=== PATIENT | male | born 1990 | race Caucasian/White ===

== ENCOUNTER → 2016-12-19 | Outpatient (CLI) | payer OTHER ==
[2016-12-19 10:58] LABS: ABSOLUTE LYMPHOCYTES (AUTO) 1.3 10^3/uL (0.5-4.7); ABSOLUTE MONOCYTES (AUTO) 0.4 10^3/uL (0.1-1.4); ABSOLUTE NEUT (AUTO) 3.4 10^3/uL (1.7-8.2); BASOPHILS % (AUTO) 0.5 % (0-2); EOSINOPHILS % (AUTO) 0.9 % (0-6); HEMOGLOBIN 14.6 g/dL (13.5-17.0); HGB HCT DIFFERENCE 0.8; LYMPHOCYTES % (AUTO) 25.5 % (13-45); MEAN CORPUSCULAR HEMOGLOBIN 28.8 pg (27.0-33.4); MEAN CORPUSCULAR HGB CONC 33.9 g/dL (32.0-36.0); MEAN CORPUSCULAR VOLUME 85 fl (80-97); MONOCYTES % (AUTO) 8.3 % (3-13); RED BLOOD COUNT 5.07 10^6/uL (4.35-5.55); RED CELL DISTRIBUTION WIDTH 13.9 % (11.5-14.0); SEGMENTED NEUTROPHILS % (AUTO) 64.8 % (42-78); WHITE BLOOD COUNT 5.3 10^3/uL (4.0-10.5)
[2016-12-19 11:20] LABS: ALANINE AMINOTRANSFERASE 24 U/L (21-72); ALBUMIN 4.4 g/dL (3.5-5.0); ALKALINE PHOSPHATASE 66 U/L (38-126); ANION GAP 10 (5-19); ASPARTATE AMINO TRANSFERASE 21 U/L (17-59); BILIRUBIN,TOTAL 0.7 mg/dL (0.2-1.3); BLOOD UREA NITROGEN 6 mg/dL (7-20); CALCIUM 10.8 mg/dL (8.4-10.2); CARBON DIOXIDE 29 mmol/L (22-30); CHLORIDE 97 mmol/L (98-107); CHOLESTEROL 142.59 mg/dL (0-200); Direct HDL 40 mg/dL (>40); GLUCOSE 88 mg/dL (75-110); POTASSIUM 4.6 mmol/L (3.6-5.0); SODIUM 135.5 mmol/L (137-145); TOTAL PROTEIN 7.4 g/dL (6.3-8.2); TRIGLYCERIDES 100 mg/dL (<150)
[2016-12-19 11:31] LABS: DIRECT LDL 69 mg/dL (<100); VALPROIC ACID 86.7 ug/mL (50.0-120.0)
== END ==
LOC: OD 09:31
PROVIDERS: ATTEND Nurse Practitioner Psychiatric/Mental Health
DX: F63.81 Intermittent explosive disorder (principal)
CPT/HCPCS: 36415; 80053; 80061; 80164; 83036; 84443; 85025

== ENCOUNTER 2017-01-09 11:08 | Emergency (ER) | payer OTHER, MEDICAID ==
--- NOTE | 2017-01-09 11:28 | ER Document Report ---
ED Medical Screen (RME) - General Stated Complaint: PSYCH EVAL Mode of Arrival: Ambulatory Notes: Patient presents to the emergency department with his crisis workers for aggressive behavior kicking punching. Patient has history of schizophrenia MR, Autism. Seen by his primary care provider and sent over here. I have greeted and performed a rapid initial assessment of this patient. A comprehensive ED assessment and evaluation of the patient, analysis of test results and completion of the medical decision making process will be conducted by additional ED providers. TRAVEL OUTSIDE OF THE [place] IN LAST 30 DAYS: No - Related Data Allergies/Adverse Reactions: No Known Allergies Allergy (Verified 01/09/17 11:25) Past Medical History - Past Medical History Cardiac Medical History: Reports: Hx Atrial Fibrillation, Hx Heart Attack - valve condition Psychiatric Medical History: Reports: Hx Attention Deficit Hyperactivity Disorder - autism Past Surgical History: Reports: Hx Cardiac Catheterization, Hx Cardiac Surgery - Aortic Valve Replacement. VSD repair, Hx Orthopedic Surgery - Hardware of spine for scoliosis - Immunizations Hx Diphtheria, Pertussis, Tetanus Vaccination: Yes Physical Exam - Vital signs Vitals: Temp Pulse Resp BP Pulse Ox 97.3 F 83 16 147/74 H 99 01/09/17 11:18 01/09/17 11:18 01/09/17 11:18 01/09/17 11:18 01/09/17 11:18 Course - Vital Signs Vital signs: Temp Pulse Resp BP Pulse Ox 97.3 F 83 16 147/74 H 99 01/09/17 11:18 01/09/17 11:18 01/09/17 11:18 01/09/17 11:18 01/09/17 11:18
[2017-01-09 12:10] LABS: ABSOLUTE MONOCYTES (AUTO) 0.4 10^3/uL (0.1-1.4); ABSOLUTE NEUT (AUTO) 5.1 10^3/uL (1.7-8.2); BASOPHILS % (AUTO) 0.5 % (0-2); EOSINOPHILS % (AUTO) 0.4 % (0-6); HEMATOCRIT 40.8 % (37.9-51.0); HEMOGLOBIN 14.1 g/dL (13.5-17.0); HGB HCT DIFFERENCE 1.5; LYMPHOCYTES % (AUTO) 15.4 % (13-45); MEAN CORPUSCULAR HEMOGLOBIN 29.5 pg (27.0-33.4); MEAN CORPUSCULAR HGB CONC 34.6 g/dL (32.0-36.0); MEAN CORPUSCULAR VOLUME 85 fl (80-97); MONOCYTES % (AUTO) 6.8 % (3-13); RED BLOOD COUNT 4.79 10^6/uL (4.35-5.55); RED CELL DISTRIBUTION WIDTH 14.3 % (11.5-14.0); SEGMENTED NEUTROPHILS % (AUTO) 76.9 % (42-78); WHITE BLOOD COUNT 6.6 10^3/uL (4.0-10.5)
[2017-01-09 12:11] LABS: APPEARANCE,URINE CLEAR; BILIRUBIN,URINE NEGATIVE (NEGATIVE); GLUCOSE, URINE NEGATIVE (NEGATIVE); KETONES,URINE NEGATIVE (NEGATIVE); LEUKOCYTE ESTERASE,URINE NEGATIVE (NEGATIVE); NITRITE,URINE NEGATIVE (NEGATIVE); PROTEIN,URINE NEGATIVE (NEGATIVE); URINE SPECIFIC GRAVITY 1.005; UROBILINOGEN,URINE NEGATIVE mg/dL (<2.0)
[2017-01-09 12:30] LABS: URINE BARBITURATES SCREEN NEGATIVE; URINE METHADONE SCREEN NEGATIVE; URINE OPIATES LOW NEGATIVE; URINE PHENCYCLIDINE SCREEN NEGATIVE
[2017-01-09 12:32] LABS: ALANINE AMINOTRANSFERASE 24 U/L (21-72); ALBUMIN 4.5 g/dL (3.5-5.0); ALCOHOL < 10 mg/dL (NONE DETECTED); ALKALINE PHOSPHATASE 61 U/L (38-126); ANION GAP 11 (5-19); ASPARTATE AMINO TRANSFERASE 20 U/L (17-59); BILIRUBIN,DIRECT 0.2 mg/dL (0.0-0.4); BILIRUBIN,TOTAL 0.5 mg/dL (0.2-1.3); BLOOD UREA NITROGEN 7 mg/dL (7-20); CALCIUM 10.7 mg/dL (8.4-10.2); CARBON DIOXIDE 27 mmol/L (22-30); CHLORIDE 97 mmol/L (98-107); CREATININE RESULT 0.47 mg/dL (0.52-1.25); GLUCOSE 97 mg/dL (75-110); POTASSIUM 4.4 mmol/L (3.6-5.0); TOTAL PROTEIN 7.4 g/dL (6.3-8.2)
[2017-01-09] MEDS ORDERED: HALOPERIDOL LACTATE INJ 5 MG/1 ML VIAL IM ONE (13:59)
[2017-01-09] MEDS ORDERED: LORAZEPAM INJ 2 MG/1 ML VIAL IM ONE (13:59)
[2017-01-09] MEDS ORDERED: DIPHENHYDRAMINE HCL 50 MG/ML VIAL IM ONE (13:59)
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
[2017-01-09 14:32] LABS: PROTHROMBIN TIME 24.1 SEC (11.4-15.4)
--- NOTE | 2017-01-09 15:58 | EKG REPORT ---
SEVERITY:- ABNORMAL ECG - SINUS RHYTHM RIGHT BUNDLE BRANCH BLOCK PROBABLE LEFT VENTRICULAR HYPERTROPHY : Confirmed by: Nat Osborn 09-Jan-2017 15:57:08
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
[2017-01-09] MEDS ORDERED: WARFARIN SODIUM 5 MG TABLET PO SCH (22:00)
[2017-01-09] MEDS: HYDROXYZINE PAMOATE 50 MG CAPSULE PO SCH (22:00)
[2017-01-09] MEDS: METOPROLOL TARTRATE 25 MG TABLET PO SCH (22:00)
[2017-01-10] MEDS ORDERED: LORAZEPAM 1 MG TABLET PO PRN (09:16)
--- NOTE | 2017-01-10 09:16 | ER Document Report ---
Doctor's Note Notes: 01/10/17 09:16 Provider note: This is a 26-year-old man with a history of AVR (Coumadin), and autism who was referred to the ER for an exacerbation of aggressive behavior. The patient did require sedation with Ativan, Haldol and Benadryl on arrival for aggressive behavior. The patient's labs are stable. His vital signs remarkable for mild elevation in his blood pressure. CT of the head was without acute disease process. On physical exam, the patient is alert and oriented 3 and a sitting in the chair moving back and forth. He denies any problems at this time. He appears emotionally labile, although he is controlling himself at this time. He is about to get morning medicines. His physical exam is unremarkable. We are awaiting psychiatric evaluation. 01/10/17 11:35 Note: I spoke with Nelly jones from the family medicine clinic (phone number [phone]) who arranges adjustments for the Coumadin with the pharmacy. The goal of the INR is between 2 and 2.5. They have recommended that the patient receive 10 mg of Coumadin Monday, Monday and Monday. There have recommended that the patient received 7.5 mg of Coumadin or other days. 01/10/17 11:37
[2017-01-10] MEDS: LANSOPRAZOLE 15 MG TAB.RAP.DR PO SCH (09:29)
[2017-01-10] MEDS: DIVALPROEX SODIUM 500 MG TAB.SR.24H PO SCH ×2 (09:29→18:31)
[2017-01-10] MEDS: BENZTROPINE MESYLATE 1 MG TABLET PO SCH ×2 (09:30→18:31)
[2017-01-10] MEDS: METOPROLOL TARTRATE 25 MG TABLET PO SCH ×2 (09:30→21:42)
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
[2017-01-10] MEDS ORDERED: WARFARIN SODIUM 7.5 MG TABLET PO SCH ×2 (11:45→22:00)
[2017-01-10] MEDS ORDERED: ZIPRASIDONE MESYLATE INJ/PF 20 MG SDV IM SCH (13:00)
[2017-01-10] MEDS ORDERED: OLANZAPINE INJ/PF 10 MG SDV IM SCH (13:00)
[2017-01-10] MEDS ORDERED: OLANZAPINE INJ/PF 10 MG SDV IM PRN (13:02)
[2017-01-10] MEDS ORDERED: ZIPRASIDONE MESYLATE INJ/PF 20 MG SDV IM ONE (14:30)
[2017-01-10] MEDS ORDERED: WARFARIN SODIUM 2.5 MG TABLET ONE (21:40)
[2017-01-10] MEDS: OXCARBAZEPINE 150 MG TABLET PO SCH (21:42)
[2017-01-10] MEDS: HYDROXYZINE PAMOATE 50 MG CAPSULE PO SCH (21:44)
[2017-01-10] MEDS: ZIPRASIDONE MESYLATE INJ/PF 20 MG SDV IM SCH (21:44)
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
[2017-01-11] MEDS: METOPROLOL TARTRATE 25 MG TABLET PO SCH (10:19)
[2017-01-11] MEDS: ZIPRASIDONE MESYLATE INJ/PF 20 MG SDV IM SCH (10:19)
[2017-01-11] MEDS: BENZTROPINE MESYLATE 1 MG TABLET PO SCH (10:19)
[2017-01-11] MEDS: OXCARBAZEPINE 150 MG TABLET PO SCH (10:20)
[2017-01-11] MEDS: DIVALPROEX SODIUM 500 MG TAB.SR.24H PO SCH (10:20)
[2017-01-11] MEDS: LANSOPRAZOLE 15 MG TAB.RAP.DR PO SCH (10:20)
[2017-01-11] MEDS ORDERED: WARFARIN SODIUM 5 MG TABLET PO SCH ×2 (11:30→22:00)
[2017-01-11 15:51] VITALS: BP 135/76
== END 2017-01-11 15:51 ==
LOC: ER 11:08
DX: F91.1 Conduct disorder, childhood-onset type (principal); F23 Brief psychotic disorder; F79 Unspecified intellectual disabilities; F84.0 Autistic disorder; F25.0 Schizoaffective disorder, bipolar type; I48.91 Unspecified atrial fibrillation; F90.9 Attention-deficit hyperactivity disorder, unspecified type; Z95.2 Presence of prosthetic heart valve; Z79.02 Long term (current) use of antithrombotics/antiplatelets; I25.2 Old myocardial infarction
CPT/HCPCS: 93005; 99285; 96372; 36415; 80307 ×4; 82140; 80156; 85025; 85610; 80053; 81001; 80164; 70450; 93010; J1200; J1630; J2060; J3486

== ENCOUNTER 2017-01-13 15:02 | Emergency (ER) | payer OTHER, MEDICAID ==
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
[2017-01-13 16:10] LABS: ABSOLUTE EOSINOPHILS # (AUTO) 0.2 10^3/uL (0.0-0.6); ABSOLUTE LYMPHOCYTES (AUTO) 1.1 10^3/uL (0.5-4.7); ABSOLUTE MONOCYTES (AUTO) 0.8 10^3/uL (0.1-1.4); ABSOLUTE NEUT (AUTO) 4.4 10^3/uL (1.7-8.2); BASOPHILS % (AUTO) 0.4 % (0-2); EOSINOPHILS % (AUTO) 3.1 % (0-6); HEMATOCRIT 37.9 % (37.9-51.0); HEMOGLOBIN 13.2 g/dL (13.5-17.0); HGB HCT DIFFERENCE 1.7; LYMPHOCYTES % (AUTO) 17.5 % (13-45); MEAN CORPUSCULAR HEMOGLOBIN 29.2 pg (27.0-33.4); MEAN CORPUSCULAR HGB CONC 34.8 g/dL (32.0-36.0); MEAN CORPUSCULAR VOLUME 84 fl (80-97); MONOCYTES % (AUTO) 12.1 % (3-13); RED BLOOD COUNT 4.51 10^6/uL (4.35-5.55); RED CELL DISTRIBUTION WIDTH 13.5 % (11.5-14.0); SEGMENTED NEUTROPHILS % (AUTO) 66.9 % (42-78); WHITE BLOOD COUNT 6.6 10^3/uL (4.0-10.5)
[2017-01-13 16:26] LABS: ALANINE AMINOTRANSFERASE 30 U/L (21-72); ALBUMIN 3.9 g/dL (3.5-5.0); ALKALINE PHOSPHATASE 58 U/L (38-126); ANION GAP 11 (5-19); ASPARTATE AMINO TRANSFERASE 31 U/L (17-59); BILIRUBIN,DIRECT 0.1 mg/dL (0.0-0.4); BILIRUBIN,TOTAL 0.5 mg/dL (0.2-1.3); BLOOD UREA NITROGEN 10 mg/dL (7-20); CALCIUM 9.8 mg/dL (8.4-10.2); CARBON DIOXIDE 28 mmol/L (22-30); CHLORIDE 92 mmol/L (98-107); CREATININE RESULT 0.57 mg/dL (0.52-1.25); GLUCOSE 95 mg/dL (75-110); POTASSIUM 3.6 mmol/L (3.6-5.0); SODIUM 130.7 mmol/L (137-145); TOTAL PROTEIN 6.3 g/dL (6.3-8.2)
[2017-01-13 16:30] LABS: APPEARANCE,URINE CLEAR; BILIRUBIN,URINE NEGATIVE (NEGATIVE); GLUCOSE, URINE NEGATIVE (NEGATIVE); KETONES,URINE NEGATIVE (NEGATIVE); LEUKOCYTE ESTERASE,URINE NEGATIVE (NEGATIVE); NITRITE,URINE NEGATIVE (NEGATIVE); PROTEIN,URINE 30 mg/dL (NEGATIVE); URINE SPECIFIC GRAVITY 1.026
[2017-01-13 16:31] LABS: ALCOHOL < 10 mg/dL (NONE DETECTED); VALPROIC ACID 87.1 ug/mL (50.0-120.0)
[2017-01-13 16:39] LABS: URINE BARBITURATES SCREEN NEGATIVE; URINE METHADONE SCREEN NEGATIVE; URINE OPIATES LOW NEGATIVE; URINE PHENCYCLIDINE SCREEN NEGATIVE
[2017-01-13] MEDS ORDERED: DIPHENHYDRAMINE HCL 50 MG/ML VIAL IM ONE (16:43)
[2017-01-13] MEDS ORDERED: HALOPERIDOL LACTATE INJ 5 MG/1 ML VIAL IM ONE (16:43)
[2017-01-13] MEDS ORDERED: LORAZEPAM INJ 2 MG/1 ML VIAL IM ONE (16:43)
[2017-01-13 17:30] LABS: PROTHROMBIN TIME 43.6 SEC (11.4-15.4)
--- NOTE | 2017-01-13 21:58 | EKG REPORT ---
SEVERITY:- ABNORMAL ECG - SINUS RHYTHM RIGHT BUNDLE BRANCH BLOCK BORDERLINE ST DEPRESSION, LATERAL LEADS : Confirmed by: Nat Osborn 13-Jan-2017 21:58:15
[2017-01-13] MEDS ORDERED: METOPROLOL TARTRATE 25 MG TABLET PO SCH (22:00)
[2017-01-14] MEDS ORDERED: HALOPERIDOL LACTATE INJ 5 MG/1 ML VIAL IM ONE (07:04)
[2017-01-14] MEDS ORDERED: DIPHENHYDRAMINE HCL 50 MG/ML VIAL IM ONE (07:05)
[2017-01-14] MEDS ORDERED: LORAZEPAM INJ 2 MG/1 ML VIAL IM ONE (07:05)
[2017-01-14] MEDS ORDERED: HALOPERIDOL LACTATE INJ 5 MG/1 ML VIAL ONE (07:06)
[2017-01-14] MEDS ORDERED: DIPHENHYDRAMINE HCL 50 MG/ML VIAL ONE (07:06)
[2017-01-14] MEDS ORDERED: LORAZEPAM INJ 2 MG/1 ML VIAL ONE (07:07)
[2017-01-14 08:29] LABS: PROTHROMBIN TIME 39.2 SEC (11.4-15.4)
--- NOTE | 2017-01-14 09:13 | ER Document Report ---
Doctor's Note Notes: 01/14/17 09:12 As the rounding physician for our psychiatric patients, I have reviewed the chart, vitals, lab work. Patient has been examined and noted to be restrained due ot aggressive behavior. I am awaiting mental health in put. 01/14/17 09:39
[2017-01-14] MEDS ORDERED: HALOPERIDOL DECANOATE INJ 100 MG/1 ML VIAL IM PRN (11:52)
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
[2017-01-14] MEDS: DIVALPROEX SODIUM 500 MG TAB.SR.24H PO SCH (17:54)
[2017-01-14] MEDS: BENZTROPINE MESYLATE 1 MG TABLET PO SCH (17:54)
[2017-01-14] MEDS: OXCARBAZEPINE 150 MG TABLET PO SCH (21:50)
[2017-01-14] MEDS: FAMOTIDINE 20 MG TABLET PO SCH (21:50)
[2017-01-14] MEDS: HALOPERIDOL 5 MG TABLET PO SCH (21:50)
[2017-01-14] MEDS ORDERED: WARFARIN SODIUM 7.5 MG TABLET PO SCH (22:00)
[2017-01-14] MEDS ORDERED: HYDROXYZINE PAMOATE 50 MG CAPSULE PO SCH (22:00)
[2017-01-15 07:21] LABS: PROTHROMBIN TIME 19.9 SEC (11.4-15.4)
--- NOTE | 2017-01-15 09:19 | ER Document Report ---
Doctor's Note Notes: 01/15/17 09:19 Lab work vital signs have been reviewed. At this time patient is currently stable with no overnight events requiring no intervention at this time. Patient stable for transfer or other disposition INR at this time subtherapeutic will adjust Coumadin for tonight.
[2017-01-15] MEDS: OXCARBAZEPINE 150 MG TABLET PO SCH (09:40)
[2017-01-15] MEDS: FAMOTIDINE 20 MG TABLET PO SCH (09:41)
[2017-01-15] MEDS: DIVALPROEX SODIUM 500 MG TAB.SR.24H PO SCH ×2 (09:42→17:45)
[2017-01-15] MEDS: BENZTROPINE MESYLATE 1 MG TABLET PO SCH ×2 (09:42→17:45)
[2017-01-15] MEDS: HALOPERIDOL 5 MG TABLET PO SCH (09:43)
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
--- NOTE | 2017-01-15 12:08 | ER Document Report ---
ED Psych Disorder / Suicide - General Information source: Patient, [facility] Records, Outside Facility Records Cannot obtain history due to: Mentally challenged TRAVEL OUTSIDE OF THE [place] IN LAST 30 DAYS: No - HPI Patient complains to provider of: Aggression - TRIMMER MACHINE Onset: Just prior to arrival Onset was: Sudden Situational problems related to: Other - possible medication probs; stress from residential setting Normal mood: Yes - at the time of reevaluation this morning Associated symptoms: Normal affect, Normal mood, Agitated - TRIMMER MACHINE, Anxious - TRIMMER MACHINE, Combative - TRIMMER MACHINE, Irritable - TRIMMER MACHINE Similar symptoms previously: Yes - multiple prior episodes Recently seen / treated by doctor: Yes - [facility]; d/c from ED last week <TRACI PERES - Last Filed: 01/15/17 12:00> <MAXWELL HDEZ - Last Filed: 01/15/17 13:14> - General Chief Complaint: Psych Problem Stated Complaint: PSYCH EVALUATION - Related Data Allergies/Adverse Reactions: No Known Allergies Allergy (Verified 01/09/17 11:25) Past Medical History - Social History Smoking Status: Unknown if Ever Smoked Family History: Reviewed & Not Pertinent - Past Medical History Cardiac Medical History: Reports: Hx Atrial Fibrillation, Hx Heart Attack - valve condition Renal/ Medical History: Denies: Hx Peritoneal Dialysis Psychiatric Medical History: Reports: Hx Attention Deficit Hyperactivity Disorder - autism Past Surgical History: Reports: Hx Cardiac Catheterization, Hx Cardiac Surgery - Aortic Valve Replacement. VSD repair, Hx Orthopedic Surgery - Hardware of spine for scoliosis - Immunizations Hx Diphtheria, Pertussis, Tetanus Vaccination: Yes <TRACI PERES - Last Filed: 01/15/17 12:00> Course - Laboratory Result Diagrams: 01/13/17 15:58 01/13/17 15:58 <TRACI PERES - Last Filed: 01/15/17 12:00> - Laboratory Result Diagrams: 01/13/17 15:58 01/13/17 15:58 <MAXWELL HDEZ - Last Filed: 01/15/17 13:14> - Re-evaluation Re-evalutation: 01/15/17 13:11 Patient has been evaluated by psychiatric team no longer makes IVC criteria. Patient's follow-up with his psychiatric providers outpatient. (MAXWELL HDEZ) - Vital Signs Vital signs: Temp Pulse Resp BP Pulse Ox 98.0 F 68 16 128/73 H 100 01/15/17 05:20 01/15/17 05:20 01/15/17 05:20 01/15/17 05:20 01/15/17 05:20 - Laboratory Laboratory results interpreted by me: 01/13/17 01/13/17 01/13/17 15:58 15:58 15:58 Hgb 13.2 L Plt Count 141 L PT APTT Sodium 130.7 L Chloride 92 L Ammonia Urine Protein 30 H Urine Urobilinogen 2.0 H Salicylates < 1.0 L Acetaminophen < 10 L 01/13/17 01/13/17 01/14/17 17:00 17:00 08:06 Hgb Plt Count PT 43.6 H D 39.2 H APTT 63.0 H Sodium Chloride Ammonia < 8.7 L Urine Protein Urine Urobilinogen Salicylates Acetaminophen 01/15/17 07:02 Hgb Plt Count PT 19.9 H APTT Sodium Chloride Ammonia Urine Protein Urine Urobilinogen Salicylates Acetaminophen Discharge <TRACI PERES - Last Filed: 01/15/17 12:00> <MAXWELL HDEZ - Last Filed: 01/15/17 13:14> - Discharge Clinical Impression: Aggressive behavior, Supratherapeutic INR, Threatening to others Condition: Fair Disposition: HOME, SELF-CARE Instructions: Schizophrenia ([facility]), Bipolar Disorder ([facility]) Additional Instructions: Please follow up with your psychiatric provider within 5-7 days. Please return to the ED if any of your symptoms worsen or you experience thoughts of suicide. Please continue Coumadin Prescriptions: Benztropine Mesylate [Cogentin 1 mg Tablet] 1 tab PO BID 7 Days Divalproex Sodium [Depakote] 1,000 mg PO Q12 7 Days Haloperidol [Haldol 5 mg Tablet] 5 mg PO Q12 7 Days Hydroxyzine Pamoate [Vistaril 50 mg Capsule] 50 mg PO DAILY 7 Days Oxcarbazepine [Trileptal 150 Mg Tablet] 600 mg PO BID 7 Days Forms: Return to Work
[2017-01-15 18:04] VITALS: BP 130/72
[2017-01-15] MEDS ORDERED: WARFARIN SODIUM 5 MG TABLET PO ONE (22:00)
== END 2017-01-15 18:11 | disposition home or self-care (01) ==
LOC: ER 15:02
DX: R45.6 Violent behavior (principal); F84.0 Autistic disorder; F79 Unspecified intellectual disabilities; F41.9 Anxiety disorder, unspecified; Z78.1 Physical restraint status; I25.2 Old myocardial infarction; Z95.2 Presence of prosthetic heart valve; Z79.01 Long term (current) use of anticoagulants
CPT/HCPCS: 93005; 96372; 99285; 36415; 80307 ×4; 82140; 85025; 85610; 85730; 80053; 81001; 80164; 93010; J1200 ×2; J1630 ×2; J3490; J2060 ×2

== ENCOUNTER 2017-01-15 20:09 | Emergency (ER) | payer OTHER, MEDICAID ==
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
[2017-01-16] MEDS ORDERED: ACETAMINOPHEN 325 MG TABLET PO PRN (15:15)
[2017-01-16] MEDS ORDERED: CHLORPROMAZINE HCL 50 MG TABLET PO PRN (15:15)
[2017-01-16] MEDS ORDERED: MAGNESIUM HYDROXIDE SUSP 30 ML UDCUP PO PRN (15:15)
[2017-01-16] MEDS ORDERED: WARFARIN SODIUM 5 MG TABLET PO ONE (16:00)
[2017-01-16 17:08] LABS: HEMATOCRIT 39.9 % (37.9-51.0); HEMOGLOBIN 13.7 g/dL (13.5-17.0); HGB HCT DIFFERENCE 1.2; MEAN CORPUSCULAR HEMOGLOBIN 29.6 pg (27.0-33.4); MEAN CORPUSCULAR HGB CONC 34.2 g/dL (32.0-36.0); MEAN CORPUSCULAR VOLUME 86 fl (80-97); RED BLOOD COUNT 4.62 10^6/uL (4.35-5.55); RED CELL DISTRIBUTION WIDTH 13.9 % (11.5-14.0); WHITE BLOOD COUNT 6.5 10^3/uL (4.0-10.5)
[2017-01-16 17:15] LABS: APPEARANCE,URINE CLEAR; BILIRUBIN,URINE NEGATIVE (NEGATIVE); GLUCOSE, URINE NEGATIVE (NEGATIVE); KETONES,URINE TRACE mg/dL (NEGATIVE); LEUKOCYTE ESTERASE,URINE NEGATIVE (NEGATIVE); NITRITE,URINE NEGATIVE (NEGATIVE); PROTEIN,URINE NEGATIVE (NEGATIVE); UROBILINOGEN,URINE NEGATIVE mg/dL (<2.0)
[2017-01-16 17:17] LABS: PROTHROMBIN TIME 16.8 SEC (11.4-15.4)
[2017-01-16] MEDS ORDERED: ZIPRASIDONE HCL 20 MG CAPSULE PO SCH (18:00)
[2017-01-16] MEDS ORDERED: HYDROXYZINE PAMOATE 50 MG CAPSULE PO SCH (18:00)
[2017-01-16] MEDS ORDERED: BENZTROPINE MESYLATE 1 MG TABLET PO SCH (18:00)
[2017-01-16] MEDS ORDERED: OLANZAPINE 10 MG PO SCH (18:00)
[2017-01-16] MEDS ORDERED: (PENDING PHARMACY ID) (Oxcarbazepine [Trileptal] 600 MG) PO SCH (18:00)
[2017-01-16 19:07] VITALS: BP 133/69
[2017-01-16] MEDS ORDERED: (PENDING PHARMACY ID) (Warfarin Sodium 10 MG) PO SCH (22:00)
[2017-01-16] MEDS ORDERED: METOPROLOL TARTRATE 25 MG TABLET PO SCH (22:00)
[2017-01-16] MEDS ORDERED: (PENDING PHARMACY ID) (Zolpidem Tartrate [Ambien] 10 MG) PO SCH (22:00)
[2017-01-16] MEDS ORDERED: DOCUSATE SODIUM 100 MG CAPSULE PO SCH (22:00)
[2017-01-16] MEDS ORDERED: OLANZAPINE 5 MG TABLET PO SCH (22:00)
[2017-01-16] MEDS ORDERED: ZOLPIDEM TARTRATE 5 MG TABLET PO SCH (22:00)
[2017-01-16] MEDS ORDERED: DIVALPROEX SODIUM 500 MG TAB.SR.24H PO SCH (22:00)
[2017-01-16] MEDS ORDERED: WARFARIN SODIUM 5 MG TABLET PO SCH (22:00)
[2017-01-17] MEDS ORDERED: LANSOPRAZOLE 30 MG TAB.RAP.DR PO SCH (06:00)
[2017-01-17] MEDS ORDERED: MAGNESIUM OXIDE 400 MG TABLET PO SCH (10:00)
== END 2017-01-16 19:15 | disposition home or self-care (01) ==
LOC: ER 20:09
DX: F91.1 Conduct disorder, childhood-onset type (principal)
CPT/HCPCS: 36415; 81001; 85027; 85610; 99284

== ENCOUNTER 2018-01-28 14:46 | Emergency (ER) | payer MEDICAID, OTHER ==
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
--- NOTE | 2018-01-28 15:35 | RADIOLOGY REPORT (SQ) ---
EXAM DESCRIPTION: CT HEAD WITHOUT COMPLETED DATE/TIME: 01/28/2018 3:27 pm REASON FOR STUDY: ams COMPARISON: 2017 TECHNIQUE: Axial images acquired through the brain without intravenous contrast. Images reviewed wi th bone, brain and subdural windows. Additional sagittal and coronal reconstructions were generated. Images stored on PACS. All CT scanners at this facility use dose modulation, iterative reconstruction, and/or weight based d osing when appropriate to reduce radiation dose to as low as reasonably achievable (ALARA). [facility]: Dose Right [facility]: CareDose [facility]: Dose Right [facility]: Teradose 4D [facility]: Smart [employer] RADIATION DOSE: CT Rad equipment meets quality standard of care and radiation dose reduction techniq ues were employed. CTDIvol: 53.2 mGy. DLP: 1177 mGy-cm. mGy. LIMITATIONS: None. FINDINGS: VENTRICLES: Normal size and contour. CEREBRUM: No masses. No hemorrhage. No midline shift. No evidence for acute infarction. Normal gra y/white matter differentiation. No areas of low density in the white matter. CEREBELLUM: No masses. No hemorrhage. No alteration of density. No evidence for acute infarction. EXTRAAXIAL SPACES: No fluid collections. No masses. ORBITS AND GLOBE: No intra- or extraconal masses. Normal contour of globe without masses. CALVARIUM: No fracture. PARANASAL SINUSES: No fluid or mucosal thickening. SOFT TISSUES: No mass or hematoma. OTHER: No other significant finding. IMPRESSION: NORMAL BRAIN CT WITHOUT CONTRAST. EVIDENCE OF ACUTE STROKE: NO. COMMENT: Quality ID # [id number]: Final reports with documentation of one or more dose reduction techniques (e.g., Automated exposure control, adjustment of the mA and/or kV according to patient size, use of iterative reconstruction technique) TECHNICAL DOCUMENTATION: JOB ID: [id number] [employer]- All Rights Reserved Reading location - IP/workstation name: [email or web address]
--- NOTE | 2018-01-28 15:44 | RADIOLOGY REPORT (SQ) ---
EXAM DESCRIPTION: HAND RIGHT 3 VIEWS COMPLETED DATE/TIME: 01/28/2018 3:35 pm REASON FOR STUDY: injury COMPARISON: None. EXAM PARAMETERS: NUMBER OF VIEWS: Three views. TECHNIQUE: AP, lateral and oblique radiographic images acquired of the right hand. LIMITATIONS: None. FINDINGS: MINERALIZATION: Normal. BONES: No acute fracture or dislocation. No worrisome bone lesions. JOINTS: No effusions. SOFT TISSUES: No soft tissue swelling. No foreign body. OTHER: No other significant finding. IMPRESSION: NEGATIVE STUDY OF THE RIGHT HAND. NO RADIOGRAPHIC EVIDENCE OF ACUTE INJURY. TECHNICAL DOCUMENTATION: JOB ID: [id number] [employer]- All Rights Reserved Reading location - IP/workstation name: [email or web address]
[2018-01-28 16:16] LABS: INTERNATIONAL RATION (INR) 4.05; PROTHROMBIN TIME 41.2 SEC (11.4-15.4)
[2018-01-28 16:17] LABS: PARTIAL THROMBOPLASTIN TIME 59.1 SEC (23.5-35.8)
[2018-01-28 16:21] LABS: ABSOLUTE EOSINOPHILS # (AUTO) 0.1 10^3/uL (0.0-0.6); ABSOLUTE LYMPHOCYTES (AUTO) 1.4 10^3/uL (0.5-4.7); ABSOLUTE MONOCYTES (AUTO) 0.6 10^3/uL (0.1-1.4); ABSOLUTE NEUT (AUTO) 4.4 10^3/uL (1.7-8.2); BASOPHILS % (AUTO) 0.5 % (0-2); EOSINOPHILS % (AUTO) 1.7 % (0-6); HEMATOCRIT 42.1 % (37.9-51.0); HEMOGLOBIN 14.3 g/dL (13.5-17.0); MEAN CORPUSCULAR HEMOGLOBIN 29.9 pg (27.0-33.4); MEAN CORPUSCULAR HGB CONC 34.1 g/dL (32.0-36.0); MEAN CORPUSCULAR VOLUME 88 fl (80-97); MONOCYTES % (AUTO) 8.6 % (3-13); PLATELET COUNT 146 10^3/uL (150-450); RED CELL DISTRIBUTION WIDTH 13.3 % (11.5-14.0); SEGMENTED NEUTROPHILS % (AUTO) 67.2 % (42-78); TOTAL CELLS COUNTED % (AUTO) 100 %; WHITE BLOOD COUNT 6.6 10^3/uL (4.0-10.5)
[2018-01-28 16:26] LABS: ALANINE AMINOTRANSFERASE 22 U/L (21-72); ALBUMIN 4.3 g/dL (3.5-5.0); ALKALINE PHOSPHATASE 61 U/L (38-126); ANION GAP 8 (5-19); ASPARTATE AMINO TRANSFERASE 24 U/L (17-59); BILIRUBIN,DIRECT 0.1 mg/dL (0.0-0.4); BILIRUBIN,TOTAL 0.3 mg/dL (0.2-1.3); BLOOD UREA NITROGEN 5 mg/dL (7-20); CALCIUM 10.8 mg/dL (8.4-10.2); CARBON DIOXIDE 33 mmol/L (22-30); CHLORIDE 100 mmol/L (98-107); GLUCOSE 87 mg/dL (75-110); POTASSIUM 4.2 mmol/L (3.6-5.0); SODIUM 140.9 mmol/L (137-145); TOTAL PROTEIN 6.7 g/dL (6.3-8.2)
[2018-01-28 16:32] LABS: ACETAMINOPHEN < 10 ug/mL (10-30); ALCOHOL < 10 mg/dL (NONE DETECTED); SALICYLATE < 1.0 mg/dL (2.0-20.0)
[2018-01-28 18:20] LABS: AMORPHOUS SEDIMENT,URINE TRACE /HPF; APPEARANCE,URINE CLOUDY; BILIRUBIN,URINE NEGATIVE (NEGATIVE); COLOR,URINE YELLOW; GLUCOSE, URINE NEGATIVE (NEGATIVE); KETONES,URINE NEGATIVE (NEGATIVE); LEUKOCYTE ESTERASE,URINE NEGATIVE (NEGATIVE); NITRITE,URINE NEGATIVE (NEGATIVE); PROTEIN,URINE 100 mg/dL (NEGATIVE); URINE SPECIFIC GRAVITY 1.012; UROBILINOGEN,URINE NEGATIVE mg/dL (<2.0)
[2018-01-28 18:30] LABS: URINE AMPHETAMINES SCREEN NEGATIVE; URINE BARBITURATES SCREEN NEGATIVE; URINE BENZODIAZEPINES SCREEN NEGATIVE; URINE COCAINE SCREEN NEGATIVE; URINE MARIJUANA (THC) SCREEN NEGATIVE; URINE METHADONE SCREEN NEGATIVE; URINE PHENCYCLIDINE SCREEN NEGATIVE
--- NOTE | 2018-01-28 19:58 | EKG REPORT ---
SEVERITY:- ABNORMAL ECG - SINUS RHYTHM LEFT ATRIAL ABNORMALITY RIGHT BUNDLE BRANCH BLOCK LEFT VENTRICULAR HYPERTROPHY : Confirmed by: Erasmo Maya MD 28-Jan-2018 19:58:21
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
[2018-01-29 08:55] LABS: APPEARANCE,URINE SLIGHTLY-CLOUDY; BILIRUBIN,URINE NEGATIVE (NEGATIVE); COLOR,URINE YELLOW; GLUCOSE, URINE NEGATIVE (NEGATIVE); KETONES,URINE TRACE mg/dL (NEGATIVE); LEUKOCYTE ESTERASE,URINE NEGATIVE (NEGATIVE); NITRITE,URINE NEGATIVE (NEGATIVE); PROTEIN,URINE 30 mg/dL (NEGATIVE); URINE SPECIFIC GRAVITY 1.019
--- NOTE | 2018-01-29 09:39 | ER Document Report ---
Doctor's Note Notes: 01/29/18 09:3 Pt seen and examined. He has no complaints this time and is very cooperative. His INR yesterday was 4.0 and he says he takes Coumadin for a valve replacement. Will recheck his INR today. Patient's IVC will be rescinded as he does not meet any legal criteria for IVC at this time. 01/29/18 10:14 Pt's repeat INR is 2.95. Instructed patient to continue his Coumadin. Patient will be discharged to the custody of his father, who is his legal guardian. [facility] contacted.
[2018-01-29 09:50] LABS: INTERNATIONAL RATION (INR) 2.95; PARTIAL THROMBOPLASTIN TIME 62.3 SEC (23.5-35.8); PROTHROMBIN TIME 32.1 SEC (11.4-15.4)
[2018-01-29 10:01] LABS: URINE AMPHETAMINES SCREEN NEGATIVE; URINE BARBITURATES SCREEN NEGATIVE; URINE BENZODIAZEPINES SCREEN NEGATIVE; URINE COCAINE SCREEN NEGATIVE; URINE MARIJUANA (THC) SCREEN NEGATIVE; URINE METHADONE SCREEN NEGATIVE; URINE PHENCYCLIDINE SCREEN NEGATIVE
[2018-01-29] MEDS ORDERED: OLANZAPINE INJ/PF 10 MG SDV IM ONE (12:43)
[2018-01-29] MEDS ORDERED: BENZTROPINE MESYLATE INJ 2 MG/2 ML AMPULE IM ONE (12:43)
[2018-01-29] MEDS ORDERED: HYDROXYZINE PAMOATE 50 MG CAPSULE PO ONE (12:44)
[2018-01-29] MEDS ORDERED: CHLORPROMAZINE HCL 50 MG TABLET PO ONE (12:44)
[2018-01-29] MEDS ORDERED: CHLORPROMAZINE HCL INJ 25 MG/1 ML AMPULE IM ONE (16:14)
[2018-01-29] MEDS ORDERED: WARFARIN SODIUM 5 MG TABLET PO SCH (22:00)
[2018-01-29] MEDS ORDERED: (PENDING PHARMACY ID) (Warfarin Sodium 10 MG) PO SCH (22:00)
[2018-01-29] MEDS ORDERED: WARFARIN SODIUM 2.5 MG TABLET PO SCH (22:00)
[2018-01-29] MEDS ORDERED: WARFARIN SODIUM 2.5 MG TABLET ONE (23:33)
[2018-01-29] MEDS ORDERED: CYPROHEPTADINE HCL 4 MG TABLET ONE (23:34)
[2018-01-29] MEDS: CYPROHEPTADINE HCL 4 MG TABLET PO SCH (23:47)
[2018-01-30] MEDS ORDERED: LANSOPRAZOLE 30 MG TAB.RAP.DR PO SCH (06:00)
[2018-01-30] MEDS ORDERED: CYPROHEPTADINE HCL 4 MG TABLET ONE (06:45)
[2018-01-30] MEDS: CYPROHEPTADINE HCL 4 MG TABLET PO SCH (07:10)
[2018-01-30] MEDS ORDERED: ARIPIPRAZOLE 5 MG TABLET PO SCH (08:00)
[2018-01-30] MEDS ORDERED: OXCARBAZEPINE 150 MG TABLET PO SCH ×3 (08:00→16:00)
[2018-01-30] MEDS ORDERED: METOPROLOL SUCCINATE 25 MG TAB.SR.24H PO SCH (08:00)
[2018-01-30] MEDS ORDERED: (PENDING PHARMACY ID) (Oxcarbazepine [Trileptal] 600 MG) PO SCH (08:00)
[2018-01-30] MEDS ORDERED: MIRTAZAPINE 15 MG TABLET PO SCH (08:00)
[2018-01-30] MEDS ORDERED: (PENDING PHARMACY ID) (Divalproex Sodium [Depakote] 1,000 MG) PO SCH (08:00)
[2018-01-30] MEDS ORDERED: BENZTROPINE MESYLATE 1 MG TABLET PO SCH (08:00)
[2018-01-30] MEDS ORDERED: (PENDING PHARMACY ID) (Benztropine Mesylate [Benztropine Mesylate 2 Mg Tablet] 2 MG) PO SCH (08:00)
[2018-01-30] MEDS ORDERED: DOCUSATE SODIUM 100 MG CAPSULE PO SCH (10:00)
[2018-01-30] MEDS ORDERED: DIVALPROEX SODIUM 250 MG TABLET.DR PO SCH ×2 (10:00→20:00)
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
[2018-01-30 11:37] VITALS: BP 114/65
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
[2018-01-30] MEDS ORDERED: (PENDING PHARMACY ID) (Oxcarbazepine [Trileptal] 300 MG) PO SCH (16:00)
== END 2018-01-30 15:55 | disposition home or self-care (01) ==
LOC: ER 14:46
DX: F91.1 Conduct disorder, childhood-onset type (principal); F88 Other disorders of psychological development; F84.0 Autistic disorder; I48.91 Unspecified atrial fibrillation; I25.2 Old myocardial infarction; Z79.02 Long term (current) use of antithrombotics/antiplatelets
CPT/HCPCS: 93005; 99285; 96372; 36415; 80307 ×4; 85025; 85610; 85730; 80053; 81001; 80164; 73130; 70450; 93010; J3490 ×10

== ENCOUNTER 2018-01-31 10:13 | Emergency (ER) | payer MEDICAID ==
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
[2018-01-31 12:54] VITALS: BP 121/69
== END 2018-01-31 12:30 | disposition home or self-care (01) ==
LOC: ER 10:13
DX: S61.412A Laceration without foreign body of left hand, initial encounter (principal); S61.411A Laceration without foreign body of right hand, initial encounter; S51.812A Laceration without foreign body of left forearm, initial encounter; X58.XXXA Exposure to other specified factors, initial encounter; F84.0 Autistic disorder; F79 Unspecified intellectual disabilities; Z95.2 Presence of prosthetic heart valve
CPT/HCPCS: 99285

== ENCOUNTER 2018-03-25 19:53 | Emergency (ER) | payer MEDICAID, OTHER ==
[2018-03-25 20:23] LABS: INTERNATIONAL RATION (INR) 2.47; PROTHROMBIN TIME 27.9 SEC (11.4-15.4)
[2018-03-25 20:24] LABS: PARTIAL THROMBOPLASTIN TIME 45.7 SEC (23.5-35.8)
--- NOTE | 2018-03-25 20:27 | ER Document Report ---
ED GI Bleed / Rectal Pain - General Chief Complaint: Rectal Bleeding Stated Complaint: POSSIBLE RECTAL BLEEDING Time Seen by Provider: 03/25/18 20:06 Mode of Arrival: Medic Information source: Outside Facility Records Notes: 27-year-old male with a history of autism presents emergency department for a GI bleed. Patient's care provider is at bedside. States that the patient had some blood in his stool today. They state that the patient has been acting like his normal self. He has not had any nausea, vomiting, diarrhea, constipation, abdominal pain. No history of previous GI bleeds. Patient is on Coumadin. It is not documented in their charts why the patient is on Coumadin. TRAVEL OUTSIDE OF THE [place] IN LAST 30 DAYS: No - HPI Patient complains to provider of: Bright red bld from rect. Onset: Just prior to arrival Timing/Duration: Sudden Quality of pain: No pain Severity of symptoms: None Pain Level: Denies Last bowel movement: Prior to arriva Rectal bleeding: Blood streaks on stool Rectal foreign body: No Use of: Warfarin Associated symptoms: None Exacerbated by: Denies Relieved by: Denies Similar symptoms previously: No Recently seen / treated by doctor: No - Related Data Allergies/Adverse Reactions: No Known Allergies Allergy (Verified 01/28/18 14:48) Past Medical History - Social History Smoking Status: Never Smoker Family History: Reviewed & Not Pertinent Patient has suicidal ideation: No Patient has homicidal ideation: No - Past Medical History Cardiac Medical History: Reports: Hx Atrial Fibrillation, Hx Heart Attack - valve condition Renal/ Medical History: Denies: Hx Peritoneal Dialysis Psychiatric Medical History: Reports: Hx Attention Deficit Hyperactivity Disorder - autism Past Surgical History: Reports: Hx Cardiac Catheterization, Hx Cardiac Surgery - Aortic Valve Replacement. VSD repair, Hx Orthopedic Surgery - Hardware of spine for scoliosis - Immunizations Hx Diphtheria, Pertussis, Tetanus Vaccination: Yes Review of Systems - Review of Systems Constitutional: No symptoms reported EENT: No symptoms reported Cardiovascular: No symptoms reported Respiratory: No symptoms reported Gastrointestinal: Rectal bleeding Genitourinary: No symptoms reported Musculoskeletal: No symptoms reported Skin: No symptoms reported Hematologic/Lymphatic: No symptoms reported Neurological/Psychological: No symptoms reported -: Yes All other systems reviewed and negative Physical Exam - Vital signs Vitals: BP Pulse Ox 140/78 H 100 03/25/18 20:04 03/25/18 20:04 - Notes Notes: PHYSICAL EXAMINATION: GENERAL: Well-appearing, well-nourished and in no acute distress. HEAD: Atraumatic, normocephalic. EYES: Pupils equal round and reactive to light, extraocular movements intact, sclera anicteric, conjunctiva are normal. ENT: Nares patent, oropharynx clear without exudates. Moist mucous membranes. NECK: Normal range of motion, supple without lymphadenopathy LUNGS: Breath sounds clear to auscultation bilaterally and equal. No wheezes rales or rhonchi. HEART: Regular rate and rhythm without murmurs ABDOMEN: Soft, nontender, nondistended abdomen. No guarding, no rebound. No masses appreciated. No anal fissure or hemorrhoid. No bright red stool noted on rectal exam. Musculoskeletal: Normal range of motion, no pitting or edema. No cyanosis. NEUROLOGICAL: Cranial nerves grossly intact. Normal speech, normal gait. Normal sensory, motor exams PSYCH: Normal mood, normal affect. SKIN: Warm, Dry, normal turgor, no rashes or lesions noted. Course - Re-evaluation Re-evalutation: 03/25/18 22:15 Patient's hemoglobin is stable despite heme-occult positive stool. INR is WNL. I will discharge patient home to follow up with his primary care physician this week for repeat H/H. I will also have the patient follow up with GI. revival clerk is agreeable with the plan of care. 03/25/18 22:32 - Vital Signs Vital signs: Temp Pulse Resp BP Pulse Ox 16 140/78 H 100 03/25/18 20:05 03/25/18 20:04 03/25/18 20:05 - Laboratory Result Diagrams: 03/25/18 20:05 03/25/18 20:05 Laboratory results interpreted by me: 03/25/18 03/25/18 03/25/18 20:05 20:05 20:05 Plt Count 94 L PT 27.9 H APTT 45.7 H Sodium 136.0 L Discharge - Discharge Clinical Impression: Lower GI bleed Condition: Stable Disposition: HOME, SELF-CARE Instructions: Rectal Bleeding, Unclear Cause ([facility]) Additional Instructions: Follow up with your primary care physician and Gastroenterology this week. Take medication as directed. Return for worsening symptoms. Referrals: TEOFILO NASH MD [ACTIVE STAFF] - Follow up as needed
[2018-03-25 20:35] LABS: ABSOLUTE EOSINOPHILS # (AUTO) 0.2 10^3/uL (0.0-0.6); ABSOLUTE LYMPHOCYTES (AUTO) 1.7 10^3/uL (0.5-4.7); ABSOLUTE MONOCYTES (AUTO) 0.3 10^3/uL (0.1-1.4); ABSOLUTE NEUT (AUTO) 2.1 10^3/uL (1.7-8.2); BASOPHILS % (AUTO) 0.5 % (0-2); EOSINOPHILS % (AUTO) 3.6 % (0-6); HEMATOCRIT 38.5 % (37.9-51.0); HEMOGLOBIN 13.5 g/dL (13.5-17.0); LYMPHOCYTES % (AUTO) 39.9 % (13-45); MEAN CORPUSCULAR HEMOGLOBIN 29.7 pg (27.0-33.4); MEAN CORPUSCULAR HGB CONC 35.2 g/dL (32.0-36.0); MEAN CORPUSCULAR VOLUME 85 fl (80-97); RED BLOOD COUNT 4.56 10^6/uL (4.35-5.55); RED CELL DISTRIBUTION WIDTH 13.4 % (11.5-14.0); TOTAL CELLS COUNTED % (AUTO) 100 %; WHITE BLOOD COUNT 4.3 10^3/uL (4.0-10.5)
[2018-03-25 20:48] LABS: ALANINE AMINOTRANSFERASE 22 U/L (21-72); ALKALINE PHOSPHATASE 50 U/L (38-126); ANION GAP 9 (5-19); ASPARTATE AMINO TRANSFERASE 20 U/L (17-59); BILIRUBIN,DIRECT 0.3 mg/dL (0.0-0.4); BILIRUBIN,TOTAL 0.4 mg/dL (0.2-1.3); BLOOD UREA NITROGEN 10 mg/dL (7-20); CARBON DIOXIDE 29 mmol/L (22-30); CHLORIDE 98 mmol/L (98-107); GLUCOSE 90 mg/dL (75-110); POTASSIUM 4.1 mmol/L (3.6-5.0); TOTAL PROTEIN 6.6 g/dL (6.3-8.2)
[2018-03-25 20:56] LABS: PLATELET COUNT 94 10^3/uL (150-450)
[2018-03-25 23:13] VITALS: BP 131/72
== END 2018-03-25 23:13 | disposition home or self-care (01) ==
LOC: ER 19:53
DX: K92.2 Gastrointestinal hemorrhage, unspecified (principal); R19.5 Other fecal abnormalities; F84.0 Autistic disorder; I25.2 Old myocardial infarction; Z95.2 Presence of prosthetic heart valve; Z79.01 Long term (current) use of anticoagulants
CPT/HCPCS: 36415; 80053; 82272; 85025; 85610; 85730; 99285

== ENCOUNTER 2018-11-20 19:55 | Emergency (ER) | payer MEDICAID ==
--- NOTE | 2018-11-20 20:36 | RADIOLOGY REPORT (SQ) ---
EXAM DESCRIPTION: XR HAND 3 OR MORE VIEWS COMPLETED DATE/TME: 11/20/2018 00:00 CLINICAL HISTORY: 28 years, Male, injured L finger/ hand Swelling+ Autistic COMPARISON: Prior left hand 08/22/2015 NUMBER OF VIEWS: 3 TECHNIQUE: 3 view left hand LIMITATIONS: None. FINDINGS: Diffuse soft tissue swelling. Comminuted, minimally displaced fracture deformities of the bases of the proximal phalanx of the third and fourth digits. No dislocation. IMPRESSION: Fracture deformities of the third and fourth digits as above copyright 2010 [employer]- All Rights Reserved
[2018-11-20 20:42] VITALS: BP 176/89
[2018-11-20] MEDS ORDERED: IBUPROFEN 600 MG TABLET PO ONE (21:14)
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
== END 2018-11-20 21:40 | disposition home or self-care (01) ==
LOC: ER 19:55
DX: S62.613A Displaced fracture of proximal phalanx of left middle finger, initial encounter for closed fracture (principal); S62.615A Displaced fracture of proximal phalanx of left ring finger, initial encounter for closed fracture; W22.01XA Walked into wall, initial encounter; Y92.009 Unspecified place in unspecified non-institutional (private) residence as the place of occurrence of the external cause; Z95.2 Presence of prosthetic heart valve
CPT/HCPCS: 99283; 73130; J3490

== ENCOUNTER 2019-02-18 08:56 | Emergency (ER) | payer MEDICAID ==
[2019-02-18 09:02] VITALS: BP 153/91
[2019-02-18] MEDS ORDERED: LIDOCAINE 1% INJ-PF (10 MG/ML) 30 ML SDV INJ ONE (09:24)
--- NOTE | 2019-02-18 09:34 | ER Document Report ---
HPI - HPI Time Seen by Provider: 02/18/19 09:23 Pain Level: 1 Notes: Patient is a 28-year-old special-needs male who presents the emergency department with caregiver for right hand pain and laceration dorsally on the lateral side prior to arrival. Patient states that he became upset and punched the ceiling fan glass globe and broke it. Caregiver states that they did put a wound dressing on it and has controlled it well. Last tetanus was 1 year ago. He is otherwise able to move his fingers without difficulties. Denies drug allergies. No other concerns or complaints. Denies any headache, fever, URI, sore throat, chest pain, palpitations, syncope, cough, shortness of breath, wheeze, dyspnea, abdominal pain, nausea/vomiting/diarrhea, urinary retention, dysuria, hematuria, loss of control of bowel or bladder, numbness/tingling, muscle paralysis/weakness, or rash. - ROS Systems Reviewed and Negative: Yes All other systems reviewed and negative Past Medical History - Social History Smoking Status: Never Smoker Family History: Reviewed & Not Pertinent - Past Medical History Cardiac Medical History: Reports: Hx Atrial Fibrillation, Hx Heart Attack - valve condition Renal/ Medical History: Denies: Hx Peritoneal Dialysis Psychiatric Medical History: Reports: Hx Attention Deficit Hyperactivity Disorder - autism Past Surgical History: Reports: Hx Cardiac Catheterization, Hx Cardiac Surgery - Aortic Valve Replacement. VSD repair, Hx Orthopedic Surgery - Hardware of spine for scoliosis - Immunizations Hx Diphtheria, Pertussis, Tetanus Vaccination: Yes Vertical Provider Document - CONSTITUTIONAL Agree With Documented VS: Yes Notes: PHYSICAL EXAMINATION: GENERAL: Well-appearing, well-nourished and in no acute distress. LUNGS: Breath sounds clear to auscultation bilaterally and equal. No wheezes rales or rhonchi. HEART: Regular rate and rhythm without murmurs, rubs, gallops. Musculoskeletal: Right hand: FROM to passive/active. Strength 5+/5. N/V intact distal. Extremities: No cyanosis, clubbing, or edema b/l. Peripheral pulses 2+. Capillary refill less than 3 seconds. NEUROLOGICAL: Cranial nerves grossly intact. Normal speech, normal gait. Normal sensory, motor exams PSYCH: Normal mood, normal affect. SKIN: Rt dorsal lateral hand: + flap laceration, superficial, no evidence of foreign body. Lac irregular and 2cm in length x1cm. - INFECTION CONTROL TRAVEL OUTSIDE OF THE [place] IN LAST 30 DAYS: No Course - Re-evaluation Re-evalutation: 02/18/[address] Garcia who agrees with plan. Patient is an afebrile, well-hydrated, 28-year-old male who presents emergency department with a superficial irregular flap laceration. Vitals are acceptable without significant tachycardia, tachypnea, or hypoxia. PE is otherwise unremarkable for any neurovascular compromise, obvious tendon/leg rupture, obvious fracture/dislocation, obvious foreign body, septic joint. X-ray was unremarkable for any acute pathology. Wound was thoroughly irrigated and cleansed. The flap was removed successfully without any complications. Wound dressing was placed and wound instructions reviewed. Tetanus is reported to be up-to-date. No further labs or imaging warranted. I will send him home with a prescription for Augmentin. Recheck with your PCM in 2 to 3 days. Return to the ED with any other worsening/concerning symptoms. Caregiver in agreement. - Vital Signs Vital signs: Temp Pulse Resp BP Pulse Ox 98.2 F 79 16 153/91 H 100 02/18/19 09:01 02/18/19 09:01 02/18/19 09:01 02/18/19 09:01 02/18/19 09:01 Procedures - Laceration/Wound Repair Right Hand Wound length (cm): 2 Wound's Depth, Shape: Flap Laceration pre-procedure: Sterile PPE donned, Sterile drapes applied, Other - Chlorhexidine/saline Anesthetic type: 1% Lidocaine Volume Anesthetic (mLs): 3 Wound explored: Clean, No foreign body removed Irrigated w/ Saline (mLs): 200 Wound Debrided: Minimal - flap removed with scissors, attached by only 3mm initially Post-procedure wound care: Sterile dressing applied Post-procedure NV exam normal: Yes Complications: No Discharge - Discharge Clinical Impression: Flap laceration of skin Condition: Stable Disposition: HOME, SELF-CARE Additional Instructions: Keep the skin clean Wound dressing changes 1-2 times per day Wash with soap and water Tylenol/ibuprofen if needed Triple antibiotic ointment daily Take medication as directed Monitor for any worsening symptoms Recheck with your PCM in 2-3 days Return to the ED with any worsening symptoms and/or development of fever, headache, chest pain, palpitations, syncope, shortness of breath, trouble breathing, abdominal pain, n/v/d, abscess, purulent discharge, red streaks, worsening swelling, or other worsening symptoms that are concerning to you. Prescriptions: Amox Tr/Potassium Clavulanate [Augmentin 875-125 Tablet] 1 tab PO BID #10 tablet Forms: Elevated Blood Pressure Referrals: [facility] [Provider Group] - Follow up as needed
--- NOTE | 2019-02-18 10:37 | RADIOLOGY REPORT (SQ) ---
EXAM DESCRIPTION: HAND RIGHT 3 VIEWS COMPLETED DATE/TIME: 02/18/2019 10:15 am REASON FOR STUDY: laceration COMPARISON: None. EXAM PARAMETERS: NUMBER OF VIEWS: Three views. TECHNIQUE: AP, lateral and oblique radiographic images acquired of the right hand. LIMITATIONS: None. FINDINGS: MINERALIZATION: Normal. BONES: No acute fracture or dislocation. No worrisome bone lesions. JOINTS: No effusions. SOFT TISSUES: External bandage dressing and soft tissue swelling dorsal aspect of the hand. OTHER: No other external bandage dressing. Significant finding. IMPRESSION: 1. Soft tissue swelling dorsal aspect of the hand. External bandage dressing limits ev aluation somewhat. 2. No acute osseous findings. TECHNICAL DOCUMENTATION: JOB ID: [id number] [employer]- All Rights Reserved Reading location - IP/workstation name: [email or web address]
== END 2019-02-18 11:24 | disposition home or self-care (01) ==
LOC: ER 08:56
DX: S61.411A Laceration without foreign body of right hand, initial encounter (principal); W25.XXXA Contact with sharp glass, initial encounter; Y92.199 Unspecified place in other specified residential institution as the place of occurrence of the external cause; Z95.2 Presence of prosthetic heart valve
CPT/HCPCS: 99283

== ENCOUNTER 2019-02-19 16:05 | Emergency (ER) | payer MEDICAID ==
--- NOTE | 2019-02-19 17:06 | ER Document Report ---
ED Medical Screen (RME) - General Chief Complaint: Chest Pain Stated Complaint: HAND LACERATION Time Seen by Provider: 02/19/19 17:00 Mode of Arrival: Ambulatory Notes: Patient presents to the emergency department for complaints of laceration to the right hand and chest pain. Patient was evaluated here yesterday for the the laceration after he punched a globe on ceiling fan but they were unable to suture his hand due to patient moving his hand. Patient is autistic. Patient also has a pacemaker and complained of chest pain today became diaphoretic and clammy and pale. Right hand is wrapped in David wrap but family reports it is been bleeding. He is moving his fingers good cap refill. Patient is very anxious I have greeted and performed a rapid initial assessment of this patient. A comprehensive ED assessment and evaluation of the patient, analysis of test results and completion of the medical decision making process will be conducted by additional ED providers. Dictation of this chart was performed using voice recognition software; therefore, there may be some unintended grammatical errors. TRAVEL OUTSIDE OF THE [place] IN LAST 30 DAYS: No - Related Data Allergies/Adverse Reactions: No Known Allergies Allergy (Verified 02/19/19 16:53) Past Medical History - Past Medical History Cardiac Medical History: Reports: Hx Atrial Fibrillation, Hx Heart Attack - valve condition Renal/ Medical History: Denies: Hx Peritoneal Dialysis Psychiatric Medical History: Reports: Hx Attention Deficit Hyperactivity Disorder - autism Past Surgical History: Reports: Hx Cardiac Catheterization, Hx Cardiac Surgery - Aortic Valve Replacement. VSD repair, Hx Orthopedic Surgery - Hardware of spine for scoliosis - Immunizations Hx Diphtheria, Pertussis, Tetanus Vaccination: Yes Physical Exam - Vital signs Vitals: Temp Pulse Resp BP Pulse Ox 98.8 F 103 H 16 145/80 H 96 02/19/19 16:30 02/19/19 16:30 02/19/19 16:30 02/19/19 16:30 02/19/19 16:30 Course - Vital Signs Vital signs: Temp Pulse Resp BP Pulse Ox 98.8 F 103 H 16 145/80 H 96 02/19/19 16:30 02/19/19 16:30 02/19/19 16:30 02/19/19 16:30 02/19/19 16:30
--- NOTE | 2019-02-19 17:42 | EKG REPORT ---
SEVERITY:- ABNORMAL ECG - SINUS RHYTHM PROBABLE LEFT ATRIAL ABNORMALITY RIGHT BUNDLE BRANCH BLOCK LEFT VENTRICULAR HYPERTROPHY : Confirmed by: Alla Damon MD 19-Feb-2019 17:41:40
[2019-02-19 17:55] LABS: ABSOLUTE EOSINOPHILS # (AUTO) 0.1 10^3/uL (0.0-0.6); ABSOLUTE LYMPHOCYTES (AUTO) 1.5 10^3/uL (0.5-4.7); ABSOLUTE MONOCYTES (AUTO) 0.7 10^3/uL (0.1-1.4); ABSOLUTE NEUT (AUTO) 5.7 10^3/uL (1.7-8.2); BASOPHILS % (AUTO) 0.4 % (0-2); EOSINOPHILS % (AUTO) 1.6 % (0-6); HEMATOCRIT 38.5 % (37.9-51.0); HEMOGLOBIN 13.3 g/dL (13.5-17.0); LYMPHOCYTES % (AUTO) 18.8 % (13-45); MEAN CORPUSCULAR HEMOGLOBIN 29.4 pg (27.0-33.4); MEAN CORPUSCULAR HGB CONC 34.6 g/dL (32.0-36.0); MEAN CORPUSCULAR VOLUME 85 fl (80-97); PLATELET COUNT 151 10^3/uL (150-450); RED BLOOD COUNT 4.52 10^6/uL (4.35-5.55); RED CELL DISTRIBUTION WIDTH 13.8 % (11.5-14.0); SEGMENTED NEUTROPHILS % (AUTO) 70.2 % (42-78); TOTAL CELLS COUNTED % (AUTO) 100 %; WHITE BLOOD COUNT 8.2 10^3/uL (4.0-10.5)
--- NOTE | 2019-02-19 18:05 | ER Document Report ---
ED General - General Chief Complaint: Chest Pain Stated Complaint: HAND LACERATION Time Seen by Provider: 02/19/19 17:00 Primary Care Provider: ALONZO RAJAN MD [Primary Care Provider] - Follow up as needed Mode of Arrival: Ambulatory Information source: Patient Notes: 28-year-old male presents to ED for complaint of bleeding to his right hand from the laceration yesterday. He states he is also having chest pain. He was evaluated yesterday for the laceration when he punched the globe of a ceiling fan but they were not able to suture it as patient is not able to stand states still. His hemoglobin is at 13.3 it is not significantly low. We are still waiting on the chemistries cardiac enzymes and chest x-ray. Will reevaluate when these have all returned. I have removed the dressings from the hand applied quick clot Telfa Kerlix and David wrap. I will reevaluate this in about 2030 minutes. I have discussed treatment plan with patient's caregiver. TRAVEL OUTSIDE OF THE [place] IN LAST 30 DAYS: No - HPI Onset: Yesterday Onset/Duration: Persistent Quality of pain: Sharp Severity: Severe Pain Level: 5 Associated symptoms: Other - Caregiver states that he was diaphoretic and clammy pale when he was having the chest pain. He does have a artificial valve and a pacemaker. Exacerbated by: Denies Relieved by: Denies Similar symptoms previously: Yes Recently seen / treated by doctor: Yes - Related Data Allergies/Adverse Reactions: No Known Allergies Allergy (Verified 02/19/19 16:53) Past Medical History - General Information source: Patient - Social History Smoking Status: Never Smoker Chew tobacco use (# tins/day): No Frequency of alcohol use: None Drug Abuse: None Lives with: Other - shelter Family History: Reviewed & Not Pertinent Patient has suicidal ideation: No Patient has homicidal ideation: No - Past Medical History Cardiac Medical History: Reports: Hx Atrial Fibrillation, Hx Heart Attack - valve condition Pulmonary Medical History: Reports: None EENT Medical History: Reports: None Neurological Medical History: Reports: None Endocrine Medical History: Reports: None Renal/ Medical History: Reports: None Malignancy Medical History: Reports None GI Medical History: Reports: None Musculoskeletal Medical History: Reports None Skin Medical History: Reports None Psychiatric Medical History: Reports: Hx Attention Deficit Hyperactivity Disorder - autism Traumatic Medical History: Reports: None Infectious Medical History: Reports: None Past Surgical History: Reports: Hx Cardiac Catheterization, Hx Cardiac Surgery - Aortic Valve Replacement. VSD repair, Hx Orthopedic Surgery - Hardware of spine for scoliosis - Immunizations Hx Diphtheria, Pertussis, Tetanus Vaccination: Yes Review of Systems - Review of Systems Constitutional: No symptoms reported EENT: No symptoms reported Cardiovascular: Chest pain, Palpitations Respiratory: No symptoms reported Gastrointestinal: No symptoms reported Genitourinary: No symptoms reported Male Genitourinary: No symptoms reported Musculoskeletal: No symptoms reported Skin: Other - Open bleeding wound to right hand Hematologic/Lymphatic: No symptoms reported Neurological/Psychological: No symptoms reported -: Yes All other systems reviewed and negative Physical Exam - Vital signs Vitals: Temp Pulse Resp BP Pulse Ox 98.8 F 103 H 16 145/80 H 96 02/19/19 16:30 02/19/19 16:30 02/19/19 16:30 02/19/19 16:30 02/19/19 16:30 Interpretation: Normal - General General appearance: Appears well, Alert - HEENT Head: Normocephalic, Atraumatic Eyes: Normal Pupils: PERRL - Respiratory Respiratory status: No respiratory distress Chest status: Tender Breath sounds: Normal Chest palpation: Normal - Cardiovascular Rhythm: Regular Heart sounds: Normal auscultation Murmur: No - Abdominal Inspection: Normal Distension: No distension Bowel sounds: Normal Tenderness: Nontender Organomegaly: No organomegaly - Back Back: Normal, Nontender - Extremities General upper extremity: Normal inspection, Nontender, Normal color, Normal ROM, Normal temperature General lower extremity: Normal inspection, Nontender, Normal color, Normal ROM, Normal temperature, Normal weight bearing. No: Dea's sign - Neurological Neuro grossly intact: Yes Cognition: Normal Orientation: AAOx4 Yen Coma Scale Eye Opening: Spontaneous Yen Coma Scale Verbal: Oriented Yen Coma Scale Motor: Obeys Commands Oneill Coma Scale Total: 15 Speech: Normal Motor strength normal: LUE, RUE, LLE, RLE Sensory: Normal - Psychological Associated symptoms: Normal affect, Normal mood - Skin Skin Temperature: Warm Skin Moisture: Dry Skin Color: Normal Location of irregularity: Extremities - Right hand open bleeding wound quick clot applied after cleaning the wound well then dressed with Telfa Kerlix and David wrap Irregularity with: Tenderness Course - Vital Signs Vital signs: Temp Pulse Resp BP Pulse Ox 98.8 F 80 18 117/62 99 02/19/19 16:30 02/19/19 19:30 02/19/19 19:30 02/19/19 19:30 02/19/19 19:30 - Laboratory Result Diagrams: 02/19/19 17:41 02/19/19 17:41 Laboratory results interpreted by me: 02/19/19 02/19/19 02/19/19 17:41 17:41 17:41 Hgb 13.3 L PT 48.6 H APTT 59.0 H Sodium 133.1 L Chloride 94 L BUN 5 L Creatinine 0.33 L ALT 20 L Discharge - Discharge Clinical Impression: Flap laceration of skin Chest pain Qualifiers: Chest pain type: unspecified Qualified Code(s): R07.9 - Chest pain, unspecified Condition: Stable Disposition: HOME, SELF-CARE Additional Instructions: CHEST PAIN OF UNCLEAR CAUSE: The exact cause of your chest pain isn't clear. Fortunately, there is no evidence of a dangerous medical condition. Further testing may be required to find the source of the pain. Most often, we find that this pain is coming from the chest wall -- the muscles or rib joints in the chest. But chest pain can come from the lung and lung lining, the esophagus, the heart valves or heart lining, and even the stomach or gallbladder. Rest. Eat lightly until the pain is gone. We may prescribe medicine for pain and inflammation. You should call the physician immediately if the pain radiates to the shoulder, jaw or arms; if you start to run a fever or develop a cough; or if you develop shortness of breath, or other new or alarming symptoms. NORMAL EXAM AND WORKUP: At this time, your examination and workup show no significant abnormality except for the wound to your right hand. No significant abnormal physical findings were noted. All laboratory, EKG, and imaging (x-ray, CT scans, ultrasound) studies that were ordered show no significant abnormality. Although your examination and all studies that were ordered showed no significant abnormal finding, there are no examinations and no studies that are 100% accurate. There is always the possibility that some abnormality could exist and not be detected with physical examination or within the limits and capabilities of laboratory and other studies. You should return or follow up as you were instructed on your visit today for further evaluation if your symptoms do not resolve. CHEST WALL PAIN: Your chest pain may be coming from the chest wall. This is often caused by straining the muscles or joints in the chest during physical activity, direct trauma, coughing, or vigorous vomiting. Persons with arthritis are especially prone to this type of pain, due to inflammation of the cartilage joints near the breast bone. Occasionally, no cause can be found. Rest from strenuous physical activity. This kind of chest pain is usually made worse by movement of the chest. Depending on the symptoms, we may prescribe medicine for pain, muscle relaxation, and antiinflammatory effects. If the pain is new, and seems to be due to muscle strain, cold packs can help. Otherwise, apply gentle warmth to the painful area for 15 minutes every hour or two. You should call contact the doctor immediately if things change. Further evaluation is needed if you develop a fever or cough, if the nature of the pain changes, or if you become short of breath. NON-SUTURED LACERATION: Your laceration did not require suturing. Some lacerations cannot be sutured because of increased infection risk, while others simply don't need stitches because they are shallow or very short. Your injury should be protected while it heals. Usually complete healing takes 10 to 14 days. Keep the dressing clean and dry, and change it every day. If you notice increasing pain, redness, swelling, drainage, or tender lumps in the armpit or groin above the injury, infection may be present. You should call the doctor at once. Not disturbed the dressing for at least 24 hours after that please gently clean the area apply Telfa Kerlix and David wrap. Please follow-up with the primary doctor to have your Coumadin adjusted tomorrow as scheduled. I have given you a copy of your PT/INR CBC and chemistry to follow-up with the primary doctor as well as a copy of your chest x-ray. FOLLOW-UP CARE: If you have been referred to a physician for follow-up care, call the [facility] s[facility] office for an appointment as you were instructed or within the next two days. If you experience worsening or a significant change in your symptoms, notify the physician immediately or return to the Emergency Department at any time for re-evaluation. Referrals: ALONZO RAJAN MD [Primary Care Provider] - Follow up as needed
[2019-02-19 18:09] LABS: INTERNATIONAL RATION (INR) 4.99; PROTHROMBIN TIME 48.6 SEC (11.4-15.4)
[2019-02-19 18:20] LABS: ALANINE AMINOTRANSFERASE 20 U/L (21-72); ALBUMIN 3.8 g/dL (3.5-5.0); ALKALINE PHOSPHATASE 62 U/L (38-126); ANION GAP 11 (5-19); ASPARTATE AMINO TRANSFERASE 23 U/L (17-59); BILIRUBIN,DIRECT 0.3 mg/dL (0.0-0.4); BILIRUBIN,TOTAL 0.5 mg/dL (0.2-1.3); BLOOD UREA NITROGEN 5 mg/dL (7-20); CALCIUM 9.5 mg/dL (8.4-10.2); CARBON DIOXIDE 28 mmol/L (22-30); CHLORIDE 94 mmol/L (98-107); CREATINE KINASE 74 U/L (55-170); GLUCOSE 94 mg/dL (75-110); SODIUM 133.1 mmol/L (137-145); TOTAL PROTEIN 6.4 g/dL (6.3-8.2)
--- NOTE | 2019-02-19 18:22 | RADIOLOGY REPORT (SQ) ---
EXAM DESCRIPTION: CHEST SINGLE VIEW COMPLETED DATE/TIME: 02/19/2019 6:13 pm REASON FOR STUDY: chest pain COMPARISON: None. EXAM PARAMETERS: NUMBER OF VIEWS: One view. TECHNIQUE: Single frontal radiographic view of the chest acquired. RADIATION DOSE: NA LIMITATIONS: None. FINDINGS: LUNGS AND PLEURA: No opacities, masses or pneumothorax. No pleural effusion. MEDIASTINUM AND HILAR STRUCTURES: No masses. Contour normal. HEART AND VASCULAR STRUCTURES: Heart normal in size. Normal vasculature. BONES: No acute findings. HARDWARE: Sternotomy wires. Heart valve. Rods in the spine. OTHER: No other significant finding. IMPRESSION: NO ACUTE RADIOGRAPHIC FINDING IN THE CHEST. TECHNICAL DOCUMENTATION: JOB ID: [id number] [email or web address]- All Rights Reserved Reading location - IP/workstation name: [email or web address]
[2019-02-19 19:35] VITALS: BP 117/62
== END 2019-02-19 19:35 | disposition home or self-care (01) ==
LOC: ER 16:05
DX: R07.9 Chest pain, unspecified (principal); S61.411A Laceration without foreign body of right hand, initial encounter; W25.XXXA Contact with sharp glass, initial encounter; I48.91 Unspecified atrial fibrillation; I25.2 Old myocardial infarction; Z95.4 Presence of other heart-valve replacement
CPT/HCPCS: 36415; 71045; 80053; 82550; 84484; 85025; 85610; 85730; 93005; 93010; 99284

== ENCOUNTER 2019-09-11 13:06 | Inpatient (IN) | payer MEDICAID ==
--- NOTE | 2019-09-11 13:15 | ER Document Report ---
ED Medical Screen (RME) - General Chief Complaint: Foreign Body Stated Complaint: FOREIGN BODY IN FOOT Time Seen by Provider: 09/11/19 13:09 Primary Care Provider: ALONZO RAJAN MD [Primary Care Provider] - Follow up as needed Mode of Arrival: Wheelchair Information source: Outside Facility Records Cannot obtain history due to: Other Notes: 29-year-old male presented to ED for possible foreign body in his left foot. He is in a [facility] for developmental delay. Staff from the [facility] he is a resident at states that he had swelling and redness to the foot ankle yesterday and then today it is traveled up his leg. She states that it is much more swollen today. She states a staff member at the fpc found the piece of glass yesterday and took it out of his foot. Patient is alert and acting his normal self at this time according to the staff. His redness and swelling to the left foot ankle and leg. I have greeted and performed a rapid initial assessment of this patient. A comprehensive ED assessment and evaluation of the patient, analysis of test results and completion of medical decision making process will be conducted by an additional ED providers. TRAVEL OUTSIDE OF THE [place] IN LAST 30 DAYS: No - Related Data Allergies/Adverse Reactions: No Known Allergies Allergy (Verified 09/11/19 13:13) Past Medical History - General Information source: Outside Facility Records Cannot obtain history due to: Dementia - jail - Social History Cigarette use (# per day): Yes Frequency of alcohol use: None Drug Abuse: None Lives with: Other - jail Family history: Reviewed & Not Pertinent - Past Medical History Cardiac Medical History: Reports: Hx Atrial Fibrillation, Hx Heart Attack - valve condition Pulmonary Medical History: Reports: None EENT Medical History: Reports: None Neurological Medical History: Reports: None Endocrine Medical History: Reports: None Renal/ Medical History: Reports: None Malignancy Medical History: Reports None GI Medical History: Reports: None Musculoskeltal Medical History: Reports Hx Musculoskeletal Deformity Skin Medical History: Reports Hx Cellulitis Psychiatric Medical History: Reports: Hx Attention Deficit Hyperactivity Disorder - autism Traumatic Medical History: Reports: None Infectious Medical History: Reports: None Past Surgical History: Reports: Hx Cardiac Catheterization, Hx Cardiac Surgery - Aortic Valve Replacement. VSD repair, Hx Orthopedic Surgery - Hardware of spine for scoliosis - Immunizations Hx Diphtheria, Pertussis, Tetanus Vaccination: Yes Doctor's Discharge - Discharge Referrals: ALONZO RAJAN MD [Primary Care Provider] - Follow up as needed
--- NOTE | 2019-09-11 13:56 | RADIOLOGY REPORT (SQ) ---
EXAM DESCRIPTION: FOOT LEFT COMPLETE COMPLETED DATE/TIME: 09/11/2019 1:42 pm REASON FOR STUDY: red swelling pain left foot ankle leg COMPARISON: None. NUMBER OF VIEWS: Three views. TECHNIQUE: AP, lateral and oblique radiographic images acquired of the left foot. LIMITATIONS: None. FINDINGS: MINERALIZATION: Normal. BONES: There is a subacute extra-articular fracture at the base of the 5th metacarpal associated with soft tissue swelling and callus formation. JOINTS: The tarsometatarsal alignment is preserved. SOFT TISSUES: Soft tissue swelling adjacent to the fracture. OTHER: No other finding. IMPRESSION: Subacute Guidry fracture with evidence of healing. TECHNICAL DOCUMENTATION: JOB ID: [id number] [employer]- All Rights Reserved Reading location - IP/workstation name: [email or web address]
[2019-09-11 14:14] LABS: ABSOLUTE LYMPHOCYTES (AUTO) 0.9 10^3/uL (0.5-4.7); ABSOLUTE NEUT (AUTO) 13.1 10^3/uL (1.7-8.2); BASOPHILS % (AUTO) 0.1 % (0-2); HEMOGLOBIN 15.6 g/dL (13.5-17.0); MEAN CORPUSCULAR HEMOGLOBIN 28.3 pg (27.0-33.4); MEAN CORPUSCULAR VOLUME 83 fl (80-97); MONOCYTES % (AUTO) 6.7 % (3-13); RED BLOOD COUNT 5.53 10^6/uL (4.35-5.55); RED CELL DISTRIBUTION WIDTH 13.8 % (11.5-14.0); SEGMENTED NEUTROPHILS % (AUTO) 87.2 % (42-78); TOTAL CELLS COUNTED % (AUTO) 100 %; WHITE BLOOD COUNT 15.1 10^3/uL (4.0-10.5)
[2019-09-11 14:19] LABS: PLATELET COUNT 96 10^3/uL (150-450)
[2019-09-11 14:33] LABS: ALBUMIN 4.3 g/dL (3.5-5.0); ALKALINE PHOSPHATASE 51 U/L (38-126); ANION GAP 11 (5-19); ASPARTATE AMINO TRANSFERASE 52 U/L (17-59); BILIRUBIN,DIRECT 0.2 mg/dL (0.0-0.4); BILIRUBIN,TOTAL 0.8 mg/dL (0.2-1.3); BLOOD UREA NITROGEN 17 mg/dL (7-20); CALCIUM 9.6 mg/dL (8.4-10.2); CARBON DIOXIDE 31 mmol/L (22-30); CHLORIDE 93 mmol/L (98-107); GLUCOSE 93 mg/dL (75-110); POTASSIUM 3.6 mmol/L (3.6-5.0); TOTAL PROTEIN 7.5 g/dL (6.3-8.2)
[2019-09-11] MEDS ORDERED: NORMAL SALINE 1000 ML 1,000 ML IV ONE ×2 (15:30→18:49)
[2019-09-11] MEDS ORDERED: NORMAL SALINE 1000 ML 1,000 ML IV PRN (15:30)
[2019-09-11] MEDS ORDERED: VANCOMYCIN HCL INJ 1000 MG VIAL IV ONE (15:32)
[2019-09-11] MEDS ORDERED: KETOROLAC TROMETHAMINE INJ/PF 30 MG/1 ML SDV IV ONE (15:33)
[2019-09-11] MEDS ORDERED: HALOPERIDOL LACTATE INJ 5 MG/1 ML VIAL IV ONE (15:36)
[2019-09-11] MEDS ORDERED: HALOPERIDOL LACTATE INJ 5 MG/1 ML VIAL IM ONE (15:39)
--- NOTE | 2019-09-11 15:39 | ER Document Report ---
ED General - General Chief Complaint: Foot Injury Stated Complaint: FOREIGN BODY IN FOOT Time Seen by Provider: 09/11/19 13:09 Primary Care Provider: ALONZO RAJAN MD [ACTIVE STAFF] - Follow up as needed Mode of Arrival: Wheelchair TRAVEL OUTSIDE OF THE [place] IN LAST 30 DAYS: No - HPI Notes: This is a 29-year-old male with a history of severe autism, lives in a senior living, who presents emergency department for evaluation of pain and swelling in his left leg. It was noted that the patient had a fever and some diarrhea over the last several days by the employees at his senior living. They suspected it was a viral illness leading to the symptoms. On a body check, they noticed some redness in his left foot. Upon inspection, they did note a piece of glass lodged in his left heel. Since then, the patient has had worsened fevers, with a T-max of about 103 at home. He is not eating or drinking. Decreased urination. He has had increased redness and swelling that is gone up the leg, so they present to the emergency department here for further evaluation. - Related Data Allergies/Adverse Reactions: No Known Allergies Allergy (Verified 09/11/19 13:13) Past Medical History - General Information source: Outside Facility Records - Social History Smoking Status: Never Smoker Cigarette use (# per day): Yes Frequency of alcohol use: None Drug Abuse: None Lives with: Other - retirement Family History: Reviewed & Not Pertinent Patient has suicidal ideation: No Patient has homicidal ideation: No - Past Medical History Cardiac Medical History: Reports: Hx Atrial Fibrillation, Other - History of VSD and aortic valve issue, status post replacement Pulmonary Medical History: Reports: None EENT Medical History: Reports: None Neurological Medical History: Reports: None Endocrine Medical History: Reports: None Renal/ Medical History: Reports: None. Denies: Hx Peritoneal Dialysis Malignancy Medical History: Reports None GI Medical History: Reports: None Musculoskeletal Medical History: Reports Hx Musculoskeletal Deformity Skin Medical History: Reports Hx Cellulitis Psychiatric Medical History: Reports: Hx Attention Deficit Hyperactivity Disorder - autism Traumatic Medical History: Reports: None Infectious Medical History: Reports: None Past Surgical History: Reports: Hx Cardiac Catheterization, Hx Cardiac Surgery - Aortic Valve Replacement. VSD repair, Hx Orthopedic Surgery - Hardware of spine for scoliosis - Immunizations Hx Diphtheria, Pertussis, Tetanus Vaccination: Yes Review of Systems - Review of Systems Constitutional: See HPI EENT: No symptoms reported Cardiovascular: No symptoms reported Respiratory: No symptoms reported Gastrointestinal: See HPI Genitourinary: No symptoms reported Musculoskeletal: See HPI Skin: See HPI Neurological/Psychological: See HPI Physical Exam - Vital signs Vitals: Temp Pulse Resp BP Pulse Ox 98.0 F 120 H 18 148/76 H 100 09/11/19 13:13 09/11/19 13:13 09/11/19 13:13 09/11/19 13:13 09/11/19 13:13 - Notes Notes: This is a 29-year-old male who appears his stated age, lying in the bed. He is being attended to by 3 employees of the senior living in the room. He is intermittently aggressive but is redirectable. Head is normocephalic and atraumatic, pupils are equal round, reactive to light. Oral mucosa is moist. Heart is tachycardic with audible mechanical click of aortic valve replacement. Lungs are clear to station bilaterally. Abdomen soft, nontender, normoactive bowel sounds. Examination of the left lower extremity yields a significant amount of edema to the entire foot, ankle, and up to the mid calf. He has blood-filled bullae noted to the lateral aspect of the foot. The swelling of his hallux has caused splitting of the skin at the base of the distal phalanx, no active bleeding or obvious foreign body. The site of the former foreign body is identified in the heel, no palpable foreign body at that spot. He has extensive purpura noted throughout the swelling. Dorsalis pedis and posterior tibial pulses are 2+, sensation appears to be intact, capillary refill is brisk. Course - Re-evaluation Re-evalutation: 09/11/19 15:37 Patient presents emergency department for evaluation. He had a T-max at home of 103, was 100.3 here. He is tachycardic. His respirations are high. He has a 15,000 white count. He does meet sepsis criteria. He was given IV fluids, lac garza and INR were ordered, as they have not been previously. I did order 1500 mg of IV vancomycin. X-ray was reviewed, and no clear foreign body was identified, but it was communicated to the patient as well as his caretakers that I am unclear as to whether or not the glass could show up on the x-ray at this time. Given his comorbidities, living in a senior living, and other delays, I am concerned that this patient will have a complicated course, thus plan to admit the patient to the hospital. IV will need to be established. He is already due for his oral Haldol. Decision was made to give the patient IM Haldol, as well as Ativan, as I am notified by senior living employees that this is worked in the past. 09/11/19 17:22 Patient remained agitated, was given further IM Ativan. Patient is septic. His lactic acid is elevated. He is given 30 cc/kg of IV fluids, based on ideal body weight given his elevated BMI. Patient has a 15,000 white count, elevated lactate, and is tachycardic. He meets sepsis criteria. His INR is also found to be markedly elevated at 7.5. Vancomycin is chosen not only for his broad spectrum of activity against staph and strep, but also because that should not further increase his INR. I am not inclined to treat this INR based on the fact that he is not bleeding, he is vitally stable, and he is anticoagulated secondary to a mechanical valve. I spoke with MITUL Cooley, he will admit the patient for further care. Supervising physician is Dr. Brenner. 09/11/19 17:23 - Vital Signs Vital signs: Temp Pulse Resp BP Pulse Ox 100.3 F 118 H 22 H 126/72 H 99 09/11/19 14:56 09/11/19 14:56 09/11/19 14:56 09/11/19 14:56 09/11/19 14:56 - Laboratory Result Diagrams: 09/11/19 13:27 09/11/19 13:27 Laboratory results interpreted by me: 09/11/19 09/11/19 09/11/19 13:27 13:27 16:35 WBC 15.1 H Plt Count 96 L Lymph % (Auto) 6.0 L Absolute Neuts (auto) 13.1 H Seg Neutrophils % 87.2 H PT INR Sodium 135.1 L Chloride 93 L Carbon Dioxide 31 H Lactic Acid (Sepsis) 2.3 H 09/11/19 16:35 WBC Plt Count Lymph % (Auto) Absolute Neuts (auto) Seg Neutrophils % PT 66.6 H* INR 7.56 H* Sodium Chloride Carbon Dioxide Lactic Acid (Sepsis) - Diagnostic Test Radiology reviewed: Image reviewed, Reports reviewed Radiology results interpreted by me: 09/11/19 17:24 Foot X-Ray 09/11/19 13:18 IMPRESSION: Subacute Guidry fracture with evidence of healing. Discharge - Discharge Clinical Impression: Severe sepsis, Cellulitis of left lower extremity, Supratherapeutic INR Condition: Stable Disposition: ADMITTED INPATIENT Admitting Provider: Elidia (Hospitalist) - [facility] Admitted: [facility] Referrals: ALONZO RAJAN MD [ACTIVE STAFF] - Follow up as needed
[2019-09-11] MEDS ORDERED: LORAZEPAM INJ 2 MG/1 ML VIAL IM ONE ×2 (15:40→16:45)
[2019-09-11] MEDS ORDERED: OXCARBAZEPINE 150 MG TABLET PO ONE ×2 (16:03→19:45)
[2019-09-11 17:17] LABS: INTERNATIONAL RATION (INR) 7.56; PROTHROMBIN TIME 66.6 SEC (11.4-15.4)
[2019-09-11] MEDS ORDERED: ONDANSETRON 4 MG TAB.RAPDIS PO PRN (17:52)
[2019-09-11] MEDS ORDERED: ONDANSETRON HCL INJ/PF 4 MG/2 ML SDV IV PRN (17:52)
[2019-09-11] MEDS ORDERED: LORAZEPAM INJ 2 MG/1 ML VIAL IV PRN (18:10)
[2019-09-11] MEDS ORDERED: HALOPERIDOL LACTATE INJ 5 MG/1 ML VIAL IV PRN ×2 (18:13→23:30)
--- NOTE | 2019-09-11 18:48 | PDOC H&P ---
History of Present Illness Admission Date/PCP: 09/11/19 18:02 ENRIQUE MILLER DO History of Present Illness: SUELLEN GARCIA is a 29 year old male who had a foreign body removed from his left foot yesterday [facility] where he is a resident. She is severely autistic and did not complain of any pain. The staff members noticed a piece of glass in the bottom of his foot and removed it. Last night his foot was a little red and his lower leg was a little red, it was much worse going up to about mid tibia. She was brought to the emergency room for possible infection of the left lower leg. Cording to staff and review of notes he has known allergies. Have a history of heart valve replacement and is on Coumadin. Is severely autistic and very aggressive and requires scheduled medication for this aggression. Patient has been at this particular [facility] for about a year now. Patient has been heavily sedated by the ER staff due to his aggressive behavior. Patient's initial INR and PT are elevated this lab work is going to be repeated. He also has a mild leukocytosis with white count 15,100 Past Medical History Cardiac Medical History: Reports: Atrial Fibrillation, Myocardial Infarction - valve condition, Other - History of VSD and aortic valve issue, status post replacement Pulmonary Medical History: Reports: None EENT Medical History: Reports: None Neurological Medical History: Reports: None Endocrine Medical History: Reports: None Renal/ Medical History: Reports: None Malignancy Medical History: Reports: None GI Medical History: Reports: None Psychiatric Medical History: Reports: Attention Deficit Hyperactivity Disorder - autism Traumatic Medical History: Reports: None Infectious Medical History: Reports: None Past Surgical History Past Surgical History: Reports: Cardiac Catheterization, Orthopedic Surgery - Hardware of spine for scoliosis Social History Lives with: Other - shelter Smoking Status: Never Smoker - Advance Directive Resuscitation Status: Full Code Family History Family History: Reviewed & Not Pertinent Parental Family History Reviewed: No Children Family History Reviewed: No Sibling(s) Family History Reviewed.: No Medication/Allergy Home Medications: Docusate Sodium [Colace 100 mg Capsule] 100 mg PO BID 01/10/17 Pantoprazole Sodium [Protonix] 40 mg PO QAM 01/10/17 Warfarin Sodium [Coumadin 5 mg Tablet] 10 mg PO QHS 01/10/17 Aripiprazole [Abilify 5 mg Tablet] 10 mg PO QAM 01/29/18 Benztropine Mesylate [Benztropine Mesylate 2 mg Tablet] 2 mg PO Q12@,01/29/18 Cyproheptadine HCl [Periactin 4 Mg Tablet] 4 mg PO Q8 01/29/18 Divalproex Sodium [Depakote] 1,000 mg PO Q12@08,01/29/18 Divalproex Sodium [Depakote] 250 mg PO DAILY@199901/29/18 Metoprolol Succinate [Toprol Xl 25 mg Tab.sr] 25 mg PO QAM 01/29/18 Mirtazapine 7.5 mg PO QAM 01/29/18 Oxcarbazepine [Trileptal 150 Mg Tablet] 150 mg PO BID@1599,199901/29/18 Oxcarbazepine [Trileptal] 300 mg PO BID@1600,199901/29/18 Oxcarbazepine [Trileptal] 600 mg PO QAM 01/29/18 Warfarin Sodium [Coumadin 2.5 mg Tablet] 2.5 mg PO QHS 01/29/18 Ibuprofen [Motrin 600 mg Tablet] 600 mg PO Q8HP PRN #30 tablet 11/20/18 Amox Tr/Potassium Clavulanate [Augmentin 875-125 Tablet] 1 tab PO BID #10 tablet 02/18/19 Allergies/Adverse Reactions: No Known Allergies Allergy (Verified 09/11/19 13:13) Review of Systems Constitutional: ABSENT: chills, fever(s), headache(s), weight gain, weight loss Cardiovascular: ABSENT: chest pain, dyspnea on exertion, edema, orthropnea, p alpitations Respiratory: ABSENT: cough, hemoptysis Musculoskeletal: PRESENT: other - Redness left lower leg up to the greco region Neurological: PRESENT: other - Severe autism Psychiatric: PRESENT: other - Severe anger Physical Exam Vital Signs: Temp Pulse Resp BP Pulse Ox 100.3 F 118 H 22 H 126/72 H 99 09/11/19 14:56 09/11/19 14:56 09/11/19 14:56 09/11/19 14:56 09/11/19 14:56 Intake & Output 09/10/19 09/11/19 09/12/19 06:59 06:59 06:59 Weight 111.13 kg General appearance: PRESENT: no acute distress, other - Sleeping secondary to sedation medication Respiratory exam: PRESENT: other - His lungs were not auscultated due to his ability of waking the patient Cardiovascular exam: PRESENT: other - Patient's heart was not auscultated due to the possibility of waking the patient Extremities exam: PRESENT: other Neurological exam: PRESENT: other - Cystic Psychiatric exam: PRESENT: agitated, other - 3 of aggressive behavior in the ER Results Laboratory Results: 09/11/19 13:27 09/11/19 13:27 09/11/19 09/11/19 13:27 13:27 WBC 15.1 H RBC 5.53 Hgb 15.6 Hct 46.0 MCV 83 MCH 28.3 MCHC 34.0 RDW 13.8 Plt Count 96 L Seg Neutrophils % 87.2 H Sodium 135.1 L Potassium 3.6 Chloride 93 L Carbon Dioxide 31 H Anion Gap 11 BUN 17 Creatinine 0.87 Est GFR ( Amer) > 60 Glucose 93 Calcium 9.6 Total Bilirubin 0.8 AST 52 Alkaline Phosphatase 51 Total Protein 7.5 Albumin 4.3 Impressions: Foot X-Ray 09/11/19 13:18 IMPRESSION: Subacute Guidry fracture with evidence of healing. Assessment and Plan - Diagnosis (1) Autism Is this a current diagnosis for this admission?: Yes (3) On anticoagulant therapy Is this a current diagnosis for this admission?: Yes (4) Cellulitis of left lower extremity Is this a current diagnosis for this admission?: Yes (5) Supratherapeutic INR Is this a current diagnosis for this admission?: Yes - Plan Summary Summary: Will start patient on broad-spectrum antibiotic, Rocephin. Hydrate patient with fluids continuous basis. Sepsis cultures have been taken. She is INR and PT will be repeated. Hold on further anticoagulants. Will give patient scheduled antipsychotic and benzodiazepines as well as as needed as needed. Repeat labs in the a.m. I did talk to someone at the [facility] area code [phone]. Expressed her desire for us to keep the patient properly sedated. - Time Time Spent with patient: 35 or more minutes
[2019-09-11 19:36] LABS: INTERNATIONAL RATION (INR) 8.73; PROTHROMBIN TIME 74.7 SEC (11.4-15.4)
[2019-09-11] MEDS: CEFTRIAXONE 1 GM/D5W RTU 1 GM/50 ML RTUPB IV SCH (23:42)
[2019-09-11] MEDS: HALOPERIDOL 5 MG TABLET PO SCH (23:43)
[2019-09-11] MEDS: FAMOTIDINE 20 MG TABLET PO SCH (23:45)
[2019-09-12] MEDS ORDERED: LORAZEPAM INJ 2 MG/1 ML VIAL IV SCH
[2019-09-12] MEDS: NORMAL SALINE 1000 ML 1,000 ML IV PRN ×2 (01:57→19:00)
[2019-09-12 06:30] LABS: ANION GAP 10 (5-19); BLOOD UREA NITROGEN 19 mg/dL (7-20); CALCIUM 8.5 mg/dL (8.4-10.2); CARBON DIOXIDE 27 mmol/L (22-30); CHLORIDE 99 mmol/L (98-107); GLUCOSE 100 mg/dL (75-110); POTASSIUM 3.6 mmol/L (3.6-5.0)
[2019-09-12 07:05] LABS: ABSOLUTE LYMPHOCYTES (AUTO) 0.8 10^3/uL (0.5-4.7); ABSOLUTE MONOCYTES (AUTO) 0.9 10^3/uL (0.1-1.4); BASOPHILS % (AUTO) 0.2 % (0-2); LYMPHOCYTES % (AUTO) 7.5 % (13-45); MEAN CORPUSCULAR HEMOGLOBIN 28.3 pg (27.0-33.4); MEAN CORPUSCULAR HGB CONC 34.5 g/dL (32.0-36.0); MEAN CORPUSCULAR VOLUME 82 fl (80-97); MONOCYTES % (AUTO) 8.1 % (3-13); RED BLOOD COUNT 4.75 10^6/uL (4.35-5.55); RED CELL DISTRIBUTION WIDTH 13.4 % (11.5-14.0); SEGMENTED NEUTROPHILS % (AUTO) 84.2 % (42-78); TOTAL CELLS COUNTED % (AUTO) 100 %; WHITE BLOOD COUNT 10.6 10^3/uL (4.0-10.5)
[2019-09-12 07:09] LABS: HEMOGLOBIN 13.4 g/dL (13.5-17.0); PLATELET COUNT 59 10^3/uL (150-450)
[2019-09-12 07:52] LABS: PARTIAL THROMBOPLASTIN TIME 117.7 SEC (23.5-35.8)
[2019-09-12 08:21] LABS: INTERNATIONAL RATION (INR) 7.51; PROTHROMBIN TIME 66.2 SEC (11.4-15.4)
[2019-09-12] MEDS: METOPROLOL SUCCINATE 25 MG TAB.SR.24H PO SCH (10:56)
[2019-09-12] MEDS: DOCUSATE SODIUM 100 MG CAPSULE PO SCH (10:56)
[2019-09-12] MEDS: HALOPERIDOL 5 MG TABLET PO SCH ×2 (10:57→23:09)
[2019-09-12] MEDS: FAMOTIDINE 20 MG TABLET PO SCH ×2 (11:03→23:09)
[2019-09-12] MEDS: CEFTRIAXONE 1 GM/D5W RTU 1 GM/50 ML RTUPB IV SCH ×2 (11:07→23:09)
[2019-09-12] MEDS: ACETAMINOPHEN 325 MG TABLET PO PRN (11:34)
--- NOTE | 2019-09-12 11:54 | PDOC PROGRESS REPORT ---
Subjective Progress Note for:: 09/12/19 Reason For Visit: CELLULITIS,OF ATRIAL FIB,HISTORY OF AORTIC VALVE 09/12/2019 Admitted yesterday for new onset cellulitis of left lower extremity Patient has severe autism and lives in a [facility] Physical Exam Vital Signs: Temp Pulse Resp BP Pulse Ox 99.3 F 150 H 17 83/63 L 99 09/12/19 07:14 09/12/19 07:14 09/12/19 07:14 09/12/19 07:14 09/12/19 07:14 Intake & Output 09/11/19 09/12/19 09/13/19 06:59 06:59 06:59 Intake Total 2049 Output Total 0 Balance 2049 Weight 113.2 kg General appearance: PRESENT: no acute distress Respiratory exam: PRESENT: clear to auscultation marsha. ABSENT: rales, rhonchi, wheezes Cardiovascular exam: PRESENT: clicks, other - His maker Neurological exam: PRESENT: alert, awake, other - Patient actually communicates with one the nurses aware of where he is and is asking for [employer] Psychiatric exam: PRESENT: appropriate affect, normal mood, other. ABSENT: homicidal ideation, suicidal ideation Results Laboratory Results: 09/12/19 05:49 09/12/19 05:49 09/11/19 09/11/19 09/12/19 13:27 13:27 05:49 WBC 15.1 H 10.6 H RBC 5.53 4.75 Hgb 15.6 13.4 L D Hct 46.0 39.0 MCV 83 82 MCH 28.3 28.3 MCHC 34.0 34.5 RDW 13.8 13.4 Plt Count 96 L 59 L Seg Neutrophils % 87.2 H 84.2 H Sodium 135.1 L Potassium 3.6 Chloride 93 L Carbon Dioxide 31 H Anion Gap 11 BUN 17 Creatinine 0.87 Est GFR ( Amer) > 60 Glucose 93 Calcium 9.6 Total Bilirubin 0.8 AST 52 Alkaline Phosphatase 51 Total Protein 7.5 Albumin 4.3 09/12/19 05:49 WBC RBC Hgb Hct MCV MCH MCHC RDW Plt Count Seg Neutrophils % Sodium 136.3 L Potassium 3.6 Chloride 99 Carbon Dioxide 27 Anion Gap 10 BUN 19 Creatinine 0.77 Est GFR ( Amer) > 60 Glucose 100 Calcium 8.5 Total Bilirubin AST Alkaline Phosphatase Total Protein Albumin 09/11/19 19:02 Creatine Kinase 978 H Impressions: Foot X-Ray 09/11/19 13:18 IMPRESSION: Subacute Guidry fracture with evidence of healing. Assessment and Plan - Diagnosis (1) Autism Is this a current diagnosis for this admission?: Yes (3) On anticoagulant therapy Is this a current diagnosis for this admission?: Yes (4) Cellulitis of left lower extremity Is this a current diagnosis for this admission?: Yes (5) Supratherapeutic INR Is this a current diagnosis for this admission?: Yes - Plan Summary Summary: Will start patient on broad-spectrum antibiotic, Rocephin. Hydrate patient with fluids continuous basis. Sepsis cultures have been taken. She is INR and PT will be repeated. Hold on further anticoagulants. Will give patient scheduled antipsychotic and benzodiazepines as well as as needed as needed. Repeat labs in the a.m. I did talk to someone at the [facility] area code [phone]. Expressed her desire for us to keep the patient properly sedated. 09/12/2019 Patient's vital signs reveal a low-grade temperature last night of 100.2 however this morning and recently spiked to 102.8 Patient appears tachycardic anywhere from 108-150, with baseline of 110, pressure is averaging around 130/70 White blood cell count on admission was 15,100 today it is 10,600 Coags are still elevated but not rising. His Coumadin is currently held. No vitamin K indicated at this time We will repeat labs in the morning lutein CK and lactic acid Continue Rocephin 1 g IV every 12 hours I have discussed patient's care with his nurse - Time Time Spent with patient: 25-34 minutes
[2019-09-12] MEDS: LORAZEPAM INJ 2 MG/1 ML VIAL IV PRN (13:25)
[2019-09-13] MEDS: ACETAMINOPHEN 325 MG TABLET PO PRN (00:10)
[2019-09-13] MEDS: NORMAL SALINE 1000 ML 1,000 ML IV PRN (01:32)
[2019-09-13 06:43] LABS: ABSOLUTE LYMPHOCYTES (AUTO) 1.2 10^3/uL (0.5-4.7); ABSOLUTE MONOCYTES (AUTO) 1.3 10^3/uL (0.1-1.4); ABSOLUTE NEUT (AUTO) 6.4 10^3/uL (1.7-8.2); BASOPHILS % (AUTO) 0.4 % (0-2); HEMATOCRIT 37.8 % (37.9-51.0); HEMOGLOBIN 13.1 g/dL (13.5-17.0); LYMPHOCYTES % (AUTO) 13.4 % (13-45); MEAN CORPUSCULAR HEMOGLOBIN 28.5 pg (27.0-33.4); MEAN CORPUSCULAR HGB CONC 34.6 g/dL (32.0-36.0); MEAN CORPUSCULAR VOLUME 82 fl (80-97); MONOCYTES % (AUTO) 14.8 % (3-13); RED BLOOD COUNT 4.58 10^6/uL (4.35-5.55); RED CELL DISTRIBUTION WIDTH 13.6 % (11.5-14.0); SEGMENTED NEUTROPHILS % (AUTO) 71.4 % (42-78); TOTAL CELLS COUNTED % (AUTO) 100 %
[2019-09-13 06:47] LABS: PARTIAL THROMBOPLASTIN TIME 63.9 SEC (23.5-35.8)
[2019-09-13 07:02] LABS: INTERNATIONAL RATION (INR) 2.28
[2019-09-13 07:13] LABS: PROTHROMBIN TIME 25.5 SEC (11.4-15.4)
[2019-09-13 08:11] LABS: PLATELET COUNT 47 10^3/uL (150-450)
[2019-09-13] MEDS ORDERED: TRAMADOL HCL 50 MG TABLET PO PRN (09:31)
--- NOTE | 2019-09-13 09:41 | PDOC PROGRESS REPORT ---
Subjective Progress Note for:: 09/13/19 Reason For Visit: CELLULITIS,OF ATRIAL FIB,HISTORY OF AORTIC VALVE 09/13/2019 Cellulitis left lower extremity Physical Exam Vital Signs: Temp Pulse Resp BP Pulse Ox 100.6 F H 102 H 20 122/63 96 09/13/19 03:58 09/13/19 06:57 09/13/19 03:58 09/13/19 03:58 09/13/19 03:58 Intake & Output 09/12/19 09/13/19 09/14/19 06:59 06:59 06:59 Intake Total 2049 2694 Output Total 0 Balance 2049 2694 Weight 113.2 kg 116.9 kg General appearance: PRESENT: no acute distress Respiratory exam: PRESENT: clear to auscultation marsha. ABSENT: rales, rhonchi, wheezes Cardiovascular exam: PRESENT: RRR. ABSENT: diastolic murmur, rubs, systolic murmur Extremities exam: PRESENT: +1 edema - Lower leg only, other - Patient has petechiae left lower leg as well as 1+ pitting edema. Goes up to about the greco region. Looks about the same as it did when he was admitted Neurological exam: PRESENT: altered, other - Due to autism, severe Psychiatric exam: PRESENT: anxious, other - Anxiety and agitation comes and goes Results Laboratory Results: 09/13/19 06:12 09/12/19 05:49 09/13/19 09/13/19 06:12 06:12 WBC 9.0 RBC 4.58 Hgb 13.1 L Hct 37.8 L MCV 82 MCH 28.5 MCHC 34.6 RDW 13.6 Plt Count 47 L Seg Neutrophils % 71.4 Lactic Acid 1.7 09/11/19 09/13/19 19:02 06:12 Creatine Kinase 978 H 4326 H Impressions: Foot X-Ray 09/11/19 13:18 IMPRESSION: Subacute Guidry fracture with evidence of healing. Assessment and Plan - Diagnosis (1) Autism Is this a current diagnosis for this admission?: Yes (3) On anticoagulant therapy Is this a current diagnosis for this admission?: Yes (4) Cellulitis of left lower extremity Is this a current diagnosis for this admission?: Yes (5) Supratherapeutic INR Is this a current diagnosis for this admission?: Yes - Plan Summary Summary: Will start patient on broad-spectrum antibiotic, Rocephin. Hydrate patient with fluids continuous basis. Sepsis cultures have been taken. She is INR and PT will be repeated. Hold on further anticoagulants. Will give patient scheduled antipsychotic and benzodiazepines as well as as needed as needed. Repeat labs in the a.m. I did talk to someone at the [facility] area code [phone]. Expressed her desire for us to keep the patient properly sedated. 09/12/2019 Patient's vital signs reveal a low-grade temperature last night of 100.2 however this morning and recently spiked to 102.8 Patient appears tachycardic anywhere from 108-150, with baseline of 110, pressure is averaging around 130/70 White blood cell count on admission was 15,100 today it is 10,600 Coags are still elevated but not rising. His Coumadin is currently held. No vitamin K indicated at this time We will repeat labs in the morning CK and lactic acid Continue Rocephin 1 g IV every 12 hours I have discussed patient's care with his nurse 09/13/2019 Pressure yesterday gone up to 102 but the highest it went last night was 100.6 that was at 0 400 ALT is in the 90s blood pressure is 120/60 INR is come down to 2.28, I have resumed his Coumadin at 7.5 mg daily a lower dose and he came in White count continues to trend down today it is 9000 Lactic acid levels normal 1.7, K has gone up to 4326 Due to patient's severe autism he cannot keep his left leg elevated. Patient does not appear septic. Blood culture showed no growth in 24 hours Patient appears to be on his right regimen for his antipsychotic medicines, I have resumed his other home meds as well - Time Time Spent with patient: 25-34 minutes
[2019-09-13] MEDS ORDERED: (PENDING PHARMACY ID) (Aripiprazole [Abilify] 20 MG) PO SCH (10:00)
[2019-09-13] MEDS: CEFTRIAXONE 1 GM/D5W RTU 1 GM/50 ML RTUPB IV SCH ×2 (10:14→23:11)
[2019-09-13] MEDS: HALOPERIDOL 5 MG TABLET PO SCH ×2 (10:17→23:10)
[2019-09-13] MEDS: FAMOTIDINE 20 MG TABLET PO SCH ×2 (10:17→23:10)
[2019-09-13] MEDS: METOPROLOL SUCCINATE 25 MG TAB.SR.24H PO SCH (10:18)
[2019-09-13] MEDS: DOCUSATE SODIUM 100 MG CAPSULE PO SCH (10:19)
[2019-09-13] MEDS: ARIPIPRAZOLE 5 MG TABLET PO SCH (10:26)
[2019-09-13 12:40] LABS: HEMATOCRIT 38.4 % (37.9-51.0); HEMOGLOBIN 13.2 g/dL (13.5-17.0); MEAN CORPUSCULAR HEMOGLOBIN 28.4 pg (27.0-33.4); MEAN CORPUSCULAR HGB CONC 34.3 g/dL (32.0-36.0); MEAN CORPUSCULAR VOLUME 83 fl (80-97); RED BLOOD COUNT 4.65 10^6/uL (4.35-5.55); RED CELL DISTRIBUTION WIDTH 13.6 % (11.5-14.0); WHITE BLOOD COUNT 8.6 10^3/uL (4.0-10.5)
[2019-09-13 13:06] LABS: PLATELET COUNT 52 10^3/uL (150-450)
[2019-09-13] MEDS ORDERED: (PENDING PHARMACY ID) (Oxcarbazepine [Oxcarbazepine] 300 MG) PO SCH (15:00)
[2019-09-13] MEDS ORDERED: HALOPERIDOL LACTATE INJ 5 MG/1 ML VIAL ONE (18:06)
[2019-09-13] MEDS: LORAZEPAM INJ 2 MG/1 ML VIAL IV PRN (19:02)
[2019-09-13] MEDS ORDERED: (PENDING PHARMACY ID) (Benztropine Mesylate [Benztropine Mesylate 2 Mg Tablet] 2 MG) PO SCH (20:00)
[2019-09-13] MEDS ORDERED: (PENDING PHARMACY ID) (Divalproex Sodium [Depakote] 1,000 MG) PO SCH (20:00)
[2019-09-13] MEDS ORDERED: WARFARIN SODIUM 7.5 MG TABLET PO SCH (22:00)
[2019-09-13] MEDS: DIVALPROEX SODIUM 250 MG TABLET.DR PO SCH (23:09)
[2019-09-13] MEDS: DIVALPROEX SODIUM 500 MG TAB.SR.24H PO SCH (23:09)
[2019-09-13] MEDS: BENZTROPINE MESYLATE 1 MG TABLET PO SCH (23:10)
[2019-09-13] MEDS: OXCARBAZEPINE 150 MG TABLET PO SCH ×5 (23:12→23:16)
[2019-09-13] MEDS: MIRTAZAPINE 15 MG TABLET PO SCH (23:16)
[2019-09-14 05:00] LABS: APPEARANCE,URINE CLEAR; BILIRUBIN,URINE NEGATIVE (NEGATIVE); COLOR,URINE YELLOW; GLUCOSE, URINE NEGATIVE (NEGATIVE); KETONES,URINE NEGATIVE (NEGATIVE); LEUKOCYTE ESTERASE,URINE NEGATIVE (NEGATIVE); NITRITE,URINE NEGATIVE (NEGATIVE); PROTEIN,URINE NEGATIVE (NEGATIVE); URINE SPECIFIC GRAVITY 1.014
[2019-09-14 06:38] LABS: INTERNATIONAL RATION (INR) 1.78; PROTHROMBIN TIME 20.9 SEC (11.4-15.4)
[2019-09-14] MEDS ORDERED: (PENDING PHARMACY ID) (Oxcarbazepine [Trileptal] 600 MG) PO SCH (08:00)
[2019-09-14] MEDS ORDERED: (PENDING PHARMACY ID) (Warfarin Sodium 7.5 MG) PO SCH (08:00)
[2019-09-14 09:11] LABS: ABSOLUTE EOSINOPHILS # (AUTO) 0.1 10^3/uL (0.0-0.6); ABSOLUTE LYMPHOCYTES (AUTO) 1.4 10^3/uL (0.5-4.7); ABSOLUTE MONOCYTES (AUTO) 0.9 10^3/uL (0.1-1.4); ABSOLUTE NEUT (AUTO) 6.6 10^3/uL (1.7-8.2); BASOPHILS % (AUTO) 0.4 % (0-2); HEMATOCRIT 36.4 % (37.9-51.0); HEMOGLOBIN 12.3 g/dL (13.5-17.0); LYMPHOCYTES % (AUTO) 15.6 % (13-45); MEAN CORPUSCULAR HEMOGLOBIN 27.9 pg (27.0-33.4); MEAN CORPUSCULAR HGB CONC 33.8 g/dL (32.0-36.0); MEAN CORPUSCULAR VOLUME 83 fl (80-97); MONOCYTES % (AUTO) 9.6 % (3-13); RED CELL DISTRIBUTION WIDTH 13.6 % (11.5-14.0); SEGMENTED NEUTROPHILS % (AUTO) 73.4 % (42-78); TOTAL CELLS COUNTED % (AUTO) 100 %; WHITE BLOOD COUNT 8.9 10^3/uL (4.0-10.5)
[2019-09-14 09:19] LABS: ANION GAP 6 (5-19); BLOOD UREA NITROGEN 8 mg/dL (7-20); CALCIUM 9.2 mg/dL (8.4-10.2); CARBON DIOXIDE 30 mmol/L (22-30); CHLORIDE 103 mmol/L (98-107); GLUCOSE 102 mg/dL (75-110)
[2019-09-14] MEDS: METOPROLOL SUCCINATE 25 MG TAB.SR.24H PO SCH (09:28)
[2019-09-14] MEDS: DOCUSATE SODIUM 100 MG CAPSULE PO SCH (09:28)
[2019-09-14] MEDS: OXCARBAZEPINE 150 MG TABLET PO SCH ×5 (09:29→19:30)
[2019-09-14] MEDS: HALOPERIDOL 5 MG TABLET PO SCH ×2 (09:29→21:19)
[2019-09-14] MEDS: FAMOTIDINE 20 MG TABLET PO SCH ×2 (09:29→21:20)
[2019-09-14] MEDS: BENZTROPINE MESYLATE 1 MG TABLET PO SCH ×2 (09:29→19:29)
[2019-09-14] MEDS: DIVALPROEX SODIUM 500 MG TAB.SR.24H PO SCH ×2 (09:29→19:29)
[2019-09-14 09:31] LABS: PLATELET COUNT 70 10^3/uL (150-450)
[2019-09-14] MEDS: CEFTRIAXONE 1 GM/D5W RTU 1 GM/50 ML RTUPB IV SCH ×2 (09:33→21:19)
[2019-09-14] MEDS: ARIPIPRAZOLE 5 MG TABLET PO SCH (09:33)
[2019-09-14] MEDS: NORMAL SALINE 1000 ML 1,000 ML IV PRN (09:44)
[2019-09-14] MEDS: LORAZEPAM INJ 2 MG/1 ML VIAL IV PRN (09:50)
--- NOTE | 2019-09-14 10:22 | PDOC PROGRESS REPORT ---
Subjective Progress Note for:: 09/14/19 Reason For Visit: CELLULITIS,OF ATRIAL FIB,HISTORY OF AORTIC VALVE 09/14/2019 Patient was admitted with mild to moderate cellulitis of the left lower leg. Complicating matters are patient has a aortic valve replaced and severe autism. Physical Exam Vital Signs: Temp Pulse Resp BP Pulse Ox 97.4 F 88 17 127/62 H 95 09/14/19 07:30 09/14/19 07:30 09/14/19 07:30 09/14/19 07:30 09/14/19 07:30 Intake & Output 09/13/19 09/14/19 09/15/19 06:59 06:59 06:59 Intake Total 2695 1220 Balance 2695 1220 Weight 116.9 kg 116 kg General appearance: PRESENT: no acute distress Respiratory exam: PRESENT: clear to auscultation marsha. ABSENT: rales, rhonchi, wheezes Cardiovascular exam: PRESENT: RRR. ABSENT: diastolic murmur, rubs, systolic murmur Extremities exam: PRESENT: +2 edema - Left lower extremity up to about the knee. Petechiae as well Neurological exam: PRESENT: altered, other - Patient will say hello, patient will answer in simple sentences,. Patient's attention span seems to be only seconds. This is however patient's baseline Psychiatric exam: PRESENT: other Results Laboratory Results: 09/14/19 05:26 09/14/19 05:26 09/13/19 09/14/19 09/14/19 11:59 04:25 05:26 WBC 8.6 8.9 RBC 4.65 4.40 Hgb 13.2 L 12.3 L Hct 38.4 36.4 L MCV 83 83 MCH 28.4 27.9 MCHC 34.3 33.8 RDW 13.6 13.6 Plt Count 52 L 70 L Seg Neutrophils % 73.4 Sodium Potassium Chloride Carbon Dioxide Anion Gap BUN Creatinine Est GFR ( Amer) Glucose Calcium Urine Color YELLOW Urine Appearance CLEAR Urine pH 6.0 Ur Specific [place] 1.014 Urine Protein NEGATIVE Urine Glucose (UA) NEGATIVE Urine Ketones NEGATIVE Urine Blood MODERATE H Urine Nitrite NEGATIVE Ur Leukocyte Esterase NEGATIVE Urine WBC (Auto) 3 Urine RBC (Auto) 4 09/14/19 05:26 WBC RBC Hgb Hct MCV MCH MCHC RDW Plt Count Seg Neutrophils % Sodium 139.3 Potassium 3.0 L* Chloride 103 Carbon Dioxide 30 Anion Gap 6 BUN 8 Creatinine 0.55 Est GFR ( Amer) > 60 Glucose 102 Calcium 9.2 Urine Color Urine Appearance Urine pH Ur Specific [place] Urine Protein Urine Glucose (UA) Urine Ketones Urine Blood Urine Nitrite Ur Leukocyte Esterase Urine WBC (Auto) Urine RBC (Auto) 09/11/19 09/13/19 19:02 06:12 Creatine Kinase 978 H 4326 H Impressions: Foot X-Ray 09/11/19 13:18 IMPRESSION: Subacute Guidry fracture with evidence of healing. Assessment and Plan - Diagnosis (1) Autism Is this a current diagnosis for this admission?: Yes (3) On anticoagulant therapy Is this a current diagnosis for this admission?: Yes (4) Cellulitis of left lower extremity Is this a current diagnosis for this admission?: Yes (5) Supratherapeutic INR Is this a current diagnosis for this admission?: Yes - Plan Summary Summary: Will start patient on broad-spectrum antibiotic, Rocephin. Hydrate patient with fluids continuous basis. Sepsis cultures have been taken. She is INR and PT will be repeated. Hold on further anticoagulants. Will give patient scheduled antipsychotic and benzodiazepines as well as as needed as needed. Repeat labs in the a.m. I did talk to someone at the [facility] area code [phone]. Expressed her desire for us to keep the patient properly sedated. 09/12/2019 Patient's vital signs reveal a low-grade temperature last night of 100.2 however this morning and recently spiked to 102.8 Patient appears tachycardic anywhere from 108-150, with baseline of 110, pressure is averaging around 130/70 White blood cell count on admission was 15,100 today it is 10,600 Coags are still elevated but not rising. His Coumadin is currently held. No vitamin K indicated at this time We will repeat labs in the morning CK and lactic acid Continue Rocephin 1 g IV every 12 hours I have discussed patient's care with his nurse 09/13/2019 Pressure yesterday gone up to 102 but the highest it went last night was 100.6 that was at 0 400 ALT is in the 90s blood pressure is 120/60 INR is come down to 2.28, I have resumed his Coumadin at 7.5 mg daily a lower dose and he came in White count continues to trend down today it is 9000 Lactic acid levels normal 1.7, BNP has gone up to 4326 Due to patient's severe autism he cannot keep his left leg elevated. Patient does not appear septic. Blood culture showed no growth in 24 hours Patient appears to be on his right regimen for his antipsychotic medicines, I have resumed his other home meds as well 09/14/2019 Patient had to be put in soft restraints yesterday evening due to striking out at the long term staff members that were in the room as well as agitation towards the nurse. Patient was given IV Haldol and IV Ativan with good results Vital signs this morning are normal and stable White count is still in the normal range 8900 hemoglobin 12.3, lites have actually come up a little bit today to 70,000. INR however is dropped down to 1.78. I have increased his Coumadin up to 10 mg nightly. On admission he was taken 12.5 Patient's potassium is gone from 3.6 on admission down to 3, we will try oral replacements and if that fails go to IV solutions We will DC all IV fluids, try as best as we can to keep his left lower extremity propped up and elevated Continue the IV antibiotics I have discussed all of this with the patient's nurse - Time Time Spent with patient: 35 or more minutes
[2019-09-14] MEDS: POTASSIUM CHLORIDE 20 MEQ PACKET PO SCH ×2 (12:27→21:20)
[2019-09-14] MEDS: DIVALPROEX SODIUM 250 MG TABLET.DR PO SCH (19:29)
[2019-09-14] MEDS: MIRTAZAPINE 15 MG TABLET PO SCH (19:29)
[2019-09-14] MEDS: WARFARIN SODIUM 5 MG TABLET PO SCH (21:19)
[2019-09-15 05:21] LABS: INTERNATIONAL RATION (INR) 1.74; PROTHROMBIN TIME 20.6 SEC (11.4-15.4)
[2019-09-15] MEDS: METOPROLOL SUCCINATE 25 MG TAB.SR.24H PO SCH (09:08)
[2019-09-15] MEDS: DIVALPROEX SODIUM 500 MG TAB.SR.24H PO SCH ×2 (09:08→21:00)
[2019-09-15] MEDS: FAMOTIDINE 20 MG TABLET PO SCH ×2 (09:09→21:00)
[2019-09-15] MEDS: HALOPERIDOL 5 MG TABLET PO SCH ×2 (09:09→21:00)
[2019-09-15] MEDS: DOCUSATE SODIUM 100 MG CAPSULE PO SCH (09:09)
[2019-09-15] MEDS: ARIPIPRAZOLE 5 MG TABLET PO SCH (09:09)
[2019-09-15] MEDS: OXCARBAZEPINE 150 MG TABLET PO SCH ×5 (09:10→21:01)
[2019-09-15] MEDS: POTASSIUM CHLORIDE 20 MEQ PACKET PO SCH ×2 (09:10→21:04)
[2019-09-15] MEDS: CEFTRIAXONE 1 GM/D5W RTU 1 GM/50 ML RTUPB IV SCH ×2 (09:11→21:04)
[2019-09-15] MEDS: BENZTROPINE MESYLATE 1 MG TABLET PO SCH ×2 (09:11→21:00)
--- NOTE | 2019-09-15 11:46 | PDOC PROGRESS REPORT ---
Subjective Progress Note for:: 09/15/19 Reason For Visit: CELLULITIS,OF ATRIAL FIB,HISTORY OF AORTIC VALVE 09/15/2019 Patient was admitted with left leg cellulitis which appears to be improving clinically Physical Exam Vital Signs: Temp Pulse Resp BP Pulse Ox 98.0 F 82 18 137/60 H 97 09/15/19 07:45 09/15/19 07:45 09/15/19 07:45 09/15/19 07:45 09/15/19 07:45 Intake & Output 09/14/19 09/15/19 09/16/19 06:59 06:59 06:59 Intake Total 1220 1974 Balance 1220 1974 Weight 116 kg 120.1 kg General appearance: PRESENT: no acute distress, other - Patient actually interacts with me, recognizes me from the previous day. Respiratory exam: PRESENT: clear to auscultation marsha. ABSENT: rales, rhonchi, wheezes Cardiovascular exam: PRESENT: RRR. ABSENT: diastolic murmur, rubs, systolic murmur Neurological exam: PRESENT: altered, other - To autism Psychiatric exam: PRESENT: unusual affect, other - Secondary to autism Results Laboratory Results: 09/14/19 05:26 09/14/19 05:26 09/11/19 09/13/19 19:02 06:12 Creatine Kinase 978 H 4326 H Impressions: Foot X-Ray 09/11/19 13:18 IMPRESSION: Subacute Guidry fracture with evidence of healing. Assessment and Plan - Diagnosis (1) Autism Is this a current diagnosis for this admission?: Yes (3) On anticoagulant therapy Is this a current diagnosis for this admission?: Yes (4) Cellulitis of left lower extremity Is this a current diagnosis for this admission?: Yes (5) Supratherapeutic INR Is this a current diagnosis for this admission?: Yes - Plan Summary Summary: Will start patient on broad-spectrum antibiotic, Rocephin. Hydrate patient with fluids continuous basis. Sepsis cultures have been taken. She is INR and PT will be repeated. Hold on further anticoagulants. Will give patient scheduled antipsychotic and benzodiazepines as well as as needed as needed. Repeat labs in the a.m. I did talk to someone at the [facility] area code [phone]. Expressed her desire for us to keep the patient properly sedated. 09/12/2019 Patient's vital signs reveal a low-grade temperature last night of 100.2 however this morning and recently spiked to 102.8 Patient appears tachycardic anywhere from 108-150, with baseline of 110, pressure is averaging around 130/70 White blood cell count on admission was 15,100 today it is 10,600 Coags are still elevated but not rising. His Coumadin is currently held. No vitamin K indicated at this time We will repeat labs in the morning CK and lactic acid Continue Rocephin 1 g IV every 12 hours I have discussed patient's care with his nurse 09/13/2019 Pressure yesterday gone up to 102 but the highest it went last night was 100.6 that was at 0 400 ALT is in the 90s blood pressure is 120/60 INR is come down to 2.28, I have resumed his Coumadin at 7.5 mg daily a lower dose and he came in White count continues to trend down today it is 9000 Lactic acid levels normal 1.7, BNP has gone up to 4326 Due to patient's severe autism he cannot keep his left leg elevated. Patient does not appear septic. Blood culture showed no growth in 24 hours Patient appears to be on his right regimen for his antipsychotic medicines, I have resumed his other home meds as well 09/14/2019 Patient had to be put in soft restraints yesterday evening due to striking out at the [facility] staff members that were in the room as well as agitation towards the nurse. Patient was given IV Haldol and IV Ativan with good results Vital signs this morning are normal and stable White count is still in the normal range 8900 hemoglobin 12.3, lites have actually come up a little bit today to 70,000. INR however is dropped down to 1.78. I have increased his Coumadin up to 10 mg nightly. On admission he was taken 12.5 Patient's potassium has gone from 3.6 on admission down to 3, we will try oral replacements and if that fails go to IV solutions We will DC all IV fluids, try as best as we can to keep his left lower extremity propped up and elevated Continue the IV antibiotics I have discussed all of this with the patient's nurse 09/15/2019 Patient appears to be much more well behaved, is hostile less aggressive. Patient's labs reveal blood cultures to be negative x72 hours, lites are at 70,000 INR today is 1.74, she is currently on 10 mg nightly of Coumadin Potassium is slightly low at 3.0 Left lower extremity is less edematous and less red. When I walked in the room patient has his left leg propped up on a pillow White blood cell count is still normal Possibly discharge home tomorrow or Monday, for his left leg cellulitis - Time Time Spent with patient: 25-34 minutes
[2019-09-15] MEDS: LORAZEPAM INJ 2 MG/1 ML VIAL IV PRN (12:48)
[2019-09-15] MEDS: BACITRACIN ZINC OINTMENT 15 GM TP SCH (17:43)
[2019-09-15] MEDS: MIRTAZAPINE 15 MG TABLET PO SCH (21:00)
[2019-09-15] MEDS: DIVALPROEX SODIUM 250 MG TABLET.DR PO SCH (21:00)
[2019-09-15] MEDS: WARFARIN SODIUM 5 MG TABLET PO SCH (21:03)
[2019-09-16 06:40] LABS: PROTHROMBIN TIME 22.1 SEC (11.4-15.4)
[2019-09-16 07:28] LABS: BLOOD UREA NITROGEN 7 mg/dL (7-20); CALCIUM 9.6 mg/dL (8.4-10.2); GLUCOSE 104 mg/dL (75-110); POTASSIUM 4.1 mmol/L (3.6-5.0)
[2019-09-16 07:33] LABS: CARBON DIOXIDE 31 mmol/L (22-30); CHLORIDE 106 mmol/L (98-107)
[2019-09-16 07:37] LABS: ANION GAP 4 (5-19)
[2019-09-16] MEDS: OXCARBAZEPINE 150 MG TABLET PO SCH ×5 (08:06→21:13)
[2019-09-16] MEDS: DIVALPROEX SODIUM 500 MG TAB.SR.24H PO SCH ×2 (08:06→21:14)
[2019-09-16] MEDS: BENZTROPINE MESYLATE 1 MG TABLET PO SCH ×2 (08:06→21:13)
[2019-09-16] MEDS: ARIPIPRAZOLE 5 MG TABLET PO SCH (09:22)
[2019-09-16] MEDS: CEFTRIAXONE 1 GM/D5W RTU 1 GM/50 ML RTUPB IV SCH ×2 (09:22→21:15)
[2019-09-16] MEDS: FAMOTIDINE 20 MG TABLET PO SCH ×2 (09:25→21:14)
[2019-09-16] MEDS: BACITRACIN ZINC OINTMENT 15 GM TP SCH ×2 (09:25→17:07)
[2019-09-16] MEDS: HALOPERIDOL 5 MG TABLET PO SCH ×2 (09:25→21:15)
[2019-09-16] MEDS: METOPROLOL SUCCINATE 25 MG TAB.SR.24H PO SCH (09:25)
[2019-09-16] MEDS: POTASSIUM CHLORIDE 20 MEQ PACKET PO SCH ×2 (09:25→21:15)
[2019-09-16] MEDS: DOCUSATE SODIUM 100 MG CAPSULE PO SCH (09:25)
[2019-09-16 09:31] LABS: ABSOLUTE EOSINOPHILS # (AUTO) 0.2 10^3/uL (0.0-0.6); ABSOLUTE LYMPHOCYTES (AUTO) 1.3 10^3/uL (0.5-4.7); ABSOLUTE MONOCYTES (AUTO) 0.7 10^3/uL (0.1-1.4); ABSOLUTE NEUT (AUTO) 4.7 10^3/uL (1.7-8.2); BASOPHILS % (AUTO) 0.5 % (0-2); EOSINOPHILS % (AUTO) 3.2 % (0-6); LYMPHOCYTES % (AUTO) 18.8 % (13-45); MEAN CORPUSCULAR HEMOGLOBIN 28.3 pg (27.0-33.4); MEAN CORPUSCULAR HGB CONC 34.2 g/dL (32.0-36.0); MEAN CORPUSCULAR VOLUME 83 fl (80-97); MONOCYTES % (AUTO) 9.6 % (3-13); RED BLOOD COUNT 4.22 10^6/uL (4.35-5.55); RED CELL DISTRIBUTION WIDTH 13.6 % (11.5-14.0); SEGMENTED NEUTROPHILS % (AUTO) 67.9 % (42-78); TOTAL CELLS COUNTED % (AUTO) 100 %
--- NOTE | 2019-09-16 09:33 | PDOC PROGRESS REPORT ---
Subjective Progress Note for:: 09/16/19 Reason For Visit: CELLULITIS,OF ATRIAL FIB,HISTORY OF AORTIC VALVE 09/16/2019 Severe autism in a group, left lower extremity cellulitis improving, history of aortic valve replacement on Coumadin Physical Exam Vital Signs: Temp Pulse Resp BP Pulse Ox 97.3 F 83 17 134/64 H 97 09/16/19 07:42 09/16/19 07:42 09/16/19 07:42 09/16/19 07:42 09/16/19 07:42 Intake & Output 09/15/19 09/16/19 09/17/19 06:59 06:59 06:59 Intake Total 1974 2820 Balance 19740 Weight 120.1 kg 119.6 kg General appearance: PRESENT: no acute distress Respiratory exam: PRESENT: clear to auscultation marsha. ABSENT: rales, rhonchi, wheezes Cardiovascular exam: PRESENT: RRR. ABSENT: diastolic murmur, rubs, systolic murmur Extremities exam: PRESENT: +1 edema, other - Significant improvement with less redness, less edema Neurological exam: PRESENT: alert, altered, awake, oriented to person, oriented to place, oriented to time, oriented to situation, CN II-XII grossly intact. ABSENT: motor sensory deficit Psychiatric exam: PRESENT: other - Severe autism Results Laboratory Results: 09/16/19 05:55 09/16/19 09/16/19 05:55 05:55 WBC Cancelled RBC Cancelled Hgb Cancelled Hct Cancelled MCV Cancelled MCH Cancelled MCHC Cancelled RDW Cancelled Plt Count Cancelled Seg Neutrophils % Cancelled Sodium 141.1 Potassium 4.1 Chloride 106 Carbon Dioxide 31 H Anion Gap 4 L BUN 7 Creatinine 0.46 L Est GFR ( Amer) > 60 Glucose 104 Calcium 9.6 09/11/19 09/13/19 19:02 06:12 Creatine Kinase 978 H 4326 H Impressions: Foot X-Ray 09/11/19 13:18 IMPRESSION: Subacute Guidry fracture with evidence of healing. Assessment and Plan - Diagnosis (1) Autism Is this a current diagnosis for this admission?: Yes (3) On anticoagulant therapy Is this a current diagnosis for this admission?: Yes (4) Cellulitis of left lower extremity Is this a current diagnosis for this admission?: Yes (5) Supratherapeutic INR Is this a current diagnosis for this admission?: Yes - Plan Summary Summary: Will start patient on broad-spectrum antibiotic, Rocephin. Hydrate patient with fluids continuous basis. Sepsis cultures have been taken. She is INR and PT will be repeated. Hold on further anticoagulants. Will give patient scheduled antipsychotic and benzodiazepines as well as as needed as needed. Repeat labs in the a.m. I did talk to someone at the [facility] area code [phone]. Expressed her desire for us to keep the patient properly sedated. 09/12/2019 Patient's vital signs reveal a low-grade temperature last night of 100.2 however this morning and recently spiked to 102.8 Patient appears tachycardic anywhere from 108-150, with baseline of 110, pressure is averaging around 130/70 White blood cell count on admission was 15,100 today it is 10,600 Coags are still elevated but not rising. His Coumadin is currently held. No vitamin K indicated at this time We will repeat labs in the morning CK and lactic acid Continue Rocephin 1 g IV every 12 hours I have discussed patient's care with his nurse 09/13/2019 Pressure yesterday gone up to 102 but the highest it went last night was 100.6 that was at 0 400 ALT is in the 90s blood pressure is 120/60 INR is come down to 2.28, I have resumed his Coumadin at 7.5 mg daily a lower do se and he came in White count continues to trend down today it is 9000 Lactic acid levels normal 1.7, BNP has gone up to 4326 Due to patient's severe autism he cannot keep his left leg elevated. Patient does not appear septic. Blood culture showed no growth in 24 hours Patient appears to be on his right regimen for his antipsychotic medicines, I have resumed his other home meds as well 09/14/2019 Patient had to be put in soft restraints yesterday evening due to striking out at the [facility] staff members that were in the room as well as agitation towards the nurse. Patient was given IV Haldol and IV Ativan with good results Vital signs this morning are normal and stable White count is still in the normal range 8900 hemoglobin 12.3, lites have actually come up a little bit today to 70,000. INR however is dropped down to 1.78. I have increased his Coumadin up to 10 mg nightly. On admission he was taken 12.5 Patient's potassium has gone from 3.6 on admission down to 3, we will try oral replacements and if that fails go to IV solutions We will DC all IV fluids, try as best as we can to keep his left lower extremity propped up and elevated Continue the IV antibiotics I have discussed all of this with the patient's nurse 09/15/2019 Patient appears to be much more well behaved, is hostile less aggressive. Patient's labs reveal blood cultures to be negative x72 hours, lites are at 70,000 INR today is 1.74, she is currently on 10 mg nightly of Coumadin Potassium is slightly low at 3.0 Left lower extremity is less edematous and less red. When I walked in the room patient has his left leg propped up on a pillow White blood cell count is still normal Possibly discharge home tomorrow or Monday, for his left leg cellulitis 09/16/2019 Patient is currently afebrile 98.2 he has not had a temperature in 72 hours Pressure is stable oxygen saturation is normal CBC is normal INR is up to 1.9, still on 10 mg of Coumadin nightly. I think this will be the correct dosage to send him home on Patient continues Rocephin 1 g every 12 hours Potassium is back up to 4.1 today Blood cultures negative x96 hours I called , general surgery yesterday about the blisters on his left foot. He stated that all's we needed to do was use bacitracin and Telfa and not to pop the blisters. As they appeared infected nothing else was needed She can probably go home tomorrow or Monday, it is back to the [facility], on something such as Keflex 500 mg 3 times daily. He will need to keep his left lower leg elevated as much as possible. He will need to follow-up with primary care. Obviously his severe autism is going to hamper his feet in recovery. He has a very good support system at the [facility], and they should be able to take him to follow-up doctor appointments - Time Time Spent with patient: 25-34 minutes
[2019-09-16 09:36] LABS: PLATELET COUNT 169 10^3/uL (150-450)
[2019-09-16] MEDS: DIVALPROEX SODIUM 250 MG TABLET.DR PO SCH (21:13)
[2019-09-16] MEDS: MIRTAZAPINE 15 MG TABLET PO SCH (21:14)
[2019-09-16] MEDS: WARFARIN SODIUM 5 MG TABLET PO SCH (21:15)
[2019-09-17 05:37] LABS: INTERNATIONAL RATION (INR) 2.05; PROTHROMBIN TIME 23.4 SEC (11.4-15.4)
[2019-09-17] MEDS: DOCUSATE SODIUM 100 MG CAPSULE PO SCH (09:11)
[2019-09-17] MEDS: HALOPERIDOL 5 MG TABLET PO SCH ×2 (09:14→22:05)
[2019-09-17] MEDS: POTASSIUM CHLORIDE 20 MEQ PACKET PO SCH ×2 (09:14→22:05)
[2019-09-17] MEDS: METOPROLOL SUCCINATE 25 MG TAB.SR.24H PO SCH (09:14)
[2019-09-17] MEDS: FAMOTIDINE 20 MG TABLET PO SCH ×2 (09:14→22:04)
[2019-09-17] MEDS: ARIPIPRAZOLE 5 MG TABLET PO SCH (09:14)
[2019-09-17] MEDS: CEFTRIAXONE 1 GM/D5W RTU 1 GM/50 ML RTUPB IV SCH (09:14)
[2019-09-17] MEDS: DIVALPROEX SODIUM 500 MG TAB.SR.24H PO SCH ×2 (09:14→22:05)
[2019-09-17] MEDS: BENZTROPINE MESYLATE 1 MG TABLET PO SCH ×2 (09:14→22:06)
[2019-09-17] MEDS: OXCARBAZEPINE 150 MG TABLET PO SCH ×5 (09:15→22:09)
[2019-09-17] MEDS: BACITRACIN ZINC OINTMENT 15 GM TP SCH ×2 (09:15→17:17)
[2019-09-17] MEDS: LORAZEPAM INJ 2 MG/1 ML VIAL IV PRN (16:57)
--- NOTE | 2019-09-17 17:05 | PDOC PROGRESS REPORT ---
Subjective Progress Note for:: 09/17/19 Subjective:: No adverse events overnight. No new complaints. Vital signs been stable. No fevers. Eating and drinking without difficulty. Reason For Visit: CELLULITIS,OF ATRIAL FIB,HISTORY OF AORTIC VALVE Physical Exam Vital Signs: Temp Pulse Resp BP Pulse Ox 97.2 F 75 16 133/69 H 99 09/17/19 08:23 09/17/19 14:00 09/17/19 08:23 09/17/19 08:23 09/17/19 08:23 Intake & Output 09/16/19 09/17/19 09/18/19 06:59 06:59 06:59 Intake Total 2870 1860 50 Output Total 0 Balance 2870 1860 50 Weight 119.6 kg 121.1 kg 121.1 kg General appearance: PRESENT: no acute distress, cooperative, disheveled, obese Respiratory exam: PRESENT: clear to auscultation marsha, symmetrical, unlabored. ABSENT: accessory muscle use, chest wall tenderness, crackles, prolonged expiratory phas, rhonchi, tachypnea, wheezes Cardiovascular exam: PRESENT: RRR, +S1, +S2 Pulses: PRESENT: normal carotid pulses Vascular exam: PRESENT: normal capillary refill GI/Abdominal exam: PRESENT: normal bowel sounds, soft. ABSENT: distended, guarding, rebound, tenderness Extremities exam: PRESENT: other - Left foot and leg are rather impressively swollen distal to the knee. ABSENT: clubbing Musculoskeletal exam: PRESENT: normal inspection. ABSENT: deformity Neurological exam: PRESENT: alert, awake, oriented to person, oriented to situation Psychiatric exam: PRESENT: unusual affect Skin exam: PRESENT: dry, erythema, vesicles, other - The erythema seems to have come down some from the lateral his leg that was drawn yesterday, but is still an impressive amount of edema as well as fluid-filled blisters Results Laboratory Results: 09/16/19 08:28 09/16/19 05:55 09/11/19 14:28 Blood Blood Culture - Final NO GROWTH IN 5 DAYS 09/11/19 13:27 Blood Blood Culture - Final NO GROWTH IN 5 DAYS 09/11/19 09/13/19 19:02 06:12 Creatine Kinase 978 H 4326 H Impressions: Foot X-Ray 09/11/19 13:18 IMPRESSION: Subacute Guidry fracture with evidence of healing. Assessment and Plan - Diagnosis (1) Cellulitis of left lower extremity Is this a current diagnosis for this admission?: Yes Plan: He shown some improvement on Rocephin. There was some discussion about sending him home today, but his leg still looks pretty bad. Am going to switch him to A ncef to see how he responds. If he has a good response to that, we can consider sending him on Keflex. Otherwise, I will plan to send him on clindamycin and a probiotic. I have chosen this instead of Bactrim because of the fact that he takes Coumadin. (2) Autism Is this a current diagnosis for this admission?: Yes Plan: We will continue his home medications (3) Supratherapeutic INR Is this a current diagnosis for this admission?: Yes Plan: Now resolved - Plan Summary Summary: Will start patient on broad-spectrum antibiotic, Rocephin. Hydrate patient with fluids continuous basis. Sepsis cultures have been taken. She is INR and PT will be repeated. Hold on further anticoagulants. Will give patient scheduled antipsychotic and benzodiazepines as well as as needed as needed. Repeat labs in the a.m. I did talk to someone at the [facility] area code [phone]. Expressed her desire for us to keep the patient properly sedated. 09/12/2019 Patient's vital signs reveal a low-grade temperature last night of 100.2 however this morning and recently spiked to 102.8 Patient appears tachycardic anywhere from 108-150, with baseline of 110, pressure is averaging around 130/70 White blood cell count on admission was 15,100 today it is 10,600 Coags are still elevated but not rising. His Coumadin is currently held. No vitamin K indicated at this time We will repeat labs in the morning CK and lactic acid Continue Rocephin 1 g IV every 12 hours I have discussed patient's care with his nurse 09/13/2019 Pressure yesterday gone up to 102 but the highest it went last night was 100.6 that was at 0 400 ALT is in the 90s blood pressure is 120/60 INR is come down to 2.28, I have resumed his Coumadin at 7.5 mg daily a lower dose and he came in White count continues to trend down today it is 9000 Lactic acid levels normal 1.7, BNP has gone up to 4326 Due to patient's severe autism he cannot keep his left leg elevated. Patient does not appear septic. Blood culture showed no growth in 24 hours Patient appears to be on his right regimen for his antipsychotic medicines, I have resumed his other home meds as well 09/14/2019 Patient had to be put in soft restraints yesterday evening due to striking out at the [facility] staff members that were in the room as well as agitation towards the nurse. Patient was given IV Haldol and IV Ativan with good results Vital signs this morning are normal and stable White count is still in the normal range 8900 hemoglobin 12.3, lites have actually come up a little bit today to 70,000. INR however is dropped down to 1.78. I have increased his Coumadin up to 10 mg nightly. On admission he was taken 12.5 Patient's potassium has gone from 3.6 on admission down to 3, we will try oral replacements and if that fails go to IV solutions We will DC all IV fluids, try as best as we can to keep his left lower extremity propped up and elevated Continue the IV antibiotics I have discussed all of this with the patient's nurse 09/15/2019 Patient appears to be much more well behaved, is hostile less aggressive. Patient's labs reveal blood cultures to be negative x72 hours, lites are at 70,000 INR today is 1.74, she is currently on 10 mg nightly of Coumadin Potassium is slightly low at 3.0 Left lower extremity is less edematous and less red. When I walked in the room patient has his left leg propped up on a pillow White blood cell count is still normal Possibly discharge home tomorrow or Monday, for his left leg cellulitis 09/16/2019 Patient is currently afebrile 98.2 he has not had a temperature in 72 hours Pressure is stable oxygen saturation is normal CBC is normal INR is up to 1.9, still on 10 mg of Coumadin nightly. I think this will be the correct dosage to send him home on Patient continues Rocephin 1 g every 12 hours Potassium is back up to 4.1 today Blood cultures negative x96 hours I called , general surgery yesterday about the blisters on his left foot. He stated that all's we needed to do was use bacitracin and Telfa and not to pop the blisters. As they appeared infected nothing else was needed She can probably go home tomorrow or Monday, [facility] is back to [facility], on something such as Keflex 500 mg 3 times daily. He will need to keep his left lower leg elevated as much as possible. He will need to follow-up with primary care. Obviously his severe autism is going to hamper his feet in recovery. He has a very good [facility] system at the [facility], and they should be able to take him to follow-up doctor appointments - Time Time Spent with patient: 15-24 minutes
[2019-09-17] MEDS ORDERED: CEFAZOLIN 2 GM/D5W RTU 2 GM/50 ML RTUPB IV SCH (18:00)
[2019-09-17] MEDS: CEFAZOLIN SODIUM 2 GM in DEXTROSE 5%-WATER 100 ML IV SCH ×2 (18:54→23:36)
[2019-09-17] MEDS: WARFARIN SODIUM 5 MG TABLET PO SCH (22:05)
[2019-09-17] MEDS: DIVALPROEX SODIUM 250 MG TABLET.DR PO SCH (22:07)
[2019-09-17] MEDS: MIRTAZAPINE 15 MG TABLET PO SCH (22:10)
[2019-09-18 05:16] LABS: INTERNATIONAL RATION (INR) 1.81; PROTHROMBIN TIME 21.3 SEC (11.4-15.4)
[2019-09-18] MEDS: CEFAZOLIN SODIUM 2 GM in DEXTROSE 5%-WATER 100 ML IV SCH ×2 (05:29→13:35)
[2019-09-18] MEDS: DOCUSATE SODIUM 100 MG CAPSULE PO SCH (09:01)
[2019-09-18] MEDS: HALOPERIDOL 5 MG TABLET PO SCH (09:14)
[2019-09-18] MEDS: BENZTROPINE MESYLATE 1 MG TABLET PO SCH (09:14)
[2019-09-18] MEDS: METOPROLOL SUCCINATE 25 MG TAB.SR.24H PO SCH (09:14)
[2019-09-18] MEDS: FAMOTIDINE 20 MG TABLET PO SCH (09:14)
[2019-09-18] MEDS: POTASSIUM CHLORIDE 20 MEQ PACKET PO SCH (09:14)
[2019-09-18] MEDS: ARIPIPRAZOLE 5 MG TABLET PO SCH (09:14)
[2019-09-18] MEDS: DIVALPROEX SODIUM 500 MG TAB.SR.24H PO SCH (09:14)
[2019-09-18] MEDS: OXCARBAZEPINE 150 MG TABLET PO SCH (09:14)
[2019-09-18] MEDS: BACITRACIN ZINC OINTMENT 15 GM TP SCH (09:15)
[2019-09-18 11:29] VITALS: BP 137/67
--- NOTE | 2019-09-18 17:30 | PDOC DISCHARGE SUMMARY ---
Impression - Admit/DC Date/PCP Admission Date/Primary Care Provider: 09/11/19 18:02 ENRIQUE ANGELA, Discharge Date: 09/18/19 - Discharge Diagnosis (1) Cellulitis of left lower extremity Is this a current diagnosis for this admission?: Yes (2) Autism Is this a current diagnosis for this admission?: Yes (3) Supratherapeutic INR Is this a current diagnosis for this admission?: Yes - Assessment Summary: Will start patient on broad-spectrum antibiotic, Rocephin. Hydrate patient with fluids continuous basis. Sepsis cultures have been taken. She is INR and PT will be repeated. Hold on further anticoagulants. Will give patient scheduled antipsychotic and benzodiazepines as well as as needed as needed. Repeat labs in the a.m. I did talk to someone at the long term area code [phone]. Expressed her desire for us to keep the patient properly sedated. 09/12/2019 Patient's vital signs reveal a low-grade temperature last night of 100.2 however this morning and recently spiked to 102.8 Patient appears tachycardic anywhere from 108-150, with baseline of 110, pressure is averaging around 130/70 White blood cell count on admission was 15,100 today it is 10,600 Coags are still elevated but not rising. His Coumadin is currently held. No vitamin K indicated at this time We will repeat labs in the morning CK and lactic acid Continue Rocephin 1 g IV every 12 hours I have discussed patient's care with his nurse 09/13/2019 Pressure yesterday gone up to 102 but the highest it went last night was 100.6 that was at 0 400 ALT is in the 90s blood pressure is 120/60 INR is come down to 2.28, I have resumed his Coumadin at 7.5 mg daily a lower dose and he came in White count continues to trend down today it is 9000 Lactic acid levels normal 1.7, BNP has gone up to 4326 Due to patient's severe autism he cannot keep his left leg elevated. Patient does not appear septic. Blood culture showed no growth in 24 hours Patient appears to be on his right regimen for his antipsychotic medicines, I have resumed his other home meds as well 09/14/2019 Patient had to be put in soft restraints yesterday evening due to striking out at the long term staff members that were in the room as well as agitation towards the nurse. Patient was given IV Haldol and IV Ativan with good results Vital signs this morning are normal and stable White count is still in the normal range 8900 hemoglobin 12.3, lites have actually come up a little bit today to 70,000. INR however is dropped down to 1.78. I have increased his Coumadin up to 10 mg nightly. On admission he was taken 12.5 Patient's potassium has gone from 3.6 on admission down to 3, we will try oral replacements and if that fails go to IV solutions We will DC all IV fluids, try as best as we can to keep his left lower extremity propped up and elevated Continue the IV antibiotics I have discussed all of this with the patient's nurse 09/15/2019 Patient appears to be much more well behaved, is hostile less aggressive. Patient's labs reveal blood cultures to be negative x72 hours, lites are at 70,000 INR today is 1.74, she is currently on 10 mg nightly of Coumadin Potassium is slightly low at 3.0 Left lower extremity is less edematous and less red. When I walked in the room patient has his left leg propped up on a pillow White blood cell count is still normal Possibly discharge home tomorrow or Monday, for his left leg cellulitis 09/16/2019 Patient is currently afebrile 98.2 he has not had a temperature in 72 hours Pressure is stable oxygen saturation is normal CBC is normal INR is up to 1.9, still on 10 mg of Coumadin nightly. I think this will be the correct dosage to send him home on Patient continues Rocephin 1 g every 12 hours Potassium is back up to 4.1 today Blood cultures negative x96 hours I called , general surgery yesterday about the blisters on his left foot. He stated that all's we needed to do was use bacitracin and Telfa and not to pop the blisters. As they appeared infected nothing else was needed She can probably go home tomorrow or Monday, it is back to the long term, on something such as Keflex 500 mg 3 times daily. He will need to keep his left lower leg elevated as much as possible. He will need to follow-up with primary care. Obviously his severe autism is going to hamper his feet in recovery. He has a very good support system at the long term, and they should be able to take him to follow-up doctor appointments - Additional Information Resuscitation Status: Full Code Discharge Diet: Regular Discharge Activity: Supervised Activity Referrals: ENRIQUE MILLER DO [Primary Care Provider] - 09/27/19 11:30 am (Patient also needs to follow up Monday at PCP for lab draw. ) Prescriptions: Cephalexin [Cephalexin 500 MG Tablet] 1 tab PO QID #40 tablet Warfarin Sodium 7.5 mg PO QHS #30 tablet Home Medications: Aripiprazole [Abilify] 20 mg PO DAILY 09/11/19 Benztropine Mesylate [Benztropine Mesylate 2 mg Tablet] 2 mg PO BID@0800,199909/11/19 Divalproex Sodium 250 mg PO QHS@199909/11/19 Divalproex Sodium [Depakote] 1,000 mg PO BID@0800,199909/11/19 Docusate Sodium [Colace] 200 mg PO BID 09/11/19 Haloperidol [Haldol 5 mg Tablet] 5 mg PO BIDP PRN 09/11/19 Metoprolol Succinate [Toprol Xl 25 mg Tab.sr] 25 mg PO DAILY@0809/11/19 Mirtazapine [Remeron 15 mg Tablet] 15 mg PO QHS@199909/11/19 Oxcarbazepine 300 mg PO BID@1500,199909/11/19 Oxcarbazepine [Trileptal] 150 mg PO BID@1500,199909/11/19 Oxcarbazepine [Trileptal] 600 mg PO QAM@0800 09/11/19 Pantoprazole Sodium 40 mg PO DAILY@0800 09/11/19 Tramadol HCl [Ultram] 50 mg PO Q6HP PRN 09/11/19 Cephalexin [Cephalexin 500 MG Tablet] 1 tab PO QID #40 tablet 09/18/19 Warfarin Sodium 7.5 mg PO QHS #30 tablet 09/18/19 History of Present Illiness History of Present Illness: SUELLEN GARCIA is a 29 year old male who had a foreign body removed from his left foot yesterday long term where he is a resident. She is severely autistic and did not complain of any pain. The staff members noticed a piece of glass in the bottom of his foot and removed it. Last night his foot was a little red and his lower leg was a little red, it was much worse going up to about mid tibia. She was brought to the emergency room for possible infection of the left lower leg. Cording to staff and review of notes he has known allergies. Have a history of heart valve replacement and is on Coumadin. Is severely autistic and very aggressive and requires scheduled medication for this aggression. Patient has been at this particular long term for about a year now. Patient has been heavily sedated by the ER staff due to his aggressive behavior. Patient's initial INR and PT are elevated this lab work is going to be repeated. He also has a mild leukocytosis with white count 15,100 Hospital Course Hospital Course: His INR was substantially elevated and so he was given some vitamin K despite the fact he was not bleeding. His INR is come down we have readjusted his warfarin dose to account for it. This will be followed up at his long term. He was also put on some antibiotics for his left leg cellulitis. He had been on Rocephin and yesterday was switched to Ancef, and subsequently has had a fairly vigorous response. He still has a little bit of erythema and some swelling but it has improved substantially. He was also noted to have a nondisplaced fracture of the fifth metatarsal head of the left foot, but was not complaining of any pain. He will follow-up with his primary care provider in a couple of days to make sure he has continued improvement of the erythema and swelling. He will need to have his INR checked in about a week. His labs and examination were reassuring and he was discharged in good condition. He will finish up a course of Keflex as an outpatient. Physical Exam Vital Signs: Temp Pulse Resp BP Pulse Ox 98.1 F 96 18 137/67 H 100 09/18/19 11:26 09/18/19 11:26 09/18/19 11:26 09/18/19 11:26 09/18/19 11:26 Intake & Output 09/17/19 09/18/19 09/19/19 06:59 06:59 06:59 Intake Total 1860 2392 100 Output Total 0 Balance 1860 2392 100 Weight 121.1 kg 121.6 kg General appearance: PRESENT: no acute distress, cooperative, disheveled, obese Respiratory exam: PRESENT: clear to auscultation marsha, symmetrical, unlabored. ABSENT: accessory muscle use, chest wall tenderness, crackles, prolonged expiratory phas, rhonchi, tachypnea, wheezes Cardiovascular exam: PRESENT: RRR, +S1, +S2 Pulses: PRESENT: normal carotid pulses Vascular exam: PRESENT: normal capillary refill GI/Abdominal exam: PRESENT: normal bowel sounds, soft. ABSENT: distended, guarding, rebound, tenderness Extremities exam: PRESENT: other - Left foot and leg are rather impressively swollen distal to the knee. ABSENT: clubbing Musculoskeletal exam: PRESENT: normal inspection. ABSENT: deformity Neurological exam: PRESENT: alert, awake, oriented to person, oriented to situa tion Psychiatric exam: PRESENT: unusual affect Skin exam: PRESENT: dry, erythema, vesicles, other - The erythema seems to have come down some from the lateral his leg that was drawn yesterday, but is still an impressive amount of edema as well as fluid-filled blisters Results Laboratory Results: WBC 7.0 10^3/uL (4.0-10.5) 09/16/19 08:28 RBC 4.22 10^6/uL (4.35-5.55) L 09/16/19 08:28 Hgb 12.0 g/dL (13.5-17.0) L 09/16/19 08:28 Hct 35.0 % (37.9-51.0) L 09/16/19 08:28 MCV 83 fl (80-97) 09/16/19 08:28 MCH 28.3 pg (27.0-33.4) 09/16/19 08:28 MCHC 34.2 g/dL (32.0-36.0) 09/16/19 08:28 RDW 13.6 % (11.5-14.0) 09/16/19 08:28 Plt Count 169 10^3/uL (150-450) D 09/16/19 08:28 Lymph % (Auto) 18.8 % (13-45) 09/16/19 08:28 Wheeler % (Auto) 9.6 % (3-13) 09/16/19 08:28 Eos % (Auto) 3.2 % (0-6) 09/16/19 08:28 Baso % (Auto) 0.5 % (0-2) 09/16/19 08:28 Absolute Neuts (auto) 4.7 10^3/uL (1.7-8.2) 09/16/19 08:28 Absolute Lymphs (auto) 1.3 10^3/uL (0.5-4.7) 09/16/19 08:28 Absolute Monos (auto) 0.7 10^3/uL (0.1-1.4) 09/16/19 08:28 Absolute Eos (auto) 0.2 10^3/uL (0.0-0.6) 09/16/19 08:28 Absolute Basos (auto) 0.0 10^3/uL (0.0-0.2) 09/16/19 08:28 Seg Neutrophils % 67.9 % (42-78) 09/16/19 08:28 Platelet Estimate Cancelled 09/16/19 05:55 PT 21.3 SEC (11.4-15.4) H 09/18/19 04:20 INR 1.81 09/18/19 04:20 INR (Anticoag Therapy) Cancelled 09/11/19 13:27 APTT 63.9 SEC (23.5-35.8) H 09/13/19 06:12 Sodium 141.1 mmol/L (137-145) 09/16/19 05:55 Potassium 4.1 mmol/L (3.6-5.0) 09/16/19 05:55 Chloride 106 mmol/L (98-107) 09/16/19 05:55 Carbon Dioxide 31 mmol/L (22-30) H 09/16/19 05:55 Anion Gap 4 (5-19) L 09/16/19 05:55 BUN 7 mg/dL (7-20) 09/16/19 05:55 Creatinine 0.46 mg/dL (0.52-1.25) L 09/16/19 05:55 Est GFR ( Amer) > 60 (>60) 09/16/19 05:55 Est GFR (MDRD) Non-Af > 60 (>60) 09/16/19 05:55 Glucose 104 mg/dL (75-110) 09/16/19 05:55 Lactic Acid 1.7 mmol/L (0.7-2.1) 09/13/19 06:12 Lactic Acid (Sepsis) 2.3 mmol/L (0.7-2.1) H 09/11/19 16:35 Calcium 9.6 mg/dL (8.4-10.2) 09/16/19 05:55 Total Bilirubin 0.8 mg/dL (0.2-1.3) 09/11/19 13:27 Direct Bilirubin 0.2 mg/dL (0.0-0.4) 09/11/19 13:27 Neonat Total Bilirubin Not Reportable 09/11/19 13:27 Neonat Direct Bilirubin Not Reportable 09/11/19 13:27 Neonat Indirect Bili Not Reportable 09/11/19 13:27 AST 52 U/L (17-59) 09/11/19 13:27 ALT 26 U/L (<50) 09/11/19 13:27 Alkaline Phosphatase 51 U/L (38-126) 09/11/19 13:27 Creatine Kinase 4326 U/L (55-170) H 09/13/19 06:12 Total Protein 7.5 g/dL (6.3-8.2) 09/11/19 13:27 Albumin 4.3 g/dL (3.5-5.0) 09/11/19 13:27 Urine Color YELLOW 09/14/19 04:25 Urine Appearance CLEAR 09/14/19 04:25 Urine pH 6.0 (5.0-9.0) 09/14/19 04:25 Ur Specific [place] 1.014 09/14/19 04:25 Urine Protein NEGATIVE mg/dL (NEGATIVE) 09/14/19 04:25 Urine Glucose (UA) NEGATIVE mg/dL (NEGATIVE) 09/14/19 04:25 Urine Ketones NEGATIVE mg/dL (NEGATIVE) 09/14/19 04:25 Urine Blood MODERATE (NEGATIVE) H 09/14/19 04:25 Urine Nitrite NEGATIVE (NEGATIVE) 09/14/19 04:25 Urine Bilirubin NEGATIVE (NEGATIVE) 09/14/19 04:25 Urine Urobilinogen 4.0 mg/dL (<2.0) H 09/14/19 04:25 Ur Leukocyte Esterase NEGATIVE (NEGATIVE) 09/14/19 04:25 Urine WBC (Auto) 3 /HPF 09/14/19 04:25 Urine RBC (Auto) 4 /HPF 09/14/19 04:25 Urine Mucus (Auto) OCC /LPF 09/14/19 04:25 Urine Ascorbic Acid NEGATIVE (NEGATIVE) 09/14/19 04:25 Slides for Path Review Cancelled 09/16/19 05:55 Impressions: Foot X-Ray 09/11/19 13:18 IMPRESSION: Subacute Guidry fracture with evidence of healing. Plan Time Spent: Greater than 30 Minutes Stroke Is this a Stroke Patient?: No Acute Heart Failure - Is this a Heart Failure Patient?: No
[2019-09-18] MEDS ORDERED: WARFARIN SODIUM 5 MG TABLET PO SCH (22:00)
[2019-09-18] MEDS ORDERED: WARFARIN SODIUM 7.5 MG TABLET PO SCH (22:00)
== END 2019-09-18 14:33 | disposition home or self-care (01) | DRG 603 ==
LOC: ER 13:06 → EH 18:02 → 3W 21:58 → 3N 09-14 07:30
PROVIDERS: ADMIT Hospitalist; ATTEND Hospitalist
DX: L03.116 Cellulitis of left lower limb (principal); F84.0 Autistic disorder; R79.1 Abnormal coagulation profile; F90.9 Attention-deficit hyperactivity disorder, unspecified type; I48.91 Unspecified atrial fibrillation; Z79.01 Long term (current) use of anticoagulants; M41.9 Scoliosis, unspecified; Z95.2 Presence of prosthetic heart valve; I25.2 Old myocardial infarction; Z79.899 Other long term (current) drug therapy; Z78.1 Physical restraint status; Z98.1 Arthrodesis status
CPT/HCPCS: 36415; 80048; 80053; 81001; 82550; 83605; 85025; 85610; 85730; 87040; 96365; 96375; 99285; J0690; J0696; J1630; J1885; J2060; J3370; J3490; J7030; J7060

== ENCOUNTER 2019-10-06 15:58 | Inpatient (IN) | payer MEDICAID ==
[2019-10-06] MEDS ORDERED: NORMAL SALINE 1000 ML 1,000 ML IV ONE (16:20)
--- NOTE | 2019-10-06 16:22 | ER Document Report ---
ED Medical Screen (RME) - General Chief Complaint: Foot Injury Stated Complaint: FOOT PAIN Time Seen by Provider: 10/06/19 16:07 Primary Care Provider: ENRIQUE MILLER DO [Primary Care Provider] - Follow up as needed Notes: Patient presents with infected left foot. Patient was discharged from the hospital on 09/18/2019 after being treated for foreign body removal and cellulitis. Patient's care provider is with him and states that he can hear louder than normal heart sound. Patient does have mechanical valve. Patient is not currently on any antibiotics at this time. Patient with history of severe autism as well. I have greeted and performed a rapid initial assessment of this patient. A comprehensive ED assessment and evaluation of the patient, analysis of test results and completion of the medical decision making process will be conducted by additional ED providers. TRAVEL OUTSIDE OF THE [place] IN LAST 30 DAYS: No - Related Data Allergies/Adverse Reactions: No Known Allergies Allergy (Verified 09/11/19 13:13) Home Medications: nella can bring med list in, it is in the car. Past Medical History - Social History Chew tobacco use (# tins/day): No Frequency of alcohol use: None Drug Abuse: None Family history: Reviewed & Not Pertinent - Past Medical History Cardiac Medical History: Reports: Hx Atrial Fibrillation, Hx Heart Attack - valve condition Renal/ Medical History: Denies: Hx Peritoneal Dialysis Musculoskeltal Medical History: Reports Hx Musculoskeletal Deformity Skin Medical History: Reports Hx Cellulitis Psychiatric Medical History: Reports: Hx Attention Deficit Hyperactivity Disorder - autism Denies: Hx Depression Past Surgical History: Reports: Hx Cardiac Catheterization, Hx Cardiac Surgery - Aortic Valve Replacement. VSD repair, Hx Orthopedic Surgery - Hardware of spine for scoliosis - Immunizations Hx Diphtheria, Pertussis, Tetanus Vaccination: Yes Physical Exam - Vital signs Vitals: Temp Resp Pulse Ox 97.5 F 20 100 10/06/19 15:58 10/06/19 15:58 10/06/19 15:58 - General General appearance: Alert Notes: Patient with extensive left foot and ankle swelling, erythema extends up to the middle third of the left lower extremity. Patient with a blackened area over the heel and open wounds to the medial, lateral aspects of the foot and dorsal aspect over the distal metatarsal Course - Vital Signs Vital signs: Temp Pulse Resp BP Pulse Ox 97.5 F 124 H 20 115/75 100 10/06/19 16:02 10/06/19 16:02 10/06/19 16:02 10/06/19 16:02 10/06/19 16:02 Doctor's Discharge - Discharge Referrals: ENRIQUE MILLER DO [Primary Care Provider] - Follow up as needed
--- NOTE | 2019-10-06 17:41 | RADIOLOGY REPORT (SQ) ---
EXAM DESCRIPTION: FOOT LEFT COMPLETE COMPLETED DATE/TIME: 10/06/2019 5:18 pm REASON FOR STUDY: foot infection COMPARISON: 09/11/2019 EXAM PARAMETERS: NUMBER OF VIEWS: Three views. TECHNIQUE: AP, lateral and oblique radiographic images acquired of the left foot. LIMITATIONS: None. FINDINGS: MINERALIZATION: Normal. BONES: No acute fracture or dislocation. Healing proximal 5th metatarsal fracture. JOINTS: No effusion. SOFT TISSUES: Moderate soft tissue swelling. No radiopaque foreign body. OTHER: No other significant finding. IMPRESSION: No acute fracture or dislocation. Healing proximal 5th metatarsal fracture. TECHNICAL DOCUMENTATION: JOB ID: [id number] [place]-[id number] 2010 [employer]- All Rights Reserved Reading location - IP/workstation name: [email or web address]
[2019-10-06] MEDS ORDERED: VANCOMYCIN HCL INJ 1000 MG VIAL IV ONE (18:50)
[2019-10-06] MEDS ORDERED: PIPERACILLIN/TAZOBACTAM 3.375 GM VIAL IV ONE (18:50)
[2019-10-06] MEDS ORDERED: MORPHINE SULFATE 10 MG/ML INJ IV ONE (19:15)
[2019-10-06 19:34] LABS: ABSOLUTE LYMPHOCYTES (AUTO) 1.2 10^3/uL (0.5-4.7); ABSOLUTE MONOCYTES (AUTO) 0.4 10^3/uL (0.1-1.4); ABSOLUTE NEUT (AUTO) 10.6 10^3/uL (1.7-8.2); BASOPHILS % (AUTO) 0.4 % (0-2); HEMATOCRIT 39.9 % (37.9-51.0); HEMOGLOBIN 13.4 g/dL (13.5-17.0); LYMPHOCYTES % (AUTO) 10.2 % (13-45); MEAN CORPUSCULAR HEMOGLOBIN 28.5 pg (27.0-33.4); MEAN CORPUSCULAR HGB CONC 33.6 g/dL (32.0-36.0); MEAN CORPUSCULAR VOLUME 85 fl (80-97); MONOCYTES % (AUTO) 3.2 % (3-13); PLATELET COUNT 100 10^3/uL (150-450); RED BLOOD COUNT 4.71 10^6/uL (4.35-5.55); RED CELL DISTRIBUTION WIDTH 15.4 % (11.5-14.0); SEGMENTED NEUTROPHILS % (AUTO) 86.2 % (42-78); TOTAL CELLS COUNTED % (AUTO) 100 %; WHITE BLOOD COUNT 12.3 10^3/uL (4.0-10.5)
[2019-10-06 19:36] LABS: VENOUS BLOOD BASE EXCESS 4.3 mmol/L; VENOUS BLOOD HCO3 30.7 mmol/L (20-32); VENOUS BLOOD PH 7.38 (7.30-7.42)
[2019-10-06 19:39] LABS: INTERNATIONAL RATION (INR) 1.46; PROTHROMBIN TIME 17.9 SEC (11.4-15.4)
[2019-10-06 19:58] LABS: ALBUMIN 4.1 g/dL (3.5-5.0); ALKALINE PHOSPHATASE 41 U/L (38-126); ANION GAP 10 (5-19); ASPARTATE AMINO TRANSFERASE 29 U/L (17-59); BILIRUBIN,DIRECT 0.2 mg/dL (0.0-0.4); BILIRUBIN,TOTAL 0.7 mg/dL (0.2-1.3); BLOOD UREA NITROGEN 20 mg/dL (7-20); CALCIUM 9.9 mg/dL (8.4-10.2); CARBON DIOXIDE 31 mmol/L (22-30); CHLORIDE 93 mmol/L (98-107); GLUCOSE 91 mg/dL (75-110); POTASSIUM 3.5 mmol/L (3.6-5.0); TOTAL PROTEIN 7.5 g/dL (6.3-8.2)
--- NOTE | 2019-10-06 20:00 | ER Document Report ---
ED Extremity Problem, Lower - General Chief Complaint: Foot Injury Stated Complaint: FOOT PAIN Time Seen by Provider: 10/06/19 16:07 Primary Care Provider: ENRIQUE MILLER DO [NO LOCAL MD] - Follow up as needed Notes: 29-year-old male with history of autism presents for left lower leg swelling/pain/redness worse the last week. Patient was recently admitted on 09/11 for cellulitis of the left lower leg and was discharged with Keflex. Patient's medical insurance clerk states he finished all antibiotics and it was looking better . Patient's caretakers say that patient seems not like himself today. Patient's medical insurance clerk states he was not as "excited.". And has had loss of appetite today. States that he noticed the swelling and redness has gotten worse over the last week. TRAVEL OUTSIDE OF THE [place] IN LAST 30 DAYS: No - Related Data Allergies/Adverse Reactions: No Known Allergies Allergy (Verified 09/11/19 13:13) Home Medications: nella can bring med list in, it is in the car. Past Medical History - Social History Smoking Status: Never Smoker Chew tobacco use (# tins/day): No Frequency of alcohol use: None Drug Abuse: None Family History: Reviewed & Not Pertinent Patient has suicidal ideation: No Patient has homicidal ideation: No - Past Medical History Cardiac Medical History: Reports: Hx Atrial Fibrillation, Hx Heart Attack - valve condition Renal/ Medical History: Denies: Hx Peritoneal Dialysis Musculoskeletal Medical History: Reports Hx Musculoskeletal Deformity Skin Medical History: Reports Hx Cellulitis Psychiatric Medical History: Reports: Hx Attention Deficit Hyperactivity Disorder - autism Denies: Hx Depression Past Surgical History: Reports: Hx Cardiac Catheterization, Hx Cardiac Surgery - Aortic Valve Replacement. VSD repair, Hx Orthopedic Surgery - Hardware of spine for scoliosis - Immunizations Hx Diphtheria, Pertussis, Tetanus Vaccination: Yes Review of Systems - Review of Systems -: Yes ROS unobtainable due to patient's medical condition Physical Exam - Vital signs Vitals: Temp Resp Pulse Ox 97.5 F 20 100 10/06/19 15:58 10/06/19 15:58 10/06/19 15:58 - Notes Notes: GENERAL: Well-appearing, well-nourished and in no acute distress. HEAD: Atraumatic, normocephalic. EYES: Extraocular movements intact, sclera anicteric, conjunctiva are normal. NECK: Normal range of motion, supple without lymphadenopathy or JVD. LUNGS: Breath sounds clear to auscultation bilaterally and equal. No wheezes rales or rhonchi. HEART: Tachycardic with audible murmur from mechanical valve. EXTREMITIES: Normal range of motion, no pitting or edema. No clubbing or cyanosis. LLE: Moderate erythema from foot up to upper lower leg, moderate swelling, area is calor NEUROLOGICAL: Cranial nerves II through XII grossly intact. Normal speech, normal gait. PSYCH: Normal mood, normal affect. SKIN: Warm, Dry, normal turgor, no rashes or lesions noted. Course - Re-evaluation Re-evalutation: 10/06/19 Concern for cellulitis in the left lower extremity. Area is erythematous with traveling up to proximal lower leg, not including knee. Area is also hot to touch. Patient was recently admitted at the end of last month for cellulitis to the same lower leg. Patient's white count is mildly elevated. Patient is afebrile. 10/06/19 20:[address] Pollack, hospitalist who accepted pt for admission. - Vital Signs Vital signs: Temp Pulse Resp BP Pulse Ox 97.5 F 124 H 20 115/75 100 10/06/19 16:02 10/06/19 16:02 10/06/19 16:02 10/06/19 16:02 10/06/19 16:02 - Laboratory Result Diagrams: 10/06/19 18:55 10/06/19 18:55 Laboratory results interpreted by me: 10/06/19 10/06/19 10/06/19 18:55 18:55 18:55 WBC 12.3 H Hgb 13.4 L RDW 15.4 H Plt Count 100 L Lymph % (Auto) 10.2 L Absolute Neuts (auto) 10.6 H Seg Neutrophils % 86.2 H PT 17.9 H Sodium 133.6 L Potassium 3.5 L Chloride 93 L Carbon Dioxide 31 H Discharge - Discharge Clinical Impression: Cellulitis of left lower leg Condition: Stable Disposition: ADMITTED INPATIENT Admitting Provider: Ranjeet (Hospitalist) Unit Admitted: Medical Floor Referrals: ENRIQUE MILLER DO [NO LOCAL MD] - Follow up as needed
--- NOTE | 2019-10-06 20:05 | EKG REPORT ---
SEVERITY:- ABNORMAL ECG - SINUS TACHYCARDIA LEFT ATRIAL ABNORMALITY RIGHT BUNDLE BRANCH BLOCK : Confirmed by: Nat Osborn 06-Oct-2019 20:05:00
[2019-10-06] MEDS ORDERED: MAG HYDROX/AL HYDROX/SIMETH SUSP 30 ML UDCUP PO PRN (20:18)
[2019-10-06] MEDS ORDERED: ACETAMINOPHEN 325 MG TABLET PO PRN (20:18)
[2019-10-06] MEDS ORDERED: VANCOMYCIN HCL 0 MG in DEXTROSE 5%-WATER 250 ML IV NR (20:30)
[2019-10-06] MEDS ORDERED: VANCOMYCIN HCL INJ 1000 MG VIAL IV PRN (20:43)
[2019-10-06] MEDS ORDERED: VANCOMYCIN HCL 2,000 MG in DEXTROSE 5%-WATER 500 ML IV ONE (20:45)
[2019-10-06] MEDS: CEFEPIME 1 GM/D5W RTU 1 GM/50 ML RTUPB IV SCH (21:14)
[2019-10-06] MEDS: HEPARIN SOD (PORCINE) 5,000 UNIT/ML 1 ML VIAL SUBCUT SCH (21:18)
[2019-10-06] MEDS: HALOPERIDOL 5 MG TABLET PO SCH (21:18)
[2019-10-06] MEDS: ARIPIPRAZOLE 5 MG TABLET PO SCH (21:21)
[2019-10-06] MEDS: NORMAL SALINE 1000 ML 1,000 ML IV PRN (21:22)
[2019-10-07] MEDS ORDERED: TRAMADOL HCL 50 MG TABLET PO PRN (04:43)
[2019-10-07 04:59] LABS: ABSOLUTE EOSINOPHILS # (AUTO) 0.1 10^3/uL (0.0-0.6); ABSOLUTE LYMPHOCYTES (AUTO) 1.3 10^3/uL (0.5-4.7); ABSOLUTE MONOCYTES (AUTO) 0.6 10^3/uL (0.1-1.4); ABSOLUTE NEUT (AUTO) 8.6 10^3/uL (1.7-8.2); BASOPHILS % (AUTO) 0.3 % (0-2); EOSINOPHILS % (AUTO) 0.5 % (0-6); HEMATOCRIT 36.1 % (37.9-51.0); HEMOGLOBIN 12.4 g/dL (13.5-17.0); LYMPHOCYTES % (AUTO) 12.3 % (13-45); MEAN CORPUSCULAR HEMOGLOBIN 28.8 pg (27.0-33.4); MEAN CORPUSCULAR HGB CONC 34.5 g/dL (32.0-36.0); MEAN CORPUSCULAR VOLUME 84 fl (80-97); MONOCYTES % (AUTO) 5.5 % (3-13); RED BLOOD COUNT 4.32 10^6/uL (4.35-5.55); SEGMENTED NEUTROPHILS % (AUTO) 81.4 % (42-78); TOTAL CELLS COUNTED % (AUTO) 100 %; WHITE BLOOD COUNT 10.6 10^3/uL (4.0-10.5)
--- NOTE | 2019-10-07 04:59 | PDOC H&P ---
History of Present Illness Admission Date/PCP: 10/06/19 20:35 ROBERTO MINA Patient complains of: Left leg pain and swelling History of Present Illness: SUELLEN GARCIA is a 29 year old male with a past medical history of severe autism residing in long-term, paroxysmal atrial fibrillation on Coumadin and recent left leg cellulitis complicated by foreign body of glass discharged September 18, 2019. He was discharged home on Keflex 500 mg 3 times daily, bacitracin and Telfa dressings. He had initially improved but returns with significant worsening over the last 5 days. He is found to have severe swelling, erythema, pain and necrotic tissue to the medial and lateral aspects of the foot. He is started on empiric antibiotics of vancomycin and Zosyn. Evaluation of his prior cultures are negative. Past Medical History Cardiac Medical History: Reports: Atrial Fibrillation, Myocardial Infarction - valve condition Psychiatric Medical History: Reports: Attention Deficit Hyperactivity Disorder - autism Denies: Depression Past Surgical History Past Surgical History: Reports: Cardiac Catheterization, Orthopedic Surgery - Hardware of spine for scoliosis Social History Information Source: Friend - Patient accompanied by [facility], [facility] Records Lives with: Other Smoking Status: Never Smoker Electronic Cigarette use?: No Frequency of Alcohol Use: None Hx Recreational Drug Use: No Drugs: None Hx Prescription Drug Abuse: No - Advance Directive Resuscitation Status: Full Code Family History Family History: Other - Unknown Parental Family History Reviewed: No - Unknown Children Family History Reviewed: No - Unknown Sibling(s) Family History Reviewed.: No - Unknown Medication/Allergy Home Medications: Aripiprazole [Abilify] 20 mg PO QAM 09/11/19 Benztropine Mesylate [Benztropine Mesylate 2 mg Tablet] 2 mg PO BID@0800,199909/11/19 Divalproex Sodium 1,000 mg PO ASDIR PRN 09/11/19 Haloperidol [Haldol 5 mg Tablet] 5 mg PO ASDIR PRN 09/11/19 Metoprolol Succinate [Toprol Xl 25 mg Tab.sr] 25 mg PO DAILY@0800 09/11/19 Mirtazapine [Remeron 15 mg Tablet] 15 mg PO QHS@199909/11/19 Oxcarbazepine 300 mg PO BID@1500,199909/11/19 Oxcarbazepine [Trileptal] 150 mg PO BID@1500,199909/11/19 Oxcarbazepine [Trileptal] 600 mg PO QAM@0800 09/11/19 Pantoprazole Sodium 40 mg PO DAILY@0800 09/11/19 Tramadol HCl [Ultram] 50 mg PO Q6HP PRN 09/11/19 Divalproex Sodium [Depakote] 250 mg PO Q8PM 10/07/19 Docusate Sodium [Colace 100 mg Capsule] 100 mg PO ASDIR PRN 10/07/19 Tramadol HCl [Ultram 50 mg Tablet] 50 mg PO Q6HP PRN 10/07/19 Warfarin Sodium [Coumadin 5 mg Tablet] 10 mg PO QHS 10/07/19 Allergies/Adverse Reactions: No Known Allergies Allergy (Verified 09/11/19 13:13) Review of Systems ROS unobtainable: Due to mental status - Minimally verbal Physical Exam Vital Signs: Temp Pulse Resp BP Pulse Ox 98.1 F 98 18 139/66 H 98 10/06/19 23:33 10/06/19 23:33 10/06/19 23:33 10/06/19 23:33 10/06/19 23:33 Intake & Output 10/05/19 10/06/19 10/07/19 11:59 11:59 11:59 Intake Total 370 Balance 370 Weight 106.8 kg General appearance: PRESENT: cooperative, severe distress, well-nourished Head exam: PRESENT: atraumatic, normocephalic Eye exam: PRESENT: conjunctiva pink, EOMI, PERRLA. ABSENT: scleral icterus Ear exam: PRESENT: normal external ear exam Mouth exam: PRESENT: moist, tongue midline Neck exam: ABSENT: carotid bruit, JVD, lymphadenopathy, thyromegaly Respiratory exam: PRESENT: clear to auscultation marsha. ABSENT: rales, rhonchi, wheezes Cardiovascular exam: PRESENT: RRR. ABSENT: diastolic murmur, rubs, systolic murmur Pulses: PRESENT: normal dorsalis pedis pul Vascular exam: PRESENT: normal capillary refill GI/Abdominal exam: PRESENT: normal bowel sounds, soft. ABSENT: distended, guarding, mass, organolmegaly, rebound, tenderness Rectal exam: PRESENT: deferred Extremities exam: PRESENT: tenderness, +2 edema, other - Severe circumferential edema, erythema from the knee to the toes with necrotic tissues to the lateral and medial aspect of the foot. ABSENT: full ROM Musculoskeletal exam: PRESENT: tenderness - Left leg. ABSENT: ambulatory, dislocation Neurological exam: PRESENT: alert, awake, oriented to person, oriented to place, oriented to time, oriented to situation, CN II-XII grossly intact. ABSENT: motor sensory deficit Psychiatric exam: PRESENT: flat affect, unusual affect Skin exam: PRESENT: erythema, intact, rash, warm, other - Severe circumferential edema, erythema from the knee to the toes with necrotic tissues to the lateral and medial aspect of the foot. ABSENT: normal color, pallor, petechiae, skin tears Results Laboratory Results: 10/06/19 18:55 10/06/19 18:55 10/06/19 10/06/19 10/06/19 18:55 18:55 18:55 WBC 12.3 H RBC 4.71 Hgb 13.4 L Hct 39.9 MCV 85 MCH 28.5 MCHC 33.6 RDW 15.4 H Plt Count 100 L Seg Neutrophils % 86.2 H VBG pH 7.38 VBG pCO2 53.0 VBG HCO3 30.7 VBG Base Excess 4.3 Sodium 133.6 L Potassium 3.5 L Chloride 93 L Carbon Dioxide 31 H Anion Gap 10 BUN 20 Creatinine 0.82 Est GFR ( Amer) > 60 Glucose 91 Calcium 9.9 Total Bilirubin 0.7 AST 29 Alkaline Phosphatase 41 Total Protein 7.5 Albumin 4.1 Impressions: Foot X-Ray 10/06/19 16:20 IMPRESSION: No acute fracture or dislocation. Healing proximal 5th metatarsal fracture. Assessment and Plan - Diagnosis (1) Cellulitis of left lower leg Is this a current diagnosis for this admission?: Yes Plan: Empiric antibiotics vancomycin and cefepime ordered. Elevation as tolerated, follow-up surgical consult, CBC and blood culture (2) Autism Is this a current diagnosis for this admission?: Yes Plan: Resume outpatient medication regiment (3) On anticoagulant therapy Is this a current diagnosis for this admission?: Yes Plan: Resume outpatient Coumadin. Follow-up INR - Time Time Spent with patient: 25-34 minutes - Inpatient Certification Medical Necessity: Need Close Monitoring Due to Risk of Patient Decompensation
[2019-10-07 05:14] LABS: ANION GAP 7 (5-19); BLOOD UREA NITROGEN 13 mg/dL (7-20); CARBON DIOXIDE 27 mmol/L (22-30); CHLORIDE 100 mmol/L (98-107); GLUCOSE 94 mg/dL (75-110); POTASSIUM 3.3 mmol/L (3.6-5.0)
[2019-10-07 05:30] LABS: PLATELET COUNT 81 10^3/uL (150-450)
[2019-10-07] MEDS ORDERED: POTASSIUM CHLORIDE 10 MEQ TABLET.ER PO ONE ×2 (05:53→10:32)
[2019-10-07] MEDS: HEPARIN SOD (PORCINE) 5,000 UNIT/ML 1 ML VIAL SUBCUT SCH (06:04)
[2019-10-07] MEDS: HALOPERIDOL 5 MG TABLET PO SCH ×3 (06:04→21:04)
[2019-10-07] MEDS: NORMAL SALINE 1000 ML 1,000 ML IV PRN ×2 (06:12→12:10)
--- NOTE | 2019-10-07 06:17 | PDOC CONSULTATION ---
Consultation Consult Date: 10/07/19 Provider Consulted: SURGICAL SURGICALIST Consult reason:: cellulitis, left foot History of Present Illness Admission Date/PCP: 10/06/19 20:35 ROBERTO MINA History of Present Illness: SUELLEN GARCIA is a 29 year old male seen in consultation at the request of the hospitalist service. The patient has a history of left foot cellulitis. He presented to the hospital and was given antibiotics. He was discharged home. The patient's caregiver reports that he had a "piece of glass in his foot" that was extracted at that time. He was given Keflex, and his cellulitis appeared to resolve. 8 days later, the cellulitis has recurred. The patient denies any pain in the foot. There is significant swelling and erythema. There are several open wounds to the foot. At this time he denies chest pain, shortness of breath, fevers, chills, nausea, vomiting, melena, hematochezia, orthostasis. Past Medical History Cardiac Medical History: Reports: Atrial Fibrillation, Myocardial Infarction - valve condition Psychiatric Medical History: Reports: Attention Deficit Hyperactivity Disorder - autism Denies: Depression Past Surgical History Past Surgical History: Reports: Cardiac Catheterization, Orthopedic Surgery - Hardware of spine for scoliosis Social History Lives with: Other Smoking Status: Never Smoker Electronic Cigarette use?: No Frequency of Alcohol Use: None Hx Recreational Drug Use: No Drugs: None Hx Prescription Drug Abuse: No - Advance Directive Resuscitation Status: Full Code Family History Family History: Other - Unknown Parental Family History Reviewed: Yes Children Family History Reviewed: Yes Sibling(s) Family History Reviewed.: Yes Medication/Allergy Home Medications: Aripiprazole [Abilify] 20 mg PO QAM 09/11/19 Benztropine Mesylate [Benztropine Mesylate 2 mg Tablet] 2 mg PO BID@0800,199909/11/19 Divalproex Sodium 1,000 mg PO ASDIR PRN 09/11/19 Haloperidol [Haldol 5 mg Tablet] 5 mg PO ASDIR PRN 09/11/19 Metoprolol Succinate [Toprol Xl 25 mg Tab.sr] 25 mg PO DAILY@0800 09/11/19 Mirtazapine [Remeron 15 mg Tablet] 15 mg PO QHS@199909/11/19 Oxcarbazepine 300 mg PO BID@1500,199909/11/19 Oxcarbazepine [Trileptal] 150 mg PO BID@1500,199909/11/19 Oxcarbazepine [Trileptal] 600 mg PO QAM@0800 09/11/19 Pantoprazole Sodium 40 mg PO DAILY@0800 09/11/19 Tramadol HCl [Ultram] 50 mg PO Q6HP PRN 09/11/19 Divalproex Sodium [Depakote] 250 mg PO Q8PM 10/07/19 Docusate Sodium [Colace 100 mg Capsule] 100 mg PO ASDIR PRN 10/07/19 Tramadol HCl [Ultram 50 mg Tablet] 50 mg PO Q6HP PRN 10/07/19 Warfarin Sodium [Coumadin 5 mg Tablet] 10 mg PO QHS 10/07/19 Allergies/Adverse Reactions: No Known Allergies Allergy (Verified 09/11/19 13:13) Review of Systems Constitutional: ABSENT: chills, fatigue, fever(s), night sweats, weakness Eyes: ABSENT: visual disturbances Ears: ABSENT: hearing changes Nose, Mouth, and Throat: ABSENT: sore throat Cardiovascular: ABSENT: chest pain Respiratory: ABSENT: cough Gastrointestinal: ABSENT: abdominal pain, bloating, nausea, vomiting Genitourinary: ABSENT: dysuria Musculoskeletal: ABSENT: back pain Integumentary: PRESENT: erythema, wounds, other - edema. ABSENT: pruritus Neurological: ABSENT: confusion, convulsions, dizziness Psychiatric: ABSENT: anxiety, depression Endocrine: ABSENT: cold intolerance, heat intolerance Hematologic/Lymphatic: ABSENT: easy bleeding, easy bruising Physical Exam Vital Signs: Temp Pulse Resp BP Pulse Ox 98.1 F 98 18 139/66 H 98 10/06/19 23:33 10/06/19 23:33 10/06/19 23:33 10/06/19 23:33 10/06/19 23:33 Intake & Output 10/05/19 10/06/19 10/07/19 06:59 06:59 06:59 Intake Total 370 Balance 370 Weight 106.8 kg General appearance: PRESENT: no acute distress, cooperative Head exam: PRESENT: atraumatic, normocephalic Eye exam: PRESENT: EOMI, PERRLA. ABSENT: scleral icterus Mouth exam: PRESENT: moist, neck supple Neck exam: ABSENT: meningismus, tenderness, thyromegaly, tracheal deviation Respiratory exam: PRESENT: unlabored. ABSENT: tachypnea Cardiovascular exam: PRESENT: RRR Pulses: PRESENT: other - Palpable pedal pulses bilateral lower extremities. GI/Abdominal exam: PRESENT: soft. ABSENT: distended, firm, tenderness Rectal exam: PRESENT: deferred Extremities exam: PRESENT: other - Market edema of the left foot, extending up to the knee. Multiple sores, and areas of broken skin on the left heel, and left calf. No obviously drainable abscess or fluctuance. Neurological exam: PRESENT: alert, awake, oriented to person, oriented to place Psychiatric exam: PRESENT: flat affect. ABSENT: agitated, anxious Focused psych exam: PRESENT: restlessness Skin exam: PRESENT: erythema. ABSENT: jaundice Results Laboratory Results: 10/07/19 04:44 10/07/19 04:44 10/06/19 10/06/19 10/06/19 18:55 18:55 18:55 WBC 12.3 H RBC 4.71 Hgb 13.4 L Hct 39.9 MCV 85 MCH 28.5 MCHC 33.6 RDW 15.4 H Plt Count 100 L Seg Neutrophils % 86.2 H VBG pH 7.38 VBG pCO2 53.0 VBG HCO3 30.7 VBG Base Excess 4.3 Sodium 133.6 L Potassium 3.5 L Chloride 93 L Carbon Dioxide 31 H Anion Gap 10 BUN 20 Creatinine 0.82 Est GFR ( Amer) > 60 Glucose 91 Calcium 9.9 Total Bilirubin 0.7 AST 29 Alkaline Phosphatase 41 Total Protein 7.5 Albumin 4.1 10/07/19 10/07/19 04:44 04:44 WBC 10.6 H RBC 4.32 L Hgb 12.4 L Hct 36.1 L MCV 84 MCH 28.8 MCHC 34.5 RDW 15.0 H Plt Count 81 L Seg Neutrophils % 81.4 H VBG pH VBG pCO2 VBG HCO3 VBG Base Excess Sodium 133.8 L Potassium 3.3 L Chloride 100 Carbon Dioxide 27 Anion Gap 7 BUN 13 Creatinine 0.54 Est GFR ( Amer) > 60 Glucose 94 Calcium 9.0 Total Bilirubin AST Alkaline Phosphatase Total Protein Albumin Impressions: Foot X-Ray 10/06/19 16:20 IMPRESSION: No acute fracture or dislocation. Healing proximal 5th metatarsal fracture. Assessment & Plan - Diagnosis (1) Cellulitis of left lower leg Is this a current diagnosis for this admission?: Yes - Plan Summary Plan Summary: This is a 29-year-old male with a history of cellulitis of the foot. Patient has been started on intravenous antibiotics. On my examination, there is no obviously drainable abscess. His pulses are intact. He has no significant tenderness. Continue with antibiotics. The patient may benefit from an imaging study of the left lower extremity (MRI or CT), if he can tolerate the examination. Elevate extremity, above the level of the heart. We will follow.
[2019-10-07] MEDS ORDERED: DEXTROSE 50%-WATER 25 GM/50 ML DISP.SYRIN IV PRN ×2 (06:18)
[2019-10-07] MEDS ORDERED: GLUCAGON,HUMAN RECOMB 1 MG INJ SUBCUT PRN (06:18)
[2019-10-07] MEDS ORDERED: DEXTROSE 40% GEL 15 GM TUBE PO PRN ×2 (06:18)
[2019-10-07 06:35] LABS: PROTHROMBIN TIME 17.3 SEC (11.4-15.4)
[2019-10-07] MEDS ORDERED: HALOPERIDOL LACTATE INJ 5 MG/1 ML VIAL ONE (07:03)
[2019-10-07] MEDS: DIVALPROEX SODIUM 250 MG TABLET.DR PO SCH ×2 (08:18→21:04)
[2019-10-07] MEDS: METOPROLOL SUCCINATE 25 MG TAB.SR.24H PO SCH (08:18)
[2019-10-07] MEDS: BENZTROPINE MESYLATE 1 MG TABLET PO SCH ×2 (08:18→21:04)
[2019-10-07] MEDS ORDERED: VANCOMYCIN HCL 1,500 MG in DEXTROSE 5%-WATER 250 ML IV SCH (10:30)
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
[2019-10-07] MEDS ORDERED: ZIPRASIDONE MESYLATE INJ/PF 20 MG SDV IM ONE (10:53)
[2019-10-07] MEDS ORDERED: LORAZEPAM INJ 2 MG/1 ML VIAL IV PRN (10:56)
[2019-10-07] MEDS ORDERED: DIAZEPAM 2 MG TABLET PO SCH (11:00)
[2019-10-07] MEDS ORDERED: OLANZAPINE INJ/PF 10 MG SDV IM ONE (11:30)
[2019-10-07] MEDS: ARIPIPRAZOLE 5 MG TABLET PO SCH ×2 (12:06→21:05)
[2019-10-07] MEDS: CEFEPIME 1 GM/D5W RTU 1 GM/50 ML RTUPB IV SCH ×2 (12:06→21:06)
--- NOTE | 2019-10-07 12:15 | PDOC PROGRESS REPORT ---
Subjective Progress Note for:: 10/07/19 Subjective:: Patient alert, awake, but sedated Reason For Visit: CELLULITIS SEVERE AUTISM Physical Exam Vital Signs: Temp Pulse Resp BP Pulse Ox 98.1 F 98 18 139/66 H 98 10/06/19 23:33 10/06/19 23:33 10/06/19 23:33 10/06/19 23:33 10/06/19 23:33 Intake & Output 10/06/19 10/07/19 10/08/19 06:59 06:59 06:59 Intake Total 1370 Balance 1370 Weight 106.8 kg General appearance: PRESENT: no acute distress Extremities exam: PRESENT: +2 edema - Left leg and foot, other - Left leg and foot = diffuse edema, erythema, scaly lesions of the foot dorsally and plantar surface, warm, viable, nonpalpable posterior tibialis and dorsalis pedis due to edema, neurologically intact Results Laboratory Results: 10/07/19 04:44 10/07/19 04:44 10/06/19 10/06/19 10/06/19 18:55 18:55 18:55 WBC 12.3 H RBC 4.71 Hgb 13.4 L Hct 39.9 MCV 85 MCH 28.5 MCHC 33.6 RDW 15.4 H Plt Count 100 L Seg Neutrophils % 86.2 H VBG pH 7.38 VBG pCO2 53.0 VBG HCO3 30.7 VBG Base Excess 4.3 Sodium 133.6 L Potassium 3.5 L Chloride 93 L Carbon Dioxide 31 H Anion Gap 10 BUN 20 Creatinine 0.82 Est GFR ( Amer) > 60 Glucose 91 Calcium 9.9 Total Bilirubin 0.7 AST 29 Alkaline Phosphatase 41 Total Protein 7.5 Albumin 4.1 10/07/19 10/07/19 04:44 04:44 WBC 10.6 H RBC 4.32 L Hgb 12.4 L Hct 36.1 L MCV 84 MCH 28.8 MCHC 34.5 RDW 15.0 H Plt Count 81 L Seg Neutrophils % 81.4 H VBG pH VBG pCO2 VBG HCO3 VBG Base Excess Sodium 133.8 L Potassium 3.3 L Chloride 100 Carbon Dioxide 27 Anion Gap 7 BUN 13 Creatinine 0.54 Est GFR ( Amer) > 60 Glucose 94 Calcium 9.0 Total Bilirubin AST Alkaline Phosphatase Total Protein Albumin Impressions: Foot X-Ray 12/22/19 16:20 IMPRESSION: No acute fracture or dislocation. Healing proximal 5th metatarsal fracture. 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
--- NOTE | 2019-10-07 13:00 | RADIOLOGY REPORT (SQ) ---
EXAM DESCRIPTION: CT LT LOWER EXTREMITY WITHOUT COMPLETED DATE/TIME: 10/07/2019 12:37 pm REASON FOR STUDY: severe left leg cellulitis COMPARISON: None. EXAM PARAMETERS: TECHNIQUE:Axial imaging performed through the left lower leg with reformatted coron al and sagittal imaging windowed for bone and soft tissues. Images saved to PACS. 3D IMAGING: Were 3D images as MIP, SSD, or volume rendering performed at the work station? No All CT scanners at this facility use dose modulation, iterative reconstruction, and/or weight based d osing when appropriate to reduce radiation dose to as low as reasonably achievable (ALARA). [facility]: Dose Right [facility]: SureCare [facility]: Dose Right [facility]: Teradose 4D [facility]: Novomer RADIATION DOSE: CT Rad equipment meets quality standard of care and radiation dose reduction techniqu es were employed. CTDIvol: 4.8 mGy. DLP: 300 mGy-cm. mGy. LIMITATIONS: None. FINDINGS: SOFT TISSUES: Marked cutaneous and subcutaneous edema. No fluid collection. BONES: No acute fracture. No dislocation. MINERALIZATION: Normal. OTHER: No other significant finding. IMPRESSION: Edema consistent with the history of cellulitis. No evidence of abscess. No osseous ab normality. TECHNICAL DOCUMENTATION: JOB ID: [id number] [facility] [id number]: Final reports with documentation of one or more dose reduction techniques (e.g., Automate d exposure control, adjustment of the mA and/or kV according to patient size, use of iterative recons truction technique) 2010 [employer]- All Rights Reserved Reading location - IP/workstation name: [email or web address]
--- NOTE | 2019-10-07 14:31 | Progress Note ---
Provider Note Provider Note: Events noted Assessment: CT scan left lower extremity shows acute edema with inflammatory changes, no acute fractures, foreign bodies, or other concerning findings Plan: I am recommended to continue with administration of IV antibiotics, leg elevation, strict bedrest No procedure planned on this patient I will sign off please call us back with questions.
[2019-10-07] MEDS ORDERED: OXCARBAZEPINE 150 MG TABLET PO SCH (15:00)
[2019-10-07] MEDS ORDERED: (PENDING PHARMACY ID) (Oxcarbazepine [Oxcarbazepine] 300 MG) PO SCH (15:00)
[2019-10-07] MEDS: OXCARBAZEPINE 150 MG TABLET PO SCH ×2 (17:01→21:05)
[2019-10-07] MEDS: DIAZEPAM 2 MG TABLET PO SCH (21:03)
[2019-10-07] MEDS: MIRTAZAPINE 15 MG TABLET PO SCH (21:05)
[2019-10-07] MEDS: WARFARIN SODIUM 5 MG TABLET PO SCH (21:08)
[2019-10-07] MEDS: VANCOMYCIN HCL 1,500 MG in DEXTROSE 5%-WATER 250 ML IV SCH (21:09)
[2019-10-08] MEDS: HALOPERIDOL 5 MG TABLET PO SCH ×3 (05:24→21:35)
[2019-10-08] MEDS: VANCOMYCIN HCL 1,500 MG in DEXTROSE 5%-WATER 250 ML IV SCH ×3 (05:24→21:46)
[2019-10-08] MEDS: NORMAL SALINE 1000 ML 1,000 ML IV PRN (05:59)
[2019-10-08] MEDS: BENZTROPINE MESYLATE 1 MG TABLET PO SCH ×2 (07:58→21:37)
[2019-10-08] MEDS: METOPROLOL SUCCINATE 25 MG TAB.SR.24H PO SCH (07:58)
[2019-10-08] MEDS: DIVALPROEX SODIUM 250 MG TABLET.DR PO SCH ×3 (07:58→21:36)
[2019-10-08] MEDS: ARIPIPRAZOLE 5 MG TABLET PO SCH ×3 (10:16→21:37)
[2019-10-08] MEDS: CEFEPIME 1 GM/D5W RTU 1 GM/50 ML RTUPB IV SCH ×2 (10:16→21:35)
[2019-10-08] MEDS: DIAZEPAM 2 MG TABLET PO SCH ×2 (10:16→21:35)
--- NOTE | 2019-10-08 11:28 | PDOC PROGRESS REPORT ---
Subjective Progress Note for:: 10/08/19 Subjective:: Patient is resting in bed. He was quite calm and restraints and they were taken off. Unfortunately he pulled his IV out and was trying to strike out at staff. This is certainly secondary to the severe autism. He does not fact respond to interaction. He in fact acknowledges that he needs to use his words for communication instead of his hands. He is processing but unfortunately certain things are not easily controlled by the patient. He is also back on his baseline medications which should help. Reason For Visit: CELLULITIS SEVERE AUTISM Physical Exam Vital Signs: Temp Pulse Resp BP Pulse Ox 98.0 F 98 16 156/67 H 90 L 10/08/19 08:00 10/08/19 08:00 10/08/19 08:00 10/08/19 08:00 10/08/19 08:00 Intake & Output 10/07/19 10/08/19 10/09/19 06:59 06:59 06:59 Intake Total 1370 2600 250 Balance 1370 2600 250 Weight 106.8 kg 106.8 kg General appearance: PRESENT: no acute distress, cooperative, well-developed Head exam: PRESENT: atraumatic, normocephalic Ear exam: PRESENT: normal external ear exam. ABSENT: bleeding, drainage Respiratory exam: PRESENT: clear to auscultation marsha, symmetrical, unlabored. ABSENT: rales, rhonchi, tachypnea, wheezes Cardiovascular exam: PRESENT: RRR, +S1, +S2, other - Metallic valve click GI/Abdominal exam: PRESENT: normal bowel sounds, soft. ABSENT: distended, tenderness Rectal exam: PRESENT: deferred Extremities exam: PRESENT: +2 edema - Left leg Neurological exam: PRESENT: alert, awake, oriented to person, oriented to place, oriented to situation, other - Developmental delay due to autism. Patient is able to communicate with reasonable comprehension. Psychiatric exam: ABSENT: agitated - Has been having episodes of agitation but resting comfortably during this encounter., anxious Skin exam: PRESENT: other - Thick cracked calluses on the bottom of the left foot. Results Laboratory Results: 10/07/19 04:44 10/07/19 15:22 10/07/19 15:22 Potassium 3.8 Impressions: Foot X-Ray 10/06/19 16:20 IMPRESSION: No acute fracture or dislocation. Healing proximal 5th metatarsal fracture. Lower Extremity CT 10/07/19 08:21 IMPRESSION: Edema consistent with the history of cellulitis. No evidence of abscess. No osseous abnormality. Assessment and Plan - Diagnosis (1) Cellulitis of left lower leg Is this a current diagnosis for this admission?: Yes Plan: 10/08/2019-left leg is fractionating still operator with swelling. Currently on vancomycin and cefepime. Blood cultures are negative thus far. There was no specific wound drainage for culture. Continue antibiotic therapy at this time. White blood cell count is now normal. Hopefully he will be able to discharge on outpatient oral antibiotic therapy. (2) Autism Is this a current diagnosis for this admission?: Yes Plan: 10/08/2019-this is chronic. He is back on his home medication regimen. His autism does account for some behavioral issues. He did pull out his IV with blood loss on the patient and on the floor therefore restraints were placed back on the patient. (3) History of heart valve replacement Is this a current diagnosis for this admission?: Yes Plan: 10/08/2019-warfarin resumed. INR goal will be for mechanical heart valve rather than atrial fibrillation. (4) Paroxysmal atrial fibrillation Is this a current diagnosis for this admission?: Yes Plan: 10/08/2019-currently in sinus rhythm. Continue current medications. The patient is currently on metoprolol. Continue to monitor. (5) Chronic anticoagulation Is this a current diagnosis for this admission?: Yes Plan: 10/08/2019-warfarin resumed. Patient anticoagulated for mechanical heart valve and paroxysmal atrial fibrillation. INR goal will be 3.0 -3.5 - Time Time Spent with patient: 15-24 minutes Medications reviewed and adjusted accordingly: Yes Anticipated discharge: Other - Back to [facility] Within: within 48 hours
[2019-10-08 13:55] LABS: MEAN CORPUSCULAR HEMOGLOBIN 28.6 pg (27.0-33.4); MEAN CORPUSCULAR HGB CONC 34.4 g/dL (32.0-36.0); MEAN CORPUSCULAR VOLUME 83 fl (80-97); RED CELL DISTRIBUTION WIDTH 14.9 % (11.5-14.0); WHITE BLOOD COUNT 6.3 10^3/uL (4.0-10.5)
[2019-10-08 14:15] LABS: VANCOMYCIN,TROUGH 8.5 ug/mL (5.0-20.0)
[2019-10-08 14:25] LABS: PLATELET COUNT 84 10^3/uL (150-450)
[2019-10-08] MEDS: OXCARBAZEPINE 150 MG TABLET PO SCH ×2 (14:40→21:37)
[2019-10-08] MEDS ORDERED: (PENDING PHARMACY ID) (Divalproex Sodium [Depakote] 1,000 MG) PO SCH (20:00)
[2019-10-08] MEDS: MIRTAZAPINE 15 MG TABLET PO SCH (21:37)
[2019-10-08] MEDS: WARFARIN SODIUM 5 MG TABLET PO SCH (21:37)
[2019-10-09] MEDS: HALOPERIDOL 5 MG TABLET PO SCH ×3 (05:07→22:01)
[2019-10-09] MEDS: VANCOMYCIN HCL 1,500 MG in DEXTROSE 5%-WATER 250 ML IV SCH ×3 (05:07→22:49)
[2019-10-09 05:52] LABS: INTERNATIONAL RATION (INR) 1.42; PROTHROMBIN TIME 17.5 SEC (11.4-15.4)
[2019-10-09] MEDS ORDERED: (PENDING PHARMACY ID) (Aripiprazole [Abilify] 20 MG) PO SCH (08:00)
[2019-10-09] MEDS ORDERED: (PENDING PHARMACY ID) (Oxcarbazepine [Trileptal] 600 MG) PO SCH (08:00)
[2019-10-09] MEDS: DIVALPROEX SODIUM 250 MG TABLET.DR PO SCH ×3 (08:07→22:04)
[2019-10-09] MEDS: BENZTROPINE MESYLATE 1 MG TABLET PO SCH ×2 (08:07→22:02)
[2019-10-09] MEDS: OXCARBAZEPINE 150 MG TABLET PO SCH ×3 (08:09→22:06)
[2019-10-09] MEDS: METOPROLOL SUCCINATE 25 MG TAB.SR.24H PO SCH (08:10)
[2019-10-09] MEDS: ARIPIPRAZOLE 5 MG TABLET PO SCH ×2 (08:12→22:07)
--- NOTE | 2019-10-09 09:11 | PDOC PROGRESS REPORT ---
Subjective Progress Note for:: 10/09/19 Subjective:: 1225-patient is sitting up in bed. He was banging the side rail earlier. He does respond to gentle verbal direction. He did not report any specific issues. We did discuss possible discharge date which may be tomorrow. He does remain in soft wrist restraints with mittens Reason For Visit: CELLULITIS SEVERE AUTISM Physical Exam Vital Signs: Temp Pulse Resp BP Pulse Ox 97.5 F 89 17 138/68 H 95 10/08/19 23:48 10/08/19 23:48 10/08/19 23:48 10/08/19 23:48 10/08/19 23:48 Intake & Output 10/08/19 10/09/19 10/10/19 06:59 06:59 06:59 Intake Total 2600 2600 Balance 2600 2600 Weight 106.8 kg 106.5 kg General appearance: PRESENT: cooperative, mild distress, well-developed Head exam: PRESENT: atraumatic, normocephalic Eye exam: PRESENT: conjunctiva pink. ABSENT: scleral icterus Ear exam: PRESENT: normal external ear exam. ABSENT: bleeding, drainage Respiratory exam: PRESENT: clear to auscultation marsha - Anteriorly, symmetrical, unlabored. ABSENT: rales, rhonchi, tachypnea, wheezes Cardiovascular exam: PRESENT: irregular rhythm, other - Metallic valve click. GI/Abdominal exam: PRESENT: normal bowel sounds, soft. ABSENT: distended, tenderness Rectal exam: PRESENT: deferred Extremities exam: PRESENT: other - Still with left leg swelling Neurological exam: PRESENT: alert, awake, oriented to person, oriented to place, oriented to situation - He knows he is in the hospital receiving medicine Psychiatric exam: PRESENT: agitated - Slightly agitated but this has been a pattern of behavior. He does respond to verbal redirection., flat affect. ABSENT: anxious Skin exam: PRESENT: dry, warm, other - Still with swelling of the left leg. ABSENT: rash Results Laboratory Results: 10/08/19 13:42 10/08/19 13:42 10/08/19 10/08/19 13:42 13:42 WBC 6.3 RBC 4.20 L Hgb 12.0 L Hct 35.0 L MCV 83 MCH 28.6 MCHC 34.4 RDW 14.9 H Plt Count 84 L Creatinine 0.46 L Est GFR ( Amer) > 60 Impressions: Foot X-Ray 10/06/19 16:20 IMPRESSION: No acute fracture or dislocation. Healing proximal 5th metatarsal fracture. Lower Extremity CT 10/07/19 08:21 IMPRESSION: Edema consistent with the history of cellulitis. No evidence of abscess. No osseous abnormality. 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 Currently on vancomycin and cefepime. Blood cultures are negative thus far. There was no specific wound drainage for culture. Continue antibiotic therapy at this time. White blood cell count is now normal. Hopefully he will be able to discharge on outpatient oral antibiotic therapy. 10/09/2019-continue antibiotic therapy. Anticipate discharge tomorrow on oral antibiotics. (2) Autism Is this a current diagnosis for this admission?: Yes Plan: 10/08/2019-this is chronic. He is back on his home medication regimen. His autism does account for some behavioral issues. He did pull out his IV with blood loss on the patient and on the floor therefore restraints were placed back on the patient. 10/09/2019-continue current regimen (3) History of heart valve replacement Is this a current diagnosis for this admission?: Yes Plan: 10/08/2019-warfarin resumed. INR goal will be for mechanical heart valve rather than atrial fibrillation. 10/09/2019-continue current medications. Warfarin has been resumed. (4) Paroxysmal atrial fibrillation Is this a current diagnosis for this admission?: Yes Plan: 10/08/2019-currently in sinus rhythm. Continue current medications. The patient is currently on metoprolol. Continue to monitor. 10/09/2019-irregular beats noted today. Continue metoprolol. (5) Chronic anticoagulation Is this a current diagnosis for this admission?: Yes Plan: 10/08/2019-warfarin resumed. Patient anticoagulated for mechanical heart valve and paroxysmal atrial fibrillation. INR goal will be 3.0 -3.5 10/09/2019-INR is only 1.42. Consider slightly increased dose until INR is therapeutic. Pharmacy is monitoring INR. - Plan Summary Summary: 10/09/2019-anticipate discharge on oral antibiotics tomorrow. - Time Time Spent with patient: 15-24 minutes Medications reviewed and adjusted accordingly: Yes Anticipated discharge: Home Within: within 48 hours
[2019-10-09] MEDS: CEFEPIME 1 GM/D5W RTU 1 GM/50 ML RTUPB IV SCH ×2 (09:30→22:07)
[2019-10-09] MEDS: DIAZEPAM 2 MG TABLET PO SCH ×2 (09:31→22:00)
[2019-10-09 19:01] LABS: APPEARANCE,URINE CLEAR; BILIRUBIN,URINE NEGATIVE (NEGATIVE); COLOR,URINE YELLOW; GLUCOSE, URINE NEGATIVE (NEGATIVE); KETONES,URINE NEGATIVE (NEGATIVE); LEUKOCYTE ESTERASE,URINE NEGATIVE (NEGATIVE); NITRITE,URINE NEGATIVE (NEGATIVE); PROTEIN,URINE NEGATIVE (NEGATIVE); URINE SPECIFIC GRAVITY 1.013; UROBILINOGEN,URINE NEGATIVE mg/dL (<2.0)
[2019-10-09] MEDS: WARFARIN SODIUM 5 MG TABLET PO SCH (22:01)
[2019-10-09] MEDS: MIRTAZAPINE 15 MG TABLET PO SCH (22:49)
[2019-10-10] MEDS: HALOPERIDOL 5 MG TABLET PO SCH ×2 (06:18→14:36)
[2019-10-10] MEDS: VANCOMYCIN HCL 1,500 MG in DEXTROSE 5%-WATER 250 ML IV SCH ×2 (06:18→14:36)
[2019-10-10] MEDS: NORMAL SALINE 1000 ML 1,000 ML IV PRN (06:19)
[2019-10-10 06:42] LABS: INTERNATIONAL RATION (INR) 1.67; PROTHROMBIN TIME 19.9 SEC (11.4-15.4)
[2019-10-10] MEDS: BENZTROPINE MESYLATE 1 MG TABLET PO SCH (09:08)
[2019-10-10] MEDS: DIAZEPAM 2 MG TABLET PO SCH (09:08)
[2019-10-10] MEDS: METOPROLOL SUCCINATE 25 MG TAB.SR.24H PO SCH (09:08)
[2019-10-10] MEDS: OXCARBAZEPINE 150 MG TABLET PO SCH ×2 (09:08→14:36)
[2019-10-10] MEDS: ARIPIPRAZOLE 5 MG TABLET PO SCH (09:09)
[2019-10-10] MEDS: DIVALPROEX SODIUM 250 MG TABLET.DR PO SCH (09:11)
[2019-10-10] MEDS: CEFEPIME 1 GM/D5W RTU 1 GM/50 ML RTUPB IV SCH (09:12)
[2019-10-10 12:50] VITALS: BP 139/68
--- NOTE | 2019-10-10 13:55 | PDOC DISCHARGE SUMMARY ---
Impression - Admit/DC Date/PCP Admission Date/Primary Care Provider: 10/06/19 20:35 ROBERTO MINA Discharge Date: 10/10/19 - Discharge Diagnosis (1) Cellulitis of left lower leg Is this a current diagnosis for this admission?: Yes (2) Autism Is this a current diagnosis for this admission?: Yes (3) History of heart valve replacement Is this a current diagnosis for this admission?: Yes (4) Paroxysmal atrial fibrillation Is this a current diagnosis for this admission?: Yes (5) Chronic anticoagulation Is this a current diagnosis for this admission?: Yes - Assessment Summary: 10/09/2019-anticipate discharge on oral antibiotics tomorrow. - Additional Information Resuscitation Status: Full Code Discharge Diet: Cardiac Discharge Activity: Activity As Tolerated, Other - Elevate left leg when possible Referrals: ENRIQUE MILLER DO [NO LOCAL MD] - 10/23/19 11:00 am Prescriptions: Clindamycin HCl 300 mg PO TID 7 Days #21 capsule Home Medications: Aripiprazole [Abilify] 20 mg PO QAM 09/11/19 Benztropine Mesylate [Benztropine Mesylate 2 mg Tablet] 2 mg PO BID@0800,199909/11/19 Haloperidol [Haldol 5 mg Tablet] 5 mg PO BIDP PRN 09/11/19 Metoprolol Succinate [Toprol Xl 25 mg Tab.sr] 25 mg PO QAM 09/11/19 Mirtazapine [Remeron 15 mg Tablet] 15 mg PO DAILY@199909/11/19 Oxcarbazepine [Trileptal] 450 mg PO BID@1499,199909/11/19 Oxcarbazepine [Trileptal] 600 mg PO QAM 09/11/19 Pantoprazole Sodium 40 mg PO QAM 09/11/19 Divalproex Sodium [Depakote] 1,000 mg PO BID@10/07/19 Divalproex Sodium [Depakote] 250 mg PO DAILY@199910/07/19 Docusate Sodium [Colace 100 mg Capsule] 100 mg PO BID@,10/07/19 Tramadol HCl [Ultram 50 mg Tablet] 50 mg PO Q6HP PRN 10/07/19 Warfarin Sodium [Coumadin 5 mg Tablet] 10 mg PO QHS 10/07/19 Clindamycin HCl 300 mg PO TID 7 Days #21 capsule 10/10/19 History of Present Illiness History of Present Illness: SUELLEN GARCIA is a 29 year old male with a past history of severe autism. He resides in a assisted. He is on Coumadin for paroxysmal atrial fibrillation. He recently developed left leg cellulitis and was found to have a piece of glass in the foot. He was discharged from that hospitalization on September 18. He was given cephalexin with topical bacitracin and Telfa dressings. Home health is following him for wound care as well. Reports that he initially improved but over the last 5 days the infection has worsened significantly. In the emergency department he exhibited severe swelling with erythema and pain. There was necrotic tissue on the plantar aspect of the foot as well. Surgery was consulted, he was started on antibiotic therapy and referred to the hospital service for admission. Hospital Course Hospital Course: From an infection standpoint the patient was on IV antibiotics and the leg was getting better. He will need to continue oral antibiotics as an outpatient. The biggest issue was behavior. Due to his underlying autism the patient exhib ited disruptive behavior at times. Because this included striking out at the staff he did have soft restraints in place for most of the hospitalization. He does orient with direction and we remind him that he has to use his words to communicate and not physical gestures. He was appreciative of the care and I believe that his actions are part of his underlying disease and not intentional. He will discharge on all his previous medications with the addition of antibiotics. Physical Exam Vital Signs: Temp Pulse Resp BP Pulse Ox 97.6 F 73 17 139/68 H 93 10/10/19 12:00 10/10/19 12:00 10/10/19 12:10/10/19 12:00 10/10/19 12:00 Intake & Output 10/09/19 10/10/19 10/11/19 06:59 06:59 06:59 Intake Total 2600 1254 826 Balance 2600 1254 826 Weight 106.5 kg 117.4 kg General appearance: PRESENT: no acute distress, cooperative, well-developed Head exam: PRESENT: atraumatic, normocephalic Respiratory exam: PRESENT: clear to auscultation marsha, symmetrical, unlabored. ABSENT: rales, rhonchi, tachypnea, wheezes Cardiovascular exam: PRESENT: RRR, +S1, +S2, other - Rhythm seemed regular during auscultation GI/Abdominal exam: PRESENT: normal bowel sounds, soft. ABSENT: tenderness Rectal exam: PRESENT: deferred Extremities exam: PRESENT: other - Left leg still with swelling Musculoskeletal exam: PRESENT: ambulatory Neurological exam: PRESENT: alert, awake, oriented to person, oriented to place, oriented to situation Psychiatric exam: PRESENT: flat affect. ABSENT: agitated, anxious Skin exam: PRESENT: erythema - Erythema on left leg is much improved Results Laboratory Results: WBC 6.3 10^3/uL (4.0-10.5) 10/08/19 13:42 RBC 4.20 10^6/uL (4.35-5.55) L 10/08/19 13:42 Hgb 12.0 g/dL (13.5-17.0) L 10/08/19 13:42 Hct 35.0 % (37.9-51.0) L 10/08/19 13:42 MCV 83 fl (80-97) 10/08/19 13:42 MCH 28.6 pg (27.0-33.4) 10/08/19 13:42 MCHC 34.4 g/dL (32.0-36.0) 10/08/19 13:42 RDW 14.9 % (11.5-14.0) H 10/08/19 13:42 Plt Count 84 10^3/uL (150-450) L 10/08/19 13:42 Lymph % (Auto) 12.3 % (13-45) L 10/07/19 04:44 Mcclain % (Auto) 5.5 % (3-13) 10/07/19 04:44 Eos % (Auto) 0.5 % (0-6) 10/07/19 04:44 Baso % (Auto) 0.3 % (0-2) 10/07/19 04:44 Absolute Neuts (auto) 8.6 10^3/uL (1.7-8.2) H 10/07/19 04:44 Absolute Lymphs (auto) 1.3 10^3/uL (0.5-4.7) 10/07/19 04:44 Absolute Monos (auto) 0.6 10^3/uL (0.1-1.4) 10/07/19 04:44 Absolute Eos (auto) 0.1 10^3/uL (0.0-0.6) 10/07/19 04:44 Absolute Basos (auto) 0.0 10^3/uL (0.0-0.2) 10/07/19 04:44 Seg Neutrophils % 81.4 % (42-78) H 10/07/19 04:44 PT 19.9 SEC (11.4-15.4) H 10/10/19 06:09 INR 1.67 10/10/19 06:09 INR (Anticoag Therapy) Cancelled 10/07/19 05:23 VBG pH 7.38 (7.30-7.42) 10/06/19 18:55 VBG pCO2 53.0 mmHg (35-63) 10/06/19 18:55 VBG HCO3 30.7 mmol/L (20-32) 10/06/19 18:55 VBG Base Excess 4.3 mmol/L 10/06/19 18:55 Sodium 133.8 mmol/L (137-145) L 10/07/19 04:44 Potassium 3.8 mmol/L (3.6-5.0) 10/07/19 15:22 Chloride 100 mmol/L (98-107) 10/07/19 04:44 Carbon Dioxide 27 mmol/L (22-30) 10/07/19 04:44 Anion Gap 7 (5-19) 10/07/19 04:44 BUN 13 mg/dL (7-20) 10/07/19 04:44 Creatinine 0.46 mg/dL (0.52-1.25) L 10/08/19 13:42 Est GFR ( Amer) > 60 (>60) 10/08/19 13:42 Est GFR (MDRD) Non-Af > 60 (>60) 10/08/19 13:42 Glucose 94 mg/dL (75-110) 10/07/19 04:44 Lactic Acid (Sepsis) 1.7 mmol/L (0.7-2.1) 10/06/19 23:45 Calcium 9.0 mg/dL (8.4-10.2) 10/07/19 04:44 Total Bilirubin 0.7 mg/dL (0.2-1.3) 10/06/19 18:55 Direct Bilirubin 0.2 mg/dL (0.0-0.4) 10/06/19 18:55 Neonat Total Bilirubin Not Reportable 10/06/19 18:55 Neonat Direct Bilirubin Not Reportable 10/06/19 18:55 Neonat Indirect Bili Not Reportable 10/06/19 18:55 AST 29 U/L (17-59) 10/06/19 18:55 ALT 11 U/L (<50) 10/06/19 18:55 Alkaline Phosphatase 41 U/L (38-126) 10/06/19 18:55 Total Protein 7.5 g/dL (6.3-8.2) 10/06/19 18:55 Albumin 4.1 g/dL (3.5-5.0) 10/06/19 18:55 Urine Color YELLOW 10/09/19 18:00 Urine Appearance CLEAR 10/09/19 18:00 Urine pH 6.0 (5.0-9.0) 10/09/19 18:00 Ur Specific [place] 1.013 10/09/19 18:00 Urine Protein NEGATIVE mg/dL (NEGATIVE) 10/09/19 18:00 Urine Glucose (UA) NEGATIVE mg/dL (NEGATIVE) 10/09/19 18:00 Urine Ketones NEGATIVE mg/dL (NEGATIVE) 10/09/19 18:00 Urine Blood NEGATIVE (NEGATIVE) 10/09/19 18:00 Urine Nitrite NEGATIVE (NEGATIVE) 10/09/19 18:00 Urine Bilirubin NEGATIVE (NEGATIVE) 10/09/19 18:00 Urine Urobilinogen NEGATIVE mg/dL (<2.0) 10/09/19 18:00 Ur Leukocyte Esterase NEGATIVE (NEGATIVE) 10/09/19 18:00 Urine WBC (Auto) 4 /HPF 10/09/19 18:00 Squamous Epi Cells Auto <1 /HPF 10/09/19 18:00 Urine Mucus (Auto) OCC /LPF 10/09/19 18:00 Urine Ascorbic Acid NEGATIVE (NEGATIVE) 10/09/19 18:00 Time Trough Drawn 1342 10/08/19 13:42 Vancomycin Trough 8.5 ug/mL (5.0-20.0) 10/08/19 13:42 Impressions: Foot X-Ray 10/06/19 16:20 IMPRESSION: No acute fracture or dislocation. Healing proximal 5th metatarsal fracture. Lower Extremity CT 10/07/19 08:21 IMPRESSION: Edema consistent with the history of cellulitis. No evidence of abscess. No osseous abnormality. Plan Health Concerns: Recurrent infection in the left leg Plan of Treatment: Because the patient failed outpatient cephalexin therapy I will discharge him on clindamycin so that possible methicillin-resistant staph would be covered as well as several other common skin organisms. He will return to the assisted and resume his previous medication regimen. Goals: Complete resolution of the infection and healing of the left foot Time Spent: Greater than 30 Minutes Stroke Is this a Stroke Patient?: No Acute Heart Failure - Is this a Heart Failure Patient?: No
[2019-10-10 14:49] LABS: VANCOMYCIN,TROUGH 5.3 ug/mL (5.0-20.0)
[2019-10-10] MEDS ORDERED: VANCOMYCIN HCL 1,500 MG in DEXTROSE 5%-WATER 250 ML IV SCH (16:00)
== END 2019-10-10 17:02 | disposition home or self-care (01) | DRG 603 ==
LOC: ER 15:58 → EH 20:35 → 4S 22:15
PROVIDERS: ADMIT Internal Medicine; ATTEND Internal Medicine
DX: L03.116 Cellulitis of left lower limb (principal); F84.0 Autistic disorder; I48.0 Paroxysmal atrial fibrillation; M41.9 Scoliosis, unspecified; F90.9 Attention-deficit hyperactivity disorder, unspecified type; Z95.1 Presence of aortocoronary bypass graft; I25.2 Old myocardial infarction; Z79.899 Other long term (current) drug therapy; Z98.1 Arthrodesis status; Z79.01 Long term (current) use of anticoagulants; Z78.1 Physical restraint status
CPT/HCPCS: 36415; 80048; 80053; 80202; 81001; 82565; 82803; 83605; 84132; 85025; 85027; 85610; 87040; 93005; 93010; 96361; 96374; 96375; 99284; J0692; J2060; J2270; J2543; J3370; J3490; J7030; J7060

== ENCOUNTER 2019-12-11 18:48 | Inpatient (IN) | payer MEDICAID ==
[2019-12-11] MEDS ORDERED: NORMAL SALINE IV ONE (19:24)
[2019-12-11] MEDS ORDERED: AZTREONAM INJ 1 GM VIAL IV ONE (19:24)
[2019-12-11] MEDS ORDERED: VANCOMYCIN HCL INJ 1000 MG VIAL IV ONE (19:24)
--- NOTE | 2019-12-11 19:28 | ER Document Report ---
ED Medical Screen (RME) - General Chief Complaint: Leg Swelling Stated Complaint: LEFT LEG SWELLING, FEVER Time Seen by Provider: 12/11/19 19:22 Primary Care Provider: TAMIR HOFFMAN FNP-C [Primary Care Provider] - Follow up as needed Notes: HPI: 29-year-old autistic male brought for evaluation of fever with increased redness and swelling to the left foot over the last 24 hours. Patient with history of cellulitis and lymphedema in the left leg. Caregivers indicate that patient had fever up to 105 today at home has had increased aggressiveness and altered mentation from baseline. I have greeted and performed a rapid initial assessment of this patient. A comprehensive ED assessment and evaluation of the patient, analysis of test results and completion of the medical decision making process will be conducted by additional ED providers PHYSICAL EXAMINATION: GENERAL: Ill-appearing, well-nourished and in moderate acute distress. HEAD: Atraumatic, normocephalic. EYES: sclera anicteric, conjunctiva are normal. ENT: Moist mucous membranes. NECK: Normal range of motion LUNGS: Normal work of breathing, clear to auscultation HEART: 2+ radial pulses bilaterally, tachycardic ABD: limited by positioning for exam in triage. EXTREMITIES: Significant lymphedema with dark red and purple color change circumferentially extending across the entire left foot to the mid tibial region. NEUROLOGICAL: Does not follow commands, striking out at staff intermittently. PSYCH: Nonsensical speech noted SKIN: Diaphoretic, normal turgor, no rashes or lesions noted. Significantly tachycardic, hypotensive, meets sirs criteria sepsis work-up ordered, discussed with charge nurse regarding management and placement TRAVEL OUTSIDE OF THE [place] IN LAST 30 DAYS: No - Related Data Allergies/Adverse Reactions: No Known Allergies Allergy (Verified 09/11/19 13:13) Past Medical History - Social History Family history: Reviewed & Not Pertinent - Past Medical History Cardiac Medical History: Reports: Hx Atrial Fibrillation, Hx Heart Attack - valv e condition Renal/ Medical History: Denies: Hx Peritoneal Dialysis Musculoskeltal Medical History: Reports Hx Musculoskeletal Deformity Skin Medical History: Reports Hx Cellulitis Psychiatric Medical History: Reports: Hx Attention Deficit Hyperactivity Disorder - autism Denies: Hx Depression Past Surgical History: Reports: Hx Cardiac Catheterization, Hx Cardiac Surgery - Aortic Valve Replacement. VSD repair, Hx Orthopedic Surgery - Hardware of spine for scoliosis - Immunizations Hx Diphtheria, Pertussis, Tetanus Vaccination: Yes Physical Exam - Vital signs Vitals: Temp Pulse Resp BP Pulse Ox 99.3 F 133 H 22 H 99/45 L 96 12/11/19 19:16 12/11/19 19:16 12/11/19 19:16 12/11/19 19:16 12/11/19 19:16 Course - Vital Signs Vital signs: Temp Pulse Resp BP Pulse Ox 99.3 F 133 H 22 H 99/45 L 96 12/11/19 19:16 12/11/19 19:16 12/11/19 19:16 12/11/19 19:16 12/11/19 19:16 Doctor's Discharge - Discharge Referrals: TAMIR HOFFMAN FNP-C [Primary Care Provider] - Follow up as needed
--- NOTE | 2019-12-11 20:23 | RADIOLOGY REPORT (SQ) ---
EXAM DESCRIPTION: XR FOOT 3 OR MORE VIEWS COMPLETED DATE/TME: 12/11/2019 19:25 CLINICAL HISTORY: 29 years, Male, eval for gas. Swelling COMPARISON: None. NUMBER OF VIEWS: 3 TECHNIQUE: LIMITATIONS: None. FINDINGS: No acute displaced fracture. Alignment is anatomic. No prior significant soft tissue swelling. No air/gas within the soft tissues. No plain radiographic evidence of osteomyelitis. Old posttraumatic changes seen IMPRESSION: Swelling of the left foot. No soft tissue gas copyright 2010 [employer]- All Rights Reserved
[2019-12-11 20:58] LABS: HEMOGLOBIN 15.9 g/dL (13.5-17.0); MEAN CORPUSCULAR HEMOGLOBIN 27.9 pg (27.0-33.4); MEAN CORPUSCULAR HGB CONC 33.9 g/dL (32.0-36.0); MEAN CORPUSCULAR VOLUME 82 fl (80-97); PLATELET COUNT 136 10^3/uL (150-450); RED BLOOD COUNT 5.71 10^6/uL (4.35-5.55); RED CELL DISTRIBUTION WIDTH 14.5 % (11.5-14.0); VENOUS BLOOD HCO3 23.4 mmol/L (20-32); VENOUS BLOOD PCO2 46.6 mmHg (35-63); VENOUS BLOOD PH 7.32 (7.30-7.42); WHITE BLOOD COUNT 15.1 10^3/uL (4.0-10.5)
[2019-12-11 21:01] LABS: INTERNATIONAL RATION (INR) 1.16; PROTHROMBIN TIME 14.8 SEC (11.4-15.4)
[2019-12-11 21:13] LABS: ALBUMIN 4.6 g/dL (3.5-5.0); ALKALINE PHOSPHATASE 46 U/L (38-126); ANION GAP 17 (5-19); ASPARTATE AMINO TRANSFERASE 31 U/L (17-59); BILIRUBIN,DIRECT 0.3 mg/dL (0.0-0.4); BILIRUBIN,TOTAL 1.1 mg/dL (0.2-1.3); BLOOD UREA NITROGEN 13 mg/dL (7-20); CALCIUM 10.7 mg/dL (8.4-10.2); CARBON DIOXIDE 21 mmol/L (22-30); CHLORIDE 101 mmol/L (98-107); GLUCOSE 104 mg/dL (75-110); POTASSIUM 3.5 mmol/L (3.6-5.0)
[2019-12-11 21:36] LABS: ABSOLUTE LYMPHOCYTES# (MANUAL) 0.9 10^3/uL (0.5-4.7); ABSOLUTE MONOCYTES # (MANUAL) 0.2 10^3/uL (0.1-1.4); BAND NEUTROPHILS % (MANUAL) 7 % (3-5); BASOPHILS % (MANUAL) 0 % (0-2); EOSINOPHILS % (MANUAL) 0 % (0-6); LYMPHOCYTES % (MANUAL) 5 % (13-45); METAMYELOCYTES % (MANUAL) 1 % (0-1); MONOCYTES % (MANUAL) 1 % (3-13); SEGMENTED NEUTROPHILS % (MAN) 85 % (42-78); TOTAL CELLS COUNTED 100
[2019-12-11 21:37] LABS: ANISOCYTOSIS SLIGHT; OVALOCYTES SLIGHT; POIKILOCYTOSIS SLIGHT
[2019-12-11 21:38] LABS: PLATELET COMMENT ADEQUATE
--- NOTE | 2019-12-11 22:18 | ER Document Report ---
ED General - General Chief Complaint: Fever Stated Complaint: LEFT LEG SWELLING, FEVER Time Seen by Provider: 12/11/19 19:22 Primary Care Provider: TAMIR HOFFMAN FNP-C [NURSE PRACTITIONER] - Follow up as needed TRAVEL OUTSIDE OF THE [place] IN LAST 30 DAYS: No - HPI Notes: 29-year-old male with history of severe autism who resides in a fdc is now seen for evaluation of a severe recurrent cellulitis of left lower extremity. This gentleman is followed by Dr. Alfonso. He has been previously admitted to the hospitalist service here for inpatient treatment with IV antib iotics last year. He is apparently had some low-level persistent infection and is unclear whether he is been receiving any antibiotics recently. Caretakers brought him in today because he is having increased pain and swelling and also was noted to have a low-grade fever. He was seen initially by 1 of the midlevel providers and at that time had a marginally low blood pressure around 90/50. They documented an elevated lactate level of 5.3. He had blood cultures drawn and was started on IV antibiotics. He additionally received 2 L of saline IV. His blood pressure has normalized and he feels better. Ability to obtain history from this patient is very limited due to his autism. He has 2 tech caretakers present who are not very knowledgeable regarding his past medical history. They do tell me that he has a pacemaker and an artificial heart valve. I received an MAR from his fdc. We note that he is on warfarin 11 mg once a day. I do not see any current antibiotics listed. - Related Data Allergies/Adverse Reactions: No Known Allergies Allergy (Verified 09/11/19 13:13) Home Medications: Aripiprazole. Oxcarbazepine. Warfarin. Pantoprazole. Metoprolol. Divalproex. Benztropine. Docusate. Oxcarbazepine 300mg. Oxcarbazepine 150 mg. Divalproex. Mirtazapine. Haloperidol. Tramadol. Warfarin. Acetaminophen. Hydrocortisone Past Medical History - General Information source: Patient, Legal Guardian, [facility] Records Cannot obtain history due to: Mentally challenged - Social History Smoking Status: Never Smoker Frequency of alcohol use: None Drug Abuse: None Family History: Other - Unknown Patient has suicidal ideation: No Patient has homicidal ideation: No - Past Medical History Cardiac Medical History: Reports: Hx Atrial Fibrillation, Hx Heart Attack - valve condition, Other - Mechanical cardiac valve Renal/ Medical History: Denies: Hx Peritoneal Dialysis Musculoskeletal Medical History: Reports Hx Musculoskeletal Deformity Skin Medical History: Reports Hx Cellulitis Psychiatric Medical History: Reports: Hx Attention Deficit Hyperactivity Disorder - autism Denies: Hx Depression Past Surgical History: Reports: Hx Cardiac Catheterization, Hx Cardiac Surgery - Aortic Valve Replacement. VSD repair, Hx Orthopedic Surgery - Hardware of spine for scoliosis - Immunizations Hx Diphtheria, Pertussis, Tetanus Vaccination: Yes Review of Systems - Review of Systems -: Yes ROS unobtainable due to patient's medical condition Physical Exam - Vital signs Vitals: Temp Pulse Resp BP Pulse Ox 99.3 F 133 H 22 H 99/45 L 96 12/11/19 19:16 12/11/19 19:16 12/11/19 19:16 12/11/19 19:16 12/11/19 19:16 - Notes Notes: GENERAL: Well-developed well-nourished appearing mildly uncomfortable. SKIN: Good turgor. HEAD: Normocephalic atraumatic. EYES: PERRLA. EOMI. Conjunctivae and sclerae clear. EARS: CANALS AND TMS CLEAR. NOSE: CLEAR. MOUTH: Moist mucosa. Good dentition. No stridor or edema. No drooling. NECK: Supple. No masses or thyromegaly. No adenopathy. Carotids 2+ without bruits. No JVD. BACK: Symmetrical without tenderness. CHEST: Respirations unlabored. Breath sounds clear and symmetrical. HEART: Regular rhythm. Rutherford prosthetic valve sound noted. No murmur gallop or rub. ABDOMEN: Soft nontender without masses, organomegaly or rebound. Bowel sounds normally active. No bruits. GENITALIA: Deferred. EXTREMITIES: Redness, soft tissue swelling and tenderness noted over the left foot and left calf area which is diffuse. Patient has some cracking of the skin on his feet which appears chronic as well as some chronic fungal changes of the nails present. Cap refill less than 1.5 seconds. Dorsalis pedis and posterior tibial pulses 3+ and symmetrical. NEUROLOGICAL: GCS 14. Patient is oriented to person and place only which is his usual baseline per caretakers. Fluent speech. Cranial nerves II through XII intact. Sensorimotor and cerebellar normal. Normal tone. PSYCHIATRIC: Childlike affect. Course - Re-evaluation Re-evalutation: 12/11/19 22:35 Patient been given IV fluid resuscitation and IV antibiotics by midlevel before I examined him. His condition appears to be stable at this time. His INR subtherapeutic and I am going to give him a dose of IM Lovenox. Patient's lactate is 5.5 and his white count is around 16,000. X-rays of the affected extremity unremarkable. Unable to get an ultrasound to rule out DVT tonight but he is being anticoagulated as I have noted. Findings are discussed with the on-call hospitalist Dr. Mehdi Pollack who will admit. - Vital Signs Vital signs: Temp Pulse Resp BP Pulse Ox 98.6 F 133 H 20 105/54 L 94 12/11/19 20:30 12/11/19 19:16 12/11/19 20:41 12/11/19 20:41 12/11/19 20:41 - Laboratory Result Diagrams: 12/11/19 20:35 12/11/19 20:35 Laboratory results interpreted by me: 12/11/19 12/11/19 12/11/19 20:35 20:35 20:35 WBC 15.1 H RBC 5.71 H RDW 14.5 H Plt Count 136 L Seg Neuts % (Manual) 85 H Band Neutrophils % 7 H Lymphocytes % (Manual) 5 L Monocytes % (Manual) 1 L Abs Neuts (Manual) 14.0 H Potassium 3.5 L Carbon Dioxide 21 L Lactic Acid 5.4 H Calcium 10.7 H Discharge - Discharge Clinical Impression: Cellulitis of left lower extremity Sepsis Qualifiers: Sepsis type: sepsis due to unspecified organism Sepsis acute organ dysfunction status: without acute organ dysfunction Qualified Code(s): A41.9 - Sepsis, unspecified organism Condition: Fair Disposition: ADMITTED INPATIENT Admitting Provider: Ranjeet (Hospitalist) Unit Admitted: Medical Floor Referrals: TAMIR HOFFMAN FNP-C [NURSE PRACTITIONER] - Follow up as needed
[2019-12-11] MEDS ORDERED: ENOXAPARIN SODIUM INJ 120 MG/0.8 ML DISP.SYRIN SUBCUT ONE (22:20)
[2019-12-11] MEDS ORDERED: NORMAL SALINE 1000 ML 1,000 ML IV ONE (22:34)
--- NOTE | 2019-12-11 22:57 | EKG REPORT ---
SEVERITY:- ABNORMAL ECG - SINUS TACHYCARDIA PROBABLE LEFT ATRIAL ABNORMALITY RIGHT BUNDLE BRANCH BLOCK : Confirmed by: Alla Damon MD 11-Dec-2019 22:56:21
[2019-12-11] MEDS ORDERED: IPRATROPIUM/ALBUTEROL 0.5-2.5 MG/3 ML AMPUL NEB PRN (23:12)
[2019-12-11] MEDS ORDERED: NORMAL SALINE 1000 ML 1,000 ML IV SCH (23:15)
[2019-12-11] MEDS ORDERED: VANCOMYCIN HCL 0 MG in DEXTROSE 5%-WATER 250 ML IV NR (23:15)
[2019-12-11] MEDS ORDERED: MIRTAZAPINE 15 MG TABLET PO ONE (23:45)
--- NOTE | 2019-12-11 23:54 | RADIOLOGY REPORT (SQ) ---
XR CHEST 1 VIEW EXAM DATE: 12/11/2019 10:34 PM CUSTOM SEAMSTRESS HISTORY: Sepsis. COMPARISON: 02/19/2019 FINDINGS: There is mild cardiomegaly with prior valve replacement noted. No focal consolidation is identified. No pleural effusions or pneumothorax. Stable fixation hardware overlying the thoracolumbar spine. IMPRESSION: No evidence of acute cardiopulmonary disease.
[2019-12-12 02:00] LABS: INTERNATIONAL RATION (INR) 1.47; PROTHROMBIN TIME 17.9 SEC (11.4-15.4)
[2019-12-12] MEDS ORDERED: VANCOMYCIN HCL 1,000 MG in DEXTROSE 5%-WATER 250 ML IV ONE (02:00)
[2019-12-12] MEDS ORDERED: POTASSI CL 20 MEQ/D5-1/2NS 1L 1,000 ML IV ONE (04:19)
[2019-12-12] MEDS ORDERED: FONDAPARINUX SODIUM INJ 10 MG/0.8 ML DISP.SYRIN SUBCUT SCH (04:30)
--- NOTE | 2019-12-12 04:34 | PDOC H&P ---
History of Present Illness Admission Date/PCP: 12/11/19 22:54 ENRIQUE MILLER DO Patient complains of: Left leg pain and swelling History of Present Illness: SUELLEN GARCIA is a 29 year old male with a past medical history of severe autism residing in a long term, thrombocytopenia, mechanical aortic valve, paroxysmal atrial fibrillation Coumadin on Coumadin 11 units daily. He presents with recurrent cellulitis to his left leg, found to have sepsis with ta chycardia, bandemia and lactic acidosis. He is started on IV vancomycin and referred to the hospitalist for admission. Patient is minimally verbal at baseline but admits to pain in his left leg. Past Medical History Cardiac Medical History: Reports: Atrial Fibrillation, Myocardial Infarction - valve condition, Other - Mechanical cardiac valve Psychiatric Medical History: Reports: Attention Deficit Hyperactivity Disorder - autism Denies: Depression Hematology: Reports: Other - Thrombocytopenia Past Surgical History Past Surgical History: Reports: Cardiac Catheterization, Orthopedic Surgery - Hardware of spine for scoliosis Social History Information Source: [facility] Records Lives with: Other - skilled nursing Smoking Status: Never Smoker Frequency of Alcohol Use: None Hx Recreational Drug Use: No Drugs: None Hx Prescription Drug Abuse: No - Advance Directive Resuscitation Status: Full Code Family History Family History: Other - Unknown Parental Family History Reviewed: No - Unobtainable Children Family History Reviewed: No - Unobtainable Sibling(s) Family History Reviewed.: No - Unobtainable Medication/Allergy Home Medications: Aripiprazole [Abilify] 20 mg PO QAM 09/11/19 Benztropine Mesylate [Benztropine Mesylate 2 mg Tablet] 2 mg PO BID@08,199909/11/19 Haloperidol [Haldol 5 mg Tablet] 5 mg PO BIDP PRN 09/11/19 Metoprolol Succinate [Toprol Xl 25 mg Tab.sr] 25 mg PO QAM 09/11/19 Mirtazapine [Remeron 15 mg Tablet] 15 mg PO DAILY@199909/11/19 Oxcarbazepine [Trileptal] 450 mg PO BID@09/11/19 Oxcarbazepine [Trileptal] 600 mg PO QAM 09/11/19 Pantoprazole Sodium 40 mg PO QAM 09/11/19 Divalproex Sodium [Depakote] 1,000 mg PO BID@10/07/19 Divalproex Sodium [Depakote] 250 mg PO DAILY@199910/07/19 Docusate Sodium [Colace 100 mg Capsule] 100 mg PO BID@,10/07/19 Tramadol HCl [Ultram 50 mg Tablet] 50 mg PO Q6HP PRN 10/07/19 Warfarin Sodium [Coumadin 5 mg Tablet] 10 mg PO QHS 10/07/19 Clindamycin HCl 300 mg PO TID 7 Days #21 capsule 10/10/19 Allergies/Adverse Reactions: No Known Allergies Allergy (Verified 09/11/19 13:13) Review of Systems ROS unobtainable: Due to mental status Physical Exam Vital Signs: Temp Pulse Resp BP Pulse Ox 98.0 F 133 H 30 H 96/48 L 95 12/12/19 02:29 12/11/19 19:16 12/12/19 04:05 12/12/19 04:08 12/12/19 02:00 Intake & Output 12/10/19 12/11/19 12/12/19 11:59 11:59 11:59 Intake Total 3540 Balance 3540 Weight 118.1 kg General appearance: PRESENT: cooperative, mild distress, well-developed, well- nourished Head exam: PRESENT: atraumatic, normocephalic Eye exam: PRESENT: conjunctiva pink, EOMI, PERRLA. ABSENT: scleral icterus Ear exam: PRESENT: normal external ear exam Mouth exam: PRESENT: moist, tongue midline Neck exam: ABSENT: carotid bruit, JVD, lymphadenopathy, thyromegaly Respiratory exam: PRESENT: clear to auscultation marsha. ABSENT: rales, rhonchi, wheezes Cardiovascular exam: PRESENT: +S1, +S2, systolic murmur Pulses: PRESENT: normal dorsalis pedis pul Vascular exam: PRESENT: normal capillary refill GI/Abdominal exam: PRESENT: normal bowel sounds, soft. ABSENT: distended, guarding, mass, organolmegaly, rebound, tenderness Rectal exam: PRESENT: deferred Extremities exam: PRESENT: full ROM, tenderness, +2 edema - Left leg Neurological exam: PRESENT: alert, awake, oriented to person, oriented to place, oriented to time, oriented to situation, CN II-XII grossly intact. ABSENT: motor sensory deficit Psychiatric exam: PRESENT: appropriate affect, unusual affect. ABSENT: homicidal ideation, suicidal ideation Skin exam: PRESENT: dry, intact, warm, other - Left leg with +2 edema, circumferential erythema, no open ulcer but fissures of the heel. ABSENT: cyanosis, rash Results Laboratory Results: 12/11/19 20:35 12/11/19 20:35 12/11/19 12/11/19 12/11/19 20:35 20:35 20:35 WBC 15.1 H RBC 5.71 H Hgb 15.9 Hct 47.0 MCV 82 MCH 27.9 MCHC 33.9 RDW 14.5 H Plt Count 136 L Seg Neutrophils % Not Reportable VBG pH 7.32 VBG pCO2 46.6 VBG HCO3 23.4 VBG Base Excess -3.0 Sodium 139.3 Potassium 3.5 L Chloride 101 Carbon Dioxide 21 L Anion Gap 17 BUN 13 Creatinine 1.18 Est GFR ( Amer) > 60 Glucose 104 Lactic Acid Calcium 10.7 H Total Bilirubin 1.1 AST 31 Alkaline Phosphatase 46 Total Protein 8.0 Albumin 4.6 12/11/19 12/11/19 12/12/19 20:35 22:57 01:34 WBC RBC Hgb Hct MCV MCH MCHC RDW Plt Count Seg Neutrophils % VBG pH VBG pCO2 VBG HCO3 VBG Base Excess Sodium Potassium Chloride Carbon Dioxide Anion Gap BUN Creatinine Est GFR ( Amer) Glucose Lactic Acid 5.4 H 5.9 H 6.2 H Calcium Total Bilirubin AST Alkaline Phosphatase Total Protein Albumin Impressions: Foot X-Ray 12/11/19 19:25 IMPRESSION: Swelling of the left foot. No soft tissue gas copyright 2011 [employer]- All Rights Reserved Chest X-Ray 12/11/19 22:34 IMPRESSION: No evidence of acute cardiopulmonary disease. Assessment and Plan - Diagnosis (1) Cellulitis of left lower extremity Is this a current diagnosis for this admission?: Yes Plan: Empiric vancomycin and Rocephin, follow-up blood culture and CBC (2) Sepsis Qualifiers: Sepsis type: sepsis due to unspecified organism Sepsis acute organ dysfunction status: without acute organ dysfunction Qualified Code(s): A41.9 - Sepsis, unspecified organism Is this a current diagnosis for this admission?: Yes Plan: Secondary to #1, IV fluid challenge, empiric antibiotics, follow-up blood culture and CBC (3) Thrombocytopenia Is this a current diagnosis for this admission?: Yes Plan: Arixtra ordered, avoid heparin, follow-up HIT antibodies (4) History of heart valve replacement Is this a current diagnosis for this admission?: Yes Plan: Arixtra ordered while subtherapeutic, home dose Coumadin, follow-up INR (5) Paroxysmal atrial fibrillation Is this a current diagnosis for this admission?: Yes Plan: Currently in sinus tachycardia, IV fluid challenge, continue full dose anticoagulation. - Time Time Spent with patient: 25-34 minutes - Inpatient Certification Medical Necessity: Need Close Monitoring Due to Risk of Patient Decompensation
[2019-12-12] MEDS ORDERED: FONDAPARINUX SODIUM INJ 10 MG/0.8 ML DISP.SYRIN SUBCUT ONE (05:04)
[2019-12-12] MEDS: CEFTRIAXONE 2 GM/D5W RTU 2 GM/50 ML RTUPB IV SCH (05:44)
[2019-12-12] MEDS ORDERED: HEPARIN SOD (PORCINE) 5,000 UNIT/ML 1 ML VIAL SUBCUT SCH (06:00)
[2019-12-12] MEDS: ACETAMINOPHEN 325 MG TABLET PO PRN ×3 (06:27→23:48)
[2019-12-12 08:23] LABS: HEMATOCRIT 41.3 % (37.9-51.0); HEMOGLOBIN 13.9 g/dL (13.5-17.0); MEAN CORPUSCULAR HEMOGLOBIN 27.2 pg (27.0-33.4); MEAN CORPUSCULAR HGB CONC 33.7 g/dL (32.0-36.0); MEAN CORPUSCULAR VOLUME 81 fl (80-97); PLATELET COUNT 115 10^3/uL (150-450); RED BLOOD COUNT 5.11 10^6/uL (4.35-5.55); RED CELL DISTRIBUTION WIDTH 14.6 % (11.5-14.0); WHITE BLOOD COUNT 18.2 10^3/uL (4.0-10.5)
[2019-12-12 08:52] LABS: ABSOLUTE LYMPHOCYTES# (MANUAL) 1.3 10^3/uL (0.5-4.7); ABSOLUTE MONOCYTES # (MANUAL) 0.9 10^3/uL (0.1-1.4); BAND NEUTROPHILS % (MANUAL) 8 % (3-5); BASOPHILS % (MANUAL) 0 % (0-2); EOSINOPHILS % (MANUAL) 1 % (0-6); LYMPHOCYTES % (MANUAL) 5 % (13-45); MONOCYTES % (MANUAL) 5 % (3-13); SEGMENTED NEUTROPHILS % (MAN) 79 % (42-78); TOTAL CELLS COUNTED 100
[2019-12-12 08:55] LABS: ANISOCYTOSIS SLIGHT; PLATELET COMMENT DECREASED; TOXIC GRANULATION SLIGHT; TOXIC VACUOLATION PRESENT
[2019-12-12] MEDS: TERBINAFINE HCL 250 MG TABLET PO SCH (09:58)
[2019-12-12] MEDS: VANCOMYCIN HCL 1,250 MG in DEXTROSE 5%-WATER 250 ML IV SCH ×2 (09:59→19:25)
[2019-12-12] MEDS ORDERED: HALOPERIDOL 5 MG TABLET PO PRN (11:41)
[2019-12-12] MEDS ORDERED: NORMAL SALINE 1000 ML 1,000 ML IV ONE ×2 (11:44→12:15)
--- NOTE | 2019-12-12 15:21 | RADIOLOGY REPORT (SQ) ---
EXAM DESCRIPTION: CT LT LOWER EXTREMITY WITHOUT COMPLETED DATE/TIME: 12/12/2019 1:52 pm REASON FOR STUDY: edema, erythema COMPARISON: AP, lateral common oblique views of the left foot from 12/11/2019 TECHNIQUE: CT scan of the left lower extremity performed without intravenous or oral contrast. Imag es reviewed with soft tissue and bone windows. Reconstructed coronal and sagittal MPR images reviewe d. All images stored on PACS. All CT scanners at this facility use dose modulation, iterative reconstruction, and/or weight based d osing when appropriate to reduce radiation dose to as low as reasonably achievable (ALARA). [facility]: Dose Right [facility]: CareDose [facility]: Dose Right [facility]: Teradose 4D [facility]: [employer] RADIATION DOSE: CT Rad equipment meets quality standard of care and radiation dose reduction techniq ues were employed. CTDIvol: 4.2 mGy. DLP: 288 mGy-cm. LIMITATIONS: None. FINDINGS: BONES: No fracture, osseous lesion or periosteal reaction. SOFT TISSUES: Diffuse skin thickening and subcutaneous edema that extends from the knee to the foot. The left great saphenous vein is asymmetrically enlarged. There is no discrete fluid collection. JOINTS: No dislocation or periarticular erosion. OTHER: No other finding. IMPRESSION: 1. Diffuse skin thickening and subcutaneous edema that extends from the left knee to the foot. There is no discrete fluid collection or osseous abnormality. 2. Asymmetric enlargement of the left great saphenous vein. Consider correlation with a Doppler sohail ous ultrasound. TECHNICAL DOCUMENTATION: JOB ID: [id number] Quality ID # [id number]: Final reports with documentation of one or more dose reduction techniques (e.g., Au tomated exposure control, adjustment of the mA and/or kV according to patient size, use of iterative reconstruction technique) 2010 [employer]- All Rights Reserved Reading location - IP/workstation name: [email or web address]
[2019-12-12] MEDS: OXCARBAZEPINE 150 MG TABLET PO SCH ×2 (16:43→22:16)
--- NOTE | 2019-12-12 18:28 | PDOC CONSULTATION ---
Consultation Consult Date: 12/12/19 Provider Consulted: JAROD SCRUGGS Consult reason:: Cellulitis left lower leg with a septicemia History of Present Illness Admission Date/PCP: 12/11/19 22:54 ENRIQUE MILLER DO Patient complains of: Left lower leg pains History of Present Illness: SUELLEN GARCIA is a 29 year old male who has severe autism and lives in a shelter has history of thrombocytopenia, mechanical aortic valve replacement on Coumadin, is paroxysmal atrial fibrillation was readmitted for severe cellulitis of the left lower leg. Is noted to have fever, tachycardia, bandemia and lactic acidosis. Patient apparently was in the hospital about a month ago with the same problem but this time according to the nurses is still cellulitis appears to be worst. Past Medical History Cardiac Medical History: Reports: Atrial Fibrillation, Myocardial Infarction - valve condition, Other - Mechanical cardiac valve EENT Medical History: Reports: Other - Thrombocytopenia Psychiatric Medical History: Reports: Attention Deficit Hyperactivity Disorder - autism Denies: Depression Hematology: Reports: Other - Thrombocytopenia Past Surgical History Past Surgical History: Reports: Cardiac Catheterization, Orthopedic Surgery - Hardware of spine for scoliosis Social History Lives with: Other - long-term Smoking Status: Never Smoker Electronic Cigarette use?: No Frequency of Alcohol Use: None Hx Recreational Drug Use: No Drugs: None Hx Prescription Drug Abuse: No - Advance Directive Resuscitation Status: Full Code Family History Family History: Other - Unknown Parental Family History Reviewed: No Children Family History Reviewed: No Sibling(s) Family History Reviewed.: No Medication/Allergy Home Medications: Acetaminophen [Tylenol 325 mg Tablet] 650 mg PO Q6HP PRN 12/12/19 Aripiprazole [Abilify] 20 mg PO QAM 12/12/19 Benztropine Mesylate [Cogentin 1 mg Tablet] 2 mg PO Q12@0800,199912/12/19 Divalproex Sodium [Depakote] 1,000 mg PO Q12@0800,199912/12/19 Divalproex Sodium [Depakote] 250 mg PO DAILY@199912/12/19 Docusate Sodium [Colace 100 mg Capsule] 100 mg PO Q12@0800,199912/12/19 Haloperidol [Haldol 5 mg Tablet] 5 mg PO BIDP PRN 12/12/19 Hydrocortisone [Hydrocortisone 2.5% Cream 28 gm (Clinic Use)] 1 applic TOP TIDP PRN 12/12/19 Metoprolol Succinate [Toprol Xl 25 mg Tab.sr] 25 mg PO QAM 12/12/19 Mirtazapine [Remeron 15 mg Tablet] 15 mg PO DAILY@199912/12/19 Oxcarbazepine [Trileptal] 450 mg PO BID@1500,199912/12/19 Oxcarbazepine [Trileptal] 600 mg PO QAM 12/12/19 Pantoprazole Sodium [Protonix [address] Tablet] 40 mg PO QAM 12/12/19 Tramadol HCl [Ultram 50 mg Tablet] 50 mg PO Q6HP PRN 12/12/19 Warfarin Sodium [Coumadin 1 mg Tablet] 1 mg PO DAILY@199912/12/19 Warfarin Sodium [Coumadin 5 mg Tablet] 10 mg PO DAILY@199912/12/19 Allergies/Adverse Reactions: No Known Allergies Allergy (Verified 09/11/19 13:13) Review of Systems ROS unobtainable: Due to mental status Physical Exam Vital Signs: Temp Pulse Resp BP Pulse Ox 102.5 F H 123 H 23 H 108/51 L 100 12/12/19 17:39 12/12/19 14:00 12/12/19 14:00 12/12/19 14:00 12/12/19 14:00 Intake & Output 12/11/19 12/12/19 12/13/19 06:59 06:59 06:59 Intake Total 3640 1300 Balance 3640 1300 Weight 118.1 kg General appearance: PRESENT: mild distress Mouth exam: PRESENT: moist Neck exam: PRESENT: full ROM Cardiovascular exam: PRESENT: tachycardia Pulses: PRESENT: other - Unable to palpate left ankle pulses because of the se rubia edema and erythema. Foot is warm Vascular exam: PRESENT: normal capillary refill GI/Abdominal exam: PRESENT: soft Rectal exam: PRESENT: deferred Neurological exam: PRESENT: awake, other - Nonverbal Psychiatric exam: PRESENT: flat affect Skin exam: PRESENT: erythema, other - Severe edema of the left lower leg from the knee down to the left foot. There is no evidence of abscess or area that needed to be debrided at this time. Results Laboratory Results: 12/12/19 07:57 12/11/19 20:35 12/11/19 12/11/19 12/11/19 20:35 20:35 20:35 WBC 15.1 H RBC 5.71 H Hgb 15.9 Hct 47.0 MCV 82 MCH 27.9 MCHC 33.9 RDW 14.5 H Plt Count 136 L Seg Neutrophils % Not Reportable VBG pH 7.32 VBG pCO2 46.6 VBG HCO3 23.4 VBG Base Excess -3.0 Sodium 139.3 Potassium 3.5 L Chloride 101 Carbon Dioxide 21 L Anion Gap 17 BUN 13 Creatinine 1.18 Est GFR ( Amer) > 60 Glucose 104 Lactic Acid Calcium 10.7 H Total Bilirubin 1.1 AST 31 Alkaline Phosphatase 46 Total Protein 8.0 Albumin 4.6 12/11/19 12/11/19 12/12/19 20:35 22:57 01:34 WBC RBC Hgb Hct MCV MCH MCHC RDW Plt Count Seg Neutrophils % VBG pH VBG pCO2 VBG HCO3 VBG Base Excess Sodium Potassium Chloride Carbon Dioxide Anion Gap BUN Creatinine Est GFR ( Amer) Glucose Lactic Acid 5.4 H 5.9 H 6.2 H Calcium Total Bilirubin AST Alkaline Phosphatase Total Protein Albumin 12/12/19 12/12/19 07:57 07:57 WBC 18.2 H RBC 5.11 Hgb 13.9 Hct 41.3 MCV 81 MCH 27.2 MCHC 33.7 RDW 14.6 H Plt Count 115 L Seg Neutrophils % Not Reportable VBG pH VBG pCO2 VBG HCO3 VBG Base Excess Sodium Potassium Chloride Carbon Dioxide Anion Gap BUN Creatinine Est GFR ( Amer) Glucose Lactic Acid 2.3 H Calcium Total Bilirubin AST Alkaline Phosphatase Total Protein Albumin 12/11/19 20:35 Blood Blood Culture (PCR) - Final Streptococcus Species Impressions: Foot X-Ray 12/11/19 19:25 IMPRESSION: Swelling of the left foot. No soft tissue gas copyright 2011 [employer]- All Rights Reserved Chest X-Ray 12/11/19 22:34 IMPRESSION: No evidence of acute cardiopulmonary disease. Lower Extremity CT 12/12/19 00:00 IMPRESSION: 1. Diffuse skin thickening and subcutaneous edema that extends from the left knee to the foot. There is no discrete fluid collection or osseous ab normality. 2. Asymmetric enlargement of the left great saphenous vein. Consider correlation with a Doppler venous ultrasound. Assessment & Plan - Diagnosis (1) Cellulitis of left lower extremity Is this a current diagnosis for this admission?: Yes (2) Sepsis Qualifiers: Sepsis type: sepsis due to unspecified organism Sepsis acute organ dysfunction status: without acute organ dysfunction Qualified Code(s): A41.9 - Sepsis, unspecified organism Is this a current diagnosis for this admission?: Yes (3) Thrombocytopenia Is this a current diagnosis for this admission?: Yes (4) Autism Is this a current diagnosis for this admission?: Yes (5) History of heart valve replacement Is this a current diagnosis for this admission?: Yes (6) On anticoagulant therapy Is this a current diagnosis for this admission?: Yes (7) Paroxysmal atrial fibrillation Is this a current diagnosis for this admission?: Yes - Time Time Spent: 30 to 50 Minutes - Inpatient Certification Medical Necessity: Need For IV Fluids, Need for IV Antibiotics, Risk of Complication if Not Cared For in Hospital - Plan Summary Plan Summary: This is a 29-year-old male with severe autism, has thrombocytopenia, aortic valve replacement, paroxysmal A. fib on Coumadin 11 units daily admitted for recurrent severe cellulitis of the left lower leg with sepsis. No evidence of abscess or any area that needed to be debrided at this time. Rec Recommendations: Continue IV antibiotics leg elevation to help edema Ultrasound of lower extremities to rule out DVT of the left leg Arterial Doppler of the left lower leg We will follow the patient with you
--- NOTE | 2019-12-12 18:50 | RADIOLOGY REPORT (SQ) ---
EXAM DESCRIPTION: VENOUS UNILATERAL LOWER COMPLETED DATE/TIME: 12/12/2019 6:24 pm REASON FOR STUDY: LLE edema/pain COMPARISON: None. TECHNIQUE: Dynamic and static downing scale and color images acquired of the left leg venous system. Se lected spectral images acquired with additional compression and augmentation maneuvers. The contralat eral common femoral vein and saphenofemoral junction were also imaged. Images stored on PACS. LIMITATIONS: None. FINDINGS: COMMON FEMORAL: Normal phasicity, compression and augmentation. No visualized echogenic ma terial on downing scale. No defects on color images. FEMORAL: Normal compression and augmentation. No visualized echogenic material on downing scale. No defe cts on color images. POPLITEAL: Normal compression, augmentation. No visualized echogenic material on downing scale. No defec ts on color images. CALF VESSELS: Normal compression, augmentation. No visualized echogenic material on downing scale. No de fects on color images. GSV and SSV: Normal compression, augmentation. No visualized echogenic material on downing scale. No def ects on color images. ANY DEEP VENOUS INSUFFICIENCY: Not evaluated. ANY EVIDENCE OF POPLITEAL CYST: No. OTHER: No other significant finding. CONTRALATERAL COMMON FEMORAL VEIN AND SAPHENOFEMORAL JUNCTION: Normal phasicity, compression and augmentation. No visualized echogenic material on downing scale. No de fects on color images. IMPRESSION: NO EVIDENCE OF DVT OR SVT IN THE LEFT LEG. TECHNICAL DOCUMENTATION: JOB ID: [id number] [employer]- All Rights Reserved Reading location - IP/workstation name: [email or web address]
[2019-12-12] MEDS ORDERED: LORAZEPAM INJ 2 MG/1 ML VIAL IV ONE (19:30)
[2019-12-12] MEDS ORDERED: DIPHENHYDRAMINE HCL 50 MG/ML VIAL IV ONE (19:30)
--- NOTE | 2019-12-12 19:38 | PDOC PROGRESS REPORT ---
Subjective Progress Note for:: 12/12/19 Subjective:: SUELLEN GARCIA is a 29 year old male with a past medical history of severe autism residing in a snf, thrombocytopenia, mechanical aortic valve, paroxysmal atrial fibrillation Coumadin admitted 12/11/2019 with Sepsis secondary to left lower extremity cellulitis. Patient was seen on morning rounds, while still in the emergency department, with his care provider from the snf present. O he was seen again briefly this afternoon while on the third floor with his father present. As compared to this morning, the patient does appear to be clinically improved; no longer shivering, diaphoretic, or anxious appearing. However, he does continue to report intermittent chills concerning for continued febrile illness. ROS is somewhat limited due to the patient's baseline mentality and communication abilities. Discussed with all parties the CT report and recommendations for ultrasound imaging. As the patient is subtherapeutic on his Coumadin, DVT is certainly possible. I have also consulted surgery due to the severity of the patient's cellulitis. All questions and concerns addressed. Nursing called to report that the patient became agitated during his venous Doppler; did hit against the bed rail and at his nurse. However, was quickly calmed and redirected. He did receive as needed medications and was briefly placed in restraints during the procedure, but quickly calmed once Doppler was completed and is now out of restraints and appropriately interacting with staff. Reason For Visit: LEFT LEG CELLULITIS Physical Exam Vital Signs: Temp Pulse Resp BP Pulse Ox 102.5 F H 123 H 23 H 108/51 L 100 12/12/19 17:39 12/12/19 14:00 12/12/19 14:00 12/12/19 14:00 12/12/19 14:00 Intake & Output 12/11/19 12/12/19 12/13/19 06:59 06:59 06:59 Intake Total 3640 1300 Balance 3640 1300 Weight 118.1 kg General appearance: PRESENT: cooperative, mild distress, obese, well-developed, well-nourished Head exam: PRESENT: atraumatic, normocephalic Eye exam: PRESENT: conjunctiva pink, EOMI, PERRLA. ABSENT: scleral icterus Ear exam: PRESENT: normal external ear exam Mouth exam: PRESENT: dry mucosa, tongue midline Teeth exam: PRESENT: poor dentation Respiratory exam: PRESENT: clear to auscultation marsha, symmetrical, tachypnea. ABSENT: rales, rhonchi, wheezes Cardiovascular exam: PRESENT: RRR, +S1, +S2, tachycardia, other - Mechanical heart valve. ABSENT: diastolic murmur, rubs, systolic murmur Vascular exam: PRESENT: normal capillary refill GI/Abdominal exam: PRESENT: normal bowel sounds, soft. ABSENT: distended, guarding, mass, organolmegaly, rebound, tenderness Rectal exam: PRESENT: deferred Extremities exam: PRESENT: full ROM. ABSENT: calf tenderness, clubbing, pedal edema Neurological exam: PRESENT: alert, awake, oriented to person, oriented to place, oriented to situation, CN II-XII grossly intact, other - At baseline mentation. ABSENT: motor sensory deficit Psychiatric exam: PRESENT: appropriate affect, normal mood. ABSENT: homicidal ideation, suicidal ideation Skin exam: PRESENT: dry, erythema, warm, other - Significant RLE erythema and edema beginning just distal to the knee and extending distally. Unable to palp ate pedal pulses due to edema.. ABSENT: cyanosis, rash Results Laboratory Results: 12/12/19 07:57 12/11/19 20:35 12/11/19 12/11/19 12/11/19 20:35 20:35 20:35 WBC 15.1 H RBC 5.71 H Hgb 15.9 Hct 47.0 MCV 82 MCH 27.9 MCHC 33.9 RDW 14.5 H Plt Count 136 L Seg Neutrophils % Not Reportable VBG pH 7.32 VBG pCO2 46.6 VBG HCO3 23.4 VBG Base Excess -3.0 Sodium 139.3 Potassium 3.5 L Chloride 101 Carbon Dioxide 21 L Anion Gap 17 BUN 13 Creatinine 1.18 Est GFR ( Amer) > 60 Glucose 104 Lactic Acid Calcium 10.7 H Total Bilirubin 1.1 AST 31 Alkaline Phosphatase 46 Total Protein 8.0 Albumin 4.6 12/11/19 12/11/19 12/12/19 20:35 22:57 01:34 WBC RBC Hgb Hct MCV MCH MCHC RDW Plt Count Seg Neutrophils % VBG pH VBG pCO2 VBG HCO3 VBG Base Excess Sodium Potassium Chloride Carbon Dioxide Anion Gap BUN Creatinine Est GFR ( Amer) Glucose Lactic Acid 5.4 H 5.9 H 6.2 H Calcium Total Bilirubin AST Alkaline Phosphatase Total Protein Albumin 02/27/20 02/27/20 07:57 07:57 WBC 18.2 H RBC 5.11 Hgb 13.9 Hct 41.3 MCV 81 MCH 27.2 MCHC 33.7 RDW 14.6 H Plt Count 115 L Seg Neutrophils % Not Reportable VBG pH VBG pCO2 VBG HCO3 VBG Base Excess Sodium Potassium Chloride Carbon Dioxide Anion Gap BUN Creatinine Est GFR ( Amer) Glucose Lactic Acid 2.3 H Calcium Total Bilirubin AST Alkaline Phosphatase Total Protein Albumin 12/11/19 20:35 Blood Blood Culture (PCR) - Final Streptococcus Species Impressions: Foot X-Ray 12/11/19 19:25 IMPRESSION: Swelling of the left foot. No soft tissue gas copyright 2010 [employer]- All Rights Reserved Chest X-Ray 12/11/19 22:34 IMPRESSION: No evidence of acute cardiopulmonary disease. Lower Extremity CT 12/12/19 00:00 IMPRESSION: 1. Diffuse skin thickening and subcutaneous edema that extends from the left knee to the foot. There is no discrete fluid collection or osseous abnormality. 2. Asymmetric enlargement of the left great saphenous vein. Consider correlation with a Doppler venous ultrasound. Venous Doppler Study 12/12/19 00:00 IMPRESSION: NO EVIDENCE OF DVT OR SVT IN THE LEFT LEG. Assessment and Plan - Diagnosis (1) Cellulitis of left lower extremity Is this a current diagnosis for this admission?: Yes Plan: Blood cultures (12/11/2019; 2 of 4 bottles) show group C beta strep Repeat blood cultures in the morning pending. CT of the extremity is negative for fluid or abscess collection; does show diffuse skin thickening with subcutaneous edema extending from the left knee to foot. There is asymmetric enlargement of the left great saphenous vein concerning for DVT. Follow-up venous Doppler study fortunately negative for DVT Patient is admitted to [facility] on continuous cardiac telemetry. Patient is empirically placed on IV neomycin and Rocephin. Will receive Lamisil daily. Surgery has been consulted; appreciate Dr. Sarah's evaluation and recommendations. Keep extremity elevated. Analgesics, antipyretics, anti-emetics as needed. (2) Sepsis Qualifiers: Sepsis type: sepsis due to unspecified organism Sepsis acute organ dysfunction status: without acute organ dysfunction Qualified Code(s): A41.9 - Sepsis, unspecified organism Is this a current diagnosis for this admission?: Yes Plan: Secondary to #1 Patient received IV fluid resuscitation, although delayed, followed by sarahi wynn IV fluids. Fortunately, blood pressures improved. He has been upgraded to IMCU and will be monitored on continuous cardiac telemetry. Cultures and antibiotics as above. (3) Leukocytosis Qualifiers: Leukocytosis type: bandemia Qualified Code(s): D72.825 - Bandemia Is this a current diagnosis for this admission?: Yes Plan: Secondary to #1. Cultures and antibiotics as above. Follow-up CBC. (4) Thrombocytopenia Is this a current diagnosis for this admission?: Yes Plan: Follow-up HIT antibodies Daily CBC. (5) Autism Is this a current diagnosis for this admission?: Yes Plan: Continue home medication regiment. Supportive care. Avoid restraints. Minimize interventions. (6) Chronic anticoagulation Is this a current diagnosis for this admission?: Yes Plan: Patient is chronically anticoagulated on Coumadin for mechanical heart valve. Goal INR 2.5-3.5. Fortunately, on admission, patient was found to be subtherapeutic with INR of 1.6. Coumadin 10 mg tonight. Pharmacy to dose. (7) History of heart valve replacement Is this a current diagnosis for this admission?: Yes Plan: Arixtra ordered while subtherapeutic, home dose Coumadin, follow-up INR - Time Time Spent with patient: 35 or more minutes Medications reviewed and adjusted accordingly: Yes - Inpatient Certification Based on my medical assessment, after consideration of the patient's comorbidities, presenting symptoms, or acuity I expect that the services needed warrant INPATIENT care.: Yes I certify that my determination is in accordance with my understanding of Medicare's requirements for reasonable and necessary INPATIENT services [42 CFR 412.3e].: Yes Medical Necessity: Failure to Improve With Outpatient Therapy, Need Close Monitoring Due to Risk of Patient Decompensation, Need for Pain Control, Need for IV Antibiotics, Risk of Diagnosis Which Will Require Inpatient Eval/Care/Monitoring
[2019-12-12] MEDS ORDERED: (PENDING PHARMACY ID) (Warfarin Sodium 10 MG) PO SCH (20:00)
[2019-12-12] MEDS ORDERED: (PENDING PHARMACY ID) (Divalproex Sodium [Depakote] 1,000 MG) PO SCH (20:00)
[2019-12-12] MEDS ORDERED: MORPHINE SULFATE 10 MG/ML INJ IV ONE (20:00)
[2019-12-12] MEDS: MIRTAZAPINE 15 MG TABLET PO SCH (20:08)
[2019-12-12] MEDS: DOCUSATE SODIUM 100 MG CAPSULE PO SCH (20:08)
[2019-12-12] MEDS: BENZTROPINE MESYLATE 1 MG TABLET PO SCH (20:08)
[2019-12-12 20:14] LABS: HEMATOCRIT 37.7 % (37.9-51.0); HEMOGLOBIN 12.9 g/dL (13.5-17.0); MEAN CORPUSCULAR HEMOGLOBIN 27.3 pg (27.0-33.4); MEAN CORPUSCULAR HGB CONC 34.3 g/dL (32.0-36.0); MEAN CORPUSCULAR VOLUME 80 fl (80-97); RED BLOOD COUNT 4.74 10^6/uL (4.35-5.55); RED CELL DISTRIBUTION WIDTH 14.6 % (11.5-14.0); WHITE BLOOD COUNT 13.3 10^3/uL (4.0-10.5)
[2019-12-12 20:42] LABS: PLATELET COUNT 91 10^3/uL (150-450)
[2019-12-12] MEDS ORDERED: WARFARIN SODIUM 5 MG TABLET PO ONE ×2 (22:00→22:30)
[2019-12-12] MEDS: OLANZAPINE INJ/PF 10 MG SDV IM SCH ×2 (22:09→22:17)
[2019-12-12] MEDS: DIVALPROEX SODIUM 250 MG TABLET.DR PO SCH ×2 (22:10)
[2019-12-12] MEDS: NORMAL SALINE 1000 ML 1,000 ML IV PRN (22:18)
[2019-12-13] MEDS: VANCOMYCIN HCL 1,250 MG in DEXTROSE 5%-WATER 250 ML IV SCH ×2 (02:03→09:53)
[2019-12-13] MEDS: HALOPERIDOL LACTATE INJ 5 MG/1 ML VIAL IV PRN ×2 (04:21→22:57)
[2019-12-13] MEDS ORDERED: NORMAL SALINE 1000 ML 2,000 ML IV ONE (05:15)
[2019-12-13] MEDS ORDERED: KETOROLAC TROMETHAMINE INJ/PF 30 MG/1 ML SDV IV ONE (05:15)
[2019-12-13] MEDS: CEFTRIAXONE 2 GM/D5W RTU 2 GM/50 ML RTUPB IV SCH (05:46)
[2019-12-13 06:43] LABS: HEMATOCRIT 34.7 % (37.9-51.0); HEMOGLOBIN 11.8 g/dL (13.5-17.0); INTERNATIONAL RATION (INR) 1.81; MEAN CORPUSCULAR HEMOGLOBIN 27.2 pg (27.0-33.4); MEAN CORPUSCULAR VOLUME 80 fl (80-97); PROTHROMBIN TIME 21.2 SEC (11.4-15.4); RED BLOOD COUNT 4.34 10^6/uL (4.35-5.55); RED CELL DISTRIBUTION WIDTH 14.6 % (11.5-14.0); WHITE BLOOD COUNT 11.3 10^3/uL (4.0-10.5)
[2019-12-13 07:10] LABS: PLATELET COUNT 70 10^3/uL (150-450)
[2019-12-13] MEDS ORDERED: (PENDING PHARMACY ID) (Aripiprazole [Abilify] 20 MG) PO SCH (08:00)
--- NOTE | 2019-12-13 09:45 | PDOC PROGRESS REPORT ---
Subjective Progress Note for:: 12/13/19 Subjective:: left lower ext celluliits Reason For Visit: LEFT LEG CELLULITIS Physical Exam Vital Signs: Temp Pulse Resp BP Pulse Ox 101.7 F H 102 H 18 100/60 94 12/13/19 03:32 12/13/19 07:00 12/13/19 03:32 12/13/19 04:00 12/13/19 03:32 Intake & Output 12/12/19 12/13/19 12/14/19 06:59 06:59 06:59 Intake Total 3640 5150 Output Total 600 Balance 3640 4550 Weight 118.1 kg 106 kg General appearance: PRESENT: no acute distress Head exam: PRESENT: normocephalic Ear exam: PRESENT: normal external ear exam Mouth exam: PRESENT: moist Neck exam: PRESENT: full ROM Respiratory exam: PRESENT: clear to auscultation marsha Cardiovascular exam: PRESENT: irregular rhythm Pulses: PRESENT: normal radial pulses, normal femoral pulses, +2 pedal pulses bilateral GI/Abdominal exam: PRESENT: soft Rectal exam: PRESENT: deferred Extremities exam: PRESENT: full ROM Musculoskeletal exam: PRESENT: full ROM Psychiatric exam: PRESENT: other - pt cannot communicate due to psy dx. Skin exam: PRESENT: dry, warm, other - cellulitis from mid calf to foot. no obvious purulence or deep abscess Results Laboratory Results: 12/13/19 06:15 12/12/19 12/13/19 20:00 06:15 WBC 13.3 H 11.3 H RBC 4.74 4.34 L Hgb 12.9 L 11.8 L Hct 37.7 L 34.7 L MCV 80 80 MCH 27.3 27.2 MCHC 34.3 34.0 RDW 14.6 H 14.6 H Plt Count 91 L 70 L 12/11/19 20:35 Blood Blood Culture (PCR) - Final Streptococcus Species Impressions: Foot X-Ray 12/11/19 19:25 IMPRESSION: Swelling of the left foot. No soft tissue gas copyright 2011 [employer]- All Rights Reserved Chest X-Ray 12/11/19 22:34 IMPRESSION: No evidence of acute cardiopulmonary disease. Lower Extremity CT 12/12/19 00:00 IMPRESSION: 1. Diffuse skin thickening and subcutaneous edema that extends from the left knee to the foot. There is no discrete fluid collection or osseous abnormality. 2. Asymmetric enlargement of the left great saphenous vein. Consider correlation with a Doppler venous ultrasound. Venous Doppler Study 12/12/19 00:00 IMPRESSION: NO EVIDENCE OF DVT OR SVT IN THE LEFT LEG. Assessment & Plan - Plan Summary Plan Summary: impression cellulitis left foot to mid calf no drainable abscess per ct doppler neg for dvt palpap popliteal pulse doppler distal pulse in pt and dp and digital arteries recommend cont elevation and iv abx no surgical intervention needed at this time.
[2019-12-13] MEDS: DOCUSATE SODIUM 100 MG CAPSULE PO SCH ×2 (09:51→20:24)
[2019-12-13] MEDS: OLANZAPINE INJ/PF 10 MG SDV IM SCH ×2 (09:51→21:04)
[2019-12-13 09:52] LABS: VANCOMYCIN,TROUGH 9.1 ug/mL (5.0-20.0)
[2019-12-13] MEDS: BENZTROPINE MESYLATE 1 MG TABLET PO SCH ×2 (09:52→20:24)
[2019-12-13] MEDS: TERBINAFINE HCL 250 MG TABLET PO SCH (09:52)
[2019-12-13] MEDS: ARIPIPRAZOLE 5 MG TABLET PO SCH (09:53)
[2019-12-13] MEDS: PANTOPRAZOLE SODIUM 40 MG TABLET.DR PO SCH (09:53)
[2019-12-13] MEDS: FONDAPARINUX SODIUM INJ 10 MG/0.8 ML DISP.SYRIN SUBCUT SCH (09:54)
[2019-12-13] MEDS ORDERED: FONDAPARINUX SODIUM INJ 10 MG/0.8 ML DISP.SYRIN SUBCUT SCH (10:00)
[2019-12-13] MEDS: DIVALPROEX SODIUM 250 MG TABLET.DR PO SCH ×3 (10:04→20:22)
[2019-12-13] MEDS: OXCARBAZEPINE 150 MG TABLET PO SCH ×3 (10:05→20:23)
[2019-12-13] MEDS: NORMAL SALINE 1000 ML 1,000 ML IV PRN ×2 (11:47→19:51)
--- NOTE | 2019-12-13 13:59 | PDOC PROGRESS REPORT ---
Subjective Progress Note for:: 12/13/19 Subjective:: SUELLEN GARCIA is a 29 year old male with a past medical history of severe autism residing in a residential, thrombocytopenia, mechanical aortic valve, paroxysmal atrial fibrillation Coumadin admitted 12/11/2019 with Sepsis secondary to left lower extremity cellulitis. Patient was seen on morning rounds with his mother and care provider from the residential present. He appears much more comfortable today. He denies pain. Did have fever again overnight. Erythema and edema are significantly improved. ROS is somewhat limited due to the patient's baseline mentality and communication abilities. All questions and concerns addressed. No concerns per nursing. Reason For Visit: LEFT LEG CELLULITIS Physical Exam Vital Signs: Temp Pulse Resp BP Pulse Ox 101.7 F H 102 H 14 100/60 97 12/13/19 03:32 12/13/19 08:00 12/13/19 08:00 12/13/19 04:00 12/13/19 08:00 Intake & Output 12/12/19 12/13/19 12/14/19 06:59 06:59 06:59 Intake Total 3640 5150 Output Total 600 Balance 3640 4550 Weight 118.1 kg 106 kg General appearance: PRESENT: no acute distress, cooperative, well-developed, well-nourished, other - overweight Head exam: PRESENT: atraumatic, normocephalic Eye exam: PRESENT: conjunctiva pink, EOMI, PERRLA. ABSENT: scleral icterus Mouth exam: PRESENT: moist, tongue midline Teeth exam: PRESENT: poor dentation Respiratory exam: PRESENT: clear to auscultation marsha, symmetrical, unlabored. ABSENT: rales, rhonchi, wheezes Cardiovascular exam: PRESENT: RRR, +S1, +S2, tachycardia, other - mechanical heart valve. ABSENT: diastolic murmur, rubs, systolic murmur Pulses: PRESENT: normal dorsalis pedis pul Vascular exam: PRESENT: normal capillary refill Extremities exam: PRESENT: full ROM. ABSENT: calf tenderness, clubbing, pedal edema Neurological exam: PRESENT: alert, awake, oriented to person, oriented to place, oriented to situation, CN II-XII grossly intact, other - cooperative, socailly appropriate; at baseline mentation. ABSENT: motor sensory deficit Psychiatric exam: PRESENT: appropriate affect, normal mood. ABSENT: homicidal ideation, suicidal ideation Skin exam: PRESENT: dry, erythema, warm, other - RLE erythema and edema beginning just distal to the knee and extending distally; significantly improved. ABSENT: cyanosis, rash Results Laboratory Results: 12/13/19 06:15 12/13/19 09:11 12/12/19 12/13/19 12/13/19 20:00 06:15 09:11 WBC 13.3 H 11.3 H RBC 4.74 4.34 L Hgb 12.9 L 11.8 L Hct 37.7 L 34.7 L MCV 80 80 MCH 27.3 27.2 MCHC 34.3 34.0 RDW 14.6 H 14.6 H Plt Count 91 L 70 L Creatinine 0.63 Est GFR ( Amer) > 60 12/11/19 20:35 Blood Blood Culture (PCR) - Final Streptococcus Species Impressions: Foot X-Ray 12/11/19 19:25 IMPRESSION: Swelling of the left foot. No soft tissue gas copyright 2011 [employer]- All Rights Reserved Chest X-Ray 12/11/19 22:34 IMPRESSION: No evidence of acute cardiopulmonary disease. Lower Extremity CT 12/12/19 00:00 IMPRESSION: 1. Diffuse skin thickening and subcutaneous edema that extends from the left knee to the foot. There is no discrete fluid collection or osseous abnormality. 2. Asymmetric enlargement of the left great saphenous vein. Consider c orrelation with a Doppler venous ultrasound. Venous Doppler Study 12/12/19 00:00 IMPRESSION: NO EVIDENCE OF DVT OR SVT IN THE LEFT LEG. Assessment and Plan - Diagnosis (1) Cellulitis of left lower extremity Is this a current diagnosis for this admission?: Yes Plan: Blood cultures (12/11/2019; 2 of 4 bottles) show group C beta strep Repeat blood cultures (12/12/19) pending. CT of the extremity is negative for fluid or abscess collection; does show diffuse skin thickening with subcutaneous edema extending from the left knee to foot. There is asymmetric enlargement of the left great saphenous vein concerning for DVT. Follow-up venous Doppler study fortunately negative for DVT Patient is admitted to [facility] on continuous cardiac telemetry. Patient is empirically placed on IV Vancomycin and Rocephin. Will receive Lamisil daily. Surgery has been consulted; appreciate their evaluation and recommendations. Keep extremity elevated. Analgesics, antipyretics, anti-emetics as needed. (2) Sepsis Qualifiers: Sepsis type: sepsis due to unspecified organism Sepsis acute organ dysfunction status: without acute organ dysfunction Qualified Code(s): A41.9 - Sepsis, unspecified organism Is this a current diagnosis for this admission?: Yes Plan: Improved; continues to have intermittent fevers, tachycardia, and hypotention. Leukocytosis is trending down. Clinical appearance is improved. Secondary to #1 Patient received IV fluid resuscitation, although delayed, followed by maintenance IV fluids. Fortunately, blood pressures improved. He has been upgraded to IMCU and will be monitored on continuous cardiac telemetry. Cultures and antibiotics as above. (3) Leukocytosis Qualifiers: Leukocytosis type: bandemia Qualified Code(s): D72.825 - Bandemia Is this a current diagnosis for this admission?: Yes Plan: Improving. Secondary to #1. Cultures and antibiotics as above. Follow-up CBC. (4) Thrombocytopenia Is this a current diagnosis for this admission?: Yes Plan: Follow-up HIT antibodies Daily CBC. Consider hematology consultation. (5) Autism Is this a current diagnosis for this admission?: Yes Plan: Continue home medication regiment. Supportive care. Avoid restraints. Minimize interventions. (6) Chronic anticoagulation Is this a current diagnosis for this admission?: Yes Plan: Patient is chronically anticoagulated on Coumadin for mechanical heart valve. Goal INR 2.5-3.5. On admission patient was found to be subtherapeutic with INR of 1.6. Pharmacy to dose. Daily PT/INR (7) History of heart valve replacement Is this a current diagnosis for this admission?: Yes Plan: Arixtra ordered while subtherapeutic, home dose Coumadin, follow-up INR - Time Time Spent with patient: 35 or more minutes Medications reviewed and adjusted accordingly: Yes Anticipated discharge: Home
[2019-12-13] MEDS: VANCOMYCIN HCL 1,500 MG in DEXTROSE 5%-WATER 250 ML IV SCH (17:56)
[2019-12-13] MEDS: MIRTAZAPINE 15 MG TABLET PO SCH (20:26)
[2019-12-13] MEDS: WARFARIN SODIUM 1 MG TABLET PO SCH (21:04)
[2019-12-13] MEDS: WARFARIN SODIUM 5 MG TABLET PO SCH (21:04)
[2019-12-13 23:22] LABS: APPEARANCE,URINE CLEAR; BILIRUBIN,URINE NEGATIVE (NEGATIVE); COLOR,URINE YELLOW; GLUCOSE, URINE NEGATIVE (NEGATIVE); KETONES,URINE NEGATIVE (NEGATIVE); LEUKOCYTE ESTERASE,URINE NEGATIVE (NEGATIVE); NITRITE,URINE NEGATIVE (NEGATIVE); PROTEIN,URINE NEGATIVE (NEGATIVE); URINE SPECIFIC GRAVITY 1.009; UROBILINOGEN,URINE NEGATIVE mg/dL (<2.0)
[2019-12-14] MEDS: VANCOMYCIN HCL 1,500 MG in DEXTROSE 5%-WATER 250 ML IV SCH ×4 (01:33→21:22)
[2019-12-14] MEDS: CEFTRIAXONE 2 GM/D5W RTU 2 GM/50 ML RTUPB IV SCH (05:59)
[2019-12-14] MEDS: ACETAMINOPHEN 325 MG TABLET PO PRN ×2 (05:59→13:16)
[2019-12-14] MEDS: NORMAL SALINE 1000 ML 1,000 ML IV PRN ×2 (06:00→15:57)
[2019-12-14 06:10] LABS: INTERNATIONAL RATION (INR) 2.38; PROTHROMBIN TIME 26.4 SEC (11.4-15.4)
[2019-12-14 06:11] LABS: HEMATOCRIT 32.5 % (37.9-51.0); HEMOGLOBIN 11.4 g/dL (13.5-17.0); MEAN CORPUSCULAR HEMOGLOBIN 27.7 pg (27.0-33.4); MEAN CORPUSCULAR HGB CONC 35.1 g/dL (32.0-36.0); MEAN CORPUSCULAR VOLUME 79 fl (80-97); RED BLOOD COUNT 4.13 10^6/uL (4.35-5.55); RED CELL DISTRIBUTION WIDTH 14.7 % (11.5-14.0); WHITE BLOOD COUNT 8.6 10^3/uL (4.0-10.5)
[2019-12-14 06:29] LABS: PLATELET COUNT 60 10^3/uL (150-450)
[2019-12-14 06:32] LABS: BLOOD UREA NITROGEN 3 mg/dL (7-20); CALCIUM 7.4 mg/dL (8.4-10.2); CARBON DIOXIDE 26 mmol/L (22-30); GLUCOSE 84 mg/dL (75-110)
[2019-12-14 06:38] LABS: CHLORIDE 103 mmol/L (98-107)
[2019-12-14 06:47] LABS: ANION GAP 5 (5-19)
[2019-12-14] MEDS ORDERED: POTASSIUM CHLORIDE 10 MEQ TABLET.ER PO ONE (09:00)
[2019-12-14] MEDS: ARIPIPRAZOLE 5 MG TABLET PO SCH (09:11)
[2019-12-14] MEDS: DOCUSATE SODIUM 100 MG CAPSULE PO SCH ×2 (09:11→21:20)
[2019-12-14] MEDS: PANTOPRAZOLE SODIUM 40 MG TABLET.DR PO SCH (09:11)
[2019-12-14] MEDS: BENZTROPINE MESYLATE 1 MG TABLET PO SCH ×2 (09:11→21:19)
[2019-12-14] MEDS: POTASSI CL 20 MEQ/50 ML RIDER 20 MEQ/50 ML RTUPB IV SCH ×2 (09:12→11:12)
[2019-12-14] MEDS: TERBINAFINE HCL 250 MG TABLET PO SCH (09:12)
[2019-12-14] MEDS: FONDAPARINUX SODIUM INJ 10 MG/0.8 ML DISP.SYRIN SUBCUT SCH (09:12)
[2019-12-14] MEDS: DIVALPROEX SODIUM 250 MG TABLET.DR PO SCH ×3 (09:13→21:21)
[2019-12-14] MEDS: OXCARBAZEPINE 150 MG TABLET PO SCH ×3 (09:13→21:22)
[2019-12-14] MEDS: OLANZAPINE INJ/PF 10 MG SDV IM SCH ×2 (09:14→21:17)
[2019-12-14] MEDS: HALOPERIDOL LACTATE INJ 5 MG/1 ML VIAL IV PRN ×2 (10:24→17:20)
--- NOTE | 2019-12-14 13:31 | PDOC PROGRESS REPORT ---
Subjective Progress Note for:: 12/14/19 Subjective:: SUELLEN GARCIA is a 29 year old male with a past medical history of severe autism [facility] in a jail, thrombocytopenia, mechanical aortic valve, paroxysmal atrial fibrillation Coumadin admitted 12/11/2019 with Sepsis secondary to left lower extremity cellulitis. Patient was seen on morning rounds. He appears much more comfortable today. He denies pain. No fever overnight. Erythema and edema are significantly improved. ROS is somewhat limited due to the patient's baseline mentality and communication abilities. No questions at this time. No concerns per nursing. Reason For Visit: LEFT LEG CELLULITIS Physical Exam Vital Signs: Temp Pulse Resp BP Pulse Ox 99.4 F 102 H 18 122/86 H 98 12/14/19 03:32 12/14/19 03:32 12/14/19 03:32 12/14/19 03:32 12/14/19 03:32 Intake & Output 12/13/19 12/14/19 12/15/19 06:59 06:59 06:59 Intake Total 5150 5120 350 Output Total 600 Balance 4550 5120 350 Weight 106 kg 111.9 kg General appearance: PRESENT: no acute distress, cooperative, obese, well-devel oped, well-nourished Head exam: PRESENT: atraumatic, normocephalic Eye exam: PRESENT: conjunctiva pink, EOMI, PERRLA. ABSENT: scleral icterus Mouth exam: PRESENT: moist, tongue midline Teeth exam: PRESENT: poor dentation Respiratory exam: PRESENT: clear to auscultation marsha, symmetrical, unlabored. ABSENT: rales, rhonchi, wheezes Cardiovascular exam: PRESENT: RRR, +S1, +S2, other - mechanical heart valve. ABSENT: diastolic murmur, rubs, systolic murmur Vascular exam: PRESENT: normal capillary refill Extremities exam: PRESENT: full ROM. ABSENT: calf tenderness, clubbing, pedal edema Neurological exam: PRESENT: alert, awake, oriented to person, oriented to place, oriented to time, oriented to situation, CN II-XII grossly intact, other - autism; cooperative, socailly appropriate, and at baseline mentation. ABSENT: motor sensory deficit Psychiatric exam: PRESENT: appropriate affect, normal mood. ABSENT: homicidal ideation, suicidal ideation Skin exam: PRESENT: dry, erythema, warm, other - RLE edema extending to the knee. Patchy erythema w/ excoriation to the anterior medial lower leg. Patchy erythema to the dorsum of the foot. Overall improved.. ABSENT: cyanosis, rash Results Laboratory Results: 12/14/19 05:48 12/14/19 05:48 12/13/19 12/14/19 12/14/19 23:00 05:48 05:48 WBC 8.6 RBC 4.13 L Hgb 11.4 L Hct 32.5 L MCV 79 L MCH 27.7 MCHC 35.1 RDW 14.7 H Plt Count 60 L Sodium 134.1 L Potassium 3.0 L* Chloride 103 Carbon Dioxide 26 Anion Gap 5 BUN 3 L Creatinine 0.50 L Est GFR ( Amer) > 60 Glucose 84 Calcium 7.4 L Urine Color YELLOW Urine Appearance CLEAR Urine pH 5.0 Ur Specific [place] 1.009 Urine Protein NEGATIVE Urine Glucose (UA) NEGATIVE Urine Ketones NEGATIVE Urine Blood MODERATE H Urine Nitrite NEGATIVE Ur Leukocyte Esterase NEGATIVE Urine WBC (Auto) 1 Urine RBC (Auto) 1 Impressions: Foot X-Ray 12/11/19 19:25 IMPRESSION: Swelling of the left foot. No soft tissue gas copyright 2011 [employer]- All Rights Reserved Chest X-Ray 12/11/19 22:34 IMPRESSION: No evidence of acute cardiopulmonary disease. Lower Extremity CT 12/12/19 00:00 IMPRESSION: 1. Diffuse skin thickening and subcutaneous edema that extends from the left knee to the foot. There is no discrete fluid collection or osseous abnormality. 2. Asymmetric enlargement of the left great saphenous vein. Consider correlation with a Doppler venous ultrasound. Venous Doppler Study 12/12/19 00:00 IMPRESSION: NO EVIDENCE OF DVT OR SVT IN THE LEFT LEG. Assessment and Plan - Diagnosis (1) Cellulitis of left lower extremity Is this a current diagnosis for this admission?: Yes Plan: Improved. Patient has been x24 hours. T-max last 48 hours is 102.0. Leukocytosis has resolved. Clinically improved. Blood cultures (12/11/2019; 2 of 4 bottles) show group C beta strep Repeat blood cultures (12/12/19) negative at [address] of the extremity is negative for fluid or abscess collection; does show diffuse skin thickening with subcutaneous edema extending from the left knee to foot. There is asymmetric enlargement of the left great saphenous vein concerning for DVT. Follow-up venous Doppler study fortunately negative for DVT Patient is admitted to [facility] on continuous cardiac telemetry. Patient is empirically placed on IV Vancomycin and Rocephin. Will receive Lamisil daily. Surgery has been consulted; appreciate their evaluation and recommendations. Keep extremity elevated. Analgesics, antipyretics, anti-emetics as needed. (2) Sepsis Qualifiers: Sepsis type: sepsis due to unspecified organism Sepsis acute organ dysfunction status: without acute organ dysfunction Qualified Code(s): A41.9 - Sepsis, unspecified organism Is this a current diagnosis for this admission?: Yes Plan: Resolved; afebrile x24 hours. Tachycardia and hypotension have resolved. Leukocytosis is resolved. Clinical appearance is improved. Secondary to #1 Patient received IV fluid resuscitation, although delayed, followed by maintenance IV fluids. Fortunately, blood pressures improved. He has been upgraded to [facility] and will be monitored on continuous cardiac telemetry. Cultures and antibiotics as above. (3) Leukocytosis Qualifiers: Leukocytosis type: bandemia Qualified Code(s): D72.825 - Bandemia Is this a current diagnosis for this admission?: Yes Plan: Resolved Secondary to #1. Cultures and antibiotics as above. Follow-up CBC. (4) Thrombocytopenia Is this a current diagnosis for this admission?: Yes Plan: Follow-up HIT antibodies Daily CBC. PLT 60 today, will consult hematology if trends down further. (5) Autism Is this a current diagnosis for this admission?: Yes Plan: Continue home medication regiment. Supportive care. Avoid restraints. Minimize interventions. (6) Chronic anticoagulation Is this a current diagnosis for this admission?: Yes Plan: Patient is chronically anticoagulated on Coumadin for mechanical heart valve. Goal INR 2.5-3.5. On admission patient was found to be subtherapeutic with INR of 1.16. Pharmacy to dose. Daily PT/INR (7) History of heart valve replacement Is this a current diagnosis for this admission?: Yes Plan: Home dose Coumadin, follow-up INR - Time Time Spent with patient: 15-24 minutes Medications reviewed and adjusted accordingly: Yes Anticipated discharge: Home Within: within 72 hours
--- NOTE | 2019-12-14 14:37 | PDOC PROGRESS REPORT ---
Subjective Progress Note for:: 12/14/19 Subjective:: Less pains on the left lower leg Reason For Visit: LEFT LEG CELLULITIS Physical Exam Vital Signs: Temp Pulse Resp BP Pulse Ox 97.6 F 96 16 137/68 H 98 12/14/19 12:00 12/14/19 12:00 12/14/19 12:00 12/14/19 12:00 12/14/19 12:00 Intake & Output 12/13/19 12/14/19 12/15/19 06:59 06:59 06:59 Intake Total 5150 5120 1400 Output Total 600 Balance 4550 5120 1400 Weight 106 kg 111.9 kg Exam: Left leg erythema and edema appears to be going down. He remains afebrile and white count is normal. Results Laboratory Results: 12/14/19 05:48 12/14/19 05:48 12/13/19 12/14/19 12/14/19 23:00 05:48 05:48 WBC 8.6 RBC 4.13 L Hgb 11.4 L Hct 32.5 L MCV 79 L MCH 27.7 MCHC 35.1 RDW 14.7 H Plt Count 60 L Sodium 134.1 L Potassium 3.0 L* Chloride 103 Carbon Dioxide 26 Anion Gap 5 BUN 3 L Creatinine 0.50 L Est GFR ( Amer) > 60 Glucose 84 Calcium 7.4 L Urine Color YELLOW Urine Appearance CLEAR Urine pH 5.0 Ur Specific [place] 1.009 Urine Protein NEGATIVE Urine Glucose (UA) NEGATIVE Urine Ketones NEGATIVE Urine Blood MODERATE H Urine Nitrite NEGATIVE Ur Leukocyte Esterase NEGATIVE Urine WBC (Auto) 1 Urine RBC (Auto) 1 Impressions: Foot X-Ray 12/11/19 19:25 IMPRESSION: Swelling of the left foot. No soft tissue gas copyright 2011 [employer]- All Rights Reserved Chest X-Ray 12/11/19 22:34 IMPRESSION: No evidence of acute cardiopulmonary disease. Lower Extremity CT 12/12/19 00:00 IMPRESSION: 1. Diffuse skin thickening and subcutaneous edema that extends from the left knee to the foot. There is no discrete fluid collection or osseous abnormality. 2. Asymmetric enlargement of the left great saphenous vein. Consider correlation with a Doppler venous ultrasound. Venous Doppler Study 12/12/19 00:00 IMPRESSION: NO EVIDENCE OF DVT OR SVT IN THE LEFT LEG. Assessment & Plan - Diagnosis (1) Cellulitis of left lower extremity Is this a current diagnosis for this admission?: Yes (2) Sepsis Qualifiers: Sepsis type: sepsis due to unspecified organism Sepsis acute organ dysfunction status: without acute organ dysfunction Qualified Code(s): A41.9 - Sepsis, unspecified organism Is this a current diagnosis for this admission?: Yes (3) Thrombocytopenia Is this a current diagnosis for this admission?: Yes (4) Autism Is this a current diagnosis for this admission?: Yes (5) History of heart valve replacement Is this a current diagnosis for this admission?: Yes (6) On anticoagulant therapy Is this a current diagnosis for this admission?: Yes (7) Paroxysmal atrial fibrillation Is this a current diagnosis for this admission?: Yes - Time Critical Time spent with patient: 15-24 minutes - Plan Summary Plan Summary: Continue with the IV antibiotics. Cellulitis definitely improving. We will sign off and call for any questions.
[2019-12-14] MEDS: WARFARIN SODIUM 5 MG TABLET PO SCH ×3 (21:17→21:25)
[2019-12-14] MEDS: WARFARIN SODIUM 1 MG TABLET PO SCH ×3 (21:17→21:24)
[2019-12-14] MEDS: MIRTAZAPINE 15 MG TABLET PO SCH (21:20)
[2019-12-15] MEDS: VANCOMYCIN HCL 1,500 MG in DEXTROSE 5%-WATER 250 ML IV SCH (06:06)
[2019-12-15] MEDS: NORMAL SALINE 1000 ML 1,000 ML IV PRN (06:07)
[2019-12-15] MEDS: CEFTRIAXONE 2 GM/D5W RTU 2 GM/50 ML RTUPB IV SCH (06:07)
[2019-12-15 06:12] LABS: HEMATOCRIT 36.3 % (37.9-51.0); HEMOGLOBIN 12.2 g/dL (13.5-17.0); MEAN CORPUSCULAR HEMOGLOBIN 27.1 pg (27.0-33.4); MEAN CORPUSCULAR HGB CONC 33.7 g/dL (32.0-36.0); MEAN CORPUSCULAR VOLUME 80 fl (80-97); RED BLOOD COUNT 4.52 10^6/uL (4.35-5.55); RED CELL DISTRIBUTION WIDTH 14.8 % (11.5-14.0); WHITE BLOOD COUNT 7.2 10^3/uL (4.0-10.5)
[2019-12-15] MEDS: HALOPERIDOL LACTATE INJ 5 MG/1 ML VIAL IV PRN (06:13)
[2019-12-15] MEDS ORDERED: LORAZEPAM INJ 2 MG/1 ML VIAL ONE (06:29)
[2019-12-15 06:31] LABS: ANION GAP 8 (5-19); BLOOD UREA NITROGEN 2 mg/dL (7-20); CALCIUM 8.9 mg/dL (8.4-10.2); CARBON DIOXIDE 31 mmol/L (22-30); CHLORIDE 104 mmol/L (98-107); GLUCOSE 90 mg/dL (75-110); POTASSIUM 3.3 mmol/L (3.6-5.0)
[2019-12-15 06:43] LABS: PLATELET COUNT 66 10^3/uL (150-450)
[2019-12-15] MEDS ORDERED: LORAZEPAM INJ 2 MG/1 ML VIAL IV ONE (06:45)
[2019-12-15 06:48] LABS: INTERNATIONAL RATION (INR) 2.13; PROTHROMBIN TIME 24.2 SEC (11.4-15.4)
[2019-12-15] MEDS: ARIPIPRAZOLE 5 MG TABLET PO SCH (09:45)
[2019-12-15] MEDS: DOCUSATE SODIUM 100 MG CAPSULE PO SCH ×2 (09:46→21:18)
[2019-12-15] MEDS: PANTOPRAZOLE SODIUM 40 MG TABLET.DR PO SCH (09:46)
[2019-12-15] MEDS: BENZTROPINE MESYLATE 1 MG TABLET PO SCH ×2 (09:46→21:18)
[2019-12-15] MEDS: TERBINAFINE HCL 250 MG TABLET PO SCH (09:47)
[2019-12-15] MEDS: OXCARBAZEPINE 150 MG TABLET PO SCH ×3 (09:47→21:20)
[2019-12-15] MEDS: DIVALPROEX SODIUM 250 MG TABLET.DR PO SCH ×3 (09:47→21:19)
[2019-12-15] MEDS: OLANZAPINE INJ/PF 10 MG SDV IM SCH ×2 (09:47→21:20)
[2019-12-15] MEDS ORDERED: LORAZEPAM INJ 2 MG/1 ML VIAL IV PRN (11:09)
--- NOTE | 2019-12-15 11:25 | PDOC PROGRESS REPORT ---
Subjective Progress Note for:: 12/15/19 Subjective:: SUELLEN GARCIA is a 29 year old male with a past medical history of severe autism residing in a long-term, thrombocytopenia, mechanical aortic valve, paroxysmal atrial fibrillation Coumadin admitted 12/11/2019 with Sepsis secondary to left lower extremity cellulitis. Patient was seen on morning rounds. Increased agitation today requiring soft limb restraints and prn ativan. He was sleeping, woke slightly when I said his name, and then quickly fell back to sleep. He does not answer questions or follow directions at this time. ROS is limited due to the patient's baseline mentality and communication abilities. No concerns per nursing. Reason For Visit: LEFT LEG CELLULITIS Physical Exam Vital Signs: Temp Pulse Resp BP Pulse Ox 98.0 F 85 16 124/70 94 12/15/19 08:08 12/15/19 08:08 12/15/19 08:08 12/15/19 08:08 12/15/19 08:08 Intake & Output 12/14/19 12/15/19 12/16/19 06:59 06:59 06:59 Intake Total 5120 3810 250 Balance 5120 3810 250 Weight 111.9 kg 122.5 kg General appearance: PRESENT: no acute distress, obese, well-developed, well- nourished. ABSENT: cooperative - agitated and combative today Head exam: PRESENT: atraumatic, normocephalic Eye exam: PRESENT: conjunctiva pink, EOMI, PERRLA. ABSENT: scleral icterus Mouth exam: PRESENT: moist, tongue midline Teeth exam: PRESENT: poor dentation Respiratory exam: PRESENT: clear to auscultation marsha, symmetrical, unlabored. ABSENT: rales, rhonchi, wheezes Cardiovascular exam: PRESENT: RRR, +S1, +S2, other - mechanical heart valve. ABSENT: diastolic murmur, rubs, systolic murmur Vascular exam: PRESENT: normal capillary refill Extremities exam: PRESENT: full ROM. ABSENT: calf tenderness, clubbing, pedal edema Neurological exam: PRESENT: oriented to person, CN II-XII grossly intact, other - autism; at baseline mental status. ABSENT: motor sensory deficit Psychiatric exam: PRESENT: appropriate affect, normal mood. ABSENT: homicidal ideation, suicidal ideation Skin exam: PRESENT: dry, erythema, warm, other - +2 RLE edema. Patchy erythema w/ excoriation to the anterior medial lower leg. Patchy erythema to the dorsum of the foot. Significantly improved.. ABSENT: cyanosis, rash Results Laboratory Results: 12/15/19 05:47 12/15/19 05:47 12/15/19 12/15/19 05:47 05:47 WBC 7.2 RBC 4.52 Hgb 12.2 L Hct 36.3 L MCV 80 MCH 27.1 MCHC 33.7 RDW 14.8 H Plt Count 66 L Sodium 142.9 Potassium 3.3 L Chloride 104 Carbon Dioxide 31 H Anion Gap 8 BUN 2 L Creatinine 0.51 L Est GFR ( Amer) > 60 Glucose 90 Calcium 8.9 12/11/19 20:35 Blood Blood Culture (PCR) - Final Streptococcus Species 12/11/19 20:35 Blood Blood Culture - Final Group C Beta Streptococcus Impressions: Foot X-Ray 12/11/19 19:25 IMPRESSION: Swelling of the left foot. No soft tissue gas copyright 2011 [employer]- All Rights Reserved Chest X-Ray 12/11/19 22:34 IMPRESSION: No evidence of acute cardiopulmonary disease. Lower Extremity CT 12/12/19 00:00 IMPRESSION: 1. Diffuse skin thickening and subcutaneous edema that extends from the left knee to the foot. There is no discrete fluid collection or osseous abnormality. 2. Asymmetric enlargement of the left great saphenous vein. Consider correlation with a Doppler venous ultrasound. Venous Doppler Study 12/12/19 00:00 IMPRESSION: NO EVIDENCE OF DVT OR SVT IN THE LEFT LEG. Assessment and Plan - Diagnosis (1) Cellulitis of left lower extremity Is this a current diagnosis for this admission?: Yes Plan: Improved. Patient has been afebrile >48 hours. Leukocytosis has resolved. Clinically improved. Blood cultures (12/11/2019; 2 of 4 bottles) show group C beta strep Repeat blood cultures (12/12/19) negative at [address] of the extremity is negative for fluid or abscess collection; does show diffuse skin thickening with subcutaneous edema extending from the left knee to foot. There is asymmetric enlargement of the left great saphenous vein concern ing for DVT. Follow-up venous Doppler study fortunately negative for DVT Patient is admitted to [facility] on continuous cardiac telemetry. Received 3 days of Vancomycin and Rocephin. Transitioned to p.o. clindamycin today. Continue Lamisil daily. Surgery has been consulted; appreciate their evaluation and recommendations. Have signed off. Keep extremity elevated. Analgesics, antipyretics, anti-emetics as needed. (2) Sepsis Qualifiers: Sepsis type: sepsis due to unspecified organism Sepsis acute organ dysfunction status: without acute organ dysfunction Qualified Code(s): A41.9 - Sepsis, unspecified organism Is this a current diagnosis for this admission?: Yes Plan: Resolved; afebrile >48 hours hours. Tachycardia and hypotension have resolved. Leukocytosis is resolved. Clinical appearance is improved. Secondary to #1 Patient received IV fluid resuscitation, although delayed, followed by maintenance IV fluids. Fortunately, blood pressures improved. He has been upgraded to [facility] and will be monitored on continuous cardiac telemetry. Cultures and antibiotics as above. (3) Leukocytosis Qualifiers: Leukocytosis type: bandemia Qualified Code(s): D72.825 - Bandemia Is this a current diagnosis for this admission?: Yes Plan: Resolved Secondary to #1. Cultures and antibiotics as above. Follow-up CBC. (4) Thrombocytopenia Is this a current diagnosis for this admission?: Yes Plan: HIT antibodies nml Daily CBC. PLT 66 today, will consult hematology if trends down further. (5) Autism Is this a current diagnosis for this admission?: Yes Plan: Continue home medication regiment. prn IV Ativan Supportive care. Avoid restraints. Minimize interventions. (6) Chronic anticoagulation Is this a current diagnosis for this admission?: Yes Plan: Patient is chronically anticoagulated on Coumadin for mechanical heart valve. Goal INR 2.5-3.5. On admission patient was found to be subtherapeutic with INR of 1.16. Pharmacy to dose. Daily PT/INR (7) History of heart valve replacement Is this a current diagnosis for this admission?: Yes Plan: Home dose Coumadin, follow-up INR - Time Time Spent with patient: 25-34 minutes Medications reviewed and adjusted accordingly: Yes Anticipated discharge: Home Within: Other - pending therapeutic INR
[2019-12-15] MEDS: FONDAPARINUX SODIUM INJ 10 MG/0.8 ML DISP.SYRIN SUBCUT SCH (12:58)
[2019-12-15] MEDS: CLINDAMYCIN HCL 150 MG CAPSULE PO SCH ×2 (13:01→17:20)
[2019-12-15] MEDS: ZIPRASIDONE MESYLATE INJ/PF 20 MG SDV IM PRN ×2 (13:02→21:20)
[2019-12-15 19:40] LABS: HEMATOCRIT 36.4 % (37.9-51.0); HEMOGLOBIN 12.2 g/dL (13.5-17.0); MEAN CORPUSCULAR HEMOGLOBIN 27.2 pg (27.0-33.4); MEAN CORPUSCULAR HGB CONC 33.5 g/dL (32.0-36.0); MEAN CORPUSCULAR VOLUME 81 fl (80-97); RED BLOOD COUNT 4.49 10^6/uL (4.35-5.55); WHITE BLOOD COUNT 5.8 10^3/uL (4.0-10.5)
[2019-12-15 19:55] LABS: PLATELET COUNT 78 10^3/uL (150-450)
[2019-12-15] MEDS: WARFARIN SODIUM 1 MG TABLET PO SCH (21:18)
[2019-12-15] MEDS: MIRTAZAPINE 15 MG TABLET PO SCH (21:18)
[2019-12-15] MEDS: WARFARIN SODIUM 5 MG TABLET PO SCH (21:18)
[2019-12-16] MEDS: NORMAL SALINE 1000 ML 1,000 ML IV PRN (00:42)
[2019-12-16] MEDS: CLINDAMYCIN HCL 150 MG CAPSULE PO SCH ×3 (02:30→12:39)
[2019-12-16] MEDS: ZIPRASIDONE MESYLATE INJ/PF 20 MG SDV IM PRN (06:14)
[2019-12-16] MEDS: DOCUSATE SODIUM 100 MG CAPSULE PO SCH (07:46)
[2019-12-16] MEDS: ACETAMINOPHEN 325 MG TABLET PO PRN (07:46)
[2019-12-16] MEDS: BENZTROPINE MESYLATE 1 MG TABLET PO SCH (07:46)
[2019-12-16] MEDS: ARIPIPRAZOLE 5 MG TABLET PO SCH (07:46)
[2019-12-16] MEDS: PANTOPRAZOLE SODIUM 40 MG TABLET.DR PO SCH (07:46)
[2019-12-16] MEDS: OXCARBAZEPINE 150 MG TABLET PO SCH ×2 (07:47→15:20)
[2019-12-16] MEDS: DIVALPROEX SODIUM 250 MG TABLET.DR PO SCH (07:47)
[2019-12-16 07:52] LABS: HEMATOCRIT 35.7 % (37.9-51.0); MEAN CORPUSCULAR HEMOGLOBIN 27.3 pg (27.0-33.4); MEAN CORPUSCULAR HGB CONC 33.7 g/dL (32.0-36.0); MEAN CORPUSCULAR VOLUME 81 fl (80-97); RED BLOOD COUNT 4.41 10^6/uL (4.35-5.55); RED CELL DISTRIBUTION WIDTH 14.5 % (11.5-14.0)
[2019-12-16 07:56] LABS: INTERNATIONAL RATION (INR) 2.36; PROTHROMBIN TIME 26.2 SEC (11.4-15.4)
[2019-12-16 08:07] LABS: ANION GAP 6 (5-19); BLOOD UREA NITROGEN 2 mg/dL (7-20); CARBON DIOXIDE 34 mmol/L (22-30); CHLORIDE 103 mmol/L (98-107); GLUCOSE 104 mg/dL (75-110); POTASSIUM 3.1 mmol/L (3.6-5.0)
[2019-12-16 08:29] LABS: PLATELET COUNT 74 10^3/uL (150-450)
[2019-12-16] MEDS ORDERED: POTASSIUM CHLORIDE 10 MEQ TABLET.ER PO ONE ×2 (08:30→11:00)
[2019-12-16] MEDS: TERBINAFINE HCL 250 MG TABLET PO SCH (10:10)
[2019-12-16] MEDS: FONDAPARINUX SODIUM INJ 10 MG/0.8 ML DISP.SYRIN SUBCUT SCH (10:34)
[2019-12-16] MEDS: OLANZAPINE INJ/PF 10 MG SDV IM SCH (10:36)
[2019-12-16 16:07] VITALS: BP 132/69
[2019-12-16] MEDS ORDERED: WARFARIN SODIUM 7.5 MG TABLET PO SCH (22:00)
[2019-12-16] MEDS ORDERED: WARFARIN SODIUM 5 MG TABLET PO SCH (22:00)
--- NOTE | 2019-12-19 17:46 | PDOC DISCHARGE SUMMARY ---
Impression - Admit/DC Date/PCP Admission Date/Primary Care Provider: 12/11/19 22:54 ENRIQUE MILLER, Discharge Date: 12/16/19 - Discharge Diagnosis (1) Cellulitis of left lower extremity Is this a current diagnosis for this admission?: Yes (2) Sepsis Is this a current diagnosis for this admission?: Yes (3) Leukocytosis Is this a current diagnosis for this admission?: Yes (4) Thrombocytopenia Is this a current diagnosis for this admission?: Yes (5) Autism Is this a current diagnosis for this admission?: Yes (6) Chronic anticoagulation Is this a current diagnosis for this admission?: Yes (7) History of heart valve replacement Is this a current diagnosis for this admission?: Yes - Additional Information Resuscitation Status: Full Code Discharge Diet: Other (Comments) Discharge Activity: Activity As Tolerated, Balance Activity w/Rest Referrals: TAMIR HOFFMAN FNP-C [NURSE PRACTITIONER] - 12/26/19 4:00 pm () Prescriptions: Clindamycin HCl [Cleocin 150 mg Capsule] 300 mg PO Q6 #28 capsule Warfarin Sodium [Coumadin 5 mg Tablet] 12.5 mg PO QHS #3 tablet Terbinafine HCl [Lamisil 250 mg Tablet] 250 mg PO DAILY #7 tablet Home Medications: Acetaminophen [Tylenol 325 mg Tablet] 650 mg PO Q6HP PRN 12/12/19 Aripiprazole [Abilify] 20 mg PO QAM 12/12/19 Benztropine Mesylate [Cogentin 1 mg Tablet] 2 mg PO Q12@0800,199912/12/19 Divalproex Sodium [Depakote] 1,000 mg PO Q12@0800,199912/12/19 Divalproex Sodium [Depakote] 250 mg PO DAILY@199912/12/19 Docusate Sodium [Colace 100 mg Capsule] 100 mg PO Q12@0800,199912/12/19 Haloperidol [Haldol 5 mg Tablet] 5 mg PO BIDP PRN 12/12/19 Hydrocortisone [Hydrocortisone 2.5% Cream 28 gm (Clinic Use)] 1 applic TOP TIDP PRN 12/12/19 Metoprolol Succinate [Toprol Xl 25 mg Tab.sr] 25 mg PO QAM 12/12/19 Mirtazapine [Remeron 15 mg Tablet] 15 mg PO DAILY@199912/12/19 Oxcarbazepine [Trileptal] 450 mg PO BID@1500,199912/12/19 Oxcarbazepine [Trileptal] 600 mg PO QAM 12/12/19 Pantoprazole Sodium [Protonix [address] Tablet] 40 mg PO QAM 12/12/19 Tramadol HCl [Ultram 50 mg Tablet] 50 mg PO Q6HP PRN 12/12/19 Warfarin Sodium [Coumadin 1 mg Tablet] 1 mg PO DAILY@199912/12/19 Warfarin Sodium [Coumadin 5 mg Tablet] 10 mg PO DAILY@199912/12/19 Acetaminophen [Tylenol 325 mg Tablet] 650 mg PO Q8HP PRN tablet 12/16/19 Clindamycin HCl [Cleocin 150 mg Capsule] 300 mg PO Q6 #28 capsule 12/16/19 Terbinafine HCl [Lamisil 250 mg Tablet] 250 mg PO DAILY #7 tablet 12/16/19 Warfarin Sodium [Coumadin 5 mg Tablet] 12.5 mg PO QHS #3 tablet 12/16/19 History of Present Illiness History of Present Illness: Per H&P by Dr. Pollack: SUELLEN GARCIA is a 29 year old male with a past medical history of severe autism residing in a fdc, thrombocytopenia, mechanical aortic valve, paroxysmal atrial fibrillation Coumadin on Coumadin 11 units daily. He presents with recurrent cellulitis to his left leg, found to have sepsis with tachycardia, bandemia and lactic acidosis. He is started on IV vancomycin and referred to the hospitalist for admission. Patient is minimally verbal at baseline but admits to pain in his left leg. Hospital Course Hospital Course: (1) Cellulitis of left lower extremity Significantly Improved. Patient has been afebrile >72 hours. Leukocytosis has resolved. Clinically improved. Blood cultures (12/11/2019; 2 of 4 bottles) show group C beta strep Repeat blood cultures (12/12/19) negative at [address] of the extremity is negative for fluid or abscess collection; does show diffuse skin thickening with subcutaneous edema extending from the left knee to foot. There is asymmetric enlargement of the left great saphenous vein concerning for DVT. Follow-up venous Doppler study fortunately negative for DVT Patient was admitted to [facility] on continuous cardiac telemetry. Received 3 days of Vancomycin and Rocephin. Transitioned to p.o. clindamycin prior to discharge; tolerated well. He is provided an Rx to complete course of therapy following discharge. He was started on Lamisil daily; to continue following discharge. Surgery was been consulted; appreciate their evaluation and recommendations. Have signed off; no interventions required. Recommend keeping extremity elevated as much as possible Post-op shoe provided for protection when ambulatory. (2) Sepsis Resolved; afebrile >72 hours hours. Tachycardia and hypotension have resolved. Leukocytosis has resolved. Clinical appearance is improved. Secondary to #1 Patient received IV fluid resuscitation followed by maintenance IV fluids. Cultures and antibiotics as above. (3) Leukocytosis Resolved Secondary to #1. Cultures and antibiotics as above. (4) Thrombocytopenia HIT antibodies nml Daily CBC. Consider outpatient hematology referral. (5) Autism Continued on home medication regiment. Patient was provided IM Zyprexa and prn IV Ativan for anxiety and agitation. Briefly required soft-limb restraints; which at one point patient specifically asked for to help prevent physical agitation. Supportive care. (6) Chronic anticoagulation Patient is chronically anticoagulated on Coumadin for mechanical heart valve. Goal INR 2.5-3.5. On admission patient was found to be subtherapeutic with INR of 1.16. He was discharged with INR of 2.36 and Rx for one-time 12.5 mg Coumadin dose with recommendations to have repeat INR check tomorrow (12/17/19) with lab report called to PCP for further instructions. (7) History of heart valve replacement Continue Coumadin. Management as above. Physical Exam Vital Signs: Temp Pulse Resp BP Pulse Ox 97.9 F 91 14 132/69 H 98 12/16/19 15:27 12/16/19 15:27 12/16/19 15:27 12/16/19 15:27 12/16/19 15:27 General appearance: PRESENT: no acute distress, cooperative, obese, well- developed, well-nourished Head exam: PRESENT: atraumatic, normocephalic Eye exam: PRESENT: conjunctiva pink, EOMI, PERRLA. ABSENT: scleral icterus Mouth exam: PRESENT: moist, tongue midline Teeth exam: PRESENT: poor dentation Respiratory exam: PRESENT: clear to auscultation marsha. ABSENT: rales, rhonchi, wheezes Cardiovascular exam: PRESENT: RRR. ABSENT: diastolic murmur, rubs, systolic murmur Pulses: PRESENT: normal dorsalis pedis pul Vascular exam: PRESENT: normal capillary refill GI/Abdominal exam: PRESENT: normal bowel sounds, soft. ABSENT: distended, guarding, mass, organolmegaly, rebound, tenderness Rectal exam: PRESENT: deferred Extremities exam: PRESENT: full ROM. ABSENT: calf tenderness, clubbing, pedal edema Neurological exam: PRESENT: alert, awake, oriented to person, oriented to place, oriented to time, oriented to situation, CN II-XII grossly intact. ABSENT: motor sensory deficit Psychiatric exam: PRESENT: appropriate affect, normal mood. ABSENT: homicidal ideation, suicidal ideation Skin exam: PRESENT: dry, erythema, warm, other - +1 RLE edema. Excoriation to the anterior medial lower leg. Patchy erythema to the dorsum of the foot. Significantly improved.. ABSENT: cyanosis, rash Results Laboratory Results: WBC 5.0 10^3/uL (4.0-10.5) 12/16/19 07:10 RBC 4.41 10^6/uL (4.35-5.55) 12/16/19 07:10 Hgb 12.0 g/dL (13.5-17.0) L 12/16/19 07:10 Hct 35.7 % (37.9-51.0) L 12/16/19 07:10 MCV 81 fl (80-97) 12/16/19 07:10 MCH 27.3 pg (27.0-33.4) 12/16/19 07:10 MCHC 33.7 g/dL (32.0-36.0) 12/16/19 07:10 RDW 14.5 % (11.5-14.0) H 12/16/19 07:10 Plt Count 74 10^3/uL (150-450) L 12/16/19 07:10 Lymph % (Auto) Not Reportable 12/12/19 07:57 [place] % (Auto) Not Reportable 12/12/19 07:57 Eos % (Auto) Not Reportable 12/12/19 07:57 Baso % (Auto) Not Reportable 12/12/19 07:57 Absolute Neuts (auto) Not Reportable 12/12/19 07:57 Absolute Lymphs (auto) Not Reportable 12/12/19 07:57 Absolute Monos (auto) Not Reportable 12/12/19 07:57 Absolute Eos (auto) Not Reportable 12/12/19 07:57 Absolute Basos (auto) Not Reportable 12/12/19 07:57 Total Counted 100 12/12/19 07:57 Seg Neutrophils % Not Reportable 12/12/19 07:57 Seg Neuts % (Manual) 79 % (42-78) H 12/12/19 07:57 Band Neutrophils % 8 % (3-5) H 12/12/19 07:57 Lymphocytes % (Manual) 5 % (13-45) L 12/12/19 07:57 Atypical Lymphs % 2 % (0) 12/12/19 07:57 Monocytes % (Manual) 5 % (3-13) 12/12/19 07:57 Eosinophils % (Manual) 1 % (0-6) 12/12/19 07:57 Basophils % (Manual) 0 % (0-2) 12/12/19 07:57 Metamyelocytes % 1 % (0-1) 12/11/19 20:35 Abs Neuts (Manual) 15.8 10^3/uL (1.7-8.2) H 12/12/19 07:57 Abs Lymphs (Manual) 1.3 10^3/uL (0.5-4.7) 12/12/19 07:57 Abs Monocytes (Manual) 0.9 10^3/uL (0.1-1.4) 12/12/19 07:57 Absolute Eos (Manual) 0.2 10^3/uL (0.0-0.6) 12/12/19 07:57 Abs Basophils (Manual) 0.0 10^3/uL (0.0-0.2) 12/12/19 07:57 Toxic Granulation SLIGHT 12/12/19 07:57 Toxic Vacuolation PRESENT 12/12/19 07:57 Platelet Comment DECREASED 12/12/19 07:57 Poikilocytosis SLIGHT 12/11/19 20:35 Anisocytosis SLIGHT 12/12/19 07:57 Ovalocytes SLIGHT 12/11/19 20:35 PT 26.2 SEC (11.4-15.4) H 12/16/19 07:10 INR 2.36 12/16/19 07:10 VBG pH 7.32 (7.30-7.42) 12/11/19 20:35 VBG pCO2 46.6 mmHg (35-63) 12/11/19 20:35 VBG HCO3 23.4 mmol/L (20-32) 12/11/19 20:35 VBG Base Excess -3.0 mmol/L 12/11/19 20:35 Sodium 143.1 mmol/L (137-145) 12/16/19 07:10 Potassium 3.1 mmol/L (3.6-5.0) L 12/16/19 07:10 Chloride 103 mmol/L (98-107) 12/16/19 07:10 Carbon Dioxide 34 mmol/L (22-30) H 12/16/19 07:10 Anion Gap 6 (5-19) 12/16/19 07:10 BUN 2 mg/dL (7-20) L 12/16/19 07:10 Creatinine 0.55 mg/dL (0.52-1.25) 12/16/19 07:10 Est GFR ( Amer) > 60 (>60) 12/16/19 07:10 Est GFR (MDRD) Non-Af > 60 (>60) 12/16/19 07:10 Glucose 104 mg/dL (75-110) 12/16/19 07:10 POC Glucose 91 mg/dL (70-110) 12/11/19 20:48 Lactic Acid 2.3 mmol/L (0.7-2.1) H 12/12/19 07:57 Calcium 9.0 mg/dL (8.4-10.2) 12/16/19 07:10 Total Bilirubin 1.1 mg/dL (0.2-1.3) 12/11/19 20:35 Direct Bilirubin 0.3 mg/dL (0.0-0.4) 12/11/19 20:35 Neonat Total Bilirubin Not Reportable 12/11/19 20:35 Neonat Direct Bilirubin Not Reportable 12/11/19 20:35 Neonat Indirect Bili Not Reportable 12/11/19 20:35 AST 31 U/L (17-59) 12/11/19 20:35 ALT 19 U/L (<50) 12/11/19 20:35 Alkaline Phosphatase 46 U/L (38-126) 12/11/19 20:35 Total Protein 8.0 g/dL (6.3-8.2) 12/11/19 20:35 Albumin 4.6 g/dL (3.5-5.0) 12/11/19 20:35 Urine Color YELLOW 12/13/19 23:00 Urine Appearance CLEAR 12/13/19 23:00 Urine pH 5.0 (5.0-9.0) 12/13/19 23:00 Ur Specific [place] 1.009 12/13/19 23:00 Urine Protein NEGATIVE mg/dL (NEGATIVE) 12/13/19 23:00 Urine Glucose (UA) NEGATIVE mg/dL (NEGATIVE) 12/13/19 23:00 Urine Ketones NEGATIVE mg/dL (NEGATIVE) 12/13/19 23:00 Urine Blood MODERATE (NEGATIVE) H 12/13/19 23:00 Urine Nitrite NEGATIVE (NEGATIVE) 12/13/19 23:00 Urine Bilirubin NEGATIVE (NEGATIVE) 12/13/19 23:00 Urine Urobilinogen NEGATIVE mg/dL (<2.0) 12/13/19 23:00 Ur Leukocyte Esterase NEGATIVE (NEGATIVE) 12/13/19 23:00 Urine WBC (Auto) 1 /HPF 12/13/19 23:00 Urine RBC (Auto) 1 /HPF 12/13/19 23:00 Urine Bacteria (Auto) TRACE /HPF 12/13/19 23:00 Urine Mucus (Auto) OCC /LPF 12/13/19 23:00 Urine Ascorbic Acid NEGATIVE (NEGATIVE) 12/13/19 23:00 Time Trough Drawn 0911 12/13/19 09:11 Vancomycin Trough 9.1 ug/mL (5.0-20.0) 12/13/19 09:11 Heparin-induced Plt Ab 0.314 OD (0.000-0.40) 12/12/19 08:59 Impressions: Foot X-Ray 12/11/19 19:25 IMPRESSION: Swelling of the left foot. No soft tissue gas copyright 2011 [employer]- All Rights Reserved Chest X-Ray 12/11/19 22:34 IMPRESSION: No evidence of acute cardiopulmonary disease. Lower Extremity CT 12/12/19 00:00 IMPRESSION: 1. Diffuse skin thickening and subcutaneous edema that extends from the left knee to the foot. There is no discrete fluid collection or osseous abnormality. 2. Asymmetric enlargement of the left great saphenous vein. Consider correlation with a Doppler venous ultrasound. Venous Doppler Study 12/12/19 00:00 IMPRESSION: NO EVIDENCE OF DVT OR SVT IN THE LEFT LEG. Plan Plan of Treatment: PT is discharged home, in stable condition, into the care of home-care providers (lives in fdc). They are advised to follow-up with primary care provider within 1 week. Complete full course of antibiotic therapy. Keep your foot elevated as much as possible. Consider buying compression stockings (available at [employer], pharmacies, etc.). Do not walk outside barefooted. Patient is provided a post-op shoe prior to discharge. Take your other medication as prescribed. Check your INR again tomorrow; report result to your provider for additional Coumadin recommendations. Eat a heart healthy diet. Do NOT smoke. Return to emergency department as needed for concerning symptoms. Time Spent: Greater than 30 Minutes Stroke Is this a Stroke Patient?: No Acute Heart Failure - Is this a Heart Failure Patient?: No
== END 2019-12-16 16:30 | disposition home or self-care (01) | DRG 872 ==
LOC: ER 18:48 → EH 22:54 → 3S 12-12 15:33
PROVIDERS: ADMIT Internal Medicine; ATTEND Internal Medicine
DX: A40.8 Other streptococcal sepsis (principal); L03.116 Cellulitis of left lower limb; F84.0 Autistic disorder; I48.0 Paroxysmal atrial fibrillation; D69.6 Thrombocytopenia, unspecified; F90.9 Attention-deficit hyperactivity disorder, unspecified type; R79.1 Abnormal coagulation profile; M41.9 Scoliosis, unspecified; Z95.2 Presence of prosthetic heart valve; Z95.0 Presence of cardiac pacemaker; I25.2 Old myocardial infarction; Z79.01 Long term (current) use of anticoagulants; Z79.899 Other long term (current) drug therapy; Z98.1 Arthrodesis status; Z78.1 Physical restraint status
CPT/HCPCS: 36415; 71045; 80048; 80053; 80202; 81001; 82565; 82803; 82962; 83605; 85025; 85027; 85610; 86022; 87040; 87077; 87150; 87186; 93005; 93010; 93971; 96365; 96366; 96367; 99284; J0696; J1200; J1630; J1650; J1652; J1885; J2060; J2270; J3370; J3480; J3486; J3490; J7030; J7060

== ENCOUNTER 2020-03-09 09:22 | Inpatient (IN) | payer MEDICAID, OTHER ==
[2020-03-09] MEDS ORDERED: PIPERACILLIN/TAZOBACTAM 4.5 GM VIAL IV ONE (09:39)
--- NOTE | 2020-03-09 09:41 | ER Document Report ---
ED General - General Chief Complaint: Foot Pain Stated Complaint: FOOT PAIN Time Seen by Provider: 03/09/20 09:36 Primary Care Provider: ENRIQUE MILLER DO [Primary Care Provider] - Follow up as needed Mode of Arrival: Wheelchair Information source: Patient Notes: 29-year-old male presented to ED for complaint of feeling sick this morning. He had a temp of 102.8 blood pressure is low O2 sats are low temp pulse is high started on septic work-up he had 2 Tylenol at 8:00. He has been in for cellulitis of the foot in the past. He is alert has some mental slowness. 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 I have greeted and performed a rapid initial assessment of this patient. A comprehensive ED assessment and evaluation of the patient, analysis of test results and completion of medical decision making process will be conducted by an additional ED providers. TRAVEL OUTSIDE OF THE [place] IN LAST 30 DAYS: No - Related Data Allergies/Adverse Reactions: No Known Allergies Allergy (Verified 09/11/19 13:13) Past Medical History - Social History Family History: Other - Unknown - Past Medical History Cardiac Medical History: Reports: Hx Atrial Fibrillation, Hx Heart Attack - valve condition Renal/ Medical History: Denies: Hx Peritoneal Dialysis Musculoskeletal Medical History: Reports Hx Musculoskeletal Deformity Skin Medical History: Reports Hx Cellulitis Psychiatric Medical History: Reports: Hx Attention Deficit Hyperactivity Disorder - autism Denies: Hx Depression Past Surgical History: Reports: Hx Cardiac Catheterization, Hx Cardiac Surgery - Aortic Valve Replacement. VSD repair, Hx Orthopedic Surgery - Hardware of spine for scoliosis - Immunizations Hx Diphtheria, Pertussis, Tetanus Vaccination: Yes Discharge - Discharge Referrals: ENRIQUE MILLER DO [Primary Care Provider] - Follow up as needed
--- NOTE | 2020-03-09 09:45 | ER Document Report ---
ED Medical Screen (RME) - General Chief Complaint: Foot Pain Stated Complaint: FOOT PAIN Time Seen by Provider: 03/09/20 09:36 Primary Care Provider: ENRIQUE MILLER DO [Primary Care Provider] - Follow up as needed Mode of Arrival: Wheelchair Notes: 29-year-old male presented to ED for complaint of feeling sick this morning. He had a temp of 102.8 blood pressure is low O2 sats are low temp pulse is high started on septic work-up he had 2 Tylenol at 8:00. He has been in for cellulitis of the foot in the past. He is alert has some mental slowness. 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 I have greeted and performed a rapid initial assessment of this patient. A comprehensive ED assessment and evaluation of the patient, analysis of test results and completion of medical decision making process will be conducted by an additional ED providers. TRAVEL OUTSIDE OF THE [place] IN LAST 30 DAYS: No - Related Data Allergies/Adverse Reactions: No Known Allergies Allergy (Verified 09/11/19 13:13) Past Medical History - Social History Frequency of alcohol use: None Drug Abuse: None Family history: Reviewed & Not Pertinent - Past Medical History Cardiac Medical History: Reports: Hx Atrial Fibrillation, Hx Heart Attack - valve condition Renal/ Medical History: Denies: Hx Peritoneal Dialysis Musculoskeltal Medical History: Reports Hx Musculoskeletal Deformity Skin Medical History: Reports Hx Cellulitis Psychiatric Medical History: Reports: Hx Attention Deficit Hyperactivity Disorder - autism Denies: Hx Depression Past Surgical History: Reports: Hx Cardiac Catheterization, Hx Cardiac Surgery - Aortic Valve Replacement. VSD repair, Hx Orthopedic Surgery - Hardware of spine for scoliosis - Immunizations Hx Diphtheria, Pertussis, Tetanus Vaccination: Yes Physical Exam - Vital signs Vitals: Temp 101 F H 03/09/20 09:31 Course - Vital Signs Vital signs: Temp Pulse Resp BP Pulse Ox 101.0 F H 128 H 20 90/47 L 94 03/09/20 09:34 03/09/20 09:34 03/09/20 09:34 03/09/20 09:34 03/09/20 09:34 Doctor's Discharge - Discharge Referrals: ENRIQUE MILLER DO [Primary Care Provider] - Follow up as needed
--- NOTE | 2020-03-09 10:10 | RADIOLOGY REPORT (SQ) ---
EXAM DESCRIPTION: CHEST 2 VIEWS IMAGES COMPLETED DATE/TIME: 03/09/2020 9:55 am REASON FOR STUDY: Sepsis COMPARISON: 12/11/2019. EXAM PARAMETERS: NUMBER OF VIEWS: two views TECHNIQUE: Digital Frontal and Lateral radiographic views of the chest acquired. RADIATION DOSE: NA LIMITATIONS: none FINDINGS: LUNGS AND PLEURA: No opacities, masses or pneumothorax. No pleural effusion. MEDIASTINUM AND HILAR STRUCTURES: No masses or contour abnormalities. HEART AND VASCULAR STRUCTURES: Heart normal size. No evidence for failure. BONES: No acute findings. Chronic changes in spine. HARDWARE: Sternotomy wires and prosthetic valve. Hardware in the spine. OTHER: No other significant finding. IMPRESSION: NO ACUTE RADIOGRAPHIC FINDING IN THE CHEST. TECHNICAL DOCUMENTATION: JOB ID: [id number] 2010 [employer]- All Rights Reserved Reading location - IP/workstation name: [email or web address]
--- NOTE | 2020-03-09 10:11 | RADIOLOGY REPORT (SQ) ---
EXAM DESCRIPTION: FOOT LEFT COMPLETE IMAGES COMPLETED DATE/TIME: 03/09/2020 9:55 am REASON FOR STUDY: infection COMPARISON: 12/11/2019. NUMBER OF VIEWS: Three views. TECHNIQUE: AP, lateral and oblique radiographic images acquired of the left foot. LIMITATIONS: None. FINDINGS: MINERALIZATION: Normal. BONES: No acute fracture or dislocation. No worrisome bone lesions. JOINTS: No effusions. SOFT TISSUES: Diffuse soft tissue swelling. No foreign body. OTHER: No other significant finding. IMPRESSION: SOFT TISSUE SWELLING. NO RADIOPAQUE FOREIGN BODY. NO BONY FINDINGS. TECHNICAL DOCUMENTATION: JOB ID: [id number] 2010 [employer]- All Rights Reserved Reading location - IP/workstation name: [email or web address]
[2020-03-09 10:26] LABS: VENOUS BLOOD BASE EXCESS -0.9 mmol/L; VENOUS BLOOD HCO3 23.7 mmol/L (20-32); VENOUS BLOOD PCO2 39.3 mmHg (35-63); VENOUS BLOOD PH 7.4 (7.30-7.42)
[2020-03-09 10:31] LABS: ABSOLUTE LYMPHOCYTES (AUTO) 0.4 10^3/uL (0.5-4.7); ABSOLUTE MONOCYTES (AUTO) 0.2 10^3/uL (0.1-1.4); ABSOLUTE NEUT (AUTO) 5.5 10^3/uL (1.7-8.2); BASOPHILS % (AUTO) 0.2 % (0-2); EOSINOPHILS % (AUTO) 0.2 % (0-6); HEMATOCRIT 44.3 % (37.9-51.0); HEMOGLOBIN 15.3 g/dL (13.5-17.0); LYMPHOCYTES % (AUTO) 5.9 % (13-45); MEAN CORPUSCULAR HEMOGLOBIN 27.7 pg (27.0-33.4); MEAN CORPUSCULAR HGB CONC 34.5 g/dL (32.0-36.0); MEAN CORPUSCULAR VOLUME 80 fl (80-97); MONOCYTES % (AUTO) 2.8 % (3-13); PLATELET COUNT 122 10^3/uL (150-450); RED BLOOD COUNT 5.53 10^6/uL (4.35-5.55); RED CELL DISTRIBUTION WIDTH 15.7 % (11.5-14.0); SEGMENTED NEUTROPHILS % (AUTO) 90.9 % (42-78); TOTAL CELLS COUNTED % (AUTO) 100 %
[2020-03-09 10:34] LABS: INTERNATIONAL RATION (INR) 1.55; PROTHROMBIN TIME 18.7 SEC (11.4-15.4)
[2020-03-09 10:45] LABS: ALBUMIN 4.3 g/dL (3.5-5.0); ALKALINE PHOSPHATASE 50 U/L (38-126); ANION GAP 13 (5-19); ASPARTATE AMINO TRANSFERASE 25 U/L (17-59); BILIRUBIN,TOTAL 0.7 mg/dL (0.2-1.3); BLOOD UREA NITROGEN 17 mg/dL (7-20); CALCIUM 10.3 mg/dL (8.4-10.2); CARBON DIOXIDE 24 mmol/L (22-30); CHLORIDE 101 mmol/L (98-107); GLUCOSE 110 mg/dL (75-110); POTASSIUM 3.5 mmol/L (3.6-5.0); TOTAL PROTEIN 7.4 g/dL (6.3-8.2)
[2020-03-09] MEDS ORDERED: VANCOMYCIN HCL INJ 1000 MG VIAL IV ONE (11:10)
[2020-03-09] MEDS ORDERED: NORMAL SALINE 1000 ML 1,000 ML IV ONE ×2 (11:19→18:30)
[2020-03-09] MEDS: NORMAL SALINE 1000 ML 1,000 ML IV PRN ×4 (11:35→22:00)
--- NOTE | 2020-03-09 12:42 | ER Document Report ---
Entered by JEFFREY GARCIA SCRIBE 03/09/20 1054 Acting as scribe for:ALVIN THAKKAR MD ED General - General Chief Complaint: Foot Pain Stated Complaint: FOOT PAIN Time Seen by Provider: 03/09/20 09:36 Primary Care Provider: ENRIQUE MILLER DO [Primary Care Provider] - Follow up as needed Mode of Arrival: Wheelchair Information source: Patient, Legal Guardian Notes: This 29-year-old male with autism, IED and IDD presents with home direct sales consultant to the emergency department with significant left foot swelling that worsened this morning. Patient's direct sales consultant explains that patient has been to this emergency department multiple times since August 2019 for his cellulitis in his left foot. Voltage Tester explains that September 11, patient stepped on a piece of glass which was found and removed the next day. Voltage Tester states that ever since he has had flare-ups with his cellulitis. Voltage Tester reports that patient went to sleep feeling fine but then woke this morning saying "I am sick". Voltage Tester says that he takes that statement seriously and after pulling his left sock down knew he had to report to the emergency department. Voltage Tester also reports that patient's at home temperature was 102.7. Patient denies shortness of breath, chest pain, nausea, vomiting and abdominal pain. TRAVEL OUTSIDE OF THE [place] IN LAST 30 DAYS: No - Related Data Allergies/Adverse Reactions: No Known Allergies Allergy (Verified 09/11/19 13:13) Past Medical History - General Information source: Patient - Social History Smoking Status: Never Smoker Cigarette use (# per day): No Chew tobacco use (# tins/day): No Frequency of alcohol use: None Drug Abuse: None Lives with: Other Family History: Reviewed & Not Pertinent, Other - Unknown Patient has homicidal ideation: No - Past Medical History Cardiac Medical History: Reports: Hx Atrial Fibrillation, Hx Heart Attack - valve condition Musculoskeletal Medical History: Reports Hx Musculoskeletal Deformity Skin Medical History: Reports Hx Cellulitis Psychiatric Medical History: Reports: Other - IED, IDD, Autism Past Surgical History: Reports: Hx Cardiac Catheterization, Hx Cardiac Surgery - Aortic Valve Replacement. VSD repair, Hx Orthopedic Surgery - Hardware of spine for scoliosis - Immunizations Hx Diphtheria, Pertussis, Tetanus Vaccination: Yes Review of Systems - Review of Systems Constitutional: No symptoms reported EENT: No symptoms reported Cardiovascular: See HPI. denies: Chest pain Respiratory: No symptoms reported Gastrointestinal: See HPI. denies: Abdominal pain, Nausea, Vomiting Genitourinary: No symptoms reported Male Genitourinary: No symptoms reported Musculoskeletal: See HPI, Leg swelling - Left Skin: No symptoms reported Hematologic/Lymphatic: No symptoms reported Neurological/Psychological: No symptoms reported -: Yes All other systems reviewed and negative Physical Exam - Vital signs Vitals: Temp 101 F H 03/09/20 09:31 - Notes Notes: Physical Exam: General: Alert, appears well. HEENT: Normocephalic. Atraumatic. PERRL. Extraocular movements intact. Oropharynx clear. Neck: Supple. Non-tender. Respiratory: No respiratory distress. Clear and equal breath sounds bilaterally. Cardiovascular: Regular rate and rhythm. Systolic heart murmur. Abdominal: Normal Inspection. Non-tender. No distension. Normal Bowel Sounds. Back: No gross abnormalities. Extremities: Moves all four extremities. Upper extremities: Normal inspection. Normal ROM. Lower extremities: Gross and severely swollen left lower extremity from foot to 10 cm below the knee cap. No open wounds noted. Warm to the touch. Normal ROM. Neurological: Normal cognition. AAOx4. Normal speech. Psychological: Normal affect. Normal Mood. Skin: Warm. Dry. Course - Re-evaluation Re-evalutation: 03/09/20 12:34 Patient is more alert at this time blood pressure has improved. - Vital Signs Vital signs: Temp Pulse Resp BP Pulse Ox 98.1 F 128 H 21 H 145/86 H 98 03/09/20 12:07 03/09/20 09:34 03/09/20 12:15 03/09/20 12:02 03/09/20 11:40 - Laboratory Result Diagrams: 03/09/20 09:58 03/09/20 09:58 Laboratory results interpreted by me: 03/09/20 03/09/20 03/09/20 09:58 09:58 09:58 RDW 15.7 H Plt Count 122 L Lymph % (Auto) 5.9 L [place] % (Auto) 2.8 L Absolute Lymphs (auto) 0.4 L Seg Neutrophils % 90.9 H PT 18.7 H Potassium 3.5 L POC Glucose Lactic Acid Calcium 10.3 H 03/09/20 03/09/20 09:58 10:13 RDW Plt Count Lymph % (Auto) [place] % (Auto) Absolute Lymphs (auto) Seg Neutrophils % PT Potassium POC Glucose 113 H Lactic Acid 4.4 H Calcium 03/09/20 12:35 Patient laboratory show a elevated lactic acid consistent with sepsis due to cellulitis of the left lower extremity including lower leg and foot. - Diagnostic Test Radiology reviewed: Image reviewed, Reports reviewed Radiology results interpreted by me: 03/09/20 12:35 Chest x-ray showed no acute process. Left foot shows soft tissue swelling no other acute process noted. - EKG Interpretation by Me Additional EKG results interpreted by me: 03/09/20 12:39 Twelve-lead EKG shows sinus tach rate of 113, Left atrial abnormality. And right bundle branch block noted, and left ventricular hypertrophy criteria. Discharge - Discharge Clinical Impression: Sepsis, Cellulitis of left lower extremity Condition: Fair Disposition: ADMITTED INPATIENT Admitting Provider: Olive (Hospitalist) Unit Admitted: Medical Floor - 8 kg Referrals: ENRIQUE MILLER DO [Primary Care Provider] - Follow up as needed I personally performed the services described in the documentation, reviewed and edited the documentation which was dictated to the scribe in my presence, and it accurately records my words and actions.
[2020-03-09] MEDS ORDERED: ONDANSETRON HCL INJ/PF 4 MG/2 ML SDV IV PRN (12:43)
[2020-03-09] MEDS ORDERED: KETOROLAC TROMETHAMINE INJ/PF 30 MG/1 ML SDV IV PRN (12:48)
[2020-03-09] MEDS ORDERED: MORPHINE SULFATE 10 MG/ML INJ IV PRN (12:48)
[2020-03-09] MEDS ORDERED: HYDROCORTISONE TOP PRN (12:53)
[2020-03-09] MEDS ORDERED: HALOPERIDOL LACTATE INJ 5 MG/1 ML VIAL IM PRN (13:02)
--- NOTE | 2020-03-09 13:15 | EKG REPORT ---
SEVERITY:- ABNORMAL ECG - SINUS TACHYCARDIA PROBABLE LEFT ATRIAL ABNORMALITY RIGHT BUNDLE BRANCH BLOCK LEFT VENTRICULAR HYPERTROPHY : Confirmed by: Erasmo Maya MD 09-Mar-2020 13:15:10
--- NOTE | 2020-03-09 13:27 | PDOC H&P ---
History of Present Illness Admission Date/PCP: ENRIQUE MILLER DO Patient complains of: Left lower extremity swelling and redness History of Present Illness: SUELLEN GARCIA is a 29 year old male with documented history autism with episodic explosive aggression, lymphedema, recurrent cellulitis, mechanical aortic valve on Coumadin, history of A. fib noted on prior documentation, who presents to the hospital for evaluation of left lower extremity redness. Sumit pacheco is accompanied by associate chief nurse who gives the history. Patient has been having episodes of recurrent erythema and swelling in his left leg since he stepped on the glass around the end of 2018. He was recently in the hospital 3 months ago for similar presentation of erythema and swelling of his left leg all the way up to his knee and had been treated effectively with vancomycin and ceftriaxone at that time. Patient was discharged home with single improvement of the redness but has had several flares since then. This morning patient's left leg was noted to become red again from his foot all the way up to his knee. Noted to be febrile. Chronically, patient's left leg has been swollen but the erythema seems to be newly recurrent since yesterday. Past Medical History Cardiac Medical History: Reports: Atrial Fibrillation Psychiatric Medical History: Reports: Attention Deficit Hyperactivity Disorder - autism, Other - IED, IDD, Autism Denies: Depression Past Surgical History Past Surgical History: Reports: Cardiac Catheterization, Orthopedic Surgery - Hardware of spine for scoliosis, Valve Replacement Social History Lives with: Other Smoking Status: Never Smoker Frequency of Alcohol Use: None Hx Recreational Drug Use: No Drugs: None Hx Prescription Drug Abuse: No - Advance Directive Resuscitation Status: Full Code Family History Family History: Other - Unknown Parental Family History Reviewed: Yes Children Family History Reviewed: Unknown Sibling(s) Family History Reviewed.: Unknown Medication/Allergy Home Medications: Aripiprazole [Abilify] 30 mg PO QA 12/12/19 Benztropine Mesylate [Cogentin 1 mg Tablet] 2 mg PO Q12@0800,199912/12/19 Divalproex Sodium [Depakote] 1,000 mg PO Q12@0800,199912/12/19 Divalproex Sodium [Depakote] 250 mg PO DAILY@199912/12/19 Docusate Sodium [Colace 100 mg Capsule] 100 mg PO Q12@0800,199912/12/19 Haloperidol [Haldol 5 mg Tablet] 5 mg PO BIDP PRN 12/12/19 Hydrocortisone [Hydrocortisone 2.5% Cream 28 gm (Clinic Use)] 1 applic TOP TIDP PRN 12/12/19 Metoprolol Succinate [Toprol Xl 25 mg Tab.sr] 25 mg PO QAM 12/12/19 Mirtazapine [Remeron 15 mg Tablet] 15 mg PO DAILY@199912/12/19 Oxcarbazepine [Trileptal] 450 mg PO BID@1500,199912/12/19 Oxcarbazepine [Trileptal] 600 mg PO QAM 12/12/19 Pantoprazole Sodium [Protonix [address] Tablet] 40 mg PO QAM 12/12/19 Tramadol HCl [Ultram 50 mg Tablet] 50 mg PO Q6HP PRN 12/12/19 Warfarin Sodium [Coumadin 5 mg Tablet] 11 mg PO SUMOWEFR@199912/12/19 Acetaminophen [Tylenol 325 mg Tablet] 650 mg PO Q6HP PRN 03/09/20 Warfarin Sodium [Coumadin 5 mg Tablet] 12 mg PO TUTHSA@199903/09/20 Allergies/Adverse Reactions: No Known Allergies Allergy (Verified 09/11/19 13:13) Review of Systems ROS unobtainable: Due to mental status Physical Exam Vital Signs: Temp Pulse Resp BP Pulse Ox 98.1 F 128 H 22 H 145/86 H 100 03/09/20 12:07 03/09/20 09:34 03/09/20 12:30 03/09/20 12:02 03/09/20 12:30 Intake & Output 03/08/20 03/09/20 03/10/20 06:59 06:59 06:59 Weight 117.934 kg General appearance: PRESENT: no acute distress, cooperative, obese Head exam: PRESENT: atraumatic Eye exam: ABSENT: periorbital swelling Mouth exam: PRESENT: neck supple Neck exam: ABSENT: JVD Respiratory exam: PRESENT: clear to auscultation marsha, unlabored. ABSENT: tachypnea, wheezes Cardiovascular exam: PRESENT: +S1, +S2, tachycardia. ABSENT: irregular rhythm GI/Abdominal exam: PRESENT: normal bowel sounds, soft. ABSENT: rebound, rigid, tenderness Extremities exam: PRESENT: calf tenderness - Left lower extremity, tenderness, other - LLE>2x size of RLE with significant erythema going from his toes all the way to just below the left knee. Significant warmth noted in that area. Right LE is within normal limits. Neurological exam: PRESENT: alert, awake Psychiatric exam: ABSENT: agitated, anxious Focused psych exam: ABSENT: pressured speech Skin exam: ABSENT: jaundice Results Laboratory Results: 03/09/20 09:58 03/09/20 09:58 03/09/20 03/09/20 03/09/20 09:58 09:58 09:58 WBC 6.0 RBC 5.53 Hgb 15.3 Hct 44.3 MCV 80 MCH 27.7 MCHC 34.5 RDW 15.7 H Plt Count 122 L Seg Neutrophils % 90.9 H VBG pH 7.40 VBG pCO2 39.3 VBG HCO3 23.7 VBG Base Excess -0.9 Sodium 137.6 Potassium 3.5 L Chloride 101 Carbon Dioxide 24 Anion Gap 13 BUN 17 Creatinine 0.96 Est GFR ( Amer) > 60 Glucose 110 Lactic Acid Calcium 10.3 H Total Bilirubin 0.7 AST 25 Alkaline Phosphatase 50 Total Protein 7.4 Albumin 4.3 03/09/20 09:58 WBC RBC Hgb Hct MCV MCH MCHC RDW Plt Count Seg Neutrophils % VBG pH VBG pCO2 VBG HCO3 VBG Base Excess Sodium Potassium Chloride Carbon Dioxide Anion Gap BUN Creatinine Est GFR ( Amer) Glucose Lactic Acid 4.4 H Calcium Total Bilirubin AST Alkaline Phosphatase Total Protein Albumin Impressions: Chest X-Ray 03/09/20 09:38 IMPRESSION: NO ACUTE RADIOGRAPHIC FINDING IN THE CHEST. Foot X-Ray 03/09/20 09:42 IMPRESSION: SOFT TISSUE SWELLING. NO RADIOPAQUE FOREIGN BODY. NO BONY FINDINGS. Assessment and Plan - Diagnosis (1) Cellulitis of left lower extremity Is this a current diagnosis for this admission?: Yes Plan: Complicated cellulitis and seems to be a recurrent issue for patient. Will once again treat with vancomycin and ceftriaxone as he showed good response to this in the past. Will check venous Dopplers. Blood cultures obtained. Had CT during last admission which showed no abscess. However, if no significant improvement in 48 hours, will recommend pursuing CT to rule out underlying abscess. Pain control with Tylenol and tramadol. Toradol IV as needed for breakthrough. (2) Severe sepsis Is this a current diagnosis for this admission?: Yes Plan: Secondary to raging LLE cellulitis. Severely septic also with hypotension and significant lactic acidosis. BP has improved nicely with fluid resuscitation. We will continue fluid resuscitation efforts. Recheck lactic acid. (3) Supratherapeutic INR Is this a current diagnosis for this admission?: Yes Plan: Patient notably has a documented history of mechanical aortic valve replacement on chronic anticoagulation with warfarin. Will resume warfarin. Will place on Lovenox bridge. Check daily INR. (4) Autism Is this a current diagnosis for this admission?: Yes Plan: History of Autism and Intermittent explosive disorder. On very heavy doses of antipsychotics. Will resume all patient's antipsychotic medications including p.o. Haldol as needed. Will rule place order for prn IM Haldol if unable to give p.o. during explosive episodes. - Time Time Spent with patient: 35 or more minutes
[2020-03-09] MEDS ORDERED: POTASSIUM CHLORIDE 10 MEQ TABLET.ER PO ONE (13:45)
[2020-03-09] MEDS: OXCARBAZEPINE 150 MG TABLET PO SCH ×2 (15:16→22:23)
[2020-03-09] MEDS: TRAMADOL HCL 50 MG TABLET PO PRN (15:20)
[2020-03-09] MEDS: ARIPIPRAZOLE 5 MG TABLET PO SCH (16:09)
[2020-03-09] MEDS: ACETAMINOPHEN 325 MG TABLET PO PRN (20:00)
[2020-03-09] MEDS: HALOPERIDOL 5 MG TABLET PO PRN (20:01)
[2020-03-09] MEDS ORDERED: VANCOMYCIN HCL INJ 1000 MG VIAL IV SCH (22:00)
[2020-03-09] MEDS ORDERED: ENOXAPARIN SODIUM INJ 100 MG/1 ML DISP.SYRIN SUBCUT SCH (22:00)
[2020-03-09] MEDS ORDERED: WARFARIN SODIUM 7.5 MG TABLET PO SCH (22:00)
[2020-03-09] MEDS ORDERED: CEFTRIAXONE 2 GM/D5W RTU 2 GM/50 ML RTUPB IV SCH (22:00)
[2020-03-09] MEDS ORDERED: CEFEPIME 2 GM/D5W RTU 2 GM/50 ML RTUPB IV SCH (22:00)
[2020-03-09] MEDS ORDERED: ENOXAPARIN SODIUM INJ 120 MG/0.8 ML DISP.SYRIN SUBCUT SCH (22:00)
[2020-03-09] MEDS ORDERED: WARFARIN SODIUM 5 MG TABLET PO SCH (22:00)
[2020-03-09] MEDS: DIVALPROEX SODIUM 250 MG TABLET.DR PO SCH (22:16)
[2020-03-09] MEDS: BENZTROPINE MESYLATE 1 MG TABLET PO SCH (22:23)
[2020-03-09] MEDS: MIRTAZAPINE 15 MG TABLET PO SCH (22:24)
[2020-03-09] MEDS: DOCUSATE SODIUM 100 MG CAPSULE PO SCH (22:24)
[2020-03-09] MEDS ORDERED: CEFEPIME 2 GM/D5W RTU 2 GM/50 ML RTUPB IV ONE (23:16)
[2020-03-10] MEDS: VANCOMYCIN HCL 2,000 MG in DEXTROSE 5%-WATER 500 ML IV SCH ×2 (00:54→12:27)
[2020-03-10] MEDS: KETOROLAC TROMETHAMINE INJ/PF 30 MG/1 ML SDV IV PRN (08:08)
[2020-03-10] MEDS: ACETAMINOPHEN 325 MG TABLET PO PRN (08:08)
[2020-03-10] MEDS: PANTOPRAZOLE SODIUM 40 MG TABLET.DR PO SCH (08:35)
[2020-03-10] MEDS: BENZTROPINE MESYLATE 1 MG TABLET PO SCH ×2 (08:35→20:11)
[2020-03-10] MEDS: OXCARBAZEPINE 150 MG TABLET PO SCH ×3 (08:35→20:12)
[2020-03-10] MEDS: DOCUSATE SODIUM 100 MG CAPSULE PO SCH ×2 (08:35→20:11)
[2020-03-10 08:38] LABS: HEMATOCRIT 39.9 % (37.9-51.0); HEMOGLOBIN 13.7 g/dL (13.5-17.0); MEAN CORPUSCULAR HEMOGLOBIN 27.5 pg (27.0-33.4); MEAN CORPUSCULAR HGB CONC 34.3 g/dL (32.0-36.0); MEAN CORPUSCULAR VOLUME 80 fl (80-97); RED BLOOD COUNT 4.96 10^6/uL (4.35-5.55); RED CELL DISTRIBUTION WIDTH 15.7 % (11.5-14.0)
[2020-03-10 08:55] LABS: PLATELET COUNT 75 10^3/uL (150-450)
[2020-03-10 08:57] LABS: ABSOLUTE LYMPHOCYTES# (MANUAL) 1.7 10^3/uL (0.5-4.7); ABSOLUTE MONOCYTES # (MANUAL) 0.4 10^3/uL (0.1-1.4); BASOPHILS % (MANUAL) 0 % (0-2); EOSINOPHILS % (MANUAL) 0 % (0-6); INTERNATIONAL RATION (INR) 3.14; LYMPHOCYTES % (MANUAL) 13 % (13-45); MONOCYTES % (MANUAL) 3 % (3-13); SEGMENTED NEUTROPHILS % (MAN) 70 % (42-78); TOTAL CELLS COUNTED 100
[2020-03-10 08:59] LABS: TOXIC VACUOLATION PRESENT
[2020-03-10 09:00] LABS: ANION GAP 9 (5-19); ANISOCYTOSIS SLIGHT; BLOOD UREA NITROGEN 24 mg/dL (7-20); CALCIUM 8.2 mg/dL (8.4-10.2); CARBON DIOXIDE 19 mmol/L (22-30); CHLORIDE 105 mmol/L (98-107); GLUCOSE 87 mg/dL (75-110); PLATELET COMMENT DECREASED; POTASSIUM 3.6 mmol/L (3.6-5.0)
[2020-03-10 09:03] LABS: BAND NEUTROPHILS % (MANUAL) 14 % (3-5)
--- NOTE | 2020-03-10 09:11 | PDOC PROGRESS REPORT ---
Subjective Progress Note for:: 03/10/20 Subjective:: Patient is quite sleepy. He has received multiple boluses of saline but is still tachycardic with a marginal blood pressure and febrile. They had difficulty drawing his blood this morning but was able to obtain the specimens on the second try and the results are pending. Reason For Visit: SEPSIS, LLE CELLULITIS Physical Exam Vital Signs: Temp Pulse Resp BP Pulse Ox 102.9 F H 126 H 17 102/40 L 98 03/10/20 08:00 03/10/20 08:00 03/10/20 08:00 03/10/20 08:00 03/10/20 08:00 Intake & Output 03/09/20 03/10/20 03/11/20 06:59 06:59 06:59 Intake Total 6698 1000 Output Total 725 Balance 5973 1000 Weight 117 kg General appearance: PRESENT: mild distress, well-developed Head exam: PRESENT: atraumatic, normocephalic Ear exam: PRESENT: normal external ear exam. ABSENT: bleeding, drainage Respiratory exam: PRESENT: clear to auscultation marsha, symmetrical, unlabored. ABSENT: rales, rhonchi, tachypnea, wheezes Cardiovascular exam: PRESENT: +S1, +S2, systolic murmur, tachycardia, other - Metallic valve click GI/Abdominal exam: PRESENT: hypoactive bowel sounds, soft. ABSENT: distended, guarding, tenderness Rectal exam: PRESENT: deferred Extremities exam: PRESENT: other - Erythema and 3+ edema left leg. Right leg unremarkable Musculoskeletal exam: ABSENT: normal inspection Neurological exam: PRESENT: awake, oriented to person, oriented to place. ABSENT: alert - Somnolent. He does attempt to answer questions., aphasic Psychiatric exam: PRESENT: flat affect. ABSENT: agitated, anxious Skin exam: PRESENT: erythema - Marked erythema left foot and leg Results Laboratory Results: 03/09/20 03/09/20 03/09/20 09:58 09:58 09:58 WBC 6.0 RBC 5.53 Hgb 15.3 Hct 44.3 MCV 80 MCH 27.7 MCHC 34.5 RDW 15.7 H Plt Count 122 L Seg Neutrophils % 90.9 H VBG pH 7.40 VBG pCO2 39.3 VBG HCO3 23.7 VBG Base Excess -0.9 Sodium 137.6 Potassium 3.5 L Chloride 101 Carbon Dioxide 24 Anion Gap 13 BUN 17 Creatinine 0.96 Est GFR ( Amer) > 60 Glucose 110 Lactic Acid Calcium 10.3 H Total Bilirubin 0.7 AST 25 Alkaline Phosphatase 50 Total Protein 7.4 Albumin 4.3 03/09/20 03/09/20 03/09/20 09:58 13:40 18:00 WBC RBC Hgb Hct MCV MCH MCHC RDW Plt Count Seg Neutrophils % VBG pH VBG pCO2 VBG HCO3 VBG Base Excess Sodium Potassium Chloride Carbon Dioxide Anion Gap BUN Creatinine Est GFR ( Amer) Glucose Lactic Acid 4.4 H 5.4 H 5.3 H Calcium Total Bilirubin AST Alkaline Phosphatase Total Protein Albumin Impressions: Chest X-Ray 03/09/20 09:38 IMPRESSION: NO ACUTE RADIOGRAPHIC FINDING IN THE CHEST. Foot X-Ray 03/09/20 09:42 IMPRESSION: SOFT TISSUE SWELLING. NO RADIOPAQUE FOREIGN BODY. NO BONY FINDINGS. Assessment and Plan - Diagnosis (1) Sepsis Qualifiers: Sepsis type: sepsis due to unspecified organism Sepsis acute organ dysfunction status: without acute organ dysfunction Qualified Code(s): A41.9 - Sepsis, unspecified organism Is this a current diagnosis for this admission?: Yes Plan: 03/10/2020 Still fluctuating lactic acid levels. Aggressive IV fluids and antibiotics changes tachycardia is improving. His blood pressure is finally improved as well. His map dropped below 65 transiently this morning but is improved significantly. We will continue IV fluids. His lactic acid was normal and has bounced up again. We are repeating his level. (2) Cellulitis of left lower extremity Is this a current diagnosis for this admission?: Yes Plan: Complicated cellulitis and seems to be a recurrent issue for patient. Will once again treat with vancomycin and ceftriaxone as he showed good response to this i n the past. Will check venous Dopplers. Blood cultures obtained. Had CT during last admission which showed no abscess. However, if no significant improvement in 48 hours, will recommend pursuing CT to rule out underlying abscess. Pain control with Tylenol and tramadol. Toradol IV as needed for breakthrough. 03/10/2020 . The patient seems to be improving. The erythema certainly has receded from the original demarcation line. Continue current antibiotic regimen and monitor closely. (3) Subtherapeutic international normalized ratio (INR) Is this a current diagnosis for this admission?: Yes Plan: 03/10/2020 His INR was subtherapeutic on admission (therapeutic range 2.5-3.5) but with initial resumption of warfarin his INR shot up to 3.3. I discussed this with pharmacy. We are going to reduce his dose to 10 mg and follow his INR daily. With his infection it may increase further. We will need to monitor closely. (4) Intermittent explosive disorder in adult Is this a current diagnosis for this admission?: Yes Plan: 03/10/2020 The patient has a history of aggressive behavior. He is on a complex regimen of medications and we have continued this. Due to the infection he has not been aggressive at all and in fact is lethargic at times. Will monitor closely as the infection improves. Is he becomes too somnolent we may need to decrease some of his medications transiently (5) Autism Is this a current diagnosis for this admission?: Yes Plan: History of Autism and Intermittent explosive disorder. On very heavy doses of antipsychotics. Will resume all patient's antipsychotic medications including p.o. Haldol as needed. Will rule place order for prn IM Haldol if unable to give p.o. during explosive episodes. 03/10/2020 No change in his medication regimen at this time. (6) History of heart valve replacement Is this a current diagnosis for this admission?: Yes Plan: 03/10/2020 As noted above we will need to monitor his INR closely. The infection is likely throwing off his normal dosing. Therapeutic range is 2.5-3.5. - Time Time Spent with patient: 25-34 minutes Medications reviewed and adjusted accordingly: Yes
[2020-03-10] MEDS ORDERED: NORMAL SALINE 1000 ML 1,000 ML IV ONE (09:30)
[2020-03-10] MEDS: CEFEPIME HCL 2 GM in DEXTROSE 5%-WATER 50 ML IV SCH ×2 (11:07→21:34)
[2020-03-10] MEDS: MAGNESIUM SULFATE/D5W 1 GM/100 ML RTUPB IV SCH ×2 (11:07→12:28)
[2020-03-10] MEDS: METOPROLOL SUCCINATE 25 MG TAB.SR.24H PO SCH (11:10)
[2020-03-10] MEDS: DIVALPROEX SODIUM 250 MG TABLET.DR PO SCH ×2 (11:10→21:34)
[2020-03-10] MEDS: ARIPIPRAZOLE 5 MG TABLET PO SCH (11:10)
[2020-03-10] MEDS: TRAMADOL HCL 50 MG TABLET PO PRN (11:19)
--- NOTE | 2020-03-10 14:00 | RADIOLOGY REPORT (SQ) ---
EXAM DESCRIPTION: VENOUS UNILATERAL LOWER IMAGES COMPLETED DATE/TIME: 03/10/2020 1:37 pm REASON FOR STUDY: LLE swelling COMPARISON: None. 12/12/2019 TECHNIQUE: Dynamic and static downing scale and color images acquired of the left leg venous system. Se lected spectral images acquired with additional compression and augmentation maneuvers. The contralat eral common femoral vein and saphenofemoral junction were also imaged. Images stored on PACS. LIMITATIONS: None. FINDINGS: COMMON FEMORAL: Normal phasicity, compression and augmentation. No visualized echogenic ma terial on downing scale. No defects on color images. FEMORAL: Normal compression and augmentation. No visualized echogenic material on downing scale. No defe cts on color images. POPLITEAL: Normal compression, augmentation. No visualized echogenic material on downing scale. No defec ts on color images. CALF VESSELS: Normal compression, augmentation. No visualized echogenic material on downing scale. No de fects on color images. GSV and SSV: Normal compression, augmentation. No visualized echogenic material on downing scale. No def ects on color images. ANY DEEP VENOUS INSUFFICIENCY: Not evaluated. ANY EVIDENCE OF POPLITEAL CYST: No. OTHER: No other significant finding. CONTRALATERAL COMMON FEMORAL VEIN AND SAPHENOFEMORAL JUNCTION: Normal phasicity, compression and augmentation. No visualized echogenic material on downing scale. No de fects on color images. IMPRESSION: NO EVIDENCE DVT OR SVT IN THE LEFT LEG. TECHNICAL DOCUMENTATION: JOB ID: [id number] [employer]- All Rights Reserved Reading location - IP/workstation name: [email or web address]
[2020-03-10] MEDS ORDERED: NORMAL SALINE 1000 ML 1,000 ML IV PRN (14:55)
[2020-03-10] MEDS ORDERED: POTASSIUM CHLORIDE 10 MEQ TABLET.ER PO ONE (18:21)
[2020-03-10] MEDS: MIRTAZAPINE 15 MG TABLET PO SCH (20:12)
[2020-03-10] MEDS ORDERED: WARFARIN SODIUM 5 MG TABLET ONE ×2 (20:16→20:18)
[2020-03-10] MEDS ORDERED: WARFARIN SODIUM 5 MG TABLET PO SCH (22:00)
[2020-03-11] MEDS: VANCOMYCIN HCL 2,000 MG in DEXTROSE 5%-WATER 500 ML IV SCH ×2 (00:20→14:33)
[2020-03-11] MEDS: ACETAMINOPHEN 325 MG TABLET PO PRN (00:20)
[2020-03-11 00:27] LABS: ANION GAP 10 (5-19); BLOOD UREA NITROGEN 26 mg/dL (7-20); CALCIUM 7.7 mg/dL (8.4-10.2); CARBON DIOXIDE 24 mmol/L (22-30); CHLORIDE 99 mmol/L (98-107); POTASSIUM 3.7 mmol/L (3.6-5.0)
[2020-03-11 00:31] LABS: GLUCOSE 66 mg/dL (75-110)
[2020-03-11] MEDS: NORMAL SALINE 1000 ML 1,000 ML IV PRN (05:27)
[2020-03-11] MEDS: METHYLPREDNISOLONE INJ 125 MG/2 ML SDV IV SCH ×3 (05:27→21:46)
[2020-03-11] MEDS: MAGNESIUM SULFATE/D5W 1 GM/100 ML RTUPB IV SCH ×2 (05:27→06:29)
[2020-03-11 06:14] LABS: PROTHROMBIN TIME 48.8 SEC (11.4-15.4)
[2020-03-11 06:15] LABS: INTERNATIONAL RATION (INR) 5.13
[2020-03-11 06:31] LABS: ANION GAP 7 (5-19); BLOOD UREA NITROGEN 25 mg/dL (7-20); CALCIUM 7.2 mg/dL (8.4-10.2); CARBON DIOXIDE 22 mmol/L (22-30); CHLORIDE 101 mmol/L (98-107); GLUCOSE 88 mg/dL (75-110); POTASSIUM 3.5 mmol/L (3.6-5.0)
[2020-03-11] MEDS: DOCUSATE SODIUM 100 MG CAPSULE PO SCH ×2 (07:52→20:48)
[2020-03-11] MEDS: METOPROLOL SUCCINATE 25 MG TAB.SR.24H PO SCH (07:52)
[2020-03-11] MEDS: BENZTROPINE MESYLATE 1 MG TABLET PO SCH ×2 (07:52→20:48)
[2020-03-11] MEDS: PANTOPRAZOLE SODIUM 40 MG TABLET.DR PO SCH (07:52)
[2020-03-11] MEDS: OXCARBAZEPINE 150 MG TABLET PO SCH ×3 (07:52→20:48)
[2020-03-11] MEDS ORDERED: POTASSIUM CHLORIDE 10 MEQ TABLET.ER PO SCH (10:00)
[2020-03-11] MEDS: DIVALPROEX SODIUM 250 MG TABLET.DR PO SCH ×2 (10:43→21:47)
[2020-03-11] MEDS: ARIPIPRAZOLE 5 MG TABLET PO SCH (10:43)
[2020-03-11] MEDS: CEFEPIME HCL 2 GM in DEXTROSE 5%-WATER 50 ML IV SCH ×2 (10:44→21:43)
[2020-03-11 10:51] LABS: PATH REVIEW PATHOLOGIST REVIEWED
[2020-03-11 13:41] LABS: VANCOMYCIN,TROUGH 7.5 ug/mL (5.0-20.0)
--- NOTE | 2020-03-11 14:17 | PDOC PROGRESS REPORT ---
Subjective Progress Note for:: 03/11/20 Subjective:: Definitely doing better today. Drainage on the bed. The left heel area has what appears to be blood in a bullous lesion. Reason For Visit: SEPSIS, LLE CELLULITIS Physical Exam Vital Signs: Temp Pulse Resp BP Pulse Ox 99.0 F 119 H 18 133/67 H 100 03/11/20 12:00 03/11/20 12:00 03/11/20 12:00 03/11/20 12:00 03/11/20 12:00 Intake & Output 03/10/20 03/11/20 03/12/20 06:59 06:59 06:59 Intake Total 6698 5210 1150 Output Total 725 Balance 5973 5210 1150 Weight 117 kg 117 kg General appearance: PRESENT: no acute distress, cooperative - Cooperative at his baseline. Certainly improved from yesterday., well-developed, well-nourished Head exam: PRESENT: atraumatic, normocephalic Eye exam: PRESENT: conjunctiva pink, scleral icterus Ear exam: PRESENT: normal external ear exam. ABSENT: bleeding, drainage Mouth exam: PRESENT: moist, tongue midline Teeth exam: PRESENT: poor dentation Neck exam: ABSENT: carotid bruit, JVD, lymphadenopathy Respiratory exam: PRESENT: clear to auscultation marsha, symmetrical, unlabored. ABSENT: rales, rhonchi, tachypnea, wheezes Cardiovascular exam: PRESENT: RRR, +S1, +S2 GI/Abdominal exam: PRESENT: normal bowel sounds, soft. ABSENT: distended, guarding, tenderness Rectal exam: PRESENT: deferred Gentrourinary exam: ABSENT: indwelling catheter Extremities exam: PRESENT: other - Still with marked edema and erythema left leg Musculoskeletal exam: PRESENT: ambulatory. ABSENT: deformity - Other than swelling in the left leg, normal inspection Neurological exam: PRESENT: alert, awake, oriented to person, oriented to place Psychiatric exam: PRESENT: appropriate affect. ABSENT: agitated, anxious Skin exam: PRESENT: erythema - Still with significant erythema left leg, other - Drainage noted on the patient's cheek. Examination of the heel of the left leg reveals what appears to be several bullous lesions with serosanguineous fluid present.. ABSENT: normal color Results Laboratory Results: 03/10/20 08:29 03/11/20 05:42 0503/10/20 03/10/20 16:08 22:20 22:20 Sodium Cancelled Potassium Cancelled Chloride Cancelled Carbon Dioxide Cancelled Anion Gap Cancelled BUN Cancelled Creatinine Cancelled Est GFR ( Amer) Cancelled Est GFR (Non-Af Amer) Cancelled Glucose Cancelled Lactic Acid 3.1 H 3.4 H Calcium Cancelled Magnesium Cancelled 03/11/20 03/11/20 00:04 05:42 Sodium 133.1 L 130.3 L Potassium 3.7 3.5 L Chloride 99 101 Carbon Dioxide 24 22 Anion Gap 10 7 BUN 26 H 25 H Creatinine 1.02 0.94 Est GFR ( Amer) > 60 > 60 Est GFR (Non-Af Amer) Glucose 66 L 88 Lactic Acid Calcium 7.7 L 7.2 L Magnesium 1.5 L Impressions: Chest X-Ray 03/09/20 09:38 IMPRESSION: NO ACUTE RADIOGRAPHIC FINDING IN THE CHEST. Foot X-Ray 03/09/20 09:42 IMPRESSION: SOFT TISSUE SWELLING. NO RADIOPAQUE FOREIGN BODY. NO BONY FINDINGS. Venous Doppler Study 03/10/20 00:00 IMPRESSION: NO EVIDENCE DVT OR SVT IN THE LEFT LEG. Assessment and Plan - Diagnosis (1) Sepsis Qualifiers: Sepsis type: sepsis due to unspecified organism Sepsis acute organ dysfunction status: without acute organ dysfunction Qualified Code(s): A41.9 - Sepsis, unspecified organism Is this a current diagnosis for this admission?: Yes Plan: 03/10/2020 Still fluctuating lactic acid levels. Aggressive IV fluids and antibiotics changes tachycardia is improving. His blood pressure is finally improved as well. His map dropped below 65 transiently this morning but is improved significantly. We will continue IV fluids. His lactic acid was normal and has bounced up again. We are repeating his level. 03/11/2020 Resolved. Continue antibiotics. (2) Cellulitis of left lower extremity Is this a current diagnosis for this admission?: Yes Plan: Complicated cellulitis and seems to be a recurrent issue for patient. Will once again treat with vancomycin and ceftriaxone as he showed good response to this in the past. Will check venous Dopplers. Blood cultures obtained. Had CT during last admission which showed no abscess. However, if no significant improvement in 48 hours, will recommend pursuing CT to rule out underlying abscess. Pain control with Tylenol and tramadol. Toradol IV as needed for breakthrough. 03/10/2020 . The patient seems to be improving. The erythema certainly has receded from the original demarcation line. Continue current antibiotic regimen and monitor closely. 03/11/2020 Improving very slowly (3) Subtherapeutic international normalized ratio (INR) Is this a current diagnosis for this admission?: Yes Plan: 03/10/2020 His INR was subtherapeutic on admission (therapeutic range 2.5-3.5) but with initial resumption of warfarin his INR shot up to 3.3. I discussed this with pharmacy. We are going to reduce his dose to 10 mg and follow his INR daily. With his infection it may increase further. We will need to monitor closely. 03/11/2020 Continue warfarin and adjust to achieve INR 2.5-3.5 (4) Intermittent explosive disorder in adult Is this a current diagnosis for this admission?: Yes Plan: 03/10/2020 The patient has a history of aggressive behavior. He is on a complex regimen of medications and we have continued this. Due to the infection he has not been aggressive at all and in fact is lethargic at times. Will monitor closely as the infection improves. Is he becomes too somnolent we may need to decrease some of his medications transiently 03/11/2020 Beginning to exhibit some aggressive behavior. Unfortunately this is his baseline. It does reflect improvement in his general condition (5) Autism Is this a current diagnosis for this admission?: Yes Plan: History of Autism and Intermittent explosive disorder. On very heavy doses of antipsychotics. Will resume all patient's antipsychotic medications including p.o. Haldol as needed. Will rule place order for prn IM Haldol if unable to give p.o. during explosive episodes. 03/10/2020 No change in his medication regimen at this time. (6) History of heart valve replacement Is this a current diagnosis for this admission?: Yes Plan: 03/10/2020 As noted above we will need to monitor his INR closely. The infection is likely throwing off his normal dosing. Therapeutic range is 2.5-3.5. (7) Bullae Is this a current diagnosis for this admission?: Yes Plan: 03/11/2020 Bullous lesions on heel likely filled with serosanguineous fluid. This is most likely a result of the significant edema as well as being on anticoagulation. Will elevate heel. Drainage from the leg will likely be treated with ABD pads and loose Kerlix dressing. - Time Time Spent with patient: 15-24 minutes Medications reviewed and adjusted accordingly: Yes Anticipated discharge: Home
[2020-03-11] MEDS: POTASSIUM CHLORIDE 10 MEQ TABLET.ER PO SCH ×2 (17:52→17:54)
[2020-03-11] MEDS: MIRTAZAPINE 15 MG TABLET PO SCH (20:48)
[2020-03-11] MEDS: VANCOMYCIN HCL 1,500 MG in DEXTROSE 5%-WATER 250 ML IV SCH (22:10)
[2020-03-12] MEDS: VANCOMYCIN HCL 1,500 MG in DEXTROSE 5%-WATER 250 ML IV SCH ×2 (05:39→14:19)
[2020-03-12] MEDS: NORMAL SALINE 1000 ML 1,000 ML IV PRN ×2 (05:39→15:56)
[2020-03-12] MEDS: METHYLPREDNISOLONE INJ 125 MG/2 ML SDV IV SCH ×3 (05:39→22:14)
[2020-03-12 07:46] LABS: HEMATOCRIT 35.6 % (37.9-51.0); MEAN CORPUSCULAR HGB CONC 33.8 g/dL (32.0-36.0); MEAN CORPUSCULAR VOLUME 80 fl (80-97); RED BLOOD COUNT 4.45 10^6/uL (4.35-5.55); RED CELL DISTRIBUTION WIDTH 15.8 % (11.5-14.0); WHITE BLOOD COUNT 14.4 10^3/uL (4.0-10.5)
[2020-03-12 07:47] LABS: INTERNATIONAL RATION (INR) 4.59; PROTHROMBIN TIME 44.7 SEC (11.4-15.4)
[2020-03-12] MEDS: PANTOPRAZOLE SODIUM 40 MG TABLET.DR PO SCH (07:51)
[2020-03-12] MEDS: BENZTROPINE MESYLATE 1 MG TABLET PO SCH ×2 (07:51→22:10)
[2020-03-12] MEDS: DOCUSATE SODIUM 100 MG CAPSULE PO SCH ×2 (07:53→22:11)
[2020-03-12] MEDS: METOPROLOL SUCCINATE 25 MG TAB.SR.24H PO SCH (07:54)
[2020-03-12] MEDS: OXCARBAZEPINE 150 MG TABLET PO SCH ×3 (07:55→22:12)
[2020-03-12 08:04] LABS: ANION GAP 9 (5-19); BLOOD UREA NITROGEN 12 mg/dL (7-20); CALCIUM 8.1 mg/dL (8.4-10.2); CARBON DIOXIDE 25 mmol/L (22-30); CHLORIDE 98 mmol/L (98-107); GLUCOSE 149 mg/dL (75-110)
[2020-03-12 08:08] LABS: PLATELET COUNT 59 10^3/uL (150-450)
[2020-03-12] MEDS: DIVALPROEX SODIUM 250 MG TABLET.DR PO SCH ×2 (10:16→22:14)
[2020-03-12] MEDS: POTASSIUM CHLORIDE 10 MEQ TABLET.ER PO SCH ×2 (10:16→17:29)
[2020-03-12] MEDS: ARIPIPRAZOLE 5 MG TABLET PO SCH (10:16)
[2020-03-12] MEDS: CEFEPIME HCL 2 GM in DEXTROSE 5%-WATER 50 ML IV SCH (10:21)
--- NOTE | 2020-03-12 12:14 | PDOC PROGRESS REPORT ---
Subjective Progress Note for:: 03/12/20 Subjective:: Erythema continues to improve slowly however he is still having significant drainage from his leg. This is related to the edema most likely. He also reports not being hungry and declined lunch. Reason For Visit: SEPSIS, LLE CELLULITIS Physical Exam Vital Signs: Temp Pulse Resp BP Pulse Ox 97.3 F 94 12 156/75 H 97 03/12/20 07:28 03/12/20 07:28 03/12/20 07:28 03/12/20 07:28 03/12/20 07:28 Intake & Output 03/11/20 03/12/20 03/13/20 06:59 06:59 06:59 Intake Total 5210 2980 300 Balance 5210 2980 300 Weight 117 kg 117 kg General appearance: PRESENT: no acute distress, cooperative, well-developed Eye exam: PRESENT: conjunctiva pink. ABSENT: periorbital swelling, scleral icterus Mouth exam: PRESENT: moist, tongue midline Teeth exam: PRESENT: poor dentation Respiratory exam: PRESENT: clear to auscultation marsha, symmetrical, unlabored. ABSENT: accessory muscle use, rales, rhonchi, tachypnea, wheezes Cardiovascular exam: PRESENT: RRR, +S1, +S2 GI/Abdominal exam: PRESENT: normal bowel sounds, soft. ABSENT: distended, guarding, tenderness Rectal exam: PRESENT: deferred Gentrourinary exam: ABSENT: indwelling catheter Extremities exam: PRESENT: pedal edema - Left foot, other - 2-3+ edema left leg Musculoskeletal exam: PRESENT: ambulatory. ABSENT: normal inspection Neurological exam: PRESENT: alert, awake, oriented to person, oriented to place, oriented to situation. ABSENT: altered Psychiatric exam: PRESENT: flat affect. ABSENT: agitated, anxious Focused psych exam: ABSENT: delusional, paranoid, restlessness Skin exam: PRESENT: erythema - Still has significant erythema, other - Still with bullous lesions and drainage from the calf Results Laboratory Results: 03/12/20 07:19 03/12/20 07:19 03/12/20 03/12/20 03/12/20 07:19 07:19 07:19 WBC 14.4 H RBC 4.45 Hgb 12.0 L Hct 35.6 L MCV 80 MCH 27.0 MCHC 33.8 RDW 15.8 H Plt Count 59 L Sodium 131.9 L Potassium 4.0 Chloride 98 Carbon Dioxide 25 Anion Gap 9 BUN 12 Creatinine 0.54 Est GFR ( Amer) > 60 Glucose 149 H Lactic Acid 3.0 H Calcium 8.1 L Magnesium 2.2 Impressions: Chest X-Ray 03/09/20 09:38 IMPRESSION: NO ACUTE RADIOGRAPHIC FINDING IN THE CHEST. Foot X-Ray 03/09/20 09:42 IMPRESSION: SOFT TISSUE SWELLING. NO RADIOPAQUE FOREIGN BODY. NO BONY FINDINGS. Venous Doppler Study 03/10/20 00:00 IMPRESSION: NO EVIDENCE DVT OR SVT IN THE LEFT LEG. Assessment and Plan - Diagnosis (1) Cellulitis of left lower extremity Is this a current diagnosis for this admission?: Yes Plan: Complicated cellulitis and seems to be a recurrent issue for patient. Will once again treat with vancomycin and ceftriaxone as he showed good response to this in the past. Will check venous Dopplers. Blood cultures obtained. Had CT during last admission which showed no abscess. However, if no significant improvement in 48 hours, will recommend pursuing CT to rule out underlying abscess. Pain control with Tylenol and tramadol. Toradol IV as needed for breakthrough. 03/10/2020 . The patient seems to be improving. The erythema certainly has receded from the original demarcation line. Continue current antibiotic regimen and monitor closely. 03/11/2020 Improving very slowly 03/12/2020 The erythema is clearing very slowly. The patient does have bullous lesions on the calf that are draining. White blood cell count went up today instead of continuing as a downtrend. I am concerned that the current antibiotic regimen is not as effective as hoped. I will change patient to Unasyn and clindamycin in hopes of a better response. In addition, I have ordered a sed rate and C- reactive protein in case there is another type of inflammatory process in play that could be immune mediated. (2) Subtherapeutic international normalized ratio (INR) Is this a current diagnosis for this admission?: Yes Plan: 03/10/2020 His INR was subtherapeutic on admission (therapeutic range 2.5-3.5) but with initial resumption of warfarin his INR shot up to 3.3. I discussed this with pharmacy. We are going to reduce his dose to 10 mg and follow his INR daily. With his infection it may increase further. We will need to monitor closely. 03/11/2020 Continue warfarin and adjust to achieve INR 2.5-3.5 03/12/2020 INR was supratherapeutic at 5 yesterday. It is 4.19 today. Pharmacy will continue to adjust dose of warfarin. (3) Intermittent explosive disorder in adult Is this a current diagnosis for this admission?: Yes Plan: 03/10/2020 The patient has a history of aggressive behavior. He is on a complex regimen of medications and we have continued this. Due to the infection he has not been aggressive at all and in fact is lethargic at times. Will monitor closely as the infection improves. Is he becomes too somnolent we may need to decrease some of his medications transiently 03/11/2020 Beginning to exhibit some aggressive behavior. Unfortunately this is his baseline. It does reflect improvement in his general condition 03/12/2020 No significant outbursts reported from last night. Patient appears to be resting calmly. Continue current medication regimen. (4) Autism Is this a current diagnosis for this admission?: Yes Plan: History of Autism and Intermittent explosive disorder. On very heavy doses of antipsychotics. Will resume all patient's antipsychotic medications including p.o. Haldol as needed. Will rule place order for prn IM Haldol if unable to give p.o. during explosive episodes. 03/10/2020 No change in his medication regimen at this time. (5) History of heart valve replacement Is this a current diagnosis for this admission?: Yes Plan: 03/10/2020 As noted above we will need to monitor his INR closely. The infection is likely throwing off his normal dosing. Therapeutic range is 2.5-3.5. (6) Bullae Is this a current diagnosis for this admission?: Yes Plan: 03/11/2020 Bullous lesions on heel likely filled with serosanguineous fluid. This is most likely a result of the significant edema as well as being on anticoagulation. Will elevate heel. Drainage from the leg will likely be treated with ABD pads and loose Kerlix dressing. 03/12/2020 CRP and sed rate have been ordered. It is very unlikely that this is a bullous pemphigoid lesion or bullous pemphigus as there appears to be a clear pattern of infection. He has the patient's leg does not begin to respond more quickly to the change in his biotics then will consider additional work-up for an immune mediated process. (7) Sepsis Qualifiers: Sepsis type: sepsis due to unspecified organism Sepsis acute organ dysfunction status: without acute organ dysfunction Qualified Code(s): A41.9 - Sepsis, unspecified organism Is this a current diagnosis for this admission?: Yes Plan: 03/10/2020 Still fluctuating lactic acid levels. Aggressive IV fluids and antibiotics changes tachycardia is improving. His blood pressure is finally improved as well. His map dropped below 65 transiently this morning but is improved significantly. We will continue IV fluids. His lactic acid was normal and has bounced up again. We are repeating his level. 03/11/2020 Resolved. Continue antibiotics. 03/12/2020 Sepsis resolved. - Time Time Spent with patient: 15-24 minutes Medications reviewed and adjusted accordingly: Yes Anticipated discharge: Home
[2020-03-12] MEDS: AMPICILLIN SODIUM/SULBACTAM NA 3 GM in NORMAL SALINE 100 ML IV SCH (18:48)
[2020-03-12] MEDS: TRAMADOL HCL 50 MG TABLET PO PRN (22:11)
[2020-03-12] MEDS: MIRTAZAPINE 15 MG TABLET PO SCH (22:11)
[2020-03-12] MEDS: CLINDAMYCIN 600 MG/D5W RTU 600 MG/50 ML RTUPB IV SCH (22:12)
[2020-03-13] MEDS: AMPICILLIN SODIUM/SULBACTAM NA 3 GM in NORMAL SALINE 100 ML IV SCH ×5 (00:48→23:24)
[2020-03-13] MEDS: KETOROLAC TROMETHAMINE INJ/PF 30 MG/1 ML SDV IV PRN (00:49)
[2020-03-13] MEDS: CLINDAMYCIN 600 MG/D5W RTU 600 MG/50 ML RTUPB IV SCH ×3 (05:01→21:06)
[2020-03-13] MEDS: METHYLPREDNISOLONE INJ 125 MG/2 ML SDV IV SCH ×3 (05:01→21:05)
[2020-03-13 06:38] LABS: HEMATOCRIT 33.3 % (37.9-51.0); HEMOGLOBIN 11.5 g/dL (13.5-17.0); MEAN CORPUSCULAR HEMOGLOBIN 27.6 pg (27.0-33.4); MEAN CORPUSCULAR HGB CONC 34.4 g/dL (32.0-36.0); MEAN CORPUSCULAR VOLUME 80 fl (80-97); RED BLOOD COUNT 4.15 10^6/uL (4.35-5.55); RED CELL DISTRIBUTION WIDTH 15.4 % (11.5-14.0); WHITE BLOOD COUNT 13.6 10^3/uL (4.0-10.5)
[2020-03-13 06:46] LABS: PLATELET COUNT 63 10^3/uL (150-450)
[2020-03-13 06:57] LABS: ABSOLUTE LYMPHOCYTES# (MANUAL) 1.1 10^3/uL (0.5-4.7); ABSOLUTE MONOCYTES # (MANUAL) 0.1 10^3/uL (0.1-1.4); BASOPHILS % (MANUAL) 0 % (0-2); EOSINOPHILS % (MANUAL) 0 % (0-6); LYMPHOCYTES % (MANUAL) 8 % (13-45); MONOCYTES % (MANUAL) 1 % (3-13); SEGMENTED NEUTROPHILS % (MAN) 91 % (42-78); TOTAL CELLS COUNTED 100
[2020-03-13 06:58] LABS: ANION GAP 6 (5-19); ANISOCYTOSIS SLIGHT; BLOOD UREA NITROGEN 13 mg/dL (7-20); CALCIUM 8.2 mg/dL (8.4-10.2); CARBON DIOXIDE 25 mmol/L (22-30); CHLORIDE 102 mmol/L (98-107); GLUCOSE 138 mg/dL (75-110); PLATELET COMMENT DECREASED; POTASSIUM 3.6 mmol/L (3.6-5.0)
[2020-03-13 07:04] LABS: VANCOMYCIN,TROUGH < 5.0 ug/mL (5.0-20.0)
[2020-03-13 07:18] LABS: ERYTHROCYTE SEDIMENTATION RATE 27 mm/hr (0-15)
[2020-03-13 07:20] LABS: INTERNATIONAL RATION (INR) 2.81; PROTHROMBIN TIME 30.2 SEC (11.4-15.4)
[2020-03-13] MEDS: DOCUSATE SODIUM 100 MG CAPSULE PO SCH ×2 (10:10→21:05)
[2020-03-13] MEDS: BENZTROPINE MESYLATE 1 MG TABLET PO SCH ×2 (10:10→21:05)
[2020-03-13] MEDS: POTASSIUM CHLORIDE 10 MEQ TABLET.ER PO SCH ×2 (10:11→18:17)
[2020-03-13] MEDS: PANTOPRAZOLE SODIUM 40 MG TABLET.DR PO SCH (10:12)
[2020-03-13] MEDS: METOPROLOL SUCCINATE 25 MG TAB.SR.24H PO SCH (10:13)
[2020-03-13] MEDS: OXCARBAZEPINE 150 MG TABLET PO SCH ×3 (10:15→21:07)
[2020-03-13] MEDS: DIVALPROEX SODIUM 250 MG TABLET.DR PO SCH ×2 (10:16→21:05)
[2020-03-13] MEDS: ARIPIPRAZOLE 5 MG TABLET PO SCH (10:17)
--- NOTE | 2020-03-13 11:10 | PDOC PROGRESS REPORT ---
Subjective Progress Note for:: 03/13/20 Subjective:: The left leg is still draining serous fluid. The patient reports that he continues to have less pain. He is able to ambulate. Still quite erythematous and the tissue is tense. Reason For Visit: SEPSIS, LLE CELLULITIS Physical Exam Vital Signs: Temp Pulse Resp BP Pulse Ox 97.2 F 78 15 156/89 H 94 03/13/20 07:42 03/13/20 07:42 03/13/20 07:42 03/13/20 07:42 03/13/20 07:42 Intake & Output 03/12/20 03/13/20 03/14/20 06:59 06:59 06:59 Intake Total 2980 3025 Balance 2980 3025 Weight 117 kg 117 kg General appearance: PRESENT: no acute distress Respiratory exam: PRESENT: clear to auscultation marsha, symmetrical, unlabored. ABSENT: rales, rhonchi, tachypnea, wheezes Cardiovascular exam: PRESENT: RRR, +S1, +S2, other - Metallic valve click GI/Abdominal exam: PRESENT: normal bowel sounds, soft. ABSENT: distended, guarding, tenderness Rectal exam: PRESENT: deferred Gentrourinary exam: ABSENT: indwelling catheter Extremities exam: PRESENT: pedal edema, +2 edema - Left leg Musculoskeletal exam: PRESENT: ambulatory. ABSENT: normal inspection - Still with marked swelling and erythema left leg Neurological exam: PRESENT: alert, awake, oriented to person, oriented to place, oriented to situation Psychiatric exam: PRESENT: appropriate affect. ABSENT: agitated, anxious Skin exam: PRESENT: erythema Results Laboratory Results: 03/13/20 05:56 03/13/20 05:56 03/13/20 03/13/20 05:56 05:56 WBC 13.6 H RBC 4.15 L Hgb 11.5 L Hct 33.3 L MCV 80 MCH 27.6 MCHC 34.4 RDW 15.4 H Plt Count 63 L Seg Neutrophils % Not Reportable Sodium 133.0 L Potassium 3.6 Chloride 102 Carbon Dioxide 25 Anion Gap 6 BUN 13 Creatinine 0.42 L Est GFR ( Amer) > 60 Glucose 138 H Calcium 8.2 L Magnesium 2.3 C-Reactive Protein 158.0 H Impressions: Chest X-Ray 03/09/20 09:38 IMPRESSION: NO ACUTE RADIOGRAPHIC FINDING IN THE CHEST. Foot X-Ray 03/09/20 09:42 IMPRESSION: SOFT TISSUE SWELLING. NO RADIOPAQUE FOREIGN BODY. NO BONY FINDINGS. Venous Doppler Study 03/10/20 00:00 IMPRESSION: NO EVIDENCE DVT OR SVT IN THE LEFT LEG. Assessment and Plan - Diagnosis (1) Cellulitis of left lower extremity Is this a current diagnosis for this admission?: Yes Plan: Complicated cellulitis and seems to be a recurrent issue for patient. Will once again treat with vancomycin and ceftriaxone as he showed good response to this in the past. Will check venous Dopplers. Blood cultures obtained. Had CT during last admission which showed no abscess. However, if no significant improvement in 48 hours, will recommend pursuing CT to rule out underlying abscess. Pain control with Tylenol and tramadol. Toradol IV as needed for breakthrough. 03/10/2020 . The patient seems to be improving. The erythema certainly has receded from the original demarcation line. Continue current antibiotic regimen and monitor closely. 03/11/2020 Improving very slowly 03/12/2020 The erythema is clearing very slowly. The patient does have bullous lesions on the calf that are draining. White blood cell count went up today instead of c ontinuing as a downtrend. I am concerned that the current antibiotic regimen is not as effective as hoped. I will change patient to Unasyn and clindamycin in hopes of a better response. In addition, I have ordered a sed rate and C- reactive protein in case there is another type of inflammatory process in play that could be immune mediated. 03/13/2020 I did change antibiotics as noted above. There is still erythema and serous drainage. The leg does appear to be softening and so compartment syndrome is unlikely. Continue current regimen. (2) Subtherapeutic international normalized ratio (INR) Is this a current diagnosis for this admission?: Yes Plan: 03/10/2020 His INR was subtherapeutic on admission (therapeutic range 2.5-3.5) but with initial resumption of warfarin his INR shot up to 3.3. I discussed this with pharmacy. We are going to reduce his dose to 10 mg and follow his INR daily. With his infection it may increase further. We will need to monitor closely. 03/11/2020 Continue warfarin and adjust to achieve INR 2.5-3.5 03/12/2020 INR was supratherapeutic at 5 yesterday. It is 4.19 today. Pharmacy will continue to adjust dose of warfarin. 03/13/2020 The INR is 2.8 and this is within the therapeutic range. I did review the case with pharmacy and close scrutiny of the INR and appropriate adjustments in the warfarin, the current treatment plan. (3) Intermittent explosive disorder in adult Is this a current diagnosis for this admission?: Yes Plan: 03/10/2020 The patient has a history of aggressive behavior. He is on a complex regimen of medications and we have continued this. Due to the infection he has not been aggressive at all and in fact is lethargic at times. Will monitor closely as the infection improves. Is he becomes too somnolent we may need to decrease some of his medications transiently 03/11/2020 Beginning to exhibit some aggressive behavior. Unfortunately this is his baseline. It does reflect improvement in his general condition 03/12/2020 No significant outbursts reported from last night. Patient appears to be resting calmly. Continue current medication regimen. 03/13/2020 I believe that the cellulitis is slowly resolving the patient has been less agitated. He communicates appropriately and I do not sense any worrisome behaviors. We will continue his current medications. (4) Autism Is this a current diagnosis for this admission?: Yes Plan: History of Autism and Intermittent explosive disorder. On very heavy doses of antipsychotics. Will resume all patient's antipsychotic medications including p.o. Haldol as needed. Will rule place order for prn IM Haldol if unable to give p.o. during explosive episodes. 03/10/2020 No change in his medication regimen at this time. 03/13/2020 Continue current regimen (5) History of heart valve replacement Is this a current diagnosis for this admission?: Yes Plan: 03/10/2020 As noted above we will need to monitor his INR closely. The infection is likely throwing off his normal dosing. Therapeutic range is 2.5-3.5. 03/13/2020 Warfarin adjustments to maintain INR between 2.5 and 3.5 as described above (6) Bullae Is this a current diagnosis for this admission?: Yes Plan: 03/11/2020 Bullous lesions on heel likely filled with serosanguineous fluid. This is most likely a result of the significant edema as well as being on anticoagulation. W ill elevate heel. Drainage from the leg will likely be treated with ABD pads and loose Kerlix dressing. 03/12/2020 CRP and sed rate have been ordered. It is very unlikely that this is a bullous pemphigoid lesion or bullous pemphigus as there appears to be a clear pattern of infection. He has the patient's leg does not begin to respond more quickly to the change in his biotics then will consider additional work-up for an immune mediated process. 03/13/2020 Still with serosanguineous draining. Some of the bullae have ruptured. I discussed with the nurses different strategies to try to keep the drainage from spreading in the bed and on the floor. Possibly ABD pads with Kerlix and a layer of Covan however this may be irritating to the patient and so we will attempt different dressings to try and collect the serous drainage. (7) Sepsis Qualifiers: Sepsis type: sepsis due to unspecified organism Sepsis acute organ dysfunction status: without acute organ dysfunction Qualified Code(s): A41.9 - Sepsis, unspecified organism Is this a current diagnosis for this admission?: Yes Plan: 03/10/2020 Still fluctuating lactic acid levels. Aggressive IV fluids and antibiotics changes tachycardia is improving. His blood pressure is finally improved as well. His map dropped below 65 transiently this morning but is improved significantly. We will continue IV fluids. His lactic acid was normal and has bounced up again. We are repeating his level. 03/11/2020 Resolved. Continue antibiotics. 03/12/2020 Sepsis resolved. - Time Time Spent with patient: 15-24 minutes Medications reviewed and adjusted accordingly: Yes Anticipated discharge: Home
[2020-03-13] MEDS: NORMAL SALINE 1000 ML 1,000 ML IV PRN ×2 (11:53→21:06)
[2020-03-13] MEDS: WARFARIN SODIUM 3 MG TABLET PO SCH (21:04)
[2020-03-13] MEDS: MIRTAZAPINE 15 MG TABLET PO SCH (21:05)
[2020-03-13] MEDS: TRAMADOL HCL 50 MG TABLET PO PRN (21:05)
[2020-03-14] MEDS: AMPICILLIN SODIUM/SULBACTAM NA 3 GM in NORMAL SALINE 100 ML IV SCH (05:02)
[2020-03-14] MEDS: CLINDAMYCIN 600 MG/D5W RTU 600 MG/50 ML RTUPB IV SCH (09:10)
[2020-03-14] MEDS: METHYLPREDNISOLONE INJ 125 MG/2 ML SDV IV SCH ×3 (09:10→22:07)
[2020-03-14] MEDS: DOCUSATE SODIUM 100 MG CAPSULE PO SCH ×2 (09:18→22:05)
[2020-03-14] MEDS: BENZTROPINE MESYLATE 1 MG TABLET PO SCH ×2 (09:19→22:06)
[2020-03-14] MEDS: METOPROLOL SUCCINATE 25 MG TAB.SR.24H PO SCH (09:19)
[2020-03-14] MEDS: PANTOPRAZOLE SODIUM 40 MG TABLET.DR PO SCH (09:19)
[2020-03-14] MEDS: POTASSIUM CHLORIDE 10 MEQ TABLET.ER PO SCH ×2 (09:21→18:39)
[2020-03-14] MEDS: ARIPIPRAZOLE 5 MG TABLET PO SCH (09:22)
[2020-03-14] MEDS: OXCARBAZEPINE 150 MG TABLET PO SCH ×3 (09:23→22:02)
[2020-03-14] MEDS: AMOXICILLIN TR/POT CLAVULANATE 875-125 MG TAB PO SCH ×2 (11:04→22:06)
[2020-03-14] MEDS: DIVALPROEX SODIUM 250 MG TABLET.DR PO SCH ×2 (11:05→22:03)
[2020-03-14 11:12] LABS: INTERNATIONAL RATION (INR) 2.86; PROTHROMBIN TIME 30.6 SEC (11.4-15.4)
[2020-03-14] MEDS: HALOPERIDOL 5 MG TABLET PO PRN (11:38)
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
[2020-03-14] MEDS: CLINDAMYCIN HCL 150 MG CAPSULE PO SCH ×3 (11:40→18:40)
[2020-03-14] MEDS: WARFARIN SODIUM 3 MG TABLET PO SCH (22:04)
[2020-03-14] MEDS: MIRTAZAPINE 15 MG TABLET PO SCH (22:05)
[2020-03-15] MEDS: CLINDAMYCIN HCL 150 MG CAPSULE PO SCH ×5 (00:58→23:00)
[2020-03-15] MEDS: METHYLPREDNISOLONE INJ 125 MG/2 ML SDV IV SCH ×3 (06:52→22:56)
[2020-03-15] MEDS: DOCUSATE SODIUM 100 MG CAPSULE PO SCH ×2 (08:27→20:05)
[2020-03-15] MEDS: PANTOPRAZOLE SODIUM 40 MG TABLET.DR PO SCH (08:27)
[2020-03-15 08:28] LABS: INTERNATIONAL RATION (INR) 2.29; PROTHROMBIN TIME 25.6 SEC (11.4-15.4)
[2020-03-15] MEDS: METOPROLOL SUCCINATE 25 MG TAB.SR.24H PO SCH (08:29)
[2020-03-15] MEDS: BENZTROPINE MESYLATE 1 MG TABLET PO SCH ×2 (08:33→20:05)
[2020-03-15] MEDS: OXCARBAZEPINE 150 MG TABLET PO SCH ×3 (08:34→20:06)
[2020-03-15] MEDS: ARIPIPRAZOLE 5 MG TABLET PO SCH (10:34)
[2020-03-15] MEDS: DIVALPROEX SODIUM 250 MG TABLET.DR PO SCH ×2 (10:36→22:50)
[2020-03-15] MEDS: POTASSIUM CHLORIDE 10 MEQ TABLET.ER PO SCH ×2 (10:37→17:21)
[2020-03-15] MEDS: AMOXICILLIN TR/POT CLAVULANATE 875-125 MG TAB PO SCH ×2 (10:38→22:50)
[2020-03-15] MEDS: HALOPERIDOL 5 MG TABLET PO PRN (11:47)
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
[2020-03-15] MEDS: MIRTAZAPINE 15 MG TABLET PO SCH (20:05)
[2020-03-15] MEDS: WARFARIN SODIUM 3 MG TABLET PO SCH (22:51)
[2020-03-16] MEDS: METHYLPREDNISOLONE INJ 125 MG/2 ML SDV IV SCH ×3 (05:19→15:15)
[2020-03-16] MEDS: CLINDAMYCIN HCL 150 MG CAPSULE PO SCH ×3 (05:19→19:07)
[2020-03-16 06:17] LABS: HEMATOCRIT 37.9 % (37.9-51.0); HEMOGLOBIN 12.8 g/dL (13.5-17.0); MEAN CORPUSCULAR HEMOGLOBIN 27.3 pg (27.0-33.4); MEAN CORPUSCULAR HGB CONC 33.9 g/dL (32.0-36.0); MEAN CORPUSCULAR VOLUME 81 fl (80-97); RED CELL DISTRIBUTION WIDTH 15.5 % (11.5-14.0); WHITE BLOOD COUNT 8.7 10^3/uL (4.0-10.5)
[2020-03-16 06:25] LABS: ALKALINE PHOSPHATASE 55 U/L (38-126); ANION GAP 5 (5-19); ASPARTATE AMINO TRANSFERASE 53 U/L (17-59); BILIRUBIN,TOTAL 0.3 mg/dL (0.2-1.3); BLOOD UREA NITROGEN 3 mg/dL (7-20); CALCIUM 8.7 mg/dL (8.4-10.2); CARBON DIOXIDE 31 mmol/L (22-30); CHLORIDE 104 mmol/L (98-107); GLUCOSE 85 mg/dL (75-110); POTASSIUM 3.5 mmol/L (3.6-5.0); TOTAL PROTEIN 5.9 g/dL (6.3-8.2)
[2020-03-16 06:28] LABS: PLATELET COUNT 180 10^3/uL (150-450)
[2020-03-16 06:32] LABS: PROTHROMBIN TIME 25.7 SEC (11.4-15.4)
[2020-03-16 07:04] LABS: ABSOLUTE LYMPHOCYTES# (MANUAL) 3.2 10^3/uL (0.5-4.7); ABSOLUTE MONOCYTES # (MANUAL) 0.4 10^3/uL (0.1-1.4); BASOPHILS % (MANUAL) 0 % (0-2); EOSINOPHILS % (MANUAL) 5 % (0-6); LYMPHOCYTES % (MANUAL) 37 % (13-45); MONOCYTES % (MANUAL) 5 % (3-13); SEGMENTED NEUTROPHILS % (MAN) 53 % (42-78); TOTAL CELLS COUNTED 100
[2020-03-16 07:06] LABS: ANISOCYTOSIS SLIGHT; OVALOCYTES SLIGHT; PLATELET COMMENT ADEQUATE; POIKILOCYTOSIS SLIGHT
[2020-03-16] MEDS: DOCUSATE SODIUM 100 MG CAPSULE PO SCH ×2 (11:34→21:13)
[2020-03-16] MEDS: BENZTROPINE MESYLATE 1 MG TABLET PO SCH ×2 (11:35→21:14)
[2020-03-16] MEDS: POTASSIUM CHLORIDE 10 MEQ TABLET.ER PO SCH ×2 (11:35→19:07)
[2020-03-16] MEDS: PANTOPRAZOLE SODIUM 40 MG TABLET.DR PO SCH (11:35)
[2020-03-16] MEDS: METOPROLOL SUCCINATE 25 MG TAB.SR.24H PO SCH (11:35)
[2020-03-16] MEDS: DIVALPROEX SODIUM 250 MG TABLET.DR PO SCH ×2 (11:37→21:15)
[2020-03-16] MEDS: AMOXICILLIN TR/POT CLAVULANATE 875-125 MG TAB PO SCH ×2 (11:37→21:14)
[2020-03-16] MEDS: ARIPIPRAZOLE 5 MG TABLET PO SCH (11:39)
[2020-03-16] MEDS: OXCARBAZEPINE 150 MG TABLET PO SCH ×3 (11:41→21:15)
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
[2020-03-16] MEDS: MIRTAZAPINE 15 MG TABLET PO SCH (21:15)
[2020-03-16] MEDS: WARFARIN SODIUM 7.5 MG TABLET PO SCH (21:17)
[2020-03-17] MEDS: CLINDAMYCIN HCL 150 MG CAPSULE PO SCH ×5 (00:06→23:14)
[2020-03-17 08:10] LABS: INTERNATIONAL RATION (INR) 2.47; PROTHROMBIN TIME 27.2 SEC (11.4-15.4)
[2020-03-17] MEDS: POTASSIUM CHLORIDE 10 MEQ TABLET.ER PO SCH ×2 (09:00→17:11)
[2020-03-17] MEDS: METOPROLOL SUCCINATE 25 MG TAB.SR.24H PO SCH (09:00)
[2020-03-17] MEDS: DOCUSATE SODIUM 100 MG CAPSULE PO SCH ×2 (09:00→20:23)
[2020-03-17] MEDS: BENZTROPINE MESYLATE 1 MG TABLET PO SCH ×2 (09:00→20:23)
[2020-03-17] MEDS: PANTOPRAZOLE SODIUM 40 MG TABLET.DR PO SCH (09:00)
[2020-03-17] MEDS: DIVALPROEX SODIUM 250 MG TABLET.DR PO SCH ×2 (09:01→21:30)
[2020-03-17] MEDS: OXCARBAZEPINE 150 MG TABLET PO SCH ×3 (09:01→20:23)
[2020-03-17] MEDS: ARIPIPRAZOLE 5 MG TABLET PO SCH (09:02)
[2020-03-17] MEDS: AMOXICILLIN TR/POT CLAVULANATE 875-125 MG TAB PO SCH ×2 (09:02→21:30)
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
[2020-03-17] MEDS: MIRTAZAPINE 15 MG TABLET PO SCH (20:23)
[2020-03-17] MEDS: WARFARIN SODIUM 7.5 MG TABLET PO SCH (21:30)
[2020-03-18] MEDS: CLINDAMYCIN HCL 150 MG CAPSULE PO SCH ×2 (05:29→11:13)
[2020-03-18] MEDS: BENZTROPINE MESYLATE 1 MG TABLET PO SCH (08:44)
[2020-03-18] MEDS: PANTOPRAZOLE SODIUM 40 MG TABLET.DR PO SCH (08:44)
[2020-03-18] MEDS: DOCUSATE SODIUM 100 MG CAPSULE PO SCH (08:44)
[2020-03-18] MEDS: METOPROLOL SUCCINATE 25 MG TAB.SR.24H PO SCH (08:44)
[2020-03-18] MEDS: OXCARBAZEPINE 150 MG TABLET PO SCH ×2 (08:45→15:43)
[2020-03-18] MEDS: ARIPIPRAZOLE 5 MG TABLET PO SCH (11:10)
[2020-03-18] MEDS: POTASSIUM CHLORIDE 10 MEQ TABLET.ER PO SCH (11:11)
[2020-03-18] MEDS: AMOXICILLIN TR/POT CLAVULANATE 875-125 MG TAB PO SCH (11:11)
[2020-03-18] MEDS: DIVALPROEX SODIUM 250 MG TABLET.DR PO SCH (11:11)
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
[2020-03-18 13:25] VITALS: BP 124/57
== END 2020-03-18 16:00 | disposition home health service (06) | DRG 872 ==
LOC: ER 09:22 → EH 13:11 → 4S 14:56
PROVIDERS: ADMIT Internal Medicine; ATTEND Hospitalist
DX: A41.9 Sepsis, unspecified organism (principal); L03.116 Cellulitis of left lower limb; F84.0 Autistic disorder; E87.1 Hypo-osmolality and hyponatremia; F63.81 Intermittent explosive disorder; Z79.01 Long term (current) use of anticoagulants; Z95.2 Presence of prosthetic heart valve; R79.1 Abnormal coagulation profile; R23.8 Other skin changes; Z79.899 Other long term (current) drug therapy; E87.6 Hypokalemia; D72.825 Bandemia; I89.0 Lymphedema, not elsewhere classified; I48.91 Unspecified atrial fibrillation; F79 Unspecified intellectual disabilities; Z98.1 Arthrodesis status; M41.9 Scoliosis, unspecified
CPT/HCPCS: 36415; 71046; 80048; 80053; 80202; 82550; 82803; 82962; 83605; 83735; 85025; 85027; 85610; 85652; 85730; 86140; 87040; 93005; 93010; 93971; 96365; 96366; 96368; 99285; J0295; J0692; J1650; J1885; J2543; J2930; J3370; J3475; J3490; J7030; J7050; J7060